=== PATIENT | male | born 1980 | race Caucasian/White ===

== ENCOUNTER 2018-06-12 12:58 | Outpatient (CLI) | payer OTHER ==
--- NOTE | 2018-06-12 15:24 | RAD ---
CERVICAL SPINE FOUR VIEWS: HISTORY: Vertebral body heights and alignment are maintained. The cervicothoracic junction is intact. There is leftward convex curvature of the lower cervical and upper thoracic spine. Osteophytosis is most p ronounced at the C4-C5 level and best seen on the frontal view. No acute fracture, dislocation, or a ggressive osseous erosions. IMPRESSION: Osseous degenerative changes. No acute osseous abnormalities are demonstrated. POS: KRYS
== END 2018-06-12 12:59 | disposition home or self-care (01) ==
LOC: BICRAD 12:58
PROVIDERS: ATTEND Student in an Organized Health Care Education/Training Program
DX: M43.22 Fusion of spine, cervical region (principal); M47.812 Spondylosis without myelopathy or radiculopathy, cervical region
CPT/HCPCS: 72040

== ENCOUNTER 2018-11-18 19:53 | Inpatient (IN) | payer OTHER, SELFPAY ==
[2018-11-18] MEDS ORDERED: cefOXitin 2 GM VIAL ONE (20:38)
[2018-11-18] MEDS ORDERED: Acetaminophen 500 MG TAB ONE (20:38)
[2018-11-18] MEDS ORDERED: cefTRIAXone\\ROCEPHIN 2 GM VIAL ONE (20:40)
[2018-11-18] MEDS ORDERED: Multivitamins, Adult 10 ML, Thiamine HCl 100 MG, Folic Acid 1 MG in Dextrose 5 %-0.45 %... IV SCH (21:00)
[2018-11-18 21:01] LABS: ALT (SGPT) 42 U/L (8-55); AST (SGOT) 84 U/L (5-34); Albumin 2.8 g/dL (3.5-5.0); Alcohol Less than 10 mg/dL (Less than 10); Alkaline Phosphatase 67 U/L (40-150); Anion Gap 16 mmol/L (10-20); BUN (Urea Nitrogen) 10 mg/dL (8.9-20.6); CK (CPK) 376 U/L (30-200); Calc. Creatinine Clearance 0 mL/min (70-130); Calcium 8.3 mg/dL (7.8-10.44); Carbon Dioxide 20 mmol/L (22-29); Chloride 82 mmol/L (98-107); Estimated GFR-MDRD Greater than 90; Glucose 124 mg/dL (70-105); Potassium 4.1 mmol/L (3.5-5.1); Protein, Total 6.8 g/dL (6.0-8.3)
[2018-11-18 21:04] LABS: Band 11 % (5-11); Hemoglobin 12.8 g/dL (14.0-18.0); Lymphocytes 2 % (21-51); MDiff Complete? YES; Mean Corpuscular Hemoglobin 30.5 pg (27.0-31.0); Mean Corpuscular Volume 92.4 fL (78.0-98.0); Mean Platelet Volume 7.5 fL (7.4-10.4); Monocytes 8 % (0-10); Neutrophil 79 % (42-75); Platelet Count 326 thou/uL (130-400); RBC Distribution Width 11.4 % (11.5-14.5); Red Blood Cell (RBC) Count 4.19 mill/uL (4.70-6.10); White Blood Cell (WBC) Count 25.1 thou/uL (4.8-10.8)
[2018-11-18 21:05] LABS: Sodium 114 mmol/L (136-145)
--- NOTE | 2018-11-18 21:27 | RAD ---
FRONTAL RADIOGRAPH CHEST: 11/18/2018 HISTORY: Fever. COMPARISON: 09/28/2009 FINDINGS: There is focal opacity in the medial left lung base, which may represent partial consolidation/collap se of the left lower lobe, hiatal hernia, or tortuous descending thoracic aorta. There is consolidat hayley change involving the right upper lobe region as well. IMPRESSION: Focal opacity in the right upper lobe, in the medial left lung base. Findings are suspicious for mul tifocal infectious pneumonitis/aspiration. Recommend short-term follow-up imaging of the chest follo wing treatment to document resolution. POS: OFF
--- NOTE | 2018-11-18 21:29 | PDOC.FPRHP ---
- History of Present Illness Chief Complaint: weakness, fall, alcoholic History of Present Illness: Mr. Mi is a 38yo chronic alcoholic male who presents to the ED after a fall today. 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 She called her other son and they were able to lift him and take him to the bathroom but she did not feel that he was well. He has been eating less over the past several weeks and she has noted an increase in his shortness of breath and coughing in the last several days. She has also noticed tinges of blood in his mucus that he coughs / bile that he vomits - she is unsure of the origin. She also states that he has had non-bloody , watery diarrhea recently. He has also been sleeping more than usual in the last several days. She states that he usually drinks 6-8 of the tall beers (32oz) per day. However in the last 2 days he has not drank more than 1 or 2 per day. He has a longstanding history of alcoholism. He was admitted back in 2009 for hyponatremia and seizures. It was documented that central pontine myelinolysis may have been a cause of his symptoms at that time, but per the discharge summary of that visit, that diagnosis was not formally made. 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 He has a history of sobriety following the hospitalization in 2009 for approximately 6 months and again after an attempt at rehabilitation in 2013 for 6 months. ED Course: 2L NS, Banana bag, Tylenol 1000mg, 2g IV Rocephin, 500mg Azithromycin, DuoNeb - Allergies/Adverse Reactions Allergies Allergy/AdvReac Type Severity Reaction Status Date / Time No Known Drug Allergies Allergy Unverified 11/18/18 20:47 Penicillins Allergy Nausea Verified 11/18/18 23:30 - Home Medications Medication Instructions Recorded Confirmed Type Omeprazole 10 mg PO DAILY 11/18/18 11/18/18 History - History PMHx: GERD Alcohol abuse Tobacco abuse Depression PSHx: Right wrist Right foot FHx: father- , [place]. maternal grandfather-diabetes maternal uncle-diabetes fathers uncle-diabetes maternal grandmother-colon cancer Social: 6-8 32oz beers/day/qday, 6-7 quarts/day, last 1-2 days: 1-2 quarts 1 ppd day smoker Denies illicit drug use - Review of Systems General: reports: weight/appetite/sleep changes, fatigue. denies: fever/chills Eyes: denies: eye pain, vision changes ENT: denies: nasal congestion, rhinorrhea Respiratory: reports: cough, shortness of breath Cardiovascular: reports: edema (left lower extremity). denies: chest pain, palpitation Gastrointestinal: reports: nausea, vomiting, diarrhea (watery). denies: constipation, abdominal pain, GI bleeding Genitourinary: denies: dysuria, polyuria Skin: reports: lesions (abrasion on left knee). denies: rashes Musculoskeletal: denies: pain, tenderness Neurological: reports: seizure (history of, in September) Psychological: reports: depression - Vital signs BP: 117/77 HR: 141 RR: 18 Tmax: 102.9 rectally Pox: 93% on RA Wt: 90kg - Physical Exam Constitutional: NAD -Constitutional: somnolent, but arousable. HEENT: normocephalic and atraumatic, PERRLA, EOMI, conjunctiva clear, grossly normal vision, grossly normal hearing, MMM Neck: supple, FROM Chest: no-tender to palpation Heart: RRR, normal S1/S2, no murmurs/rubs/gallops, pulses present, other (2+ pitting edema of the left lower extremity) Lungs: other -Lungs: Coarse rhonchi heard throughout both lungs, more prominent on the right Abdomen: soft, non-tender, bowel sounds present, other (protuberant) Musculoskeletal: normal structure, normal tone Neurological: no focal deficit, normal sensation Skin: no rash/lesions, good turgor, capillary refill <2 seconds Heme/Lymphatic: no unusual bruising or bleeding, no purpura, no petechia Psychiatric: other (cooperative. somnolent.) FMR H&P: Results - Labs Result Diagrams: 11/18/18 20:32 11/18/18 20:32 Lab results: WBC 25.1 thou/uL (4.8-10.8) H 11/18/18 20:32 Hgb 12.8 g/dL (14.0-18.0) L 11/18/18 20:32 Hct 38.7 % (42.0-52.0) L 11/18/18 20:32 MCV 92.4 fL (78.0-98.0) 11/18/18 20:32 Plt Count 326 thou/uL (130-400) 11/18/18 20:32 Band Neuts % (Manual) 11 % (5-11) 11/18/18 20:32 Sodium 114 mmol/L (136-145) L* 11/18/18 20:32 Potassium 4.1 mmol/L (3.5-5.1) 11/18/18 20:32 Chloride 82 mmol/L (98-107) L 11/18/18 20:32 Carbon Dioxide 20 mmol/L (22-29) L 11/18/18 20:32 BUN 10 mg/dL (8.9-20.6) 11/18/18 20:32 Creatinine 0.81 mg/dL (0.7-1.3) 11/18/18 20:32 Glucose 124 mg/dL (70-105) H 11/18/18 20:32 Lactic Acid 1.2 mmol/L (0.5-2.2) 11/18/18 20:32 Calcium 8.3 mg/dL (7.8-10.44) 11/18/18 20:32 Total Bilirubin 1.0 mg/dL (0.2-1.2) 11/18/18 20:32 AST 84 U/L (5-34) H 11/18/18 20:32 ALT 42 U/L (8-55) 11/18/18 20:32 Alkaline Phosphatase 67 U/L (40-150) 11/18/18 20:32 Creatine Kinase 376 U/L (30-200) H 11/18/18 20:32 B-Natriuretic Peptide 11.3 pg/mL (0-100) 11/18/18 20:32 Serum Total Protein 6.8 g/dL (6.0-8.3) 11/18/18 20:32 Albumin 2.8 g/dL (3.5-5.0) L 11/18/18 20:32 - EKG Interpretation EKG: Sinus Tachycardia - Radiology Interpretation Chest x-ray Status: report reviewed by me (Focal opacity in the right upper lobe and left medial lung base. Suspicious for multifocal infectious pneumonitis or aspiration.) FMR H&P: A/P - Plan 1. Sepsis 2/2 pneumonia, CAP vs aspiration * Rocephin and Azithromycin for CAP coverage * Metronidazole for anaerobe / aspiration coverage. * Blood and urine cultures pending. * Procal 1.47, Lactic acid 1.2, WBC 25, Fever of 102.9 rectally in ED. * AM CBC and BMP ordered 2. Hyponatremia, likely chronic. Seems hypovolemic 2/2 diarrhea and poor po intake. * Na 114. * Goal is gentle correction of approximately 8meq in 24 hours. * History of prior episode of hyponatremia in 2009. Will gently correct with NS and monitor wit q6hr BMP. * Urine osmolality, urine sodium, and plasma osmolality ordered. 3. Chronic alcohol abuse * Last drink 11/18/18. * DT prevention with ASE protocol. * Ativan 1mg prn for anxiety/agitation. * Continue daily checks of Mg and Phos. Mg low at 1.5, will replace tonight. * Will replace vitamins with ASE protocol. 4. S/p fall, concern for rhabdomyolysis * CK trending up from 376 -> 673. * Will continue to assess with repeat CK and gentle fluid administration. 5. Nicotine dependence * 21 patch q day. Disposition/LOS: Dispo: inpatient, IMCU Code: Full VTE: SCDs. FMR H&P: Upper Level - Pertinent history 38 yo gentleman presents with a one week hx of decreased po intake and alcohol abuse. Hx of admission in 2009 for hyponatremia and ?CPM as he had a seizure, however he was also in alcohol withdrawal during that time. - Pertinent findings T: 102.5 HR: 111 BP: 122/73 RR: 32 PE: a&ox3 coarse breath sounds tachycardic no edema left calf swelling wbc 25,000 Lactic acid 1.2 Na: 114, chronic CXR: RUL infiltrate - Plan Date/Time: 11/18/182121 38 yo gentleman with one week hx of decreased po intake and longstanding hx of alcohol abuse, admitted for sepsis 2/2 CAP vs aspiration pneumonia and hyponatremia. #Sepsis 2/2 CAP vs Aspiration Pneumonia -Rocephin, azithro, and flagyl -blood and urine cx -procal -fluids -am cbc, bmp #CAP vs Aspiration pneumonia -see above #Hyponatremia- -hypovolemic, chronic vs isovolemic -will correct slowly, ~8mEq in 24 hours -urine osm, na, serum osm -will give gentle fluids with NS and recheck sodium q6h -suspect 2/2 GI losses vs beer potomania #alcohol abuse -last drink today ~32-50 ounces beer today -ase protocol -prn valium and ativan -banana bag given in the ER #nicotine abuse- -counseled on cessation -nicotine patch DVT prophylaxis: SCDs CODE: hetal Brunson MD, PGY-3
[2018-11-18] MEDS ORDERED: Azithromycin 500 MG VIAL ONE (21:33)
[2018-11-18] MEDS ORDERED: Ondansetron ODT 4 MG TAB PO PRN (22:18)
[2018-11-18] MEDS ORDERED: Acetaminophen 325 MG TAB PO PRN (22:18)
[2018-11-18 22:43] LABS: Bacteria/HPF None Seen HPF (None Seen); Bilirubin Negative (Negative); Blood, Urine 1+ (Negative); Clarity Clear (Clear); Glucose, Urine (Dipstick) Normal (Negative); Leukocyte Negative Leu/uL (Negative); Nitrite Negative (Negative); Protein, Urine (Dipstick) 50 mg/dL (Neg-Trace); RBC/HPF 0-3 HPF (0-3); Squamous Epithelial None Seen HPF (0-3); Urobilinogen Normal mg/dL (Less than 2)
[2018-11-18] MEDS ORDERED: Loperamide HCl 2 MG CAP PO SCH (22:45)
[2018-11-18 23:24] LABS: CK (CPK) 673 U/L (30-200); Magnesium 1.5 mg/dL (1.6-2.6)
[2018-11-18 23:34] VITALS: BMI 23.0
[2018-11-18 23:56] LABS: Folate (Folic Acid) 16.2 ng/mL (7.0-31.4)
[2018-11-19] MEDS ORDERED: Diazepam 5 MG TAB PO PRN (00:32)
[2018-11-19] MEDS ORDERED: Diazepam 5 MG TAB PO SCH (00:45)
[2018-11-19 02:22] LABS: INR-International Normal Ratio 1.2; Prothrombin Time 15.1 SEC (12.0-14.7)
[2018-11-19 02:23] LABS: PTT 30.3 SEC (22.9-36.1)
[2018-11-19 02:35] LABS: Anion Gap 11 mmol/L (10-20); BUN (Urea Nitrogen) 8 mg/dL (8.9-20.6); Calc. Creatinine Clearance 176 mL/min (70-130); Calcium 8.2 mg/dL (7.8-10.44); Carbon Dioxide 19 mmol/L (22-29); Chloride 94 mmol/L (98-107); Estimated GFR-MDRD Greater than 90; Glucose 127 mg/dL (70-105); Potassium 3.4 mmol/L (3.5-5.1); Sodium 121 mmol/L (136-145)
[2018-11-19 02:47] LABS: Band 9 % (5-11); Hemoglobin 11.5 g/dL (14.0-18.0); Lymphocytes 9 % (21-51); MDiff Complete? YES; Mean Corpuscular HGB CONC 34.8 g/dL (32.0-36.0); Mean Corpuscular Hemoglobin 32.7 pg (27.0-31.0); Mean Corpuscular Volume 94.2 fL (78.0-98.0); Mean Platelet Volume 7.4 fL (7.4-10.4); Monocytes 8 % (0-10); Neutrophil 74 % (42-75); Platelet Count 271 thou/uL (130-400); RBC Distribution Width 11.4 % (11.5-14.5); Red Blood Cell (RBC) Count 3.52 mill/uL (4.70-6.10); White Blood Cell (WBC) Count 20.7 thou/uL (4.8-10.8)
[2018-11-19 04:28] LABS: Bilirubin Negative (Negative); Blood, Urine Trace (Negative); Clarity Clear (Clear); Glucose, Urine (Dipstick) Normal (Negative); Leukocyte Negative Leu/uL (Negative); Nitrite Negative (Negative); Protein, Urine (Dipstick) Negative (Neg-Trace); RBC/HPF 0-3 HPF (0-3); Squamous Epithelial None Seen HPF (0-3); Urobilinogen Normal mg/dL (Less than 2); WBC/HPF 0-3 HPF (0-3)
[2018-11-19 04:31] LABS: Bacteria/HPF 1+ HPF (None Seen)
[2018-11-19] MEDS ORDERED: metroNIDAZOLE 500 MG in Premix Bag 1 BAG IVPB SCH (06:00)
--- NOTE | 2018-11-19 06:54 | ULT ---
ULTRASOUND WITH DOPPLER DUPLEX VENOUS LOWER EXTREMITY LEFT: CPT: 98606 ICD-10-PCS: B54D INDICATOIN: Pain and edema. TECHNIQUE: Color flow Doppler, spectral waveform analysis of pulsed Doppler, and snow-scale imaging with peyton og and augmentation, were used to evaluate the left common femoral, femoral, popliteal, posterior t ibial, and superficial femoral, veins; and the proximal portions of the profunda femoral and greater saphenous, veins. FINDINGS: There is appropriate compressibility and flow within the imaged deep vein system of the left lower ex tremity. There is mild soft tissue edema. IMPRESSION: 1. No deep venous thrombosis of left lower extremity. 2. Mild soft tissue edema. Correlate clinically. POS: CIARA
--- NOTE | 2018-11-19 06:55 | PDOC.FM ---
- Subjective Subjective: Pt doing well this morning, no concerns or complaints. Denies fever/chills, SOB , n/v/d/c, CP. He does endorse a slight cough, but non productive. States he remembers his fall and events of yesterday leading up to admission, is A/O x2, states he is "[place]where over the [place]" when asked his location. States he used to drink 8 32oz beers a day, but recently has cut down to 1-2 per day over the past few days. - Objective MAR Reviewed: Yes Vital Signs & Weight: Vital Signs (12 hours) Temp Pulse Ox 11/19/18 03:00 98.6 F 11/19/18 00:00 99 11/18/18 23:54 98.0 F Weight Weight 81.42 kg Most Recent Monitor Data Heart Rate from ECG 95 NIBP 138/73 NIBP BP-Mean 94 Respiration from ECG 40 SpO2 97 I&O: 11/17/18 11/18/18 11/19/18 06:59 06:59 06:59 Output Total 250 Balance -250 Result Diagrams: 11/19/18 02:09 11/19/18 20:02 Phys Exam - Physical Examination Constitutional: NAD HEENT: moist MMs Neck: supple course rhonchi bilaterall, slight bl wheeze, decreased air movement Cardiovascular: RRR, no significant murmur, no rub Gastrointestinal: soft, non-tender, no distention, positive bowel sounds Musculoskeletal: no edema 5/5 throughout Neurological: non-focal CN II-XII intact. Slight dysdiadokinesis due to intention tremor Deviation from normal: A/O x2, unclear baseline mentation, mystical thinking at times. Dx/Plan (1) Sepsis due to pneumonia Code(s): J18.9 - PNEUMONIA, UNSPECIFIED ORGANISM; A41.9 - SEPSIS, UNSPECIFIED ORGANISM Status: Acute (2) Hyponatremia Code(s): E87.1 - HYPO-OSMOLALITY AND HYPONATREMIA Status: Acute (3) Alcohol abuse Code(s): F10.10 - ALCOHOL ABUSE, UNCOMPLICATED Status: Chronic - Plan Plan: 38 yo gentleman with one week hx of decreased po intake and longstanding hx of alcohol abuse, admitted for sepsis 2/2 CAP vs aspiration pneumonia and hyponatremia. 1. Sepsis 2/2, 2/2 CAP vs Aspiration Pneumonia - Rocephin, flagy, and azithro at admit, Will change to Zoysn to cover both CAP and aspiration PNA - Procal 1.47, LA 1.2, WBC 25 ->20. Will check for strep and legionella - Initial fever of 102.9, VSS since and afebrile - Continue to monitor, repeat CXR in AM. 2. Hyponatremia - Na 114-> 121 ->123 - Hypovolemic, chronic vs isovolemic - suspect GI losses vs beer potomania. Monitor mentation and neurologic status. - Goal is to correct ~8meq in 24 hours, has already go up 7meq in first 4 hours. s/p 4L bolus in ED. Will hold IVF. - H/o hyponatremia in 2009. Monitor with q6h BMP - Urine Osm 91, Serum Osm 254, Urine Na < 20 3. Chronic EtOH abuse - last drink on day of admission - ASE protol. Ativan prn, monitor. - Banana bag given in the ER. Continue thiamine replacement. - Monitoring lytes and replacing. 4. S/p fall, concern for rhabdomyolysis - CK trending up from 376 -> 673. - Will continue to assess with repeat CK. Currently holding fluids 2/2 Na increase. Will monitor. 5. nicotine abuse - counseled on cessation - nicotine patch DVT prophylaxis: SCDs Diet: Full liquid to advance as tolerated CODE: full Dispo: Pending clinical course and correction of hyponatremia. Currently holding IVF. If clinical course continues, will transfer to medical floor. Monitor for acute s/s of withdrawal and tx appropriately. Anticipate hospitalization 3-4 days Addendum - Attending - Attending Attestation Date/Time: 11/19/182045 I personally evaluated the patient and discussed the management with Dr. Norma Heredia. I agree with the History, Examination, Assessment and Plan documented above with any addition or exceptions noted below. Sepsis secondary to aspiration pna- change abx to zosyn to better cover aspiratoin Hyponatremia- chronic from beer potomania- s/p 4 L IVF in ER. Corrected 9 meq so will stop IVF for now and trend q 6. Alcohol abuse- ASE protocol and consider beer with dinner daily Sinus tachycardia- monitor closely. Asymptomatic.
[2018-11-19 08:21] LABS: Anion Gap 11 mmol/L (10-20); BUN (Urea Nitrogen) 7 mg/dL (8.9-20.6); Calc. Creatinine Clearance 190 mL/min (70-130); Carbon Dioxide 22 mmol/L (22-29); Chloride 94 mmol/L (98-107); Estimated GFR-MDRD Greater than 90; Glucose 85 mg/dL (70-105); Potassium 3.5 mmol/L (3.5-5.1); Sodium 123 mmol/L (136-145)
[2018-11-19] MEDS ORDERED: Enoxaparin Sodium 40 MG/0.4 ML SYRINGE SC SCH (09:00)
[2018-11-19] MEDS: Loperamide HCl 2 MG CAP PO SCH (09:58)
[2018-11-19] MEDS: Folic Acid 1 MG TAB PO SCH (09:58)
[2018-11-19] MEDS: Multivitamin W/ Minerals 1 TAB PO SCH (09:58)
[2018-11-19] MEDS: Nicotine 21 MG PATCH TD SCH (09:58)
[2018-11-19] MEDS: Potassium Chloride 20 MEQ TAB PO SCH (09:58)
[2018-11-19 14:28] LABS: Anion Gap 9 mmol/L (10-20); BUN (Urea Nitrogen) 6 mg/dL (8.9-20.6); Calc. Creatinine Clearance 190 mL/min (70-130); Calcium 8.3 mg/dL (7.8-10.44); Carbon Dioxide 22 mmol/L (22-29); Chloride 94 mmol/L (98-107); Estimated GFR-MDRD Greater than 90; Glucose 88 mg/dL (70-105); Potassium 3.6 mmol/L (3.5-5.1); Sodium 121 mmol/L (136-145)
[2018-11-19] MEDS: Piperacillin/Tazobactam 4.5 GM in Sodium Chloride 0.9% 100 ML IVPB SCH ×2 (17:50→23:08)
[2018-11-19 20:05] LABS: Legionella Urinary Ag Negative (Negative); Strep pneumo Urine Ag NEGATIVE (NEGATIVE)
[2018-11-19 20:26] LABS: Anion Gap 15 mmol/L (10-20); BUN (Urea Nitrogen) 5 mg/dL (8.9-20.6); Calc. Creatinine Clearance 181 mL/min (70-130); Calcium 8.4 mg/dL (7.8-10.44); Carbon Dioxide 20 mmol/L (22-29); Chloride 92 mmol/L (98-107); Estimated GFR-MDRD Greater than 90; Glucose 79 mg/dL (70-105); Potassium 3.6 mmol/L (3.5-5.1); Sodium 123 mmol/L (136-145)
[2018-11-19] MEDS ORDERED: cefTRIAXone\\ROCEPHIN 2 GM in Sodium Chloride 0.9% 100 ML IVPB SCH (21:00)
[2018-11-19] MEDS ORDERED: Azithromycin 500 MG in Sodium Chloride 0.9% 250 ML 250 ML IVPB SCH (22:00)
[2018-11-20] MEDS: Lorazepam 2 MG/ML VIAL SLOW IVP PRN ×2 (00:33→08:33)
[2018-11-20 02:41] LABS: Anion Gap 14 mmol/L (10-20); BUN (Urea Nitrogen) 5 mg/dL (8.9-20.6); Calc. Creatinine Clearance 194 mL/min (70-130); Calcium 8.5 mg/dL (7.8-10.44); Carbon Dioxide 20 mmol/L (22-29); Chloride 94 mmol/L (98-107); Estimated GFR-MDRD Greater than 90; Glucose 84 mg/dL (70-105); Potassium 3.3 mmol/L (3.5-5.1); Sodium 125 mmol/L (136-145)
[2018-11-20] MEDS ORDERED: Diazepam 5 MG TAB PO PRN (04:00)
[2018-11-20] MEDS: Piperacillin/Tazobactam 4.5 GM in Sodium Chloride 0.9% 100 ML IVPB SCH ×3 (06:28→18:19)
--- NOTE | 2018-11-20 06:40 | PDOC.FM ---
- Subjective Subjective: Doing well this morning, no concerns or complaints. He stays he had "weird thinking" overnight, but no acute events. He denies any CP, SOB, fever/chills, n /v/d/c. He is feeling at his baseline this morning. No s/s of withdrawal. - Objective MAR Reviewed: Yes Vital Signs & Weight: Vital Signs (12 hours) Temp Pulse Resp BP BP Pulse Ox 11/20/18 04:00 98.2 F 105 H 20 138/90 94 L 11/20/18 00:18 100.4 F H 113 H 22 H 143/87 H 92 L 11/19/18 21:25 116 H 92 L 11/19/18 20:00 142/83 H 11/19/18 19:16 99.5 F 124 H 20 142/83 H 88 L Weight Admit Weight 81.42 kg Weight 81.42 kg Most Recent Monitor Data Heart Rate from ECG 116 NIBP 125/72 NIBP BP-Mean 89 Respiration from ECG 29 SpO2 96 I&O: 11/18/18 11/19/18 11/20/18 06:59 06:59 06:59 Intake Total 900 2700 Output Total 1100 1300 Balance -200 1400 Result Diagrams: 11/20/18 08:52 11/20/18 08:17 Phys Exam - Physical Examination Constitutional: NAD (resting comfortably, drinking multiple glasses of water while in the room) Respiratory: no wheezing, no rales, no rhonchi, clear to auscultation bilateral (much improve aeration from previous exam) Cardiovascular: RRR, no significant murmur, no rub Gastrointestinal: soft, non-tender, no distention, positive bowel sounds Musculoskeletal: no edema Psychiatric: A&O x 3 Dx/Plan (1) Sepsis due to pneumonia Code(s): J18.9 - PNEUMONIA, UNSPECIFIED ORGANISM; A41.9 - SEPSIS, UNSPECIFIED ORGANISM Status: Acute (2) Hyponatremia Code(s): E87.1 - HYPO-OSMOLALITY AND HYPONATREMIA Status: Acute (3) Alcohol abuse Code(s): F10.10 - ALCOHOL ABUSE, UNCOMPLICATED Status: Chronic - Plan Plan: 38 yo CM with one week hx of decreased po intake and longstanding hx of alcohol abuse, admitted for sepsis 2/2 CAP vs aspiration pneumonia and hyponatremia. 1. Sepsis 2/2 CAP vs Aspiration Pneumonia - Zoysn Day 2 to cover both CAP and aspiration PNA - Procal 1.47, LA 1.2, WBC 25 ->20. Strep and legionella negative - Initial fever of 102.9, Tachy and fever of 100.4 overnight. Asymptomatic. - Repeat CXR this AM. Monitor. 2. Hyponatremia - Na 114-> 121 ->123 -> 125 - Hypovolemic, chronic vs isovolemic - suspect beer potomania. Monitor mentation and neurologic status. A/O x3 this morning. - Goal is to correct ~8meq in 24 hours, s/p 4L bolus in ED. Recheck BMP this AM. - H/o hyponatremia in 2009. Monitor with q6h BMP, will step out to q8h - Urine Osm 91, Serum Osm 254, Urine Na < 20 3. Chronic EtOH abuse - last drink on day of admission - ASE protol. Ativan prn, no acute s/s of withdrawal - Banana bag given in the ER. Continue thiamine replacement. - Monitoring lytes and replacing. 4. S/p fall - CK trending up from 376 -> 673 -> 481. No KATIANA or significant rhabdo 5. Nicotine abuse - counseled on cessation, nicotine patch DVT prophylaxis: SCDs Diet: Regular CODE: full Dispo: Pending correction of Na and tx of PNA. Likely hospitalization 2-3 days. Addendum - Attending - Attending Attestation Date/Time: 11/20/18 2085 I personally evaluated the patient and discussed the management with Dr. Norma Heredia. I agree with the History, Examination, Assessment and Plan documented above with any addition or exceptions noted below. Sepsis from significant aspiration pneumonia- CT scan chest done showing significant infiltrate. Patient on Zosyn. (has a remote history of nausea with PCN but no true allergy. Has tolerated zosyn). Will add vancomycin as well. Appreciate Pulmonology input. Tachycardia- probably secondary to sepsis and alcohol withdrawl. Will monitor Alcohol abuse- will start on librium taper today hyponatremia from beer potomania- trend. hypomg and hypok- replace.
[2018-11-20 09:05] LABS: Anion Gap 16 mmol/L (10-20); BUN (Urea Nitrogen) 6 mg/dL (8.9-20.6); Calc. Creatinine Clearance 194 mL/min (70-130); Calcium 8.7 mg/dL (7.8-10.44); Carbon Dioxide 22 mmol/L (22-29); Chloride 90 mmol/L (98-107); Estimated GFR-MDRD Greater than 90; Glucose 69 mg/dL (70-105); Potassium 3.4 mmol/L (3.5-5.1); Sodium 125 mmol/L (136-145)
--- NOTE | 2018-11-20 09:18 | RAD ---
PORTABLE CHEST: Date: 11/20/18 PROVIDED CLINICAL HISTORY: Pneumonia. FINDINGS: Comparison with 11/18/18. Cardiac and mediastinal silhouette is unchanged in appearance. Retrocardiac density, presumed hiatal hernia appears similar to prior. Interval increase in density of right upper lung zone consolidation. Left lung remains clear. No pleural fluid or pneumothorax apparent. Suggestion of cavitation within the right upper lung zone parenchymal consolidation. IMPRESSION: Interval increase in density of right upper lung zone consolidation with superimposed cavitation susp ected. Consider CT as indicated. POS: TPC
[2018-11-20 09:22] LABS: Mean Corpuscular HGB CONC 33.1 g/dL (32.0-36.0); Mean Corpuscular Hemoglobin 31.8 pg (27.0-31.0); Mean Platelet Volume 7.9 fL (7.4-10.4); Platelet Count 295 thou/uL (130-400); RBC Distribution Width 11.4 % (11.5-14.5); Red Blood Cell (RBC) Count 3.77 mill/uL (4.70-6.10); White Blood Cell (WBC) Count 19.1 thou/uL (4.8-10.8)
[2018-11-20 09:24] LABS: Band 12 % (5-11); Lymphocytes 5 % (21-51); MDiff Complete? YES; Metamyelocyte 1 % (0-0); Monocytes 5 % (0-10); Neutrophil 77 % (42-75); Platelet Morphology Comment Appears Adequate; Vacuoles SLIGHT
[2018-11-20] MEDS ORDERED: Potassium Chloride 20 MEQ TAB PO SCH ×2 (09:30→18:15)
[2018-11-20] MEDS: Folic Acid 1 MG TAB PO SCH (10:14)
[2018-11-20] MEDS: Thiamine 100 MG TAB PO SCH (10:14)
[2018-11-20] MEDS: Magnesium Oxide 400 MG TAB PO SCH (10:14)
[2018-11-20] MEDS: Multivitamin W/ Minerals 1 TAB PO SCH (10:15)
[2018-11-20] MEDS: Loperamide HCl 2 MG CAP PO SCH (10:15)
[2018-11-20] MEDS: Nicotine 21 MG PATCH TD SCH (10:16)
[2018-11-20] MEDS: Potassium Chloride 20 MEQ TAB PO SCH (13:30)
[2018-11-20] MEDS: Vancomycin HCl 1.25 GM in Sodium Chloride 0.9% 250 ML 250 ML IVPB SCH (15:05)
[2018-11-20] MEDS ORDERED: ISOVUE-370 76%-LOCM 1 ML ONE (15:44)
[2018-11-20 16:39] LABS: Anion Gap 13 mmol/L (10-20); BUN (Urea Nitrogen) 6 mg/dL (8.9-20.6); Calc. Creatinine Clearance 190 mL/min (70-130); Calcium 8.2 mg/dL (7.8-10.44); Carbon Dioxide 21 mmol/L (22-29); Chloride 93 mmol/L (98-107); Estimated GFR-MDRD Greater than 90; Glucose 127 mg/dL (70-105); Potassium 3.3 mmol/L (3.5-5.1); Sodium 124 mmol/L (136-145)
--- NOTE | 2018-11-20 17:00 | CT ---
CT CHEST WITH CONTRAST: HISTORY: Pneumonia with possible cavitary lesion seen on chest x-ray. COMPARISON: Chest x-ray from 11/20/2018. TECHNIQUE: Multiple contiguous axial images were obtained in a CT of the chest with contrast. Coronal reformats were performed. FINDINGS: There is an area of consolidation at the posterior aspect of the right upper lobe. There is central necrosis within this area of consolidation. There are enlarged bronchi extending into this area, and there is soft tissue density surrounding the bronchus, to the right upper lobe. The patient has an azygous lobe, which also demonstrates a small amount of consolidation. There is also subtle air spac e opacity scattered throughout the right lower lobe. No infiltrates are seen in the left lung. Ther e is a small right pleural effusion. No left pleural effusion is seen. The heart is normal in size. There is a large hiatal hernia. There appear to be enlarged right jhon r lymph nodes. The visualized subdiaphragmatic structures are unremarkable. The patient has a remote left rib fracture, which appears to be healing. The chest wall soft tissues are unremarkable. IMPRESSION: 1. Right-sided pneumonia with cavitation of the right upper lobe, as above. 2. There is soft tissue density in the right hilar region, which is most likely an infectious cause. A malignant cause cannot be entirely excluded. Recommend following to resolution with repeat imagi ng to exclude malignancy in this location. 2. Small right pleural effusion. POS: DESTINY
--- NOTE | 2018-11-20 21:31 | CON ---
DATE OF CONSULTATION: 11/20/2018 CONSULTING PHYSICIAN: [facility]. REASON FOR CONSULTATION: Severe pneumonia. HISTORY OF PRESENT ILLNESS: The patient is a poor historian. He defers to his mother for most of the medical history, even her history is not very revealing. From what I can tell, he has been feeling ill for a number of days. He came into the hospital on Friday. He was started on typical treatment for outpatient pneumonia. He has developed some alcohol withdrawal symptoms because of continued symptoms. The [facility] had a CT of the chest performed, which showed fairly substantial right middle lobe, right upper lobe pneumonia. The patient drinks about 11 quarts of beer per day. He says he does drink to the point where he passes out. He has never had pneumonia in the past. He has no previous history of tuberculosis exposure. He has spent total 1 day in detention in his life and that is for DWI. PAST MEDICAL HISTORY: 1. Alcohol abuse/alcoholism. 2. Gastroesophageal reflux. 3. Depression. PAST SURGICAL HISTORY: Right wrist surgery and right foot surgery. FAMILY MEDICAL HISTORY: Remarkable for heart disease, diabetes, and colon cancer. SOCIAL HISTORY: Alcohol history as outlined above. He is 1 pack per day smoker. He is currently unemployed. REVIEW OF SYSTEMS: He has had some intermittent fever. Denies any weight loss or night sweats. No nausea, vomiting, chest pain, hematemesis, melena, hematochezia, hematuria, or dysuria. No hemoptysis. PHYSICAL EXAMINATION: VITAL SIGNS: Temperature is 99.8, his T-max since admission has been 100.4, pulse is 140, blood pressure is 140/81, O2 saturation is 94% on room air. GENERAL: He is quite disheveled, but in no respiratory distress. HEENT: Remarkable for acne. NECK: No adenopathy or JVD. LUNGS: He has diffuse crackles on the right side, best heard posteriorly in the upper regions. CARDIAC: S1, S2. Slightly tachycardic. ABDOMEN: Soft, nontender to palpation. EXTREMITIES: No clubbing, cyanosis, or edema. NEUROLOGIC: He has a resting tremor. LABORATORY DATA: White blood cell count 19.1, hematocrit 36.2, and platelet count 295. INR 1.2. Sodium 125, potassium 3.4, chloride 90, CO2 of 22, BUN 6, creatinine 0.7, glucose 69, AST 84, ALT 42. CPK 376. His urinary Legionella antigen and Streptococcal antigens were negative. Cultures show no growth to date. CT and chest x-ray were reviewed. He has a necrotic infiltrate in the right upper lobe. ASSESSMENT: 1. Necrotizing pneumonia, likely aspiration, given the patient's history of alcoholism. 2. Alcoholism. 3. Tobacco abuse. PLAN: 1. The patient needs broad-spectrum IV antibiotic coverage, especially for gram-negative such as Klebsiella. He has been placed on Zosyn and vancomycin, that should be broaden of coverage. 2. His alcohol withdrawal symptoms need to be monitored closely and treated aggressively. This may entail moving him to intermediate care if his situation worsens. 3. Total duration of antibiotic therapy needs to be 7 to 10 days. I would not let him go home until he shows improvement with his alcohol withdrawal symptoms. Job ID: [id number]
[2018-11-20] MEDS: Lactated Ringer's 1,000 ML IV SCH (21:57)
[2018-11-21] MEDS: Piperacillin/Tazobactam 4.5 GM in Sodium Chloride 0.9% 100 ML IVPB SCH ×4 (00:33→15:46)
[2018-11-21 00:39] LABS: Anion Gap 12 mmol/L (10-20); BUN (Urea Nitrogen) 4 mg/dL (8.9-20.6); Calc. Creatinine Clearance 200 mL/min (70-130); Calcium 8.2 mg/dL (7.8-10.44); Carbon Dioxide 24 mmol/L (22-29); Chloride 94 mmol/L (98-107); Estimated GFR-MDRD Greater than 90; Glucose 96 mg/dL (70-105); Potassium 3.6 mmol/L (3.5-5.1); Sodium 126 mmol/L (136-145)
[2018-11-21] MEDS: Vancomycin HCl 1.25 GM in Sodium Chloride 0.9% 250 ML 250 ML IVPB SCH ×2 (02:00→11:47)
[2018-11-21] MEDS: Lactated Ringer's 1,000 ML IV SCH ×3 (03:55→19:30)
[2018-11-21 06:07] LABS: Band 5 % (5-11); Lymphocytes 15 % (21-51); MDiff Complete? YES; Mean Corpuscular HGB CONC 33.2 g/dL (32.0-36.0); Mean Corpuscular Volume 96.4 fL (78.0-98.0); Metamyelocyte 1 % (0-0); Monocytes 7 % (0-10); Neutrophil 72 % (42-75); Platelet Count 314 thou/uL (130-400); Platelet Morphology Comment Appears Adequate; RBC Distribution Width 11.5 % (11.5-14.5); RBC Morphology Normal; Red Blood Cell (RBC) Count 3.43 mill/uL (4.70-6.10); White Blood Cell (WBC) Count 14.8 thou/uL (4.8-10.8)
[2018-11-21 06:10] LABS: Anion Gap 12 mmol/L (10-20); BUN (Urea Nitrogen) 4 mg/dL (8.9-20.6); Calc. Creatinine Clearance 204 mL/min (70-130); Calcium 8.5 mg/dL (7.8-10.44); Carbon Dioxide 24 mmol/L (22-29); Chloride 94 mmol/L (98-107); Estimated GFR-MDRD Greater than 90; Glucose 92 mg/dL (70-105); Potassium 3.6 mmol/L (3.5-5.1); Sodium 126 mmol/L (136-145)
--- NOTE | 2018-11-21 06:25 | PDOC.FM ---
- Subjective Subjective: No events overnight. Pt's mother states that he did cough up a small amount of blood this morning - stated he did this at home a couple times over the past week but they never thought anything of it. Pt notes some mild shakiness. Mother notes likely hallucinations in the night as pt was speaking non- sensically but thinks he may have just been dreaming. - Objective Vital Signs & Weight: Vital Signs (12 hours) Temp Pulse Resp BP BP Pulse Ox 11/21/18 04:00 98.9 F 113 H 22 H 141/82 H 93 L 11/21/18 01:00 99.1 F 108 H 22 H 144/86 H 92 L 11/20/18 21:00 100.2 F H 115 H 20 135/86 93 L 11/20/18 20:00 135/86 93 L Weight Admit Weight 81.42 kg Weight 81.42 kg Most Recent Monitor Data Heart Rate from ECG 116 NIBP 125/72 NIBP BP-Mean 89 Respiration from ECG 29 SpO2 96 I&O: 11/19/18 11/20/18 11/21/18 06:59 06:59 06:59 Intake Total 900 2700 Output Total 1100 1300 525 Balance -200 1400 -525 Result Diagrams: 11/21/18 05:11 11/21/18 05:11 Phys Exam - Physical Examination Constitutional: NAD HEENT: sclera anicteric some scant dried blood on lips diminished breath sounds on the right decreased air movement overall, rales in RLL Cardiovascular: RRR, no significant murmur Gastrointestinal: soft, non-tender, no distention, positive bowel sounds Musculoskeletal: no edema, pulses present Neurological: non-focal, moves all 4 limbs Psychiatric: A&O x 3 Deviation from normal: flat affect with sarcastic remarks Skin: no rash, cap refill <2 seconds Dx/Plan (1) Hyponatremia Code(s): E87.1 - HYPO-OSMOLALITY AND HYPONATREMIA Status: Acute (2) Sepsis due to pneumonia Code(s): J18.9 - PNEUMONIA, UNSPECIFIED ORGANISM; A41.9 - SEPSIS, UNSPECIFIED ORGANISM Status: Acute (3) Alcohol abuse Code(s): F10.10 - ALCOHOL ABUSE, UNCOMPLICATED Status: Chronic - Plan Plan: Sepsis 2/2 CAP vs Aspiration Pneumonia - Zoysn Day 3 to cover both CAP and aspiration PNA - CT chest: Rt upper lobe cavitary lesion, right hilar soft tissue density, rt pleural effusion - Pulm consulted: recommended cont abx for likely aspiration pna, transfer to IMCU if withdrawal sx worsen Hyponatremia - Na 114-> 121 ->123 -> 125 -> 126 - Hypovolemic, chronic vs isovolemic - suspect beer potomania. Monitor mentation and neurologic status. A/O x3 this morning. - H/o hyponatremia in 2009 - Urine Osm 91, Serum Osm 254, Urine Na < 20 - Goal is to correct ~8meq in 24 hours Chronic EtOH abuse - last drink on day of admission - ASE protol. Scheduled librium TID. Ativan prn, no acute s/s of withdrawal - Banana bag given in the ER. Continue thiamine replacement. - Monitoring lytes and replacing. - Nearing 72hr since last drink, pt is feeling somewhat shaky and mother notes vivid dreams throughout the night S/p fall - CK trending up from 376 -> 673 -> 481. No KATIANA or significant rhabdo Nicotine abuse - counseled on cessation, nicotine patch DVT prophylaxis: SCDs Diet: Regular CODE: full Dispo: Pending correction of Na and tx of PNA. Likely hospitalization 2-3 days. Addendum - Attending - Attending Attestation Date/Time: 11/21/18 5649 I personally evaluated the patient and discussed the management with Dr. Le. I agree with the History, Examination, Assessment and Plan documented above with any addition or exceptions noted below. Patient overall stable. Continues to exhibit some mild EtOH withdrawal and is currently in the window for development of DTs. We will increase his Librium to QID to help offset the risk of developing DT. He continues on abx for suspected aspiration PNA. Pulm on board. He has hyponatremia from beer potomania that is overall stable but will add some salt tabs to help with solute intake. At his current level he is extremely unlikely to develop complications from treatment of hyponatremia.
[2018-11-21] MEDS: Potassium Chloride 20 MEQ TAB PO SCH (09:06)
[2018-11-21] MEDS: Thiamine 100 MG TAB PO SCH (09:07)
[2018-11-21] MEDS: Folic Acid 1 MG TAB PO SCH (09:07)
[2018-11-21] MEDS: Multivitamin W/ Minerals 1 TAB PO SCH (09:07)
[2018-11-21] MEDS: Nicotine 21 MG PATCH TD SCH (09:14)
[2018-11-21] MEDS: Magnesium Oxide 400 MG TAB PO SCH (09:14)
--- NOTE | 2018-11-21 11:35 | PRG ---
DATE OF SERVICE: 11/21/2018 SUBJECTIVE: He had no complaints. He still demonstrating outward signs of alcohol withdrawal with severe tremor. OBJECTIVE: VITAL SIGNS: Temperature is 98.0, pulse 111, respirations 20, O2 saturation 92% on room air, blood pressure 144/85. HEENT: Unremarkable. NECK: No JVD. LUNGS: Inspiratory crackles, right base. Left side, clear. CARDIAC: S1, S2. Regular. ABDOMEN: Soft. EXTREMITIES: No edema. LABORATORY DATA: White blood cell count 14.8, hematocrit 33, platelet count 314. Sodium 126, potassium 3.6, BUN 4, creatinine 0.5, glucose 92. ASSESSMENT: 1. Severe necrotizing pneumonia, likely aspiration related. 2. Alcohol abuse with withdrawal. 3. Hyponatremia, likely from beer drinkers' potomania. PLAN: We would continue IV antibiotics. At this point, him having MRSA are pretty low, so I would think by tomorrow he can have that vancomycin stopped if he has not grown anything in cultures. Ultimately, reasonable oral therapy would probably be Augmentin for an extended period of time. He will need a followup film in about 4 weeks. Job ID: [id number]
[2018-11-21] MEDS: Sodium Chloride 1 GM TAB PO SCH ×2 (11:50→21:24)
[2018-11-21 12:24] LABS: Anion Gap 13 mmol/L (10-20); BUN (Urea Nitrogen) 4 mg/dL (8.9-20.6); Calc. Creatinine Clearance 212 mL/min (70-130); Calcium 8.3 mg/dL (7.8-10.44); Carbon Dioxide 24 mmol/L (22-29); Chloride 94 mmol/L (98-107); Estimated GFR-MDRD Greater than 90; Glucose 86 mg/dL (70-105); Potassium 3.6 mmol/L (3.5-5.1); Sodium 127 mmol/L (136-145)
[2018-11-21] MEDS: Diabetic Tussin 200 MG/10 ML UDCUP PO PRN ×2 (15:46→21:25)
[2018-11-21 18:37] LABS: Anion Gap 13 mmol/L (10-20); BUN (Urea Nitrogen) 5 mg/dL (8.9-20.6); Calc. Creatinine Clearance 176 mL/min (70-130); Calcium 7.9 mg/dL (7.8-10.44); Carbon Dioxide 22 mmol/L (22-29); Chloride 95 mmol/L (98-107); Estimated GFR-MDRD Greater than 90; Glucose 104 mg/dL (70-105); Potassium 3.6 mmol/L (3.5-5.1); Sodium 126 mmol/L (136-145)
[2018-11-22 00:21] LABS: Anion Gap 11 mmol/L (10-20); BUN (Urea Nitrogen) 4 mg/dL (8.9-20.6); Calc. Creatinine Clearance 197 mL/min (70-130); Carbon Dioxide 25 mmol/L (22-29); Chloride 95 mmol/L (98-107); Estimated GFR-MDRD Greater than 90; Glucose 108 mg/dL (70-105); Potassium 3.4 mmol/L (3.5-5.1); Sodium 128 mmol/L (136-145)
[2018-11-22 00:24] LABS: Vancomycin, Trough 6.1 ug/mL
[2018-11-22] MEDS: Vancomycin HCl 1.25 GM in Sodium Chloride 0.9% 250 ML 250 ML IVPB SCH ×3 (01:00→08:33)
[2018-11-22] MEDS: Lactated Ringer's 1,000 ML IV SCH (01:06)
[2018-11-22] MEDS: Piperacillin/Tazobactam 4.5 GM in Sodium Chloride 0.9% 100 ML IVPB SCH ×4 (01:06→17:34)
--- NOTE | 2018-11-22 06:20 | PDOC.FM ---
- Subjective Subjective: Pt and mother deny any events overnight. Mother states that the pt has been acting his usual self. Pt states that he feels less shaky than he did yesterday. Denies any hallucinations, WILSON, tremors, or palpitations. - Objective Vital Signs & Weight: Vital Signs (12 hours) Temp Pulse Resp BP BP Pulse Ox 11/22/18 05:26 98.2 F 107 H 16 149/94 H 92 L 11/22/18 00:22 97.8 F 62 16 140/60 93 L 11/22/18 00:00 140/60 11/21/18 20:06 98.2 F 109 H 16 153/93 H 93 L Weight Admit Weight 81.42 kg Weight 81.42 kg Most Recent Monitor Data Heart Rate from ECG 116 NIBP 125/72 NIBP BP-Mean 89 Respiration from ECG 29 SpO2 96 I&O: 11/20/18 11/21/18 11/22/18 06:59 06:59 06:59 Intake Total 2700 Output Total 1300 525 Balance 1400 -525 Result Diagrams: 11/22/18 05:55 11/22/18 05:55 Phys Exam - Physical Examination Constitutional: NAD HEENT: PERRLA, moist MMs Neck: no JVD, full ROM Coarse breath sounds right upper field, rales in right lower Diffuse rhonci and rales on the left Cardiovascular: RRR, no significant murmur Gastrointestinal: soft, non-tender, no distention, positive bowel sounds Musculoskeletal: no edema, pulses present Neurological: non-focal, moves all 4 limbs Psychiatric: A&O x 3 Deviation from normal: flat affect Skin: no rash, cap refill <2 seconds Dx/Plan (1) Hyponatremia Code(s): E87.1 - HYPO-OSMOLALITY AND HYPONATREMIA Status: Acute (2) Sepsis due to pneumonia Code(s): J18.9 - PNEUMONIA, UNSPECIFIED ORGANISM; A41.9 - SEPSIS, UNSPECIFIED ORGANISM Status: Acute (3) Alcohol abuse Code(s): F10.10 - ALCOHOL ABUSE, UNCOMPLICATED Status: Chronic - Plan Plan: Sepsis 2/2 CAP vs Aspiration Pneumonia - Vanc/Zosyn day 4 - CT chest: Rt upper lobe cavitary lesion, right hilar soft tissue density, rt pleural effusion - Pulm consulted: recommended stopping vanc if cultures negative, augmentin for oral tx to cont outpt, follow up CXR 4 weeks - BC negative at 48hr growth x2, Urine culture negative - Will stop vanc/zosyn and switch to augmentin to cont as outpt Hyponatremia - Na 114-> 121 ->123 -> 125 -> 126 -> 128 - Hypovolemic, chronic vs isovolemic - suspect beer potomania. Monitor mentation and neurologic status. A/O x3 this morning. - H/o hyponatremia in 2009 - Urine Osm 91, Serum Osm 254, Urine Na < 20 - Goal is to correct ~8meq in 24 hours - Salt tablets TID with meals added yesterday - Pt is likely currently near his baseline, will stop q6 BMP and cont AM runs Chronic EtOH abuse - last drink on day of admission - ASE protol. Scheduled librium increased to QID. Ativan prn, no acute s/s of withdrawal - Banana bag given in the ER. Continue thiamine replacement. - Monitoring lytes and replacing potassium today - >72hr since last drink, pt has not required prn ativan since 11/20 - Pt unlikely to cease drinking upon DC so will not cont librium rx S/p fall - CK trending up from 376 -> 673 -> 481. No KATIANA or significant rhabdo Nicotine abuse - counseled on cessation, nicotine patch DVT prophylaxis: SCDs Diet: Regular CODE: full Dispo: Sodium is at pt's likely baseline. Pt is beyond 72 hrs since last drink without active withdrawal sx and very little need for benzo beyond scheduled librium. Oxygen saturations have been borderline. If he continues to maintain without supplemental O2 expect dc either today or within next day or two. Addendum - Attending - Attending Attestation Date/Time: 11/22/18 6489 I personally evaluated the patient and discussed the management with Dr. Le. I agree with the History, Examination, Assessment and Plan documented above with any addition or exceptions noted below. Patient here for suspected aspiration pneumonia and severe alcohol dependence. He has had less withdrawal symptoms since increasing Librium yesterday. Will need to discuss with patient the option of benzo taper outpatient or if he will resume drinking. He continues on Vanc and Zosyn but should be able to de- escalate to Zosyn alone at this time. Pulm on board. No current evidence for severe withdrawal or DT symptoms. Procalcitonin decreasing at rate expected of successful treatment of bacterial infection. He is likely nearing point of being able to transition to oral therapy and possible d/c in the next day or two.
[2018-11-22 06:30] LABS: Anion Gap 12 mmol/L (10-20); BUN (Urea Nitrogen) 4 mg/dL (8.9-20.6); Calc. Creatinine Clearance 215 mL/min (70-130); Calcium 8.4 mg/dL (7.8-10.44); Carbon Dioxide 23 mmol/L (22-29); Chloride 96 mmol/L (98-107); Estimated GFR-MDRD Greater than 90; Glucose 96 mg/dL (70-105); Potassium 3.3 mmol/L (3.5-5.1); Sodium 128 mmol/L (136-145)
[2018-11-22] MEDS ORDERED: Potassium Chloride 20 MEQ TAB PO SCH (06:30)
[2018-11-22 06:35] LABS: Hemoglobin 10.6 g/dL (14.0-18.0); Mean Corpuscular HGB CONC 32.4 g/dL (32.0-36.0); Mean Corpuscular Hemoglobin 31.3 pg (27.0-31.0); Mean Corpuscular Volume 96.4 fL (78.0-98.0); Mean Platelet Volume 7.5 fL (7.4-10.4); Platelet Count 313 thou/uL (130-400); RBC Distribution Width 11.6 % (11.5-14.5); Red Blood Cell (RBC) Count 3.39 mill/uL (4.70-6.10); White Blood Cell (WBC) Count 10.5 thou/uL (4.8-10.8)
[2018-11-22 06:36] LABS: Band 4 % (5-11); Hypochromia SLIGHT = 6-15 cells (100X) (0-5/hpf); Lymphocytes 15 % (21-51); MDiff Complete? YES; Monocytes 6 % (0-10); Neutrophil 75 % (42-75); Platelet Morphology Comment Appears Adequate
[2018-11-22] MEDS: Sodium Chloride 1 GM TAB PO SCH ×3 (08:25→20:27)
[2018-11-22] MEDS: Potassium Chloride 20 MEQ TAB PO SCH (08:27)
[2018-11-22] MEDS: Folic Acid 1 MG TAB PO SCH (08:28)
[2018-11-22] MEDS: Multivitamin W/ Minerals 1 TAB PO SCH (08:28)
[2018-11-22] MEDS: Thiamine 100 MG TAB PO SCH (08:28)
[2018-11-22] MEDS: Magnesium Oxide 400 MG TAB PO SCH (08:29)
[2018-11-22] MEDS: Nicotine 21 MG PATCH TD SCH (08:30)
--- NOTE | 2018-11-22 10:05 | PRG ---
DATE OF SERVICE: 11/22/2018 SUBJECTIVE: The patient is about the same. Has no complaints. OBJECTIVE: VITAL SIGNS: Temperature is 97.9, pulse 106, respirations 20, O2 saturation 92%, and blood pressure 115/88. HEENT: Unremarkable. NECK: No adenopathy, JVD, or bruits. LUNGS: Crackles, right lower lobe. CARDIAC: S1 and S2, regular. ABDOMEN: Soft and nontender. EXTREMITIES: No edema. NEUROLOGIC: The tremor is much better. ASSESSMENT: 1. Necrotizing pneumonia. 2. Alcohol withdrawal. 3. Beer drinker's potomania with continued hyponatremia. RECOMMENDATIONS: Since his cultures are negative, I would recommend discontinuing the vancomycin. From an antibiotic standpoint, I would probably treat him with either Omnicef or Augmentin and continue for 3 weeks. He will need a followup x-ray in about a month. No further recommendations at this time. It is very important that he gets followup to assure resolution and this is not a malignancy. Job ID: [id number]
[2018-11-23] MEDS: Piperacillin/Tazobactam 4.5 GM in Sodium Chloride 0.9% 100 ML IVPB SCH ×3 (00:25→14:01)
[2018-11-23 05:52] LABS: #Eosinphils 0.2 thou/uL (0.0-0.7); #Lymphocytes 1.3 thou/uL (1.20-3.40); #Monocytes 1.4 thou/uL (0.11-0.59); #Neutrophils 7.5 thou/uL (1.40-6.50); %Basophils 0.3 % (0.0-1.0); %Eosinophils 2.4 % (0.0-10.0); %Monocytes 13.3 % (0.0-10.0); Hemoglobin 10.4 g/dL (14.0-18.0); Mean Corpuscular HGB CONC 32.8 g/dL (32.0-36.0); Mean Corpuscular Volume 94.6 fL (78.0-98.0); Mean Platelet Volume 7.7 fL (7.4-10.4); Platelet Count 354 thou/uL (130-400); RBC Distribution Width 11.5 % (11.5-14.5); Red Blood Cell (RBC) Count 3.36 mill/uL (4.70-6.10); White Blood Cell (WBC) Count 10.4 thou/uL (4.8-10.8)
[2018-11-23 06:12] LABS: Anion Gap 10 mmol/L (10-20); BUN (Urea Nitrogen) Less than 4 mg/dL (8.9-20.6); Calc. Creatinine Clearance 181 mL/min (70-130); Calcium 8.2 mg/dL (7.8-10.44); Carbon Dioxide 25 mmol/L (22-29); Chloride 97 mmol/L (98-107); Estimated GFR-MDRD Greater than 90; Glucose 101 mg/dL (70-105); Potassium 3.2 mmol/L (3.5-5.1); Sodium 129 mmol/L (136-145)
--- NOTE | 2018-11-23 06:19 | PDOC.FM ---
- Objective Vital Signs & Weight: Vital Signs (12 hours) Temp Pulse Resp BP Pulse Ox 11/23/18 00:19 99.7 F H 105 H 20 132/76 90 L 11/22/18 19:43 97.5 F L 118 H 18 138/87 95 Weight Admit Weight 81.42 kg Weight 81.42 kg Most Recent Monitor Data Heart Rate from ECG 116 NIBP 125/72 NIBP BP-Mean 89 Respiration from ECG 29 SpO2 96 I&O: 11/21/18 11/22/18 11/23/18 06:59 06:59 06:59 Intake Total 2300 Output Total 525 Balance -525 2300 Result Diagrams: 11/23/18 05:15 11/23/18 05:15 Phys Exam - Physical Examination Constitutional: NAD (did not appear anxious, diaphoretic, or with tremors.) Respiratory: no wheezing positive for rhonchi, rales R lung Cardiovascular: RRR, no significant murmur Gastrointestinal: soft, non-tender, no distention Dx/Plan (1) Hyponatremia Code(s): E87.1 - HYPO-OSMOLALITY AND HYPONATREMIA Status: Acute (2) Sepsis due to pneumonia Code(s): J18.9 - PNEUMONIA, UNSPECIFIED ORGANISM; A41.9 - SEPSIS, UNSPECIFIED ORGANISM Status: Acute (3) Alcohol abuse Code(s): F10.10 - ALCOHOL ABUSE, UNCOMPLICATED Status: Chronic - Plan Plan: Plan: Sepsis 2/2 CAP vs Aspiration Pneumonia - Vanc/Zosyn day 5 --> switch to Augmentin 500 mg PO BID per Pulm consult - CT chest: Rt upper lobe cavitary lesion, right hilar soft tissue density, rt pleural effusion - Pulm consulted: recommended stopping vanc if cultures negative, augmentin for oral tx to cont outpt, follow up CXR 4 weeks - BC negative at 48hr growth x2, Urine culture negative Hyponatremia - Na 114-> 121 ->123 -> 125 -> 126 -> 128 --> 129. AAO x 3 - Hypovolemic, chronic vs isovolemic - suspect beer potomania. Monitor mentation and neurologic status. A/O x3 this morning. - H/o hyponatremia in 2009 - Urine Osm 91, Serum Osm 254, Urine Na < 20 - Goal is to correct ~8meq in 24 hours - Salt tablets TID with meals added yesterday - Pt is likely currently near his baseline, will stop q6 BMP and cont AM runs Chronic EtOH abuse - last drink on day of admission --> He and his mother are interested in information for help with alcohol abuse. Will provide information but still weary he will continue drinking on discharge. He is on day 5 w/o alcohol use so he might not need outpt librium taper. - ASE protol. Scheduled librium increased to QID. Ativan prn, no acute s/s of withdrawal - Banana bag given in the ER. Continue thiamine replacement. - Monitoring lytes and replacing potassium today - >72hr since last drink, pt has not required prn ativan since 11/20 - Pt unlikely to cease drinking upon DC so will not cont librium rx S/p fall - CK trending up from 376 -> 673 -> 481. No KATIANA or significant rhabdo Nicotine abuse - counseled on cessation, nicotine patch DVT prophylaxis: SCDs Diet: Regular CODE: full Dispo: Sodium is at pt's likely baseline. Pt is beyond 72 hrs since last drink without active withdrawal sx and very little need for benzo beyond scheduled librium. Oxygen saturations 90% room air one time down from 95% but states resp status has improved. If he continues to maintain without supplemental O2 expect dc either today or within next day or two. Addendum - Attending - Attending Attestation Date/Time: 11/23/18 5973 I personally evaluated the patient and discussed the management with Dr. Angeles. I agree with the History, Examination, Assessment and Plan documented above with any addition or exceptions noted below. Patient overall doing well. He can be swapped to PO abx today for aspiration pneumonia 2/2 chronic alcohol abuse. Withdrawal symptoms suppressed and no evidence for DTs. He and mother have been thoroughly counselled on his alcohol issues and how she is contributing to the issue. Discussion later today about the need for benzo taper if he will obstain from alcohol. Otherwise will be discharged without benzo due to risk of respiratory suppression/arrest with concomitant alcohol use.
[2018-11-23] MEDS: Multivitamin W/ Minerals 1 TAB PO SCH (08:07)
[2018-11-23] MEDS: Thiamine 100 MG TAB PO SCH (08:07)
[2018-11-23] MEDS: Folic Acid 1 MG TAB PO SCH (08:07)
[2018-11-23] MEDS: Magnesium Oxide 400 MG TAB PO SCH (08:07)
[2018-11-23] MEDS: Nicotine 21 MG PATCH TD SCH (08:08)
[2018-11-23] MEDS: Potassium Chloride 20 MEQ TAB PO SCH (08:08)
[2018-11-23] MEDS: Sodium Chloride 1 GM TAB PO SCH ×2 (08:12→15:04)
[2018-11-23 08:17] VITALS: BP 117/72; TEMP 97.6
--- NOTE | 2018-11-23 09:44 | PRG ---
DATE OF SERVICE: 11/23/2018 SUBJECTIVE: The patient feels okay. He wants to go home. OBJECTIVE: VITAL SIGNS: On exam, temperature is 97.6, pulse 115, respirations 16, O2 saturation 98% on room air, and blood pressure 117/72. HEENT: Unremarkable. NECK: No adenopathy or JVD. LUNGS: Crackles on right side and left side clear. CARDIAC: S1 and S2, regular. ABDOMEN: Soft. EXTREMITIES: No edema. LABORATORY DATA: White blood cell count 10.4, hematocrit 31.9, and platelet count 354. Sodium 129, potassium 3.2, BUN 4, creatinine 0.6, and glucose 101. ASSESSMENT: 1. Necrotizing pneumonia. 2. Alcohol withdrawal. 3. Beer drinkers potomania. RECOMMENDATIONS: It should be okay to cycle over to oral antibiotics. I am not sure how well he would do at home at this point and I suspect he is going to go right back to drinking. He will need a followup film in 3 to 4 weeks. No further recommendations at this time. Please recall, if further assistance is needed. Job ID: [id number]
--- NOTE | 2018-11-23 15:08 | PDOC.EVN ---
Event Note - Event Note Event Note: I spoke with pt about penicillin allergy which he states is GI upset. He does not have cardiopulmonary/anaphylaxis secondary to penicillin use. Discussed outpt treatment of Augment and he is fine with treatment. If GI upset is unbearable he will follow up with clinic. I also spoke about his willingness to quit drinking. At this time he would like to stop drinking and is open to resources in regards. Although he shows willingness to quit, I do not feel confident discharging pt home with librium. He does not currently show signs of seizure activity and he is near the end of the window for DT's. Case management will give pt resources. Rj Angeles, DO
[2018-11-23] MEDS ORDERED: Potassium Chloride 20 MEQ TAB PO SCH (15:30)
[2018-11-23] MEDS ORDERED: Amoxicillin/Potassium Clav 500 MG TAB PO SCH (21:00)
--- NOTE | 2018-11-24 05:32 | DIS ---
DATE OF ADMISSION: 11/18/2018 DATE OF DISCHARGE: 11/23/2018 RESIDENT: Rj Angeles. ADMITTING ATTENDING: Dr. Siddhartha Sawyer. CONSULTS: Pulmonology, Dr. Gerardo De La Rosa. PROCEDURES: 1. Chest x-ray on 11/18/2018 revealed a focal opacity in the right upper lobe in the medial left lung base. Findings are suspicious for multifocal infectious pneumonitis aspiration. 2. Ultrasound with Doppler duplex venous lower extremity left for pain and edema revealed no DVT of left lower extremity, just mild soft tissue edema. 3. CT chest on 11/20/2018 revealed right-sided pneumo with cavitation of the right upper lobe. PRIMARY DIAGNOSES: 1. Sepsis secondary to aspiration pneumonia. 2. Hyponatremia. 3. Chronic alcohol abuse. 4. Status post fall. SECONDARY DIAGNOSIS: Nicotine abuse. DISCHARGE MEDICATIONS: 1. Omeprazole 10 mg p.o. daily. 2. Tylenol 650 mg p.o. q.4h p.r.n. pain or fever. 3. Augmentin 500 mg p.o. q.12 hours for 21 days. 4. Zofran 4 mg p.o. q.6h p.r.n. nausea secondary to Augmentin use. DISCONTINUED MEDICATIONS: None. HOSPITAL COURSE: The patient is a 38-year-old male with past medical history significant for chronic alcohol abuse, who presented to the ED for a fall. He likely fell due to alcohol intoxication, prompting his mother to bring him in for evaluation. He lives with his mother. He had been feeling unwell for several days with cough and shortness of breath with tinges of blood. At the time of admission, his last drink was on the day of admission, he reported usually drinking six to eight 32 ounce beers per day. Chest x-ray revealed focal opacity in the right upper lobe and in the medial left lung base prompting treatment for likely aspiration pneumonia, he met criteria for sepsis. He was started on Rocephin and azithromycin. Resuscitated with 2 L of normal saline fluid, and banana bag. AFP protocol was started as well. His temperature was 102.5, tachycardic, blood pressure was within normal limits, respirations were elevated. On admission for his aspiration pneumonia, the inpatient team started Flagyl as well. White blood cell count was elevated at 25.1. Strep pneumo antigen and Legionella antigen were negative. Sodium was noted at 114, although he is chronically hyponatremic likely secondary to beer potomania. His mentation and neurologic status were not compromised throughout his visit. Within the 1st day, his sodium was corrected from 114-123. His urine osmol was 91, serum osmol 254, urine sodium less than 20. His hyponatremia was corrected by 8 mEq in 24 hours as well as resuscitated with 4 L of fluid. On the day of discharge his sodium was 129. He was given salt tablets t.i.d. with meals for one of the days during his admission. The patient remained with fevers on the 3rd day of admission, 11/20/2018 and his white blood cell count remained elevated. Procal is 1.47. Because of this pulmonology was consulted and a CT chest was done revealing right upper lobe cavitary lesion, right hilar soft tissue density, right pleural effusion. At this time, pulmonology recommend continuing IV antibiotics for likely aspiration pneumonia. He received vanc and Zosyn for 4 days and vanc was discontinued after cultures came back negative. At this time, they recommended Augmentin for oral treatment outpatient and followup with a chest x-ray at 4 weeks. In regard to his chronic alcohol abuse, he was placed on withdrawal, AFP protocol. By the day of discharge, he had been treated with Librium for 5 days. We spoke with the patient about discontinuing the alcohol consumption. He stated at this time he would like to stop drinking and was open to resources. In regard to this, we consulted Case Management who gave him information. He is a difficult case, because he has gone to rehab twice in the past and has ended up relapsing. He also does not have insurance to go to an inpatient facility. Because of this, we did not discharge him home with Librium due to possible side effects, respiratory depression continued to drink. Mother did state that she took all the alcohol out of the house. He did not show any signs of delirium tremens, seizure activity during his stay or at discharge. Of note, status post fall his creatine kinase trended to 673, but did not have a significant KATIANA. Repeat CK, if downtrending CK. He was also placed on a nicotine patch 21 mg and was counseled on cessation. He has hopes to quit smoking as well. DISPOSITION: Stable. DISCHARGE INSTRUCTIONS: Location: [facility]. Diet: No restrictions. Activity: Ad kaye. Followup: [facility] in 4 weeks with repeat chest x-ray. Job ID: [id number]
== END 2018-11-23 17:25 | disposition home or self-care (01) | DRG 871 ==
LOC: ERS 19:53 → IMCU/EMU 23:05 → T4-A 11-19 19:21
PROVIDERS: ADMIT Family Medicine; ATTEND Family Medicine
PROC: HZ2ZZZZ Detoxification Services for Substance Abuse Treatment (ICD-10-PCS; principal; 2018-11-18)
DX: A41.9 Sepsis, unspecified organism (principal); J69.0 Pneumonitis due to inhalation of food and vomit; E87.1 Hypo-osmolality and hyponatremia; F10.239 Alcohol dependence with withdrawal, unspecified; F10.288 Alcohol dependence with other alcohol-induced disorder; K21.9 Gastro-esophageal reflux disease without esophagitis; F32.9 Major depressive disorder, single episode, unspecified; R00.0 Tachycardia, unspecified; E83.42 Hypomagnesemia; E87.6 Hypokalemia; F10.229 Alcohol dependence with intoxication, unspecified; Y90.9 Presence of alcohol in blood, level not specified; F17.200 Nicotine dependence, unspecified, uncomplicated; Z88.0 Allergy status to penicillin; Z79.899 Other long term (current) drug therapy
CPT/HCPCS: 36415; 36416; 71045; 71260; 80048; 80053; 80202; 80307; 81003; 81015; 82550; 82607; 82746; 83605; 83735; 83880; 83930; 83935; 84100; 84145; 84300; 85025; 85610; 85730; 87040; 87086; 87899; 93005; 94640; 96365; 96366; 96367; J0456; J0694; J0696; J2060; J2543; J3370; J3411; J3475; J3490; J7042; J7050; J7620; Q0162; Q9966

== ENCOUNTER 2018-12-08 13:28 | Inpatient (IN) | payer SELFPAY ==
[~2018-12-08 13:28] MED LIST: ISOVUE-370 76%-LOCM 1 ML ONE
[2018-12-08 14:59] LABS: #Eosinphils 0.3 thou/uL (0.0-0.7); #Lymphocytes 2.1 thou/uL (1.20-3.40); #Monocytes 1.8 thou/uL (0.11-0.59); #Neutrophils 11.8 thou/uL (1.40-6.50); %Basophils 0.3 % (0.0-1.0); %Eosinophils 2.1 % (0.0-10.0); %Lymphocytes 13.2 % (21.0-51.0); %Monocytes 10.9 % (0.0-10.0); %Neutrophils 73.5 % (42.0-75.0); Hemoglobin 10.6 g/dL (14.0-18.0); Mean Corpuscular HGB CONC 33.9 g/dL (32.0-36.0); Mean Corpuscular Hemoglobin 31.4 pg (27.0-31.0); Mean Corpuscular Volume 92.4 fL (78.0-98.0); Mean Platelet Volume 7.4 fL (7.4-10.4); Platelet Count 386 thou/uL (130-400); RBC Distribution Width 11.9 % (11.5-14.5); Red Blood Cell (RBC) Count 3.37 mill/uL (4.70-6.10)
[2018-12-08 15:05] LABS: INR-International Normal Ratio 1.1; PTT 34.5 SEC (22.9-36.1); Prothrombin Time 14.3 SEC (12.0-14.7)
[2018-12-08 15:20] LABS: ALT (SGPT) 27 U/L (8-55); AST (SGOT) 33 U/L (5-34); Albumin 3.1 g/dL (3.5-5.0); Alkaline Phosphatase 77 U/L (40-150); Anion Gap 14 mmol/L (10-20); BUN (Urea Nitrogen) 4 mg/dL (8.9-20.6); Bilirubin, Total 0.5 mg/dL (0.2-1.2); CK (CPK) 28 U/L (30-200); Calc. Creatinine Clearance 0 mL/min (70-130); Calcium 9.1 mg/dL (7.8-10.44); Carbon Dioxide 27 mmol/L (22-29); Chloride 92 mmol/L (98-107); Estimated GFR-MDRD Greater than 90; Globulin 4.3 g/dL (2.4-3.5); Glucose 96 mg/dL (70-105); Potassium 3.9 mmol/L (3.5-5.1); Protein, Total 7.4 g/dL (6.0-8.3); Sodium 129 mmol/L (136-145)
--- NOTE | 2018-12-08 15:23 | CT ---
Exam: Head CT without contrast HISTORY: Headache. Altered mental status. COMPARISON: 09/13/2009 FINDINGS: Hemorrhage: No intraparenchymal hemorrhage or extra-axial hematoma. Brain parenchyma: Cortical snow-white matter differentiation is preserved. No mass effect or midline shift. Basilar cisterns are patent. Ventricular system: Ventricles and sulci are patent and symmetric. Calvarium: Intact. Sinuses and mastoid air cells: Adequate aeration. IMPRESSION: No acute intracranial process.
--- NOTE | 2018-12-08 15:52 | RAD ---
Chest one view HISTORY: Pneumonia. Altered mental status. COMPARISON: 11/20/2018. FINDINGS: Cardiac silhouette is magnified by projection. Consolidation of the right upper lobe with s ome component of atelectasis has progressed. Fluid within the azygous fissure at the right apex has increased. Hiatal hernia again demonstrated. Patient is slightly rotated leftward. Left lung is clear . IMPRESSION: Worsening right upper lobe consolidation/atelectasis and fluid in the azygous fissure.
[2018-12-08] MEDS ORDERED: Cefepime 2 GM VIAL ONE (16:21)
[2018-12-08 16:27] LABS: Bilirubin Negative (Negative); Blood, Urine Negative (Negative); Clarity Clear (Clear); Glucose, Urine (Dipstick) Normal (Negative); Leukocyte Negative Leu/uL (Negative); Nitrite Negative (Negative); Protein, Urine (Dipstick) Negative (Neg-Trace); Urobilinogen Normal mg/dL (Less than 2)
[2018-12-08] MEDS ORDERED: Piperacillin/Tazobactam 4.5 GM VIAL ONE (16:33)
--- NOTE | 2018-12-08 17:52 | CT ---
CT Chest W Con History: Pneumonia. Cough Comparison: Radiograph same day. CT chest November 20, 2018 Findings: There is increased cavitation in the right upper lobe with air-fluid level compared to the comparison examination. Worsening erosion of the lung parenchyma. There is invasion into the mediastinum with a soft tissue mass surrounding the right mainstem bronchus and distal trachea. There is also abutment of the esophagus. Abnormal right paratracheal lymph nodes aren't larger than the comparison exam. Few tree-in-bud opacities within the lower lobe on the right. Improving effusion. Large sliding hiatal hernia. No pericardial effusion. Abnormal nodule left adrenal gland. Few enlarged poonam hepatis lymph nodes. The cavitary lesion in the right upper lobe narrows the right upper lobe pulmonary arteries Impression: 1. Size increase cavitary lesion in the right upper lobe with worsening central necrosis as well as p rogressive soft tissue enlargement invading into the mediastinum surrounding the right mainstem bronchus and distal trachea. There are also size increasing right paratracheal and three-vessel lymph nodes appears concerning for underlying malignancy. Pulmonology consultation advised. Bronchoscopy is warranted not artery performed. 2. Abnormal mass left adrenal gland concerning for possible metastasis.
--- NOTE | 2018-12-08 19:08 | PDOC.FPRHP ---
- History of Present Illness Chief Complaint: Headache History of Present Illness: 38 y/o male with pmx of central pontine myelinolysis, tobacco use d/o and recent hospitalization with necrotizing pneumonia on 11/16-11/23, presents to the ED with a severe headache that started this morning. Rated 11/10 in intensity. Pt states he had splitting/sharp headache pain that came on suddenly about 0600 today. He took Tylenol and and went back to sleep. When he woke up at 0830 the pain had migrated to behind his left eye. He states his headache is slightly better now. Pt was recently admitted for a necrotizing pneumonia in the RUL, that has worsened on radiograph. Pt was D/C on augmenting and has been taking them. He denies any chest pain, SOB or increased swelling in his extremities. He states he coughs, worse at night, productive of white-yellow sputum. ED Course: Pt received Zosyn and levoquin the ED. - Allergies/Adverse Reactions Allergies Allergy/AdvReac Type Severity Reaction Status Date / Time Penicillins Allergy Nausea Verified 12/08/18 23:11 - Home Medications Medication Instructions Recorded Confirmed Type Amoxicillin/Potassium Clav 500 mg PO Q12HR 21 Days #42 tab 11/23/18 12/08/18 Rx [Augmentin] Omeprazole 40 mg PO DAILY 12/08/18 12/08/18 History - History PMHx: Alcoholism, Tobacco use d/o, central pontine myelinolysis, necrotizing pneumonia with recent Hx 11/16-11/23, GERD PSHx: Right arm, right foot FHx: father from [place], maternal grandmother DM Social: Quit smoking X3 weeks ago, Quit drinking beer X3 weeks ago. Prior 1.5 ppd smoker and heavy beer drinker daily. Denies illicit drug use. - Review of Systems General: reports: fever/chills Eyes: reports: eye pain. denies: vision changes ENT: denies: nasal congestion Respiratory: reports: cough. denies: shortness of breath Cardiovascular: denies: chest pain, edema Gastrointestinal: denies: nausea, vomiting, diarrhea, abdominal pain Skin: denies: rashes, jaundice Musculoskeletal: denies: pain, swelling Neurological: denies: numbness, syncope Psychological: reports: depression. denies: anxiety - Vital signs BP: 120/89 HR: 103 RR: 18 Tmax: 98.3 Pox: 95% on RA Wt: 77.9 kg - Physical Exam Constitutional: NAD, awake, alert and oriented HEENT: normocephalic and atraumatic, PERRLA, EOMI, conjunctiva clear, no scleral icterus, grossly normal vision, MMM -HEENT: poor dentition Neck: supple, FROM, trachea midline, no LAD, no JVD Chest: no-tender to palpation, no lesions Heart: normal S1/S2, no murmurs/rubs/gallops, pulses present, no edema -Heart: regular rhythm with a rate of 102. Tachycardia. Lungs: CTAB, no respiratory distress, no rales/rhonchi, no wheezing, no retractions -Lungs: decreased breath sounds diffusely. Abdomen: soft, non-tender, bowel sounds present, no masses/distention Musculoskeletal: normal structure, normal tone Neurological: no focal deficit, normal sensation Skin: no rash/lesions, good turgor, capillary refill <2 seconds, no jaundice Heme/Lymphatic: no unusual bruising or bleeding, no purpura, no petechia Psychiatric: normal mood and affect, intact recent and remote memory FMR H&P: Results - Labs Result Diagrams: 12/08/18 14:37 12/08/18 14:37 Lab results: WBC 16.0 thou/uL (4.8-10.8) H 12/08/18 14:37 Hgb 10.6 g/dL (14.0-18.0) L 12/08/18 14:37 Hct 31.2 % (42.0-52.0) L 12/08/18 14:37 MCV 92.4 fL (78.0-98.0) 12/08/18 14:37 Plt Count 386 thou/uL (130-400) 12/08/18 14:37 Neutrophils % 73.5 % (42.0-75.0) 12/08/18 14:37 Sodium 129 mmol/L (136-145) L 12/08/18 14:37 Potassium 3.9 mmol/L (3.5-5.1) 12/08/18 14:37 Chloride 92 mmol/L (98-107) L 12/08/18 14:37 Carbon Dioxide 27 mmol/L (22-29) 12/08/18 14:37 BUN 4 mg/dL (8.9-20.6) L 12/08/18 14:37 Creatinine 0.71 mg/dL (0.7-1.3) 12/08/18 14:37 Glucose 96 mg/dL (70-105) 12/08/18 14:37 Lactic Acid 1.1 mmol/L (0.5-2.2) 12/08/18 16:31 Calcium 9.1 mg/dL (7.8-10.44) 12/08/18 14:37 Total Bilirubin 0.5 mg/dL (0.2-1.2) 12/08/18 14:37 AST 33 U/L (5-34) 12/08/18 14:37 ALT 27 U/L (8-55) 12/08/18 14:37 Alkaline Phosphatase 77 U/L (40-150) 12/08/18 14:37 Creatine Kinase 28 U/L (30-200) L 12/08/18 14:37 Serum Total Protein 7.4 g/dL (6.0-8.3) 12/08/18 14:37 Albumin 3.1 g/dL (3.5-5.0) L 12/08/18 14:37 Urine Ketones Negative mg/dL (Negative) 12/08/18 16:04 Urine Blood Negative (Negative) 12/08/18 16:04 Urine Nitrite Negative (Negative) 12/08/18 16:04 Ur Leukocyte Esterase Negative Lori/uL (Negative) 12/08/18 16:04 FMR H&P: A/P - Problem List (1) Sepsis due to pneumonia Current Visit: Yes Status: Acute Priority: High Code(s): J18.9 - PNEUMONIA , UNSPECIFIED ORGANISM; A41.9 - SEPSIS, UNSPECIFIED ORGANISM (2) Necrotizing pneumonia Current Visit: Yes Status: Acute Priority: High Code(s): J85.0 - GANGRENE AND NECROSIS OF LUNG (3) Hyponatremia Current Visit: Yes Status: Acute Code(s): E87.1 - HYPO-OSMOLALITY AND HYPONATREMIA (4) Headache Current Visit: Yes Status: Acute Code(s): R51 - HEADACHE - Plan 38 y/o male admitted to inpatient for sepsis secondary to necrotizing pneumonia , most likely secondary to obstructing lung mass. 1. Sepsis, secondary to cavitary RUL pneumonia - Continue LR IVF @ 120 ml/hr and antibiotic therapy - Vitals Q4H 2. Enlarging necrotic and cavitary RUL pnuemonia, most likely secondary to obstruction from lung mass - Change antibiotics to meropenem - Pulmonology consult, follow recommendations as they will see pt in hospital 3. Lung mass invading mediastinum, unknown pathologic significance - Pulm consult, possible bronchoscopy and biopsy. 4. Hyponatremia - secondary to beer potomania vs pulmonary malignancy - at baseline sodium level of 129. 5. Hx of alcohol abuse - Pt quit drinking beer X3 weeks ago 6. Hx of tobacco abuse d/o - Pt quit smoking X3 weeks ago. Disposition/LOS: Stable vitals, inpatient hospital stay at least 2 days. Continue antibiotics and IVF's. FMR H&P: Upper Level - Pertinent history 38 yo male presents for evaluation of headache. Patient was recently admitted for cavitary lung lesion and given outpatient antibiotics. Patients mother reports garbled speech and not acting himself. Patients largest complaint is headache. Please see environmental health and safety intern note above for further information. General: Male appears older than stated age, NAD HEENT: Moist mucous membranes CV: tachycardic rate, regular rhythm, no murmurs Respiratory: CTA-bilaterally, diminished breath sounds over right upper lung field Abdomen: Soft, nontender, no distention Normoactive BS Extremities: Moving all four symmetrically, no edema Neuro: No focal deficits Psych: Responds appropriately - Plan Date/Time: 12/08/181907 I, Yash Guerrero MD, have evaluated this patient and agree with findings/ plan as outlined by environmental health and safety intern resident. Pertinent changes/additions are listed here. 1. Sepsis secondary to suspected aspiration pneumonia with cavitary lung lesion vs mass. - Failed outpatient treatment of Augmentin - Will escalate medication to Meropenem at this time - Pulmonology aware of case and will need formal consultation in AM - No TB test on file will order Quant Gold 2. Headache - Supportive care - Negative CT head 3. Hyponatremia - Chronic at baseline - Consideration given to possible cause of lung mass - Monitor with BMP 4. History of Alcohol abuse - alcohol level WNL in ED - ASE protocol initiated CODE STATUS: FULL CODE PCP: SAMREEN Disposition: Stable, will admit to medical floor for further evaluation and treatment. Addendum - Attending - Attending Attestation Date/Time: 12/08/18 1716 I personally evaluated the patient and discussed the management with Dr. Rosa I agree with the History, Examination, Assessment and Plan documented above with any addition or exceptions noted below - 38 yo male with h/o alcohol abuse , central pontine myelinolysis since 2009 recently hospitalized for aspiration pneumonia presented c/o WILSON today per patient- now resolved. Per ER notes- he was brought in for garbled speech and confusion noted by his mother. No history of recent fever. Patient denies any SOB, nasal congestion. Note4d to have cough while in room with him. Normal appetite. PMH/PSH/Meds/SH reviewed and agree with resident's documentation. T98.3 P97 NP134/90 RR17 98%RA Exam repeated by me and agree with resident's findings. Labs: `WBC=16.0, H/H=10.6/31.2, Plt= 386, Rc=967, K=3.9, Cl=92, CO2=27, BUN/Cr=4/0.7, Gluc=96, lactic acid=1.1, CT chest- size increase in cavitary lesion with worsening central necrosis. A/P: 1 ) Sepsis secondary to pneumonia - Admit to medical; Has been on Augmentin since discharge. Now with worsening CT findings- will start on meropenem, IVF. 2) Possible lung mass- consult pulmonary for further assistance. 3) Hyponatremia- at baseline; IVF; recheck in AM. 4) Alcohol abuse- states taht he has not had anything to drink since discharge. Continue to monitor closely.
[2018-12-08] MEDS: Lactated Ringer's 1,000 ML IV SCH (20:29)
[2018-12-08] MEDS ORDERED: Ondansetron ODT 4 MG TAB PO PRN (21:35)
[2018-12-08] MEDS ORDERED: Meropenem 1 GM in Sodium Chloride 0.9% 100 ML IVPB SCH (22:00)
[2018-12-08] MEDS ORDERED: Lorazepam 1 MG TAB PO PRN (22:22)
[2018-12-08 23:07] VITALS: BMI 22.3
[2018-12-08] MEDS: MEROPENEM 1 GM/50 ML 1 GM in Premix Bag 1 BAG IVPB SCH (23:38)
[2018-12-08] MEDS: Nicotine 21 MG PATCH TD SCH (23:39)
[2018-12-09] MEDS: Lactated Ringer's 1,000 ML IV SCH ×4 (02:44→22:35)
[2018-12-09] MEDS ORDERED: Ibuprofen 200 MG TAB PO PRN (03:02)
[2018-12-09 04:51] LABS: #Basophils 0.1 thou/uL (0.0-0.2); #Eosinphils 0.2 thou/uL (0.0-0.7); #Lymphocytes 1.4 thou/uL (1.20-3.40); #Monocytes 1.8 thou/uL (0.11-0.59); #Neutrophils 12.8 thou/uL (1.40-6.50); %Basophils 0.3 % (0.0-1.0); %Eosinophils 1.1 % (0.0-10.0); %Lymphocytes 8.7 % (21.0-51.0); %Monocytes 11.1 % (0.0-10.0); %Neutrophils 78.8 % (42.0-75.0); Hemoglobin 9.9 g/dL (14.0-18.0); Mean Corpuscular HGB CONC 31.6 g/dL (32.0-36.0); Mean Corpuscular Hemoglobin 29.1 pg (27.0-31.0); Mean Corpuscular Volume 92.2 fL (78.0-98.0); Mean Platelet Volume 7.8 fL (7.4-10.4); Platelet Count 377 thou/uL (130-400); Red Blood Cell (RBC) Count 3.39 mill/uL (4.70-6.10); White Blood Cell (WBC) Count 16.2 thou/uL (4.8-10.8)
[2018-12-09 05:19] LABS: ALT (SGPT) 20 U/L (8-55); AST (SGOT) 20 U/L (5-34); Albumin 2.8 g/dL (3.5-5.0); Alkaline Phosphatase 65 U/L (40-150); Anion Gap 14 mmol/L (10-20); BUN (Urea Nitrogen) 4 mg/dL (8.9-20.6); Bilirubin, Total 0.5 mg/dL (0.2-1.2); Calc. Creatinine Clearance 163 mL/min (70-130); Calcium 8.7 mg/dL (7.8-10.44); Carbon Dioxide 24 mmol/L (22-29); Chloride 92 mmol/L (98-107); Estimated GFR-MDRD Greater than 90; Globulin 4.4 g/dL (2.4-3.5); Glucose 99 mg/dL (70-105); Protein, Total 7.2 g/dL (6.0-8.3); Sodium 127 mmol/L (136-145)
[2018-12-09 05:33] LABS: Potassium 2.9 mmol/L (3.5-5.1)
[2018-12-09] MEDS ORDERED: Potassium Chloride 40 MEQ in Sodium Chloride 0.9% 250 ML 250 ML IVPB SCH (06:00)
--- NOTE | 2018-12-09 07:25 | PDOC.FM ---
- Subjective Subjective: pt resting comfortably in bed, reports poor sleep. denies nausea or dyspnea - Objective Vital Signs & Weight: Vital Signs (12 hours) Temp Pulse Resp BP Pulse Ox 12/09/18 03:40 99.3 F 99 18 138/96 H 94 L 12/08/18 23:04 99.6 F 94 18 115/73 95 Weight Weight 78.925 kg Result Diagrams: 12/10/18 08:10 12/10/18 08:10 Phys Exam - Physical Examination Constitutional: NAD HEENT: moist MMs, sclera anicteric Neck: no JVD, full ROM Respiratory: no wheezing diminished breath sounds Cardiovascular: RRR, no significant murmur Gastrointestinal: no distention Musculoskeletal: no edema Neurological: moves all 4 limbs Psychiatric: normal affect Skin: no rash Dx/Plan (1) Hyponatremia Code(s): E87.1 - HYPO-OSMOLALITY AND HYPONATREMIA Status: Acute (2) Necrotizing pneumonia Code(s): J85.0 - GANGRENE AND NECROSIS OF LUNG Status: Acute (3) Sepsis due to pneumonia Code(s): J18.9 - PNEUMONIA, UNSPECIFIED ORGANISM; A41.9 - SEPSIS, UNSPECIFIED ORGANISM Status: Acute (4) Alcohol abuse Code(s): F10.10 - ALCOHOL ABUSE, UNCOMPLICATED Status: Resolved - Plan Plan: Sepsis secondary to suspected aspiration pneumonia with cavitary lung lesion vs mass. - Failed outpatient treatment of Augmentin - continue merem, quant gold pending - pulmonology consulted, Dr. De La Rosa, appreciate recs - bronchoscopy today or tomorrow Headache - Supportive care - Negative CT head Hypokalemia - monitor and replace as needed Hyponatremia - Chronic at baseline - Consideration given to possible cause of lung mass - Monitor with BMP History of Alcohol abuse - alcohol level WNL in ED - ASE protocol CODE STATUS: FULL CODE PCP: SAMREEN Disposition: IV abx therapy, continue evaluation of lung mass Addendum - Attending - Attending Attestation Date/Time: 12/10/[id number] Henning on 12/09.
[2018-12-09] MEDS ORDERED: OMEPRAZOLE 10 MG PO SCH (09:00)
[2018-12-09] MEDS ORDERED: Fentanyl 100 MCG/2 ML VIAL ONE (11:02)
[2018-12-09] MEDS ORDERED: Midazolam HCl 2 mg/2 ml Vial ONE (11:02)
[2018-12-09] MEDS ORDERED: SUGAMMADEX SODIUM 500 MG/5 ML VIAL ONE (11:54)
[2018-12-09] MEDS: Enoxaparin Sodium 40 MG/0.4 ML SYRINGE SC SCH (12:48)
[2018-12-09] MEDS: MEROPENEM 1 GM/50 ML 1 GM in Premix Bag 1 BAG IVPB SCH ×2 (12:48→17:11)
--- NOTE | 2018-12-09 12:55 | CON ---
DATE OF CONSULTATION: 12/09/2018 CONSULTING PHYSICIAN: [facility]. REASON FOR CONSULTATION: Worsening right upper lobe process. HISTORY OF PRESENT ILLNESS: The patient is well known to me from a hospitalization earlier this month. I saw him originally on November 20 with a severe right upper lobe pneumonia and symptoms of alcohol withdrawal. He went home on a long course of antibiotics, which he says he is still in the process of taking. He states that he did not skip any doses of that medication. CT scan obtained yesterday showed a worsening right upper lobe process to the point, where it looks like he has formed abscess cavity and perhaps has mediastinal invasion. He denies any fever, chills, or chest pain. PAST MEDICAL HISTORY: 1. Alcohol abuse. 2. Gastroesophageal reflux. 3. Depression. PAST SURGICAL HISTORY: Right wrist surgery, right foot surgery. FAMILY MEDICAL HISTORY: Remarkable for heart disease, diabetes, and colon cancer. SOCIAL HISTORY: Former 1 pack per day smoker, quit about 3 weeks ago. Heavy alcohol user, but has quit. REVIEW OF SYSTEMS: Twelve-point review of systems is otherwise negative. PHYSICAL EXAMINATION: VITAL SIGNS: Temperature 98.5, pulse 84, respirations 18, O2 saturation 96%, and blood pressure 95/48. GENERAL: He is 6 feet, 274 pounds male, who is in no distress. HEENT: Unremarkable. NECK: No adenopathy or JVD. LUNGS: Slightly diminished breath sounds in right upper lobe compared to left, right base, left base clear. CARDIAC: S1 and S2. Regular. ABDOMEN: Soft and nontender. EXTREMITIES: No clubbing, cyanosis, or edema. LABORATORY DATA: White blood cell count 16.2, hematocrit 31.2, and platelet count 377. INR 1.1. Sodium 127, potassium 2.9, chloride 92, CO2 of 24, BUN 4, creatinine 0.7, and glucose 99. IMAGING DATA: I reviewed the CT scan in detail. ASSESSMENT: Worsening right upper lobe process. Differential would be abscess, continued infection, or malignancy. PLAN: 1. At this point, he needs a diagnostic and perhaps therapeutic bronchoscopy. I have discussed it with the patient and his mother. He is agreeable to proceed. Hopefully, the test can be done later this morning. 2. Agree with continued meropenem. Job ID: [id number]
--- NOTE | 2018-12-09 13:18 | OP ---
DATE OF PROCEDURE: 12/09/2018 PROCEDURE PERFORMED: Fiberoptic bronchoscopy. PREOPERATIVE DIAGNOSES: Right upper lobe abscess/mass/pneumonia. POSTOPERATIVE DIAGNOSIS: Right upper lobe mass. ANESTHESIA: General endotracheal. DESCRIPTION OF PROCEDURE: Informed consent was obtained from the patient prior to the procedure. He was brought to the endoscopy suite and intubated by Anesthesia. He had an 8.[address] for the procedure. He was placed on volume cycled ventilation. An adapter was placed on the end of the endotracheal tube. The Olympus bronchoscope was placed through the endotracheal tube. The stacey was sharp. The left mainstem bronchus was normal in appearance. Left upper lobe and left lower lobe were normal in appearance. The right upper lobe was absent and appeared to be obliterated by endobronchial tumor. This extended down towards the bronchus intermedius on the posterior wall. The right middle lobe and right lower lobe were clear of tumor. Brushings and biopsies were obtained from the endobronchial mass entering the right upper lobe. Washings were also obtained from this area. Specimens were sent for both micro and surgical pathology. The procedure was tolerated well. Job ID: [id number]
[2018-12-09] MEDS ORDERED: PROPOFOL 200 MG/20 ML VIAL ONE (16:39)
[2018-12-09] MEDS ORDERED: Lidocaine 1% PF 5 ML VIAL ONE (16:39)
[2018-12-09] MEDS ORDERED: Glycopyrrolate 0.2 MG/ML 5 ML SYRINGE ONE (16:39)
[2018-12-09] MEDS ORDERED: Rocuronium Bromide 10 MG/ML (10ML VIAL) ONE (16:39)
[2018-12-09] MEDS: Nicotine 21 MG PATCH TD SCH (20:43)
[2018-12-09] MEDS: Acetaminophen 325 MG TAB PO PRN (20:44)
[2018-12-10] MEDS: MEROPENEM 1 GM/50 ML 1 GM in Premix Bag 1 BAG IVPB SCH ×3 (00:32→18:12)
[2018-12-10] MEDS: Enoxaparin Sodium 40 MG/0.4 ML SYRINGE SC SCH (08:00)
[2018-12-10 08:27] LABS: #Basophils 0.1 thou/uL (0.0-0.2); #Eosinphils 0.4 thou/uL (0.0-0.7); #Lymphocytes 2.4 thou/uL (1.20-3.40); #Monocytes 2.1 thou/uL (0.11-0.59); #Neutrophils 13.5 thou/uL (1.40-6.50); %Basophils 0.5 % (0.0-1.0); %Eosinophils 1.9 % (0.0-10.0); %Lymphocytes 13.1 % (21.0-51.0); %Monocytes 11.3 % (0.0-10.0); %Neutrophils 73.2 % (42.0-75.0); Hemoglobin 9.7 g/dL (14.0-18.0); Mean Corpuscular HGB CONC 33.8 g/dL (32.0-36.0); Mean Corpuscular Hemoglobin 30.9 pg (27.0-31.0); Mean Corpuscular Volume 91.4 fL (78.0-98.0); Mean Platelet Volume 7.3 fL (7.4-10.4); Platelet Count 337 thou/uL (130-400); RBC Distribution Width 12.2 % (11.5-14.5); Red Blood Cell (RBC) Count 3.14 mill/uL (4.70-6.10); White Blood Cell (WBC) Count 18.5 thou/uL (4.8-10.8)
[2018-12-10 08:45] LABS: ALT (SGPT) 16 U/L (8-55); AST (SGOT) 21 U/L (5-34); Albumin 2.7 g/dL (3.5-5.0); Alkaline Phosphatase 69 U/L (40-150); Anion Gap 13 mmol/L (10-20); BUN (Urea Nitrogen) Less than 4 mg/dL (8.9-20.6); Bilirubin, Total 0.4 mg/dL (0.2-1.2); Calc. Creatinine Clearance 173 mL/min (70-130); Calcium 8.8 mg/dL (7.8-10.44); Carbon Dioxide 22 mmol/L (22-29); Chloride 98 mmol/L (98-107); Estimated GFR-MDRD Greater than 90; Globulin 4.3 g/dL (2.4-3.5); Glucose 96 mg/dL (70-105); Potassium 3.2 mmol/L (3.5-5.1); Sodium 130 mmol/L (136-145)
--- NOTE | 2018-12-10 09:12 | PDOC.FM ---
- Subjective Subjective: pt ambulating to urinate. denies SOB or WILSON. desires DC - Objective Vital Signs & Weight: Vital Signs (12 hours) Temp Pulse Resp BP Pulse Ox 12/10/18 07:34 99 F 95 18 131/85 94 L 12/10/18 04:00 100.0 F H 99 18 127/80 93 L 12/10/18 00:00 98.9 F 86 18 124/77 95 Weight Weight 78.925 kg I&O: 12/09/18 12/10/18 12/11/18 06:59 06:59 06:59 Intake Total 2212 Output Total 125 Balance 2086 Result Diagrams: 12/10/18 08:10 12/10/18 08:10 Phys Exam - Physical Examination Constitutional: NAD HEENT: moist MMs Neck: full ROM Gastrointestinal: no distention Musculoskeletal: no edema Neurological: moves all 4 limbs Psychiatric: normal affect Skin: no rash Dx/Plan (1) Hyponatremia Code(s): E87.1 - HYPO-OSMOLALITY AND HYPONATREMIA Status: Acute (2) Necrotizing pneumonia Code(s): J85.0 - GANGRENE AND NECROSIS OF LUNG Status: Acute (3) Sepsis due to pneumonia Code(s): J18.9 - PNEUMONIA, UNSPECIFIED ORGANISM; A41.9 - SEPSIS, UNSPECIFIED ORGANISM Status: Acute (4) Alcohol abuse Code(s): F10.10 - ALCOHOL ABUSE, UNCOMPLICATED Status: Resolved - Plan Plan: Sepsis secondary to suspected aspiration pneumonia with cavitary lung lesion vs mass. - Failed outpatient treatment of Augmentin - continue merem, quant gold pending - pulmonology consulted, Dr. De La Rosa, appreciate recs - bronchoscopy reveals obstructing mass, biopsy results pending Headache - Supportive care - Negative CT head Hypokalemia - monitor and replace as needed Hyponatremia - Chronic at baseline - Consideration given to possible cause of lung mass - Monitor with BMP History of Alcohol abuse - alcohol level WNL in ED - ASE protocol CODE STATUS: FULL CODE PCP: SAMREEN Disposition: IV abx therapy, await biopsy results Addendum - Attending - Attending Attestation Date/Time: 12/10/18 6648 I personally evaluated the patient and discussed the management with Dr. Henning. I agree with and repeated the History, Examination, Assessment and Plan documented above with any addition or exceptions noted below. ROS: denies cp; still has some cough; denies fever or chills. No n/v. Await pathology.
[2018-12-10] MEDS ORDERED: Potassium Chloride 20 MEQ TAB PO SCH (09:15)
--- NOTE | 2018-12-10 09:56 | PRG ---
DATE OF SERVICE: 12/10/2018 SUBJECTIVE: He is lying in bed. No acute complaints. OBJECTIVE: VITAL SIGNS: Temperature 100.0, T-max 102.7 last night, pulse 99, respirations 18, O2 saturation 94%, and blood pressure 131/85. HEENT: Unremarkable. NECK: No JVD. LUNGS: Diminished breath sounds in right upper lobe. Left side clear. CARDIAC: S1 and S2, regular. ABDOMEN: Soft. EXTREMITIES: No edema. LABORATORY DATA: His AFB from bronchial washings was negative. Awaiting surgical pathology. ASSESSMENT: Right upper lobe mass with complete occlusion in right upper lobe - suspected that this is lung cancer. PLAN: Await pathology. Continue antibiotics. Job ID: [id number]
[2018-12-10] MEDS ORDERED: Magnesium Chloride 64 MG TAB PO SCH (11:15)
[2018-12-10] MEDS: Magnesium Chloride 64 MG TAB PO SCH ×2 (11:36→20:01)
[2018-12-10] MEDS: Acetaminophen 325 MG TAB PO PRN (19:56)
[2018-12-10] MEDS: Nicotine 21 MG PATCH TD SCH (20:01)
[2018-12-11] MEDS: Acetaminophen 325 MG TAB PO PRN ×2 (00:22→05:17)
[2018-12-11] MEDS: MEROPENEM 1 GM/50 ML 1 GM in Premix Bag 1 BAG IVPB SCH ×3 (00:59→17:21)
[2018-12-11 06:25] LABS: #Basophils 0.1 thou/uL (0.0-0.2); #Eosinphils 0.4 thou/uL (0.0-0.7); #Monocytes 1.8 thou/uL (0.11-0.59); #Neutrophils 12.5 thou/uL (1.40-6.50); %Basophils 0.6 % (0.0-1.0); %Eosinophils 2.3 % (0.0-10.0); %Lymphocytes 11.8 % (21.0-51.0); %Monocytes 10.5 % (0.0-10.0); %Neutrophils 74.8 % (42.0-75.0); Hemoglobin 9.7 g/dL (14.0-18.0); Mean Corpuscular HGB CONC 33.2 g/dL (32.0-36.0); Mean Corpuscular Hemoglobin 30.7 pg (27.0-31.0); Mean Corpuscular Volume 92.3 fL (78.0-98.0); Mean Platelet Volume 7.6 fL (7.4-10.4); Platelet Count 366 thou/uL (130-400); RBC Distribution Width 12.2 % (11.5-14.5); Red Blood Cell (RBC) Count 3.15 mill/uL (4.70-6.10); White Blood Cell (WBC) Count 16.8 thou/uL (4.8-10.8)
[2018-12-11 06:48] LABS: ALT (SGPT) 18 U/L (8-55); AST (SGOT) 23 U/L (5-34); Albumin 2.6 g/dL (3.5-5.0); Alkaline Phosphatase 70 U/L (40-150); Anion Gap 13 mmol/L (10-20); BUN (Urea Nitrogen) Less than 4 mg/dL (8.9-20.6); Bilirubin, Total 0.4 mg/dL (0.2-1.2); Calc. Creatinine Clearance 188 mL/min (70-130); Calcium 8.6 mg/dL (7.8-10.44); Carbon Dioxide 22 mmol/L (22-29); Chloride 97 mmol/L (98-107); Estimated GFR-MDRD Greater than 90; Globulin 4.3 g/dL (2.4-3.5); Glucose 104 mg/dL (70-105); Potassium 3.1 mmol/L (3.5-5.1); Protein, Total 6.9 g/dL (6.0-8.3); Sodium 129 mmol/L (136-145)
[2018-12-11 07:14] VITALS: BP 125/81; TEMP 98.8
--- NOTE | 2018-12-11 08:28 | PDOC.FM ---
- Subjective Subjective: pt sleeping comfortably in bed, denies chest pain or SOB. - Objective Vital Signs & Weight: Vital Signs (12 hours) Temp Pulse Resp BP BP Pulse Ox 12/11/18 07:13 98.8 F 77 18 125/81 92 L 12/11/18 04:00 99.2 F 89 18 119/76 96 12/11/18 00:55 99.3 F 12/11/18 00:30 100.0 F H 93 18 130/82 97 Weight Weight 78.925 kg I&O: 12/10/18 12/11/18 12/12/18 06:59 06:59 06:59 Intake Total 2212 1250 Output Total 125 Balance 2086 1250 Result Diagrams: 12/11/18 06:09 12/11/18 06:09 Phys Exam - Physical Examination Constitutional: NAD Neck: full ROM Respiratory: clear to auscultation bilateral Cardiovascular: no significant murmur Gastrointestinal: soft, no distention Musculoskeletal: no edema, pulses present Neurological: moves all 4 limbs Skin: no rash Dx/Plan (1) Hyponatremia Code(s): E87.1 - HYPO-OSMOLALITY AND HYPONATREMIA Status: Acute (2) Necrotizing pneumonia Code(s): J85.0 - GANGRENE AND NECROSIS OF LUNG Status: Acute (3) Sepsis due to pneumonia Code(s): J18.9 - PNEUMONIA, UNSPECIFIED ORGANISM; A41.9 - SEPSIS, UNSPECIFIED ORGANISM Status: Acute (4) Alcohol abuse Code(s): F10.10 - ALCOHOL ABUSE, UNCOMPLICATED Status: Resolved - Plan Plan: Sepsis secondary to suspected aspiration pneumonia with cavitary lung lesion vs mass. - Failed outpatient treatment of Augmentin - continue merem, quant gold pending - pulmonology consulted, Dr. De La Rosa, appreciate recs - bronchoscopy reveals obstructing mass, biopsy results pending Headache - Supportive care - Negative CT head Hypokalemia - monitor and replace as needed Hyponatremia - Chronic at baseline - Consideration given to possible cause of lung mass - Monitor with BMP History of Alcohol abuse - alcohol level WNL in ED - ASE protocol CODE STATUS: FULL CODE PCP: SAMREEN Disposition: IV abx therapy, await biopsy results Addendum - Attending - Attending Attestation Date/Time: 12/11/18 1023 I personally evaluated the patient and discussed the management with Dr. Henning and team. I agree with and repeated the History, Examination, Assessment and Plan documented above with any addition or exceptions noted below. Denies f/c/n/v/cp. Still has some cough. Apparently Dr. De La Rosa called path and dx is malignant and he has shared this with the family. They are understandably upset during our visit. I have deferred prognosis questions respectfully to oncology. Continue antibiotics pending BAL and remainder of results. I anticipate the leukocytosis is chronic.
[2018-12-11] MEDS ORDERED: Potassium Chloride 20 MEQ TAB PO SCH (08:30)
--- NOTE | 2018-12-11 09:58 | PRG ---
DATE OF SERVICE: 12/11/2018 SUBJECTIVE: Still waiting for pathology results. The patient is about the same. OBJECTIVE: VITAL SIGNS: Temperature 98.8, pulse 77, respiratory rate 18, O2 saturation 92%, blood pressure 125/81. HEENT: Unremarkable. NECK: No adenopathy or JVD. CHEST: Clear on the left. Decreased breath sounds, right upper lobe. ABDOMEN: Soft. EXTREMITIES: No edema. LABORATORY DATA: Sodium 129, potassium 3.1, chloride 97, CO2 of 22, BUN 4, creatinine 0.6, glucose 104. White blood cell count 16.8, hematocrit 29.1, platelet count 366. ASSESSMENT: Probable lung cancer. Awaiting pathology. If the pathology results are positive, then I would recommend Oncology evaluation. If the pathology results are negative, then he needs a CT needle biopsy. Job ID: [id number]
[2018-12-11] MEDS: Magnesium Chloride 64 MG TAB PO SCH (10:22)
[2018-12-11] MEDS: Enoxaparin Sodium 40 MG/0.4 ML SYRINGE SC SCH (10:23)
--- NOTE | 2018-12-11 16:49 | CT ---
CT OF THE ABDOMEN AND PELVIS WITH IV CONTRAST INDICATION: Evaluate for metastatic disease; history of lung cancer COMPARISON: CT of the thorax with contrast dated December 08, 2018 FINDINGS: ABDOMEN: Lung bases: Patchy opacities remain within the right lung base. There is a large hiatal hernia. Liver: There is a tiny hypodensity within segment 5 the right hepatic lobe measuring 4 mm the cannot be further characterize. Gallbladder: Normal appearing. Pancreas: Normal. Adrenal glands: There is a 1.3 cm mass within the left adrenal gland. Right adrenal gland is normal-a ppearing. Spleen: Normal. Kidneys: Normal. Retroperitoneum of the upper abdomen: There are mild vascular calcifications seen involving the visua lized vasculature. No pathologically enlarged lymph nodes are evident. Pelvis: Small and large bowel: There is fluid density within the colon. There are scattered diverticula invol ving the colon. The appendix is not definitely seen. Bladder: Normal. Rectal and perirectal soft tissues:Normal. Reproductive structures: Normal. Free fluid in pelvis: No free fluid is evident. Lymphadenopathy pelvis: No lymphadenopathy is evident. Osseous structures: No acute osseous abnormality is demonstrated. There is a healed rib deformity inv olving the right posterior lateral right seventh rib. There is healing fracture deformity involving the posterolateral left eighth rib. IMPRESSION: 1. 1.3 cm left adrenal nodule. This is incompletely characterized on the current study. Given the pat ient's history of lung cancer, malignancy to the left adrenal gland cannot be excluded. PET/CT is recommended for additional evaluation. 2. Tiny hypodensity within the right hepatic lobe is difficult characterize due to its size. Follow-u p CT the abdomen and pelvis with IV contrast and 6-8 weeks would be helpful to evaluate for hepatic metastatic disease. 3. Healed posterolateral right seventh rib fracture and healing posterior lateral left eighth rib fra cture. No suspicious osteolytic or osteoblastic lesion is grossly identified.
--- NOTE | 2018-12-11 21:03 | CON ---
DATE OF CONSULTATION: REASON FOR CONSULTATION: Squamous cell carcinoma. HISTORY OF PRESENT ILLNESS: Mr. Mi is a 38-year-old gentleman, who was treated this facility approximately 2 weeks ago for pneumonia. He did not improve with antibiotics and presented back to the emergency room with cough, shortness of breath, and headaches. He underwent a brain CT, which showed no acute process. He also had a chest CT, which showed a right upper lobe area of consolidation with central necrosis. There was a soft tissue density surrounding the bronchus to the right upper lobe. He had a small right pleural effusion. Dr. De La Rosa was consulted and performed a bronchoscopy. Pathology returned squamous cell carcinoma. We were asked to see the patient regarding recommendations. PAST MEDICAL HISTORY: 1. Alcohol abuse, last drink in early November. 2. History of tobacco use. 3. Central pontine myelinolysis. 4. GERD. PAST SURGICAL HISTORY: Right arm and right foot repair. ALLERGIES: PENICILLIN. HOME MEDICATIONS: 1. Prilosec 40 mg daily. 2. Augmentin daily. FAMILY HISTORY: Father is from [place]. No history of malignancy. SOCIAL HISTORY: Forty-pack year history of smoking. Daily drinker. Last drink 3 weeks ago. REVIEW OF SYSTEMS: CONSTITUTIONAL: No fever, chills,or night sweats. HEENT: Eyes; no blurred or double vision. ENT: No pain, hoarseness, sore throat, or dysphagia. CV: No chest pain, palpitations, or syncope. RESPIRATORY: Positive for shortness of breath, dyspnea on exertion, and cough. GI: No nausea, vomiting, diarrhea, or constipation. : No dysuria or hematuria. MUSCULOSKELETAL: No joint or back pain. SKIN: No rash or pruritus. HEMATOLOGIC: No bleeding, bruising, or clotting. NEUROLOGICAL: Positive for headache and weakness. PSYCHIATRIC: Positive for depression. PHYSICAL EXAMINATION: VITAL SIGNS: Temperature 98.8, pulse is 77, respiratory rate 18, blood pressure is 125/81. He is 92% on room air. GENERAL: This is a disheveled male, in no acute distress. HEENT: Normocephalic and atraumatic. Pupils are equal and reactive to light. poor dentition. NECK: Supple. CV: Regular rate and rhythm. LUNGS: Clear. ABDOMEN: Soft and nontender. His bowel sounds are positive. EXTREMITIES: No clubbing, cyanosis, or edema. SKIN: No rash. HEMATOLOGIC: No petechiae or purpura. PERTINENT LABORATORY DATA AND X-RAYS: Current WBCs 16.8, hemoglobin 9.7, hematocrit 29.1, platelet count 366,000, 75% neutrophils, 12% lymphocytes. PT is 14.3, INR is 1.1, PTT is 34.5. Sodium is 129, potassium 3.1, chloride 97, CO2 is 22, BUN is less than 4, creatinine 0.59, lactic acid 1.1, calcium 8.6, bilirubin 0.4. AST is 23, ALT is 18, alkaline phosphatase is 70. Serum total protein is 6.9, albumin 2.6, and globulin 4.3. Radiology per HPI. ASSESSMENT: Squamous cell carcinoma of the lung. DISCUSSION: The patient has a cavitary lesion of his right upper lobe with mediastinal invasion. He also has some lymphadenopathy, small pleural effusion this puts him likely stage 3. There is an abnormal mass of left adrenal gland concerning for metastasis. The patient has no insurance, so my plan is to complete staging with a CT of his abdomen and pelvis to better look at this adrenal mass and for any other metastatic disease. A bone scan can be done this weekend, so we will defer that to a later date. Send his pathology for immunohistochemical mutations. He will follow up with Dr. Duran on December 22 to discuss staging, prognosis, and recommendations. Thank you for the consult. Case was discussed with Dr. Méndez. Job ID: [id number]
[2018-12-12] MEDS ORDERED: Potassium Chloride 20 MEQ TAB PO SCH (08:00)
[2018-12-13 13:08] LABS: QuantiFERON-TB Gold Plus Negative (Negative)
== END 2018-12-11 17:19 | disposition home or self-care (01) | DRG 180 ==
LOC: ERS 13:28 → ERHOLD 20:15 → T4-A 22:49
PROVIDERS: ADMIT Family Medicine; ATTEND Family Medicine
PROC: 0BDC8ZX Extraction of Right Upper Lung Lobe, Via Natural or Artificial Opening Endoscopic, Diagnostic (ICD-10-PCS; principal; 2018-12-09)
PROC: 0B9C8ZX Drainage of Right Upper Lung Lobe, Via Natural or Artificial Opening Endoscopic, Diagnostic (ICD-10-PCS; 2018-12-09)
DX: C34.11 Malignant neoplasm of upper lobe, right bronchus or lung (principal); A41.9 Sepsis, unspecified organism; J91.0 Malignant pleural effusion; C79.72 Secondary malignant neoplasm of left adrenal gland; E87.1 Hypo-osmolality and hyponatremia; F10.10 Alcohol abuse, uncomplicated; K21.9 Gastro-esophageal reflux disease without esophagitis; E87.6 Hypokalemia; Z88.0 Allergy status to penicillin
CPT/HCPCS: 36415; 70450; 71045; 71260; 74177; 80053; 80307; 81003; 82550; 83605; 83735; 84145; 84484; 85025; 85610; 85730; 86480; 87040; 87070; 87077; 87102; 87116; 87149; 87205; 87206; 88112; 88305; 88341; 88342; 93005; 96365; 96366; 96367; J0692; J1650; J1956; J2001; J2185; J2250; J2543; J2704; J3010; J3480; J7050; Q9966

== ENCOUNTER 2019-01-01 10:57 | Day surgery (SDC) | payer OTHER ==
[2018-12-31 10:00] VITALS: BMI 21.2
[2019-01-01] MEDS ORDERED: Bupivacaine/Epinephrine 0.25% 30 ML VIAL ONE (11:12)
[2019-01-01] MEDS ORDERED: Lidocaine 1% (PF) 30 ML VIAL ONE (11:12)
[2019-01-01 11:39] LABS: #Basophils 0.1 thou/uL (0.0-0.2); #Eosinphils 0.6 thou/uL (0.0-0.7); #Lymphocytes 2.2 thou/uL (1.20-3.40); #Monocytes 1.3 thou/uL (0.11-0.59); #Neutrophils 11.8 thou/uL (1.40-6.50); %Basophils 0.7 % (0.0-1.0); %Eosinophils 3.9 % (0.0-10.0); %Lymphocytes 13.8 % (21.0-51.0); %Monocytes 8.3 % (0.0-10.0); %Neutrophils 73.3 % (42.0-75.0); Hemoglobin 9.9 g/dL (14.0-18.0); Mean Corpuscular HGB CONC 32.9 g/dL (32.0-36.0); Mean Corpuscular Hemoglobin 29.8 pg (27.0-31.0); Mean Corpuscular Volume 90.7 fL (78.0-98.0); Mean Platelet Volume 7.2 fL (7.4-10.4); Platelet Count 461 thou/uL (130-400); RBC Distribution Width 13.1 % (11.5-14.5); Red Blood Cell (RBC) Count 3.31 mill/uL (4.70-6.10); White Blood Cell (WBC) Count 16.1 thou/uL (4.8-10.8)
[2019-01-01] MEDS ORDERED: Ketorolac Tromethamine 30 MG/ML VIAL ONE (11:59)
[2019-01-01] MEDS ORDERED: Fentanyl 100 MCG/2 ML VIAL ONE (12:01)
[2019-01-01] MEDS ORDERED: Midazolam HCl 2 mg/2 ml Vial ONE ×2 (12:01→12:02)
[2019-01-01 12:08] LABS: Anion Gap 14 mmol/L (10-20); BUN (Urea Nitrogen) 4 mg/dL (8.9-20.6); Calc. Creatinine Clearance 157 mL/min (70-130); Calcium 9.5 mg/dL (7.8-10.44); Carbon Dioxide 25 mmol/L (22-29); Chloride 97 mmol/L (98-107); Estimated GFR-MDRD Greater than 90; Glucose 101 mg/dL (70-105); Potassium 4.3 mmol/L (3.5-5.1); Sodium 132 mmol/L (136-145)
[2019-01-01] MEDS ORDERED: PROPOFOL 200 MG/20 ML VIAL ONE (13:58)
--- NOTE | 2019-01-01 15:37 | RAD ---
CHEST ONE VIEW: 01/01/19 INDICATION: History of line placement. COMPARISON: Prior CT of the chest dated 12/08/18. FINDINGS: There is a new left chest wall port in place. There is worsening parenchymal opacification of the rig ht upper lobe. Cavitary lesion within the right upper lobe is stable appearing. Left lung is clear. C ardiomegaly is stable. There is a moderate sized hiatal hernia. No pneumothorax is evident. IMPRESSION: 1. Worsening opacification of the right upper lobe when compared to the prior CT examination of 12/08/18. Cavitary lesion of the right upper lobe persists. 2. Left subclavian chest wall port tip projecting in the region of the cavoatrial junction. No l eft sided pneumothorax is demonstrated. POS: OFF
--- NOTE | 2019-01-04 06:09 | OP ---
DATE OF PROCEDURE: 01/01/2019 PREOPERATIVE DIAGNOSIS: Lung cancer. POSTOPERATIVE DIAGNOSIS: Lung cancer. OPERATION PERFORMED: Placement of left subclavian power compatible MediPort. ANESTHESIA: Total intravenous anesthesia with local using 0.25% Marcaine with epinephrine. INDICATIONS: The patient is a 38-year-old white male. He was recently diagnosed with right lung cancer, but he was taken to the operating room at this time for placement of port for chemotherapy. DESCRIPTION OF OPERATION: Informed consent was obtained. The patient was taken to the operating room where total intravenous anesthesia was obtained with the patient in supine position. Left periclavicular area was prepped with ChloraPrep and draped in sterile fashion. Local anesthetic was infiltrated and a large-gauge needle was passed under the clavicle in the subclavian vein. Guidewire was passed through the needle and fluoroscopically confirmed to enter the superior vena cava. Additional local anesthetic was infiltrated and transverse incision was created based on needle insertion site. A subcutaneous pocket was dissected inferiorly. Introducer dilator was passed over the guidewire under fluoroscopic guidance. The guidewire and dilator were removed, and the catheter was passed through the introducer. The tip of the catheter was positioned at the atriocaval junction and the catheter was trimmed to the appropriate length and secured to the locking hub of the MediPort. The port was then placed in the subcutaneous pocket where it was secured to the pectoral fascia with 2 interrupted sutures of 3-0 Prolene. The incision was then closed in layers with 3-0 and 4-0 Monocryl. Additional local anesthetic was infiltrated. The port was cannulated with a Sen needle and it aspirated blood freely and was flushed with heparinized saline. Dermabond was placed externally on the skin incision. There were no complications. Blood loss was negligible. The patient tolerated the procedure well and was taken to recovery room in stable condition. FINDINGS: The port was placed uneventfully in the left chest with the catheter in the left subclavian vein. A standard size port was selected. There were no complications. Job ID: [id number]
== END 2019-01-01 15:45 | disposition home or self-care (01) ==
LOC: SDC 10:57
PROVIDERS: ATTEND Specialist
PROC: 0JH63WZ Insertion of Totally Implantable Vascular Access Device into Chest Subcutaneous Tissue and Fascia, Percutaneous Approach (ICD-10-PCS; principal; 2019-01-01)
DX: C34.11 Malignant neoplasm of upper lobe, right bronchus or lung (principal); G43.909 Migraine, unspecified, not intractable, without status migrainosus; Z87.891 Personal history of nicotine dependence; Z79.899 Other long term (current) drug therapy; Z88.0 Allergy status to penicillin
CPT/HCPCS: 36415; 71045; 80048; 85025; C1788; J0131; J0690; J1642; J1885; J2001; J2250; J3010

== ENCOUNTER 2019-01-04 07:34 | Outpatient (CLI) | payer OTHER ==
--- NOTE | 2019-01-04 09:22 | CT ---
CT abdomen with and without IV contrast HISTORY: Lung cancer. Metastatic disease. Left adrenal mass. COMPARISON: 12/11/2018. FINDINGS: Trace right pleural fluid now apparent. Mild nonspecific peripheral parenchymal opacity at the right posterolateral lung base. Old, healed lower bilateral posterior rib fractures. Hiatal hernia. Left adrenal mass, 1.2 cm oblique diameter on the axial images, shows precontrast Hounsfield unit jessica surements at 30 Hounsfield unit.. Postcontrast 36 Hounsfield. Delayed images 51 HU. The enhancement and washout are indeterminant but somewhat suggestive of an adenoma.. Precontrast density measurement argues against an adenoma. The small low-density mass within the medial segment left liver lobe previously measuring 0.5 cm now measures up to 0.8 cm. Additional ill-defined low density masses are now seen, including a 0.9 cm lesion just above the gallbladder fossa, a 0.9 cm within the posterior segment right liver lobe dome, a 0.7 cm lesion within the far anterior medial aspect of the posterior segment right liver lobe, and a tiny lesion within the posterolateral aspect of the posterior segment right liver lobe. IMPRESSION: Metastatic disease of the liver looks significantly worse than on the prior study, with e nlarging and new lesions as detailed above. Left adrenal mass, based on the precontrast Hounsfield unit measurements, favored to represent a meta static lesion. New small right pleural effusion and mild right basilar pneumonitis. Hiatal hernia and other chronic-type findings are stable.
[2019-01-04] MEDS ORDERED: Iopamidol 370 76% 100 ML VIAL ONE (12:58)
== END 2019-01-04 07:35 | disposition home or self-care (01) ==
LOC: CT 07:34
PROVIDERS: ATTEND Internal Medicine Hematology & Oncology
DX: C34.01 Malignant neoplasm of right main bronchus (principal); E27.8 Other specified disorders of adrenal gland; C78.7 Secondary malignant neoplasm of liver and intrahepatic bile duct; K76.9 Liver disease, unspecified; R16.0 Hepatomegaly, not elsewhere classified; J90 Pleural effusion, not elsewhere classified; J18.9 Pneumonia, unspecified organism; K44.9 Diaphragmatic hernia without obstruction or gangrene
CPT/HCPCS: 74170; Q9967

== ENCOUNTER 2019-01-26 09:05 | Day surgery (SDC) | payer OTHER ==
[~2019-01-26 09:05] MED LIST changes: +CARBOplatin 750 MG in Sodium Chloride 0.9% 250 ML 250 ML IVPB SCH; +Dexamethasone Sod Phosphate 10 MG, Ondansetron 2MG/ML MDV 10 MG in Sodium Chloride 0.9%... IVPB SCH; -ISOVUE-370 76%-LOCM 1 ML ONE; +PACLitaxel Protein-Bound 200 MG in Admixture Fee 1 EACH IVPB SCH; +PEMBROLIZUMAB IV SCH; +Pembrolizumab 200 MG in Sodium Chloride 0.9% 250 ML 250 ML IV SCH; +SODIUM CHLORIDE 0.9% IV SCH
[2019-01-26] MEDS ORDERED: Sodium Chloride 0.9% 20 ML ONE (09:26)
[2019-01-26 09:27] VITALS: BP 145/86; TEMP 98.6
== END 2019-01-26 12:27 | disposition home or self-care (01) ==
LOC: ONC/OP 09:05
PROVIDERS: ATTEND Internal Medicine Hematology & Oncology
DX: Z51.11 Encounter for antineoplastic chemotherapy (principal); C34.01 Malignant neoplasm of right main bronchus
CPT/HCPCS: 96375; 96413; 96417; J1100; J1642; J2405; J7050; J9045; J9264

== ENCOUNTER 2019-02-02 08:54 | Day surgery (SDC) | payer OTHER ==
[~2019-02-02 08:54] MED LIST changes: -CARBOplatin 750 MG in Sodium Chloride 0.9% 250 ML 250 ML IVPB SCH; -Dexamethasone Sod Phosphate 10 MG, Ondansetron 2MG/ML MDV 10 MG in Sodium Chloride 0.9%... IVPB SCH; -PACLitaxel Protein-Bound 200 MG in Admixture Fee 1 EACH IVPB SCH; +PACLitaxel Protein-Bound 200 MG in IV Admixture Fee-Chemo 1 UNITS IVPB SCH; -PEMBROLIZUMAB IV SCH; -Pembrolizumab 200 MG in Sodium Chloride 0.9% 250 ML 250 ML IV SCH; -SODIUM CHLORIDE 0.9% IV SCH
[2019-02-02 09:13] VITALS: BP 125/61; TEMP 98.7
[2019-02-02] MEDS ORDERED: Sodium Chloride 0.9% 20 ML ONE (10:46)
== END 2019-02-02 13:57 | disposition home or self-care (01) ==
LOC: ONC/OP 08:54
PROVIDERS: ATTEND Internal Medicine Hematology & Oncology
DX: Z51.11 Encounter for antineoplastic chemotherapy (principal); C34.01 Malignant neoplasm of right main bronchus
CPT/HCPCS: 96413; J1642; J9264

== ENCOUNTER 2019-02-09 09:01 | Day surgery (SDC) | payer OTHER ==
[~2019-02-09 09:01] MED LIST changes: +PACLitaxel Protein-Bound 200 MG in Admixture Fee 1 EACH IVPB SCH
[2019-02-09] MEDS ORDERED: Sodium Chloride 0.9% 20 ML ONE (09:13)
[2019-02-09 09:23] VITALS: BP 119/72; TEMP 98.4
== END 2019-02-09 10:39 | disposition home or self-care (01) ==
LOC: ONC/OP 09:01
PROVIDERS: ATTEND Internal Medicine Hematology & Oncology
DX: Z51.11 Encounter for antineoplastic chemotherapy (principal); C34.01 Malignant neoplasm of right main bronchus
CPT/HCPCS: 96413; J1642

== ENCOUNTER 2019-02-16 11:48 | Day surgery (SDC) | payer OTHER ==
[~2019-02-16 11:48] MED LIST changes: +ADMIXTURE FEE CHEMO IVPB SCH; +CARBOplatin 750 MG in Sodium Chloride 0.9% 250 ML 250 ML IVPB SCH; +Dexamethasone Sod Phosphate 10 MG, Ondansetron 2MG/ML MDV 10 MG in Sodium Chloride 0.9%... IVPB SCH; +PACLITAXEL PROTEIN BOUND IVPB SCH; -PACLitaxel Protein-Bound 200 MG in Admixture Fee 1 EACH IVPB SCH; -PACLitaxel Protein-Bound 200 MG in IV Admixture Fee-Chemo 1 UNITS IVPB SCH; +Pembrolizumab 200 MG in Sodium Chloride 0.9% 250 ML 250 ML IV SCH
[2019-02-16] MEDS ORDERED: Sodium Chloride 0.9% 0 ML ONE (12:56)
[2019-02-16 13:46] VITALS: BP 108/59; TEMP 98.2
[2019-02-16] MEDS ORDERED: Sodium Chloride 0.9% 20 ML ONE (14:05)
== END 2019-02-16 15:15 | disposition home or self-care (01) ==
LOC: ONC/OP 11:48
PROVIDERS: ATTEND Internal Medicine Hematology & Oncology
DX: Z51.11 Encounter for antineoplastic chemotherapy (principal); C34.01 Malignant neoplasm of right main bronchus
CPT/HCPCS: 96375; 96413; 96417; J1100; J1642; J2405; J3490; J7050; J9045

== ENCOUNTER 2019-02-24 10:39 | Day surgery (SDC) | payer OTHER ==
[~2019-02-24 10:39] MED LIST changes: -CARBOplatin 750 MG in Sodium Chloride 0.9% 250 ML 250 ML IVPB SCH; -Dexamethasone Sod Phosphate 10 MG, Ondansetron 2MG/ML MDV 10 MG in Sodium Chloride 0.9%... IVPB SCH
[2019-02-24] MEDS ORDERED: Sodium Chloride 0.9% 20 ML ONE (10:55)
[2019-02-24 11:13] VITALS: BP 108/65; TEMP 97.9
== END 2019-02-24 13:34 | disposition home or self-care (01) ==
LOC: ONC/OP 10:39
PROVIDERS: ATTEND Internal Medicine Hematology & Oncology
DX: Z51.11 Encounter for antineoplastic chemotherapy (principal); C34.01 Malignant neoplasm of right main bronchus
CPT/HCPCS: 96413; J1642

== ENCOUNTER 2019-03-02 09:47 | Day surgery (SDC) | payer OTHER ==
[~2019-03-02 09:47] MED LIST changes: -Pembrolizumab 200 MG in Sodium Chloride 0.9% 250 ML 250 ML IV SCH
[2019-03-02] MEDS ORDERED: Sodium Chloride 0.9% 20 ML ONE (09:50)
[2019-03-02 09:58] VITALS: BP 130/67; TEMP 98.7
== END 2019-03-02 12:39 | disposition home or self-care (01) ==
LOC: ONC/OP 09:47
PROVIDERS: ATTEND Internal Medicine Hematology & Oncology
DX: Z51.11 Encounter for antineoplastic chemotherapy (principal); C34.01 Malignant neoplasm of right main bronchus
CPT/HCPCS: 96413; J1642

== ENCOUNTER 2019-03-09 11:23 | Day surgery (SDC) | payer OTHER ==
[~2019-03-09 11:23] MED LIST changes: +CARBOplatin 750 MG in Sodium Chloride 0.9% 250 ML 250 ML IVPB SCH; +Dexamethasone Sod Phosphate 10 MG, Ondansetron 2MG/ML MDV 10 MG in Sodium Chloride 0.9%... IVPB SCH; +Pembrolizumab 200 MG in Sodium Chloride 0.9% 250 ML 250 ML IV SCH
[2019-03-09] MEDS ORDERED: Sodium Chloride 0.9% 20 ML ONE (11:56)
[2019-03-09 12:23] VITALS: BP 132/58; TEMP 98.3
== END 2019-03-09 14:38 | disposition home or self-care (01) ==
LOC: ONC/OP 11:23
PROVIDERS: ATTEND Internal Medicine Hematology & Oncology
DX: Z51.11 Encounter for antineoplastic chemotherapy (principal); C34.01 Malignant neoplasm of right main bronchus
CPT/HCPCS: 96375; 96413; 96417; J1100; J1447; J1642; J2405; J7050; J9045; J9264; J9271

== ENCOUNTER 2019-03-10 13:37 | Day surgery (SDC) | payer OTHER | END 2019-03-10 14:04 | disposition home or self-care (01) | LOC: ONC/OP 13:37 | PROVIDERS: ATTEND Internal Medicine Hematology & Oncology | DX: Z51.11 Encounter for antineoplastic chemotherapy (principal); C34.01 Malignant neoplasm of right main bronchus | CPT/HCPCS: 96372 ==

== ENCOUNTER 2019-03-19 11:52 | Day surgery (SDC) | payer MEDICAID ==
[2019-03-19] MEDS ORDERED: PEGFILGRASTIM-JMDB 6 MG/0.6 ML SYRINGE ONE (12:01)
== END 2019-03-19 13:23 | disposition home or self-care (01) ==
LOC: ONC/OP 11:52
PROVIDERS: ATTEND Internal Medicine Hematology & Oncology
DX: C34.01 Malignant neoplasm of right main bronchus (principal)
CPT/HCPCS: 71045; 71275; 80053; 81003; 83605; 85025; 85379; 87040; 87804; 96372; J1642; J3370; Q5108; Q9967

== ENCOUNTER 2019-03-19 18:28 | Emergency (ER) | payer MEDICAID ==
[~2019-03-19 18:28] MED LIST changes: -ADMIXTURE FEE CHEMO IVPB SCH; -CARBOplatin 750 MG in Sodium Chloride 0.9% 250 ML 250 ML IVPB SCH; -Dexamethasone Sod Phosphate 10 MG, Ondansetron 2MG/ML MDV 10 MG in Sodium Chloride 0.9%... IVPB SCH; +Iopamidol-370 76% 500 ML 1 ML ONE; -PACLITAXEL PROTEIN BOUND IVPB SCH; -Pembrolizumab 200 MG in Sodium Chloride 0.9% 250 ML 250 ML IV SCH
[2019-03-19 19:41] LABS: Hemoglobin 7.8 g/dL (14.0-18.0); Mean Corpuscular HGB CONC 35.2 g/dL (32.0-36.0); Mean Corpuscular Hemoglobin 29.7 pg (27.0-31.0); Mean Corpuscular Volume 84.3 fL (78.0-98.0); Mean Platelet Volume 7.5 fL (7.4-10.4); Platelet Count 179 thou/uL (130-400); RBC Distribution Width 15.8 % (11.5-14.5); Red Blood Cell (RBC) Count 2.64 mill/uL (4.70-6.10); White Blood Cell (WBC) Count 8.9 thou/uL (4.8-10.8)
--- NOTE | 2019-03-19 19:51 | RAD ---
Chest one view HISTORY: Chest pain. Fever. COMPARISON: 01/01/2019. FINDINGS: Cardiac silhouette and pulmonary vasculature are unremarkable. Large bulla at the right upp er lobe is now present, with fluid clearing since the previous exam. Residual parenchymal scarring. No lobar consolidation or evidence of pneumothorax. Left subclavian Port-A-Cath in place. Old right rib fractures. IMPRESSION: Interval clearing of right upper lobe fluid and infiltrate. There is residual scarring bu t no lobar consolidation or other acute abnormalities demonstrated.
[2019-03-19 20:01] LABS: ALT (SGPT) 11 U/L (8-55); AST (SGOT) 20 U/L (5-34); Albumin 3.6 g/dL (3.5-5.0); Alkaline Phosphatase 67 U/L (40-110); Anion Gap 13 mmol/L (10-20); BUN (Urea Nitrogen) 8 mg/dL (8.9-20.6); Bilirubin, Total 0.4 mg/dL (0.2-1.2); Calc. Creatinine Clearance 0 mL/min (70-130); Calcium 8.5 mg/dL (7.8-10.44); Carbon Dioxide 24 mmol/L (22-29); Chloride 91 mmol/L (98-107); Estimated GFR-MDRD 85; Globulin 3.6 g/dL (2.4-3.5); Glucose 82 mg/dL (70-105); Protein, Total 7.2 g/dL (6.0-8.3); Sodium 125 mmol/L (136-145)
[2019-03-19 20:04] LABS: Potassium 2.9 mmol/L (3.5-5.1)
[2019-03-19 20:07] LABS: Band 15 % (5-11); Lymphocytes 29 % (21-51); MDiff Complete? YES; Monocytes 17 % (0-10); Neutrophil 39 % (42-75)
[2019-03-19] MEDS ORDERED: Potassium Chloride 20 MEQ TAB ONE (20:38)
--- NOTE | 2019-03-19 21:29 | CT ---
CT arteriogram chest with IV contrast and 3-D imaging HISTORY: Chest pain. Dyspnea. Cough. COMPARISON: 11/20/2018. FINDINGS: There is suboptimal opacification of the pulmonary arteries. No central filling defect is a pparent. No secondary signs of significant pulmonary embolus. Cavitation of the right lung apex and adjacent compressive atelectasis are now present, involving sin ce the prior study. No consolidation is now evident. Minimal nodular infiltrate at the right posterior lung base. No pleural fluid or pneumothorax evident. Large hiatal hernia is again demonstrated. Lobular lymph node at the subcarinal level of the mediasti num is 2.9 cm greatest diameter. IMPRESSION: No CT evidence of pulmonary embolus. Evolution of parenchymal cavitation and atelectasis in the right upper lobe. No consolidative pneumon ia is evident. Interval development of an enlarged subcarinal lymph node.
[2019-03-19 22:18] LABS: Bilirubin Negative (Negative); Blood, Urine Negative (Negative); Clarity Clear (Clear); Glucose, Urine (Dipstick) Normal (Negative); Leukocyte Negative Leu/uL (Negative); Nitrite Negative (Negative); Protein, Urine (Dipstick) 10 mg/dL (Neg-Trace); Urobilinogen Normal mg/dL (Less than 2)
== END 2019-03-19 22:43 | disposition home or self-care (01) ==
LOC: ERS 18:28
DX: R05 Cough (principal); C34.90 Malignant neoplasm of unspecified part of unspecified bronchus or lung; D64.9 Anemia, unspecified; E87.6 Hypokalemia; E87.1 Hypo-osmolality and hyponatremia; K21.9 Gastro-esophageal reflux disease without esophagitis; F32.9 Major depressive disorder, single episode, unspecified; Z87.891 Personal history of nicotine dependence
CPT/HCPCS: 71045; 71275; 80053; 81003; 83605; 85025; 85379; 87040; 87804; J1642; J3370

== ENCOUNTER 2019-03-23 11:41 | Day surgery (SDC) | payer MEDICAID ==
[~2019-03-23 11:41] MED LIST changes: +ADMIXTURE FEE CHEMO IVPB SCH; -Iopamidol-370 76% 500 ML 1 ML ONE; +PACLITAXEL PROTEIN BOUND IVPB SCH
[2019-03-23] MEDS ORDERED: Sodium Chloride 0.9% 20 ML ONE (13:01)
== END 2019-03-23 14:15 | disposition home or self-care (01) ==
LOC: ONC/OP 11:41
PROVIDERS: ATTEND Internal Medicine Hematology & Oncology
DX: Z51.11 Encounter for antineoplastic chemotherapy (principal); C34.01 Malignant neoplasm of right main bronchus
CPT/HCPCS: 36415; 80053; 82248; 83615; 84100; 84550; 96413; J1642

== ENCOUNTER 2019-03-30 11:19 | Day surgery (SDC) | payer MEDICAID ==
[~2019-03-30 11:19] MED LIST changes: -ADMIXTURE FEE CHEMO IVPB SCH; -PACLITAXEL PROTEIN BOUND IVPB SCH; +PACLitaxel Protein-Bound 200 MG in IV Admixture Fee-Chemo 1 UNITS IVPB SCH
[2019-03-30] MEDS ORDERED: Sodium Chloride 0.9% 20 ML ONE (11:22)
[2019-03-30 12:51] VITALS: TEMP 97.4
[2019-03-30 13:30] VITALS: BP 113/61
[2019-03-30] MEDS ORDERED: Sodium Chloride 0.9% 500 ML IVPB SCH (13:30)
== END 2019-03-30 15:38 | disposition home or self-care (01) ==
LOC: ONC/OP 11:19
PROVIDERS: ATTEND Internal Medicine Hematology & Oncology
DX: Z51.11 Encounter for antineoplastic chemotherapy (principal); C34.01 Malignant neoplasm of right main bronchus
CPT/HCPCS: 96413; J1642

== ENCOUNTER 2019-04-05 11:57 | Inpatient (IN) | payer MEDICAID ==
--- NOTE | 2019-04-05 12:40 | RAD ---
Exam: Chest one view HISTORY:Dyspnea Comparison: 03/19/2019 FINDINGS: Lungs: Stable parenchymal opacification and adjacent lucency of the right upper lung zone. Cardiac silhouette: Normal size Pulmonary vessels: Normal Pleural Spaces: Clear Pneumothorax: None Persistent hiatal hernia. Osseous abnormalities: None of acuity. IMPRESSION: No significant interval change.
[2019-04-05 12:44] LABS: INR-International Normal Ratio 1.3; PTT 56.1 SEC (22.9-36.1); Prothrombin Time 16.1 SEC (12.0-14.7)
[2019-04-05 13:03] LABS: ALT (SGPT) 9 U/L (8-55); AST (SGOT) 32 U/L (5-34); Albumin 3.3 g/dL (3.5-5.0); Alkaline Phosphatase 48 U/L (40-110); Anion Gap 20 mmol/L (10-20); Anisocytosis SLIGHT = 6-15 cells (100X) (0-5/hpf); BUN (Urea Nitrogen) 25 mg/dL (8.9-20.6); Band 3 % (5-11); Bilirubin, Total 0.9 mg/dL (0.2-1.2); Calc. Creatinine Clearance 0 mL/min (70-130); Calcium 9.2 mg/dL (7.8-10.44); Carbon Dioxide 17 mmol/L (22-29); Chloride 92 mmol/L (98-107); Eosinophils 5 % (0-10); Estimated GFR-MDRD 33; Globulin 3.8 g/dL (2.4-3.5); Glucose 105 mg/dL (70-105); Hemoglobin 4.7 g/dL (14.0-18.0); Lymphocytes 76 % (21-51); MDiff Complete? YES; Mean Corpuscular HGB CONC 36.1 g/dL (32.0-36.0); Mean Corpuscular Hemoglobin 30.8 pg (27.0-31.0); Mean Corpuscular Volume 85.2 fL (78.0-98.0); Mean Platelet Volume 9.6 fL (7.4-10.4); Metamyelocyte 2 % (0-0); Monocytes 1 % (0-10); Neutrophil 13 % (42-75); Platelet Count 55 thou/uL (130-400); Potassium 3.3 mmol/L (3.5-5.1); Protein, Total 7.1 g/dL (6.0-8.3); RBC Distribution Width 16.9 % (11.5-14.5); Red Blood Cell (RBC) Count 1.51 mill/uL (4.70-6.10); Sodium 126 mmol/L (136-145); White Blood Cell (WBC) Count 2.4 thou/uL (4.8-10.8)
[2019-04-05 14:02] LABS: CKMB 1.2 ng/mL (0-6.6)
--- NOTE | 2019-04-05 14:14 | PDOC.FPRHP ---
- History of Present Illness Chief Complaint: Low Blood level, Passed out History of Present Illness: Patient is a 39 yo male with stage 4 squamous cell carcinoma lung cancer with primary site in RUL who presents to ED after passing out at lab draw he was having performed at the [facility]. Patient's mother reports that he was very weak the last few days accompanied by some SOB and lightheadedness/ dizziness. He fell at home a few days ago, denies hitting his head. Mother had to call for 2 paramedics to come help get him back into bed. For past 2 days patient also has had some loose watery stools along with new mouth sores. Has not been eating for past several days. Today Patient's Mother reports she needed multiple people to help get him inside the cancer center on the way to his appointments. At the cancer center the patient became lightheaded and appeared to be "out of it" along with having difficulty speaking. EMS was called to transport him here. Currently the patient continues to complain of weakness and feeling dizzy. Pt was suppose to finish chemo here in a few weeks and then have repeat scans in late April 2019. Pt was recently found to have liver mets and possible adrenal mets per mother. ED Course: Patient was given transfusion of 2 units pRBCs in ED along with a 1L NS bolus. Vitals in ED notable for tachycardia in 120s. - Allergies/Adverse Reactions Allergies Allergy/AdvReac Type Severity Reaction Status Date / Time No Known Allergies Allergy Verified 12/31/18 10:00 - Home Medications Medication Instructions Recorded Confirmed Type Magnesium Chloride [Slow-Mag] 64 mg PO BID #60 tab 12/11/18 12/31/18 Rx Amoxicillin/Potassium Clav 1 tablet PO BID 12/31/18 12/31/18 History [Amox-Clav 500-125 mg Tablet] Ibuprofen/Diphenhydramine HCl 2 capsule PO HS 12/31/18 12/31/18 History [Ibuprofen PM Softgel] Multivitamin [Multivitamins] 1 cap PO DAILY 12/31/18 12/31/18 History Omeprazole 20 mg PO DAILY 12/31/18 12/31/18 History guaiFENesin/Dextromethorphan 400 mg PO Q4H PRN 12/31/18 12/31/18 History [Guaifenesin Dm Syrup] Comments: Abraxane 100 mg, Ibuprofen 200 mg, Omeprazole 20 mg, Zofran 8 mg, Doxycycline 100mg Pt also on carboplatin and abraxane. - History PMHx: Alcoholism, Tobacco use d/o, central pontine myelinolysis, Stage 4 lung cancer, GERD, Anxiety, Depression PSHx: Right arm, right foot FHx: father from [place], maternal grandmother DM Social: Quit smoking back in November, Quit drinking beer back in November. Prior 1.5 ppd smoker and heavy beer drinker daily. Denies illicit drug use. - Review of Systems General: reports: weight/appetite/sleep changes, fatigue. denies: fever/chills Eyes: denies: vision changes ENT: denies: nasal congestion Respiratory: reports: shortness of breath. denies: cough, congestion Cardiovascular: reports: palpitation. denies: chest pain, edema Gastrointestinal: reports: diarrhea. denies: nausea, vomiting, constipation, abdominal pain, GI bleeding (Denies blood in stool but reports as dark.) Genitourinary: denies: dysuria Skin: reports: other (pale skin). denies: rashes, lesions Musculoskeletal: denies: pain, tenderness, swelling Neurological: reports: weakness. denies: numbness - Vital signs BP: [105/54] HR: [121] RR: [18] Tmax: [98.2] Pox: [100]% on [4L] Wt: [73 kg] - Physical Exam Constitutional: NAD, awake, alert and oriented HEENT: normocephalic and atraumatic, EOMI, grossly normal vision, grossly normal hearing -HEENT: dry mucous membranes, cracked lips, open sores on lips and inside mouth Neck: supple, no JVD Heart: normal S1/S2, no murmurs/rubs/gallops, pulses present, no edema -Heart: tachycardic, regular rhythm Lungs: CTAB, no respiratory distress, good air movement, no wheezing Abdomen: soft, non-tender, bowel sounds present Musculoskeletal: normal structure, normal tone Neurological: no focal deficit, CN II-XII intact, normal sensation Skin: no rash/lesions -Skin: poor skin turgor Heme/Lymphatic: no unusual bruising or bleeding Psychiatric: normal mood and affect FMR H&P: Results - Labs Result Diagrams: 04/05/19 12:25 04/05/19 12:25 Lab results: WBC 2.4 thou/uL (4.8-10.8) L 04/05/19 12:25 Hgb 4.7 g/dL (14.0-18.0) L* 04/05/19 12:25 Hct 12.9 % (42.0-52.0) L* 04/05/19 12:25 MCV 85.2 fL (78.0-98.0) 04/05/19 12:25 Plt Count 55 thou/uL (130-400) L 04/05/19 12:25 Band Neuts % (Manual) 3 % (5-11) L 04/05/19 12:25 Sodium 126 mmol/L (136-145) L 04/05/19 12:25 Potassium 3.3 mmol/L (3.5-5.1) L 04/05/19 12:25 Chloride 92 mmol/L (98-107) L 04/05/19 12:25 Carbon Dioxide 17 mmol/L (22-29) L 04/05/19 12:25 BUN 25 mg/dL (8.9-20.6) H 04/05/19 12:25 Creatinine 2.21 mg/dL (0.7-1.3) H 04/05/19 12:25 Glucose 105 mg/dL (70-105) 04/05/19 12:25 Calcium 9.2 mg/dL (7.8-10.44) 04/05/19 12:25 Total Bilirubin 0.9 mg/dL (0.2-1.2) 04/05/19 12:25 AST 32 U/L (5-34) 04/05/19 12:25 ALT 9 U/L (8-55) 04/05/19 12:25 Alkaline Phosphatase 48 U/L (40-110) 04/05/19 12:25 CK-MB (CK-2) 1.2 ng/mL (0-6.6) 04/05/19 12:20 Serum Total Protein 7.1 g/dL (6.0-8.3) 04/05/19 12:25 Albumin 3.3 g/dL (3.5-5.0) L 04/05/19 12:25 - Radiology Interpretation Chest x-ray Status: image reviewed by me, report reviewed by me (No significant interval change.) FMR H&P: A/P - Problem List (1) Symptomatic anemia Current Visit: Yes Status: Acute Code(s): D64.9 - ANEMIA, UNSPECIFIED (2) Acute kidney injury Current Visit: Yes Status: Acute Code(s): N17.9 - ACUTE KIDNEY FAILURE, UNSPECIFIED (3) Demand ischemia Current Visit: Yes Status: Acute Code(s): I24.8 - OTHER FORMS OF ACUTE ISCHEMIC HEART DISEASE (4) Pancytopenia Current Visit: Yes Status: Acute Code(s): D61.818 - OTHER PANCYTOPENIA (5) Hyponatremia Current Visit: No Status: Acute Code(s): E87.1 - HYPO-OSMOLALITY AND HYPONATREMIA - Plan Patient is a 39 yo male who presents with weakness is found to have symptomatic anemia with tachycardia: #Symptomatic anemia -severe weakness on exam -given 2 units pRBCs in ED, post-transfusion H/H ordered -continue to monitor -consult Oncology, Dr. Duran-appreciate recs -given hx most likely d/t anemia but will order flu swab to r/o remote possibility of Influenza imposed on current condition #KATIANA -admission Cr 2.21, BUN 25 -1L NS bolus given in ED -will continue maintenance IVF with NS @ 100 ml/h #Demand Ischemia -Trop 0.108 > 0.089, will trend #Pancytopenia -admission: Hgb 4.7, WBC 2.4, Plt 55 -continue to monitor on AM CBC -Pathology smear review ordered #Hyponatremia -admission: Na 126 -continue to monitor AM CMP #Hx of Stage 4 Lung Cancer -SCC on RUL primary site with mets in liver and possibly adrenal -Oncology consulted #Hx of Central Pontine myelinolysis -continue to monitor #GERD -continue home meds #Anxiety, Depression -continue home meds Diet: Regular VTE: SCDs Code status: FULL Dispo: Guarded, admitted to inpatient on IMCU. Continue to trend H/H and replace blood prn. Oncology, Dr. Duran consulted, appreciate recs. Anticipate LOS >48 hrs. FMR H&P: Upper Level - Pertinent history I was present with the newsroom intern during the HPI. I scribed the above document. I made edits above as needed. I agree with above. See above for details. - Pertinent findings Pt is very pale appearing. Pt tires easily with conversation. pt appears to have mild jaundice color. Cardio: sinus tachy. No murmurs or gallops. No edema noted. Abdomen: No distention. NTTP. No masses noted. - Plan Date/Time: 04/05/19 1412 I, Ty Ayala, PGY-3, have evaluated this patient and agree with findings/ plan as outlined by newsroom intern resident. Pertinent changes/additions are listed here. I made edits to the above plan as needed. At this time we will admit patient for symptomatic anemia. Pt hgb down to 4.8 and pt very week. This is likely from patients chemo regimen. Pt did report some nausea. Will check flu. Otherwise will transfuse 2 uPRBC at this time. Will repeat H&H post transfusion and continue to replace as needed. Oncology consulted- Dr. Duran. Will follow recs. Again see above for detailed plan. Addendum - Attending - Attending Attestation Date/Time: 04/05/19 1810 I personally evaluated the patient and discussed the management with Dr. Slater/ Jamie I agree with the History, Examination, Assessment and Plan documented above with any addition or exceptions noted below - 39 yo male with stage 4 squamous cell carcinoma lung cancer with primary site in RUL who presents to ED after passing out at lab draw he was having performed at the [facility]. Patient's mother reports that he was very weak the last few days accompanied by some SOB and lightheadedness/dizziness. Has had poor appetite. Had a fall 2-3 days ago with no injury and while at the Cancer Center today was too weak to walk in and had near syncope. Does report diarrhea and some mouth sores over the last few days. PMH/PSH/Meds/SH reviewed and agree with resident's documentation. T98.3 P120 BP 85/52 RR24 100% Exam repeated by me and agree with resident's findings. Labs: Cq=718, K=3.3, Cl=92, CO2=17, BUN/Cr=25/2.21, Igev=768, Trop=0.108, WBC=2.4, H/H=4.7/12.9, Plt=55, Diff 13N/3B/76L, TLZ=085. CXR- no interval change. A/P: 1) Pancytopenia - most likely secondary to chemotherapy for lung cancer- Admit to IMCU. Transfuse 2u pRBCs. recheck H/H. 2 ) KATIANA - most likely due to the severe anemia as well as poor po intake. Continue IVF after transfusion and recheck in AM. 3) Stage 4 SCCa of lung - currently undergoing chemotherapy; will notify oncology of pt's admission. 4) Neutropenia - most likely secondary to chemotherapy- no fever; monitor closely and reverse isolation.
[2019-04-05 16:15] LABS: Troponin I 0.089 ng/mL (< 0.028)
[2019-04-05] MEDS ORDERED: Acetaminophen 650 MG Suppository PR PRN (16:52)
[2019-04-05] MEDS ORDERED: Ondansetron ODT 4 MG TAB PO PRN (16:52)
[2019-04-05] MEDS ORDERED: Ondansetron PF 4 MG/2 ML Vial IVP PRN (16:52)
[2019-04-05 19:36] LABS: Troponin I 0.069 ng/mL (< 0.028)
--- NOTE | 2019-04-05 22:15 | CON ---
DATE OF CONSULTATION: REASON FOR CONSULTATION: Lung cancer. HISTORY OF PRESENT ILLNESS: Mr. Mi is a 39-year-old gentleman, who has stage IV squamous cell carcinoma of the lung. He had a right upper lobe mass invading the mediastinum. He has mediastinal lymphadenopathy, liver and adrenal METS. He was started on carboplatin, Abraxane, and Keytruda. He has had three cycles completed, last cycle was on 03/23/2019. He was actually due for chemo today. He presented to our clinic in a wheelchair. He was mildly confused, certainly dehydrated and tachycardic, unable to get a blood pressure. He was sent by EMS from our office to the emergency room for evaluation. He states he has been feeling poorly for about a week or two. He cannot remember the last time he ate. Denies any nausea or diarrhea. In the emergency room, his white count was 2.4. His hemoglobin was 4.7. His platelet count was 55,000. He was started on IV hydration and is getting a second unit of blood. He is being admitted for further treatment. PAST MEDICAL HISTORY: 1. Stage IV squamous cell carcinoma of the lung. 2. Anxiety and depression. 3. GERD. 4. Central pontine myelinolysis. 5. History of alcohol abuse. 6. History of smoking. PAST SURGICAL HISTORY: Right arm surgery, right foot surgery, cyst removal and lung biopsy. ALLERGIES: NO KNOWN DRUG ALLERGIES. HOME MEDICATIONS: 1. Ampicillin. 2. Guaifenesin. 3. Ibuprofen. 4. Prilosec. 5. Magnesium. 6. Zofran. FAMILY HISTORY: Mother had squamous cell carcinoma of the skin. SOCIAL HISTORY: Single, lives with his mother. Twenty-seven pack-year history of smoking. History of heavy alcohol use, quit in November 2018. REVIEW OF SYSTEMS: Negative except for noted in HPI. PHYSICAL EXAMINATION: VITAL SIGNS: Temperature is 98.6, pulse is 123, respiratory rate is 18, BP is 105/63. GENERAL: This is a disheveled male, in no acute distress. HEENT: Normocephalic, atraumatic. Pupils are equal and reactive to light. He has mucositis. NECK: Supple. CV: Regular rate and rhythm. He has tachycardia. LUNGS: Clear anterior. ABDOMEN: Soft and nontender. Bowel sounds are positive. EXTREMITIES: There is no clubbing or cyanosis. SKIN: No rash. HEMATOLOGICAL: No petechiae or purpura. NEUROLOGICAL: Nonfocal. PERTINENT LABORATORY DATA AND X-RAYS: Current WBCs 2.4, hemoglobin 4.7, hematocrit 12.9, platelet count 55,000, 30% neutrophils, 3% bands, 76% lymphocytes, 2%myelocytes. PT 16.1, INR is 1.3, and PTT is 56.1, sodium 126, potassium 3.3, chloride 92, CO2 of 17, BUN is 25, creatinine 2.21, calcium 9.2, bilirubin 0.9, AST is 32, ALT is 9, alkaline phosphatase is 48. Serum total protein is 7.1, albumin 3.3, globulin 3.8. Chest x-ray shows no acute findings. ASSESSMENT: 1. Stage IV squamous cell carcinoma of the lung, status post cycle 3 of chemotherapy. 2. Severe symptomatic anemia secondary to chemo. 3. Dehydration. 4. Acute kidney injury. 5. Hyponatremia. DISCUSSION: The patient has been placed on IV fluids. He is on a second unit of packed RBCs. He did receive growth stimulating factor after chemotherapy, so I expect his white count to improve over the next several days. He has been afebrile. He will be admitted for IV hydration and close monitoring of his CBC. There appears to be no evidence of bleeding. We will follow along with his hospital course. Thank you for the consult. Job ID: [id number]
[2019-04-05 23:10] LABS: Hemoglobin 7.2 g/dL (14.0-18.0); Platelet Count 46 thou/uL (130-400)
[2019-04-05] MEDS ORDERED: Loperamide HCl 2 MG CAP PO PRN (23:12)
[2019-04-06 06:09] LABS: ALT (SGPT) 11 U/L (8-55); AST (SGOT) 33 U/L (5-34); Albumin 2.9 g/dL (3.5-5.0); Alkaline Phosphatase 43 U/L (40-110); Anion Gap 15 mmol/L (10-20); BUN (Urea Nitrogen) 24 mg/dL (8.9-20.6); Bilirubin, Total 0.8 mg/dL (0.2-1.2); Calc. Creatinine Clearance 56 mL/min (70-130); Calcium 8.1 mg/dL (7.8-10.44); Carbon Dioxide 20 mmol/L (22-29); Chloride 92 mmol/L (98-107); Estimated GFR-MDRD 41; Globulin 3.4 g/dL (2.4-3.5); Glucose 82 mg/dL (70-105); Protein, Total 6.3 g/dL (6.0-8.3); Sodium 124 mmol/L (136-145)
[2019-04-06 06:11] LABS: Potassium 2.9 mmol/L (3.5-5.1)
--- NOTE | 2019-04-06 06:48 | PDOC.FM ---
- Subjective Subjective: Patient states he is feeling fine, he wants to leave before [place]. Denies CP or SOB. Reports he is feeling tired. - Objective Vital Signs & Weight: Vital Signs (12 hours) Temp Pulse Ox 04/06/19 03:32 99.3 F 04/05/19 22:00 98.9 F 04/05/19 20:00 100 04/05/19 19:22 100.2 F H Weight Weight 73.936 kg Most Recent Monitor Data Heart Rate from ECG 112 NIBP 91/48 NIBP BP-Mean 62 Respiration from ECG 27 SpO2 94 I&O: 04/04/19 04/05/19 04/06/19 06:59 06:59 06:59 Intake Total 240 Output Total 350 Balance -110 Result Diagrams: 04/06/19 04:49 04/06/19 04:49 Phys Exam - Physical Examination Constitutional: NAD dry MM, cracked lips Respiratory: no wheezing, clear to auscultation bilateral Cardiovascular: RRR, no significant murmur Gastrointestinal: soft, non-tender, positive bowel sounds Neurological: non-focal, moves all 4 limbs strength 5/5 upper and lower extremities Psychiatric: normal affect, A&O x 3 Skin: cap refill <2 seconds Deviation from normal: pale appearing Dx/Plan (1) Stage 4 lung cancer Code(s): C34.90 - MALIGNANT NEOPLASM OF UNSP PART OF UNSP BRONCHUS OR LUNG Status: Acute (2) GERD (gastroesophageal reflux disease) Code(s): K21.9 - GASTRO-ESOPHAGEAL REFLUX DISEASE WITHOUT ESOPHAGITIS Status: Chronic (3) Anxiety Code(s): F41.9 - ANXIETY DISORDER, UNSPECIFIED Status: Chronic (4) Depression Code(s): F32.9 - MAJOR DEPRESSIVE DISORDER, SINGLE EPISODE, UNSPECIFIED Status : Chronic (5) Acute kidney injury Code(s): N17.9 - ACUTE KIDNEY FAILURE, UNSPECIFIED Status: Acute (6) Demand ischemia Code(s): I24.8 - OTHER FORMS OF ACUTE ISCHEMIC HEART DISEASE Status: Acute (7) Pancytopenia Code(s): D61.818 - OTHER PANCYTOPENIA Status: Acute (8) Symptomatic anemia Code(s): D64.9 - ANEMIA, UNSPECIFIED Status: Acute (9) Hyponatremia Code(s): E87.1 - HYPO-OSMOLALITY AND HYPONATREMIA Status: Acute - Plan Plan: Patient is a 39 yo male who presents with weakness is found to have symptomatic anemia with tachycardia: #Symptomatic anemia -severe weakness on exam -given 2 units pRBCs in ED, post-transfusion H/H improved to 7.2 -Repeat 6.5, transfuse 1 u PRBC this AM -continue to monitor -consult Oncology, Dr. Duran-appreciate recs -Anemia 2/2 chemotherapy: carboplatin, abraxane, keytruda; s/p growth stimulating factor -influenza negative #Hypokalemia -2.9 this AM -40 meq BID -recheck @ 1300 #Hypomagnesemia -Mag 1.0 -replete and recheck #KATIANA, improving -admission Cr 2.21, BUN 25 -1L NS bolus given in ED -Cr 2.21-> 1.84 #Pancytopenia -afebrile -admission: Hgb 4.7, WBC 2.4, Plt 55 -2/2 to chemotherapy: s/p growth stimulating factor, should improve -continue to monitor on AM CBC -Pathology smear review ordered #Hyponatremia -admission: Na 126 ->124 -fluid restricted, strict I/Os -recheck at 1300 #Diarrhea -5 loose stools -Stat C diff pending #Hx of Stage 4 Lung Cancer -SCC on RUL primary site with mets in liver and adrenal mets -Oncology consulted #Type 2 [place]/Demand Ischemia, downtrending -Trop 0.108 > 0.089 -> 0.069 #Hx of [place] myelinolysis -continue to monitor #GERD -continue home meds #Anxiety, Depression -continue home meds Diet: Regular VTE: SCDs Code status: FULL Dispo: Guarded, Continue to trend H/H and replace blood prn. Trend BMP, fluid restrict for hyponatremia. Oncology, Dr. Duran consulted, appreciate recs. Anticipate LOS >48 hrs. Addendum - Attending - Attending Attestation Date/Time: 04/06/19 1003 I personally evaluated the patient and discussed the management with Dr. Lopez. I agree with the History, Examination, Assessment and Plan documented above with any addition or exceptions noted below. patient has profound pancytopenia with severe neutropenia likely 2/2 chemotherapy. H&H up to 6.5 this morning after 2U PRBCs. Transfuse additional unit. Hyponatremia worsened with fluids. Suspect SIADH given underlying lung malignancy. Urine studies ordered. Fluid restrict 1L daily. Nephro consulted given hx of CPM. Replace electrolytes and recheck this afternoon. CDiff screen for diarrhea but likely 2/2 chemotherapy. Will transfer out of IMCU to oncology floor.
[2019-04-06 06:59] LABS: Anisocytosis SLIGHT = 6-15 cells (100X) (0-5/hpf); Eosinophils 4 % (0-10); Hemoglobin 6.5 g/dL (14.0-18.0); Lymphocytes 69 % (21-51); MDiff Complete? YES; Mean Corpuscular HGB CONC 34.9 g/dL (32.0-36.0); Mean Platelet Volume 9.4 fL (7.4-10.4); Monocytes 1 % (0-10); Neutrophil 26 % (42-75); Platelet Count 48 thou/uL (130-400); Platelet Morphology Comment Appears Decreased; RBC Distribution Width 15.1 % (11.5-14.5); Red Blood Cell (RBC) Count 2.15 mill/uL (4.70-6.10); White Blood Cell (WBC) Count 1.3 thou/uL (4.8-10.8)
[2019-04-06] MEDS ORDERED: Magnesium 2 GM/50 ML 2 GM in Premix Bag 1 BAG IVPB SCH (08:45)
[2019-04-06] MEDS ORDERED: Prevnar 13-Val Conj/PF 0.5 ML SYRINGE IM ONE (09:00)
[2019-04-06] MEDS: Potassium Chloride 20 MEQ TAB PO SCH ×2 (10:46→16:23)
[2019-04-06] MEDS: Famotidine/PF 20 mg/2ml Vial SLOW IVP SCH (10:47)
[2019-04-06] MEDS: Acetaminophen 325 MG TAB PO PRN ×2 (12:02→20:38)
[2019-04-06 13:15] LABS: Phosphorus 3.3 mg/dL (2.3-4.7)
[2019-04-06 13:17] LABS: Anion Gap 15 mmol/L (10-20); BUN (Urea Nitrogen) 22 mg/dL (8.9-20.6); Calc. Creatinine Clearance 69 mL/min (70-130); Calcium 8.5 mg/dL (7.8-10.44); Carbon Dioxide 20 mmol/L (22-29); Chloride 92 mmol/L (98-107); Estimated GFR-MDRD 53; Glucose 78 mg/dL (70-105); Magnesium 1.7 mg/dL (1.6-2.6); Sodium 124 mmol/L (136-145)
[2019-04-06 13:19] LABS: Potassium 2.8 mmol/L (3.5-5.1)
--- NOTE | 2019-04-06 13:30 | CON ---
DATE OF CONSULTATION: HISTORY OF PRESENT ILLNESS: Mr. Mi is a 39-year-old male, who unfortunately has stage IV [id number] lung cancer. He is currently being treated by the oncologist. He reports 2 weeks of almost no p.o. intake. He was severely anemic and hypotensive in the emergency room He has been transfused and is better now. PAST MEDICAL HISTORY: Remarkable for: 1. Reflux disease. 2. 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 3. History of alcohol use and smoking. 4. History of right arm and right foot orthopedic surgery in the past. MEDICATIONS: Prior to admission, he is on: 1. Ampicillin. 2. Guaifenesin. 3. Ibuprofen. 4. Prilosec. 5. Magnesium. 6. Zofran. ALLERGIES: HE HAS NO REPORTED DRUG ALLERGIES. FAMILY HISTORY: Positive for cancer. SOCIAL HISTORY: He is not currently smoking or drinking by report. REVIEW OF SYSTEMS: Ten-point is otherwise negative. PHYSICAL EXAMINATION: VITAL SIGNS: Temperature is 100.8, blood pressure 94/55, heart rate is 104, and respiratory rate is 18. GENERAL: He is in no distress. He is not tachypneic. He is not using accessory muscles. He looks older than his age. HEENT: He has a bruise on his right cheek. NECK: Without lymphadenopathy. LUNGS: Clear. HEART: Regular rhythm. S1 and S2 are normal. ABDOMEN: Soft and nontender. EXTREMITIES: Without clubbing, cyanosis, or edema. NEUROLOGIC: Nonfocal. LABORATORY DATA: White count is 1.3, hemoglobin 6.5, and platelets 48,000. Sodium 124, potassium 2.9, chloride 92, bicarb 20, BUN 24, and creatinine 1.84. IMPRESSION: 1. Stage IV lung cancer. 2. Anorexia. 3. Hyponatremia. Cortisol level needs to be checked as does his TSH. 4. Gwlao-uk-ecburzs kidney disease. I suspect all of his creatinine issues are related to intravascular volume depletion. I have creatinine from 13 days ago, that is 0.9. 5. Hypoalbuminemia. 6. Pancytopenia secondary to chemo with an absolute neutrophil count of just under 400. PLAN: With his temperature elevation, he should be started on broad antimicrobial therapy. I will reorder some blood cultures. He also needs to be transfused another couple units of blood. TIME SPENT: This is a 70-minute consult, 50% of the time was spent on the unit coordinating care. Job ID: [id number] [email or web address]
[2019-04-06] MEDS: Meropenem 2 GM in Sodium Chloride 0.9% 100 ML IVPB SCH ×2 (14:38→22:42)
[2019-04-06] MEDS: Vancomycin HCl 1.25 GM in Sodium Chloride 0.9% 250 ML 250 ML IVPB SCH (14:39)
[2019-04-06] MEDS ORDERED: Sodium Chloride 0.65% Nasal 44 ML BOT EA NARE PRN (15:13)
[2019-04-06] MEDS ORDERED: Cepastat Lozenges 1 LOZ PO PRN (15:14)
[2019-04-06] MEDS ORDERED: Chloraseptic Spray 180 ml Bottle PO PRN (15:16)
[2019-04-06] MEDS ORDERED: Magnesium 2 GM/50 ML 1 GM in Premix Bag 1 BAG IVPB SCH (15:30)
[2019-04-06] MEDS ORDERED: Potassium Chloride 20 MEQ TAB PO SCH (15:30)
[2019-04-06] MEDS: Sodium Chloride 0.9% 1,000 ML IV SCH (15:58)
[2019-04-06] MEDS ORDERED: TBO-Filgrastim 300 MCG/0.5 ML VIAL SC SCH (16:00)
[2019-04-06 18:06] LABS: Anion Gap 13 mmol/L (10-20); BUN (Urea Nitrogen) 19 mg/dL (8.9-20.6); Calc. Creatinine Clearance 77 mL/min (70-130); Calcium 8.4 mg/dL (7.8-10.44); Carbon Dioxide 20 mmol/L (22-29); Chloride 95 mmol/L (98-107); Estimated GFR-MDRD 60; Glucose 80 mg/dL (70-105); Hemoglobin 7.3 g/dL (14.0-18.0); Mean Corpuscular HGB CONC 36.5 g/dL (32.0-36.0); Mean Corpuscular Hemoglobin 31.4 pg (27.0-31.0); Platelet Count 60 thou/uL (130-400); Potassium 3.2 mmol/L (3.5-5.1); RBC Distribution Width 14.7 % (11.5-14.5); Red Blood Cell (RBC) Count 2.32 mill/uL (4.70-6.10); Sodium 125 mmol/L (136-145); White Blood Cell (WBC) Count 0.8 thou/uL (4.8-10.8)
[2019-04-06 18:28] LABS: Band 3 % (5-11); Elliptocytes SLIGHT = 2-5 cells (100X) (0-1/hpf); Eosinophils 11 % (0-10); Lymphocytes 78 % (21-51); MDiff Complete? YES; Monocytes 5 % (0-10); Neutrophil 3 % (42-75); Platelet Morphology Comment Appears Decreased
[2019-04-06] MEDS: hydrOXYzine 10 MG TAB PO PRN (20:39)
--- NOTE | 2019-04-06 20:45 | PDOC.EVN ---
Event Note - Event Note Event Note: At approximately 2030 the Night Team was notified that Mr. Mi had spiked a temperature of 101.8 (Oral) following the transfusion of his 2nd unit of pRBCs. He did not offer any complaints during his evaluation, and his vital signs demonstrated a HR(125), BP(115/68) and O2Sat(93% - Room). Physical examination was remarkable only for tachycardia, and his cardiopulmonary and abdominal exam were otherwise WNL. The remnants of the 2nd unit of pRBCs were sent to the lab in order to ensure correct blood products, stat blood cultures were ordered, and a verbal order was given to administer Atarax and Acetaminophen. The 3rd unit of pRBCS will be held until further notice.
[2019-04-06] MEDS ORDERED: hydrOXYzine 10 MG TAB PO SCH (21:00)
[2019-04-07] MEDS: Vancomycin HCl 1.25 GM in Sodium Chloride 0.9% 250 ML 250 ML IVPB SCH ×2 (03:17→14:46)
[2019-04-07] MEDS: Meropenem 2 GM in Sodium Chloride 0.9% 100 ML IVPB SCH ×3 (05:26→22:07)
[2019-04-07] MEDS: Sodium Chloride 0.9% 1,000 ML IV SCH ×3 (05:26→17:27)
--- NOTE | 2019-04-07 06:31 | PDOC.FM ---
- Subjective Subjective: Pt states he is feeling fine this morning. He is still feeling tired. He is still having frequent liquidy bowel movements. He started fevering yesterday. Mother reports that he was fevering at home prior to admission, but her son did not want her to take him to the hospital or to call the doctor. She states he fevers mostly at night. Yesterday he received 2 additional units PRBCs. Started fevering, he was placed on vanc and meropenem. ID Dr. Ramirez was consulted. - Objective Vital Signs & Weight: Vital Signs (12 hours) Temp Pulse Ox 04/07/19 03:36 100.8 F H 04/06/19 23:45 100.8 F H 04/06/19 20:19 101.8 F H 04/06/19 20:00 100 04/06/19 19:34 100.0 F H Weight Admit Weight 73.936 kg Weight 73.539 kg Most Recent Monitor Data Heart Rate from ECG 121 NIBP 91/47 NIBP BP-Mean 61 Respiration from ECG 30 SpO2 98 I&O: 04/05/19 04/06/19 04/07/19 06:59 06:59 06:59 Intake Total 240 2646 Output Total 350 850 Balance -110 1796 Result Diagrams: 04/07/19 06:34 04/07/19 06:34 Phys Exam - Physical Examination Constitutional: NAD Respiratory: no wheezing, clear to auscultation bilateral Cardiovascular: RRR, no significant murmur Gastrointestinal: soft, positive bowel sounds Musculoskeletal: no edema, pulses present Neurological: non-focal, moves all 4 limbs Psychiatric: normal affect Skin: normal turgor Dx/Plan (1) Stage 4 lung cancer Code(s): C34.90 - MALIGNANT NEOPLASM OF UNSP PART OF UNSP BRONCHUS OR LUNG Status: Acute (2) GERD (gastroesophageal reflux disease) Code(s): K21.9 - GASTRO-ESOPHAGEAL REFLUX DISEASE WITHOUT ESOPHAGITIS Status: Chronic (3) Anxiety Code(s): F41.9 - ANXIETY DISORDER, UNSPECIFIED Status: Chronic (4) Depression Code(s): F32.9 - MAJOR DEPRESSIVE DISORDER, SINGLE EPISODE, UNSPECIFIED Status : Chronic (5) Acute kidney injury Code(s): N17.9 - ACUTE KIDNEY FAILURE, UNSPECIFIED Status: Acute (6) Demand ischemia Code(s): I24.8 - OTHER FORMS OF ACUTE ISCHEMIC HEART DISEASE Status: Acute (7) Pancytopenia Code(s): D61.818 - OTHER PANCYTOPENIA Status: Acute (8) Symptomatic anemia Code(s): D64.9 - ANEMIA, UNSPECIFIED Status: Acute (9) Hyponatremia Code(s): E87.1 - HYPO-OSMOLALITY AND HYPONATREMIA Status: Acute (10) Neutropenic fever Code(s): D70.9 - NEUTROPENIA, UNSPECIFIED; R50.81 - FEVER PRESENTING WITH CONDITIONS CLASSIFIED ELSEWHERE Status: Acute - Plan Plan: #Neutropenic Fever -Fever up to 101.8 -Started on vancomycin, meropenem -ID, Dr. Ramirez consulted, appreciate recs -Blood and urine cultures pending. Blood cultures redrawn last night during second fever. #Symptomatic anemia 2/2 chemotherapy -severe weakness on initial exam -s/p 4 units pRBCs -continue to monitor, 8.7 today -consult Oncology, Dr. Duran-appreciate recs -Anemia 2/2 chemotherapy: carboplatin, abraxane, keytruda; s/p growth stimulating factor -influenza negative #Hypokalemia -K now 3.2 -40 meq BID -continue to monitor and replete #Hypomagnesemia -Mag 1.0 -> 1.7 -Monitor and replace as necessary #KATIANA, improving -admission Cr 2.21, BUN 25 -1L NS bolus given in ED -Cr 2.21-> 1.84 -> 1.3 #Pancytopenia -admission: Hgb 4.7, WBC 2.4, Plt 55 -2/2 to chemotherapy: s/p growth stimulating factor, should improve #Hyponatremia -admission: Na 124, now 127 -fluid restricted, strict I/Os -Nephro consulted, appreciate recs #Hypophosphatemia -monitor and replace as needed #Diarrhea -C diff negative -Added stool studies #Hx of Stage 4 Lung Cancer, Squamous Cell -SCC on RUL primary site with mets in liver and adrenal mets -Oncology consulted #Type 2 [place]/Demand Ischemia, downtrending -Trop 0.108 > 0.089 -> 0.069 #Hx of [place] myelinolysis -continue to monitor #GERD -continue home meds #Anxiety, Depression -continue home meds Diet: Regular VTE: SCDs Code status: FULL Dispo: Guarded, Continue to trend H/H and replace blood prn. Continue vancomycin and meropenem for neutropenic fever, awaiting results of blood and urine cultures, ID consulted, appreciate recs. Trend BMP, fluid restrict for hyponatremia. Oncology, Dr. Duran consulted, appreciate recs. Anticipate LOS > 48 hrs. Addendum - Attending - Attending Attestation Date/Time: 04/07/19 1208 I personally evaluated the patient and discussed the management with Dr. Lopez I agree with the History, Examination, Assessment and Plan documented above with any addition or exceptions noted below. Will start IV solucortef due to undetectable cortisol level. Continue treatment for neutropenic fever. Cultures negative to date. Discussed case at length with patient and his mother. informed fever may be related to chemo vs blood vs infection but given neutropenic state need to continue IV antibiotics. Patient and his mother have stated multiple times that he does not like being in the hospital and has told his mother not to call the oncologist if he had fever at home because he does not want to be admitted to the hospital. Will revisit this discussion tomorrow and see if patient and family would consider palliative consultation to discuss goals of care. Given his stage 4 lung cancer and now multiple active problems likely related to chemotherapy, his overall prognosis remains guarded. Keep in IMCU today for close observation. H&H stable, correct electrolytes. Continue broad spectrum ABx
[2019-04-07 06:48] LABS: Hemoglobin 8.7 g/dL (14.0-18.0); Mean Corpuscular HGB CONC 35.8 g/dL (32.0-36.0); Mean Corpuscular Hemoglobin 30.9 pg (27.0-31.0); Mean Corpuscular Volume 86.4 fL (78.0-98.0); Mean Platelet Volume 9.1 fL (7.4-10.4); Platelet Count 71 thou/uL (130-400); RBC Distribution Width 14.6 % (11.5-14.5); Red Blood Cell (RBC) Count 2.81 mill/uL (4.70-6.10); White Blood Cell (WBC) Count 1.4 thou/uL (4.8-10.8)
[2019-04-07 07:02] LABS: Anion Gap 14 mmol/L (10-20); BUN (Urea Nitrogen) 14 mg/dL (8.9-20.6); Calc. Creatinine Clearance 86 mL/min (70-130); Calcium 8.5 mg/dL (7.8-10.44); Carbon Dioxide 19 mmol/L (22-29); Chloride 98 mmol/L (98-107); Estimated GFR-MDRD 68; Glucose 76 mg/dL (70-105); Magnesium 1.5 mg/dL (1.6-2.6); Potassium 3.6 mmol/L (3.5-5.1); Sodium 127 mmol/L (136-145)
[2019-04-07] MEDS: Acetaminophen 325 MG TAB PO PRN (07:20)
[2019-04-07] MEDS: Famotidine/PF 20 mg/2ml Vial SLOW IVP SCH (07:20)
[2019-04-07] MEDS: Potassium Chloride 20 MEQ TAB PO SCH ×2 (07:20→17:27)
[2019-04-07 07:25] LABS: Band 5 % (5-11); Eosinophils 3 % (0-10); Large Platelets SLIGHT; Lymphocytes 79 % (21-51); MDiff Complete? YES; Metamyelocyte 1 % (0-0); Monocytes 5 % (0-10); Neutrophil 4 % (42-75); Platelet Morphology Comment Appears Decreased
[2019-04-07] MEDS ORDERED: PHOS-NAK 1 PKT PACK PO SCH (09:15)
[2019-04-07] MEDS ORDERED: Magnesium 2 GM/50 ML 2 GM in Premix Bag 1 BAG IVPB SCH (09:15)
[2019-04-07] MEDS ORDERED: Hydrocortisone Sod Succ/PF 100 mg/2 ml Vial IVP SCH (10:00)
[2019-04-07] MEDS ORDERED: Clopidogrel Bisulfate 75 MG TAB ONE (10:50)
--- NOTE | 2019-04-07 11:42 | PRG ---
DATE OF SERVICE: 04/07/2019 SUBJECTIVE: The patient is awake, had some low blood pressure this morning, but otherwise doing well. OBJECTIVE: VITAL SIGNS: Temperature 98.8 with a T-max of 101.8, pulse 112, blood pressure 95/46. HEENT: He has some acneiform changes over the left cheek. NECK: No adenopathy or JVD. LUNGS: Decreased breath sounds on the right compared to left. CARDIAC: S1 and S2. Regular. ABDOMEN: Soft, nontender. EXTREMITIES: No clubbing, cyanosis, or edema. IMAGING STUDIES: Chest x-ray from several days ago shows gross improvement in the right upper lobe process. LABORATORY DATA: Microcultures show no growth today. White blood cell count 1.4, hematocrit 24.3, and platelet count 71. Sodium 127, potassium 3.6, chloride 98, CO2 of 19, BUN 14, creatinine 1.2, and glucose 68. ASSESSMENT: 1. Neutropenic sepsis - status post chemotherapy. 2. Volume depletion with fairly profound diarrhea with Clostridium difficile negative. PLAN: Agree with steroids, IV fluids, and broad-spectrum IV antibiotics. He is currently receiving Neupogen while his neutrophil count is low. We will follow while he is in the [facility]. Job ID: [id number]
[2019-04-07] MEDS: TBO-Filgrastim 300 MCG/0.5 ML VIAL SC SCH (12:21)
--- NOTE | 2019-04-07 13:15 | PRG ---
DATE OF SERVICE: 04/07/2019 SUBJECTIVE: Patient was seen and examined at bedside and overnight events noted. Patient denies any shortness of breath or chest pain or palpitation. No history of nausea or vomiting or diarrhea or fever or chills or cramps. OBJECTIVE: GENERAL: This is a well-built male, in no apparent distress. VITAL SIGNS: Temperature 98.8. Heart rate 109. Respiratory rate Blood pressure 89/38. HEENT: Atraumatic, normocephalic. Oral mucosa is moist. NECK: Supple. CARDIOVASCULAR: S1, S2 heard. Rate and rhythm regular. RESPIRATORY: Clear to auscultation. GASTROINTESTINAL: Abdomen is soft. MUSCULOSKELETAL: No tenderness. No edema. DERMATOLOGIC: No skin rash. NEUROLOGIC: Alert and awake and oriented x3. No focal neurologic deficits. Moving all the extremities. PSYCHIATRIC: Mood and affect normal. LABORATORY DATA: Sodium 127, potassium 3.6, BUN is 14, and creatinine is 1.19. ASSESSMENT AND PLAN: 1. Hyponatremia, seems to be more syndrome of inappropriate antidiuretic hormone secretion. Even though urine studies does not correlate, plan to continue on fluid restriction as tolerated. 2. Hypokalemia, better. Replace and cautiously monitor. 3. Acidosis, chronic. 4. Adrenal insufficiency. 5. Acute kidney injury, better. 6. Anemia with pancytopenia. Follow with hemoglobin. Sodium level is better with fluid restriction. I would recommend continue fluid restriction. No indication for lab tests at this point and we will monitor acute kidney injury will follow. Continue steroids. Job ID: [id number]
[2019-04-07] MEDS: Hydrocortisone Sod Succ/PF 100 mg/2 ml Vial IVP SCH ×2 (14:46→20:47)
--- NOTE | 2019-04-07 15:55 | CON ---
DATE OF CONSULTATION: 04/07/2019 REASON FOR CONSULTATION: Neutropenic fever. HISTORY OF PRESENT ILLNESS: A 39-year-old who has a history of chronic smoking and alcohol abuse and was diagnosed with a right upper lobe mass. Imaging study, fiberoptic bronchoscopy on January 2019 identified non-small cell lung cancer, identified as invasive squamous cell carcinoma poorly differentiated. He has a port inserted in the left subclavian location. He had also mediastinal lymphadenopathy, liver and adrenal METS. He has been treated with carboplatin, Abraxane, and Keytruda with 3 cycles completed, last one on March 23. He presented to the Oncology Clinic with confusional state, evidence of volume depletion and hypotension, was sent to the emergency room for eval and on arrival, he was unresponsive, pale, cyanotic, O2 saturations were 84% on room air and after non-rebreather 97%. There have been some reports of diarrheal stools with some dark material, but no vomiting. Did not have any pain. Did not complain of any dyspnea or chest pain. No abdominal pain. Pulse was 118 and BP , temperature 97.8. The maximum temperature in the emergency room was 99.3. The initial impression; symptomatic anemia, acute kidney injury, pancytopenia, hyponatremia, was given meropenem and vancomycin. He is currently awake. He is oriented, follows commands. Denies headaches. No visual symptoms. Mild sore throat both in the posterior oropharynx as well as in the anterior segment. A few areas of blisters in the facial area as well as the oral cavity. No neck pain. No cough or chest pain. No dyspnea. No abdominal pain. He is voiding in the urinal. The patient has an accessed left subclavian port. PAST MEDICAL HISTORY: Alcoholism, chronic smoking, stage IV lung cancer with liver and adrenal METS, this is a squamous cell cancer and chemotherapy through a left subclavian port. FAMILY HISTORY: Coronary artery disease and type 2 diabetes. SOCIAL HISTORY: Smoked until November and then used to drink heavily, but quit in November as well. CURRENT MEDICATIONS: 1. Tylenol. 2. Tums. 3. Pepcid. 4. Solu-Cortef. 5. Atarax. 6. Meropenem. 7. Zofran. 8. Vancomycin. PHYSICAL EXAMINATION: VITAL SIGNS: T-max 101.8, O2 saturation 97%, blood pressure 104/52, and pulse 96. SKIN: Shows blisters with some scabs in facial area, in the oral cavity. NECK: Supple. No jugular vein distention. HEENT: Ocular movements conjugate. Pupils are 2 mm and reactive. Sclerae white. LUNGS: Symmetric breath sounds. No obvious adventitious sounds. HEART: S1 and S2, regular rate. No S3 or S4. ABDOMEN: Soft. Not distended or tender. No ascites. : No bladder distention. No genital abnormalities. The port site appears normal. EXTREMITIES: No joint inflammatory activity. No edema. Pulses 1+ in dorsalis pedis. Movements in upper and lower extremities are symmetric. Strength is preserved. He is awake, oriented, follows commands. Speech is normal. Recollection is normal. LABORATORY STUDIES: White cell count is 2.4 down to 0.8, now is a little bit up to 1.4, neutrophil count now is at around 140. Chemistry with creatinine was 1.3, now 1.19. Liver profile normal. Albumin 2.9. Microbiology with multiple stool samples for various pathogen testing and stool lactoferrin was elevated. The rapid parasite screen is negative for Giardia and Cryptosporidium. Blood cultures negative x4 in different samples, and influenza A and B were negative. Chest x-ray from admission with parenchymal opacification right upper lung zone. No other changes. ASSESSMENT: 1. Squamous cell lung cancer, metastatic to liver and adrenals. 2. Chemotherapy with carboplatin, Abraxane, and Keytruda. 3. Neutropenic fever. 4. Skin lesions and stomatitis. DISCUSSION: The differential diagnosis includes transient bacteremia associated with neutropenia versus additional opportunistic pathogen including fungal particularly Glendy, Aspergillus, and the possibility of herpes simplex infection. Herpes zoster is not ruled out, but appears to be less likely. We will add IV acyclovir and micafungin to current regimen. Discontinue vancomycin. Job ID: [id number]
[2019-04-07] MEDS: Micafungin 100 MG in Sodium Chloride 0.9% 100 ML IVPB SCH (17:27)
[2019-04-07] MEDS: ACYCLOVIR SODIUM IVPB SCH (21:08)
[2019-04-07] MEDS: SODIUM CHLORIDE 0.9% IVPB SCH (21:08)
[2019-04-08 01:27] LABS: Vancomycin, Trough 25.7 ug/mL
[2019-04-08 03:53] LABS: Phosphorus 3.2 mg/dL (2.3-4.7)
[2019-04-08 03:54] LABS: Anion Gap 17 mmol/L (10-20); BUN (Urea Nitrogen) 12 mg/dL (8.9-20.6); Calc. Creatinine Clearance 104 mL/min (70-130); Calcium 8.5 mg/dL (7.8-10.44); Carbon Dioxide 17 mmol/L (22-29); Chloride 101 mmol/L (98-107); Estimated GFR-MDRD 85; Glucose 113 mg/dL (70-105); Magnesium 1.5 mg/dL (1.6-2.6); Sodium 131 mmol/L (136-145)
[2019-04-08 04:21] LABS: Band 10 % (5-11); Hemoglobin 8.6 g/dL (14.0-18.0); Lymphocytes 60 % (21-51); MDiff Complete? YES; Mean Corpuscular HGB CONC 35.8 g/dL (32.0-36.0); Mean Corpuscular Hemoglobin 31.3 pg (27.0-31.0); Mean Corpuscular Volume 87.4 fL (78.0-98.0); Mean Platelet Volume 8.5 fL (7.4-10.4); Monocytes 10 % (0-10); Neutrophil 20 % (42-75); Platelet Count 125 thou/uL (130-400); Platelet Morphology Comment Appears Decreased; RBC Distribution Width 14.8 % (11.5-14.5); Red Blood Cell (RBC) Count 2.76 mill/uL (4.70-6.10)
[2019-04-08] MEDS: SODIUM CHLORIDE 0.9% IVPB SCH ×3 (06:12→22:02)
[2019-04-08] MEDS: ACYCLOVIR SODIUM IVPB SCH ×3 (06:12→22:02)
[2019-04-08] MEDS: Sodium Chloride 0.9% 1,000 ML IV SCH ×2 (06:20→14:13)
--- NOTE | 2019-04-08 07:28 | PDOC.FM ---
- Subjective Subjective: Patient states he is feeling well this morning. His dry lips have been bothering him, he has been using carmex. States he has had cold sores in the past. Otherwise he states his frequent bowel movements improved somewhat yesterday. - Objective Vital Signs & Weight: Vital Signs (12 hours) Temp Pulse Resp BP Pulse Ox 04/08/19 07:17 98.2 F 04/08/19 03:39 98.1 F 04/07/19 23:49 97.5 F L 04/07/19 20:00 97.5 F L 96 20 104/58 L 98 Weight Admit Weight 73.936 kg Weight 73.539 kg Most Recent Monitor Data Heart Rate from ECG 95 NIBP 106/63 NIBP BP-Mean 77 Respiration from ECG 25 SpO2 99 I&O: 04/07/19 04/08/19 04/09/19 06:59 06:59 06:59 Intake Total 4405 3300 Output Total 850 1850 Balance 3555 1450 Result Diagrams: 04/08/19 03:10 04/08/19 03:10 Phys Exam - Physical Examination Constitutional: NAD stomatitis has improved Respiratory: no wheezing, clear to auscultation bilateral Cardiovascular: RRR, no significant murmur Gastrointestinal: soft, non-tender, no distention Musculoskeletal: no edema, pulses present Neurological: non-focal, moves all 4 limbs Psychiatric: normal affect Skin: normal turgor, cap refill <2 seconds Dx/Plan (1) Stage 4 lung cancer Code(s): C34.90 - MALIGNANT NEOPLASM OF UNSP PART OF UNSP BRONCHUS OR LUNG Status: Acute (2) GERD (gastroesophageal reflux disease) Code(s): K21.9 - GASTRO-ESOPHAGEAL REFLUX DISEASE WITHOUT ESOPHAGITIS Status: Chronic (3) Anxiety Code(s): F41.9 - ANXIETY DISORDER, UNSPECIFIED Status: Chronic (4) Depression Code(s): F32.9 - MAJOR DEPRESSIVE DISORDER, SINGLE EPISODE, UNSPECIFIED Status : Chronic (5) Acute kidney injury Code(s): N17.9 - ACUTE KIDNEY FAILURE, UNSPECIFIED Status: Acute (6) Demand ischemia Code(s): I24.8 - OTHER FORMS OF ACUTE ISCHEMIC HEART DISEASE Status: Acute (7) Pancytopenia Code(s): D61.818 - OTHER PANCYTOPENIA Status: Acute (8) Symptomatic anemia Code(s): D64.9 - ANEMIA, UNSPECIFIED Status: Acute (9) Hyponatremia Code(s): E87.1 - HYPO-OSMOLALITY AND HYPONATREMIA Status: Acute (10) Neutropenic fever Code(s): D70.9 - NEUTROPENIA, UNSPECIFIED; R50.81 - FEVER PRESENTING WITH CONDITIONS CLASSIFIED ELSEWHERE Status: Acute - Plan Plan: #Neutropenic Fever -Fever up to 101.8 -ID, Dr. Ramirez consulted, appreciate recs -continue meropenem, start IV micafungin and acyclovir, DC vancomycin -blood and urine cultures pending; 1/2 cultures L subclavian vein g + cocci, otherwise NGTD -Stool studies negative for infection, influenza neg #Adrenal insufficiency -continue steroids #Symptomatic anemia 2/2 chemotherapy -s/p 4 units pRBCs, Hgb stable -consult Oncology, Dr. Duran-appreciate recs -Anemia 2/2 chemotherapy: carboplatin, abraxane, keytruda -Continue Tbo-filgrastin #Hypokalemia -resolved -continue to monitor and replete #Hypomagnesemia -Mag 1.5 today -Monitor and replace as necessary #KATIANA, resolved -admission Cr 2.21, BUN 25 #Pancytopenia -admission: Hgb 4.7, WBC 2.4, Plt 55 -2/2 to chemotherapy: on neupogen, should improve #Hyponatremia -admission: Na 124, now 131 -fluid restricted, strict I/Os -Nephro consulted, appreciate recs #Hypophosphatemia -monitor and replace as needed #Diarrhea -C diff negative -Stool studies to date negative, culture pending #Hx of Stage 4 Lung Cancer, Squamous Cell -SCC on RUL primary site with mets in liver and adrenal mets -Oncology consulted #Type 2 [place]/Demand Ischemia, downtrending -Trop 0.108 > 0.089 -> 0.069 #Hx of [place] myelinolysis -continue to monitor #GERD -continue home meds #Anxiety, Depression -continue home meds Diet: Regular VTE: SCDs Code status: FULL Dispo: continue admission in IMCU, await results of blood and urine cultures. Appreciate Oncology recs reguarding treatment for SCC Lung carcinoma with mets. Addendum - Attending - Attending Attestation Date/Time: 04/08/19 1125 I personally evaluated the patient and discussed the management with Dr. Lopez I agree with the History, Examination, Assessment and Plan documented above with any addition or exceptions noted below. Appears to be clinically improving. ID added mycofungin and acyclovir. H&H stable. Continue current care plan.
[2019-04-08] MEDS ORDERED: Magnesium 2 GM/50 ML 2 GM in Premix Bag 1 BAG IVPB SCH (07:30)
[2019-04-08] MEDS: Meropenem 2 GM in Sodium Chloride 0.9% 100 ML IVPB SCH ×3 (07:31→23:51)
[2019-04-08] MEDS: Hydrocortisone Sod Succ/PF 100 mg/2 ml Vial IVP SCH ×3 (09:46→20:55)
[2019-04-08] MEDS: Famotidine/PF 20 mg/2ml Vial SLOW IVP SCH (09:47)
[2019-04-08] MEDS: TBO-Filgrastim 300 MCG/0.5 ML VIAL SC SCH (09:59)
--- NOTE | 2019-04-08 11:26 | CON ---
DATE OF CONSULTATION: 04/06/2019 CONSULTING PHYSICIAN: Ty Ayala MD REASON FOR CONSULTATION: Hyponatremia. REASON FOR ADMISSION: Dizziness. HISTORY OF PRESENT ILLNESS: A 39-year-old male with history of tobacco use, central pontine myelinolysis, stage 4 lung cancer, GERD, anxiety, and depression, came to the hospital with dizziness and acute kidney injury. His creatinine was elevated at 2.2 from 0.9 baseline, his creatinine is 1.8 today. He was also found to have hyponatremia and Nephrology is consulted. He has history of central pontine myelinolysis. No fever or chills. No nausea or vomiting. PAST MEDICAL HISTORY: Positive for stage 4 lung cancer, GERD, anxiety, depression, and CPM. PAST SURGICAL HISTORY: Right arm and right foot surgery. HOME MEDICATIONS: 1. Magnesium. 2. . 3. Ibuprofen. 4. Multivitamin. 5. Guaifenesin. ALLERGIES: NO KNOWN DRUG ALLERGIES. SOCIAL HISTORY: History of smoking, quit smoking in November and heavy beer drinker. FAMILY HISTORY: Positive for diabetes. REVIEW OF SYSTEMS: CONSTITUTIONAL: Negative for weight loss or gain, ability to conduct usual activities. SKIN: Negative for rash, itching. EYES: Negative for double vision, pain. ENT/MOUTH: Negative for nose bleeding, neck stiffness, pain, tenderness. CARDIOVASCULAR: Negative for palpitations, dyspnea on exertion, orthopnea. RESPIRATORY: Negative for shortness of breath, wheezing, cough, hemoptysis, fever or night sweats. GASTROINTESTINAL: Negative for poor appetite, abdominal pain, heartburn, nausea, vomiting, constipation, or diarrhea. GENITOURINARY: Negative for urgency, frequency, dysuria, nocturia. MUSCULOSKELETAL: Negative for pain, swelling. NEUROLOGIC/PSYCHIATRIC: Negative for anxiety, depression. ALLERGY/IMMUNOLOGIC: Negative for skin rash, bleeding tendency. PHYSICAL EXAMINATION: GENERAL: This is a well-built male, in no apparent distress. VITAL SIGNS: Temperature 99.5, pulse 100, respiratory rate 18, and blood pressure 97/67. HEENT: Atraumatic and normocephalic. Oral mucosa is moist. NECK: Supple. CARDIOVASCULAR: S1 and S2 heard. Rate and rhythm, regular. RESPIRATORY: Clear. GI: Abdomen is soft. MUSCULOSKELETAL: No tenderness. DERMATOLOGIC: No skin rash. NEUROLOGIC: Alert and awake. PSYCHIATRIC: Mood and affect normal. LABORATORY DATA: Hemoglobin 6.5. Potassium is 2.9, BUN is 24, and creatinine is 1.8. ASSESSMENT AND PLAN: 1. Hyponatremia, most likely from syndrome of inappropriate antidiuretic hormone secretion; however, limit fluid intake . We will monitor. 2. Hypokalemia, replace . 3. Acute kidney injury, monitor. Avoid nephrotoxins. 4. Edema, controlled. 5. Anemia, follow with hemoglobin. No indication for tolvaptan will help fluid restriction and we will follow. Replace potassium aggressively. Job ID: [id number]
--- NOTE | 2019-04-08 13:24 | PRG ---
DATE OF SERVICE: 04/08/2019 SUBJECTIVE: Patient was seen and examined at bedside and overnight events noted. Patient denies any shortness of breath or chest pain or palpitation. No history of nausea or vomiting or diarrhea or fever or chills or cramps. OBJECTIVE: GENERAL: This is a well-built male, in no apparent distress. VITAL SIGNS: Temperature 98.6, pulse 102, respiratory rate 18, and blood pressure 98/64. HEENT: Atraumatic, normocephalic. Oral mucosa is moist NECK: Supple. CARDIOVASCULAR: S1, S2 heard. Rate and rhythm regular. RESPIRATORY: Clear to auscultation. GASTROINTESTINAL: Abdomen is soft. MUSCULOSKELETAL: No tenderness. No edema. DERMATOLOGIC: No skin rash. NEUROLOGIC: Alert and awake and oriented X3. No focal neurologic deficits. Moving all the extremities. PSYCHIATRIC: Mood and affect normal. LABORATORY DATA: Potassium 4.0, BUN is 12, creatinine is 0.9, and sodium is 131. ASSESSMENT AND PLAN: 1. Hyponatremia, getting better with fluid restriction. Continue on fluid restriction and monitor sodium. 2. Hypokalemia. Replace and monitor. 3. Acidosis, stable and chronic. 4. Acute kidney injury, better. 5. Anemia and pancytopenia. Sodium level is better. Continue fluid restriction as tolerated. Job ID: [id number]
--- NOTE | 2019-04-08 15:45 | PDOC.PALCO ---
Palliative Care Consult - Consult Details Requesting Physician: Dr Lopez Reason for Consult: goals of care, family support Family Members Present: Emperatriz mother - Pertinent HPI 39 year old male with diagnosis of non-small cell lung ca with mets to liver and adrenal gland in Nov. Currently followed at [facility]. [facility] was [facility] having labs drawn and experienced a syncopal episode. He was transported via EMS to [facility] emergency room for evaluation. Mother reported that he has experienced increase in weakness with and shortness of breath over the last 4-5 days with a recent fall free of injury but did require mother calling the EMS to assist patient off floor back in bed. Emergency room evaluation identified Anemic, Acute Kidney Injury, pancytopenia, hyponatremia, demand ischemia and patient was admitted for medical management - Pertinent PMH Alcoholism, central pontine myelinolysis, stage 4 lung ca, mets to liver and adrenal gland, GERD, Anxiety, depression - Social History Smoking Status: Former smoker Smoking: quit less than 1 year Alcohol Use: heavy (Stopped drinking in Nov with diagnosis of CA as per patient) Drug Use History: none Living Situation: with family/parents - Medications MAR Reviewed: Yes - Allergies Allergies/Adverse Reactions: Allergies Allergy/AdvReac Type Severity Reaction Status Date / Time Penicillins Allergy Verified 04/05/19 21:51 - Subjective Awake, alert with mother at bedside. Complains of weakness and mouth "ulcers". - ROS Constitutional: alert, weakness Eyes: drainage ENT: mouth pain Respiratory: shortness of breath with extertion Cardiology: other (Denies palpitations, chest discomfort) Gastrointestinal: other (Denies nausea, vomiting, diarrhea complains of poor appitite) Musculoskeletal: arthritis/arthralgias Skin: other Psychological: change in concentration - Objective Vital Signs: Vital Signs - Most Recent Temp Pulse Resp BP Pulse Ox 98.6 F 104 H 20 123/74 98 04/08/19 12:00 04/08/19 14:40 04/07/19 20:00 04/08/19 14:40 04/08/19 08:00 Palliative Performance Scale: 40 - Physical Exam Constitutional: confusion, ill appearing HEENT: EOMI, moist MMs, poor dentition Deviation from normal: mucous membranes with irritation, erythema Respiratory: clear to auscultation bilateral, unlabored breathing Cardiovascular: no significant murmur, RRR Gastrointestinal: soft, non-tender, positive bowel sounds Genitourinary: continent Musculoskeletal: no edema, pulses present Neurology: moves all 4 limbs Skin: cap refill <2 seconds, fragile Deviation from normal: Mild confusion intermittantly - Plan/Recommendations Plan: Visited with patient and his mother at length. Discussed current diagnosis of cancer and comorbid conditions related to hospital stay. Patient mildly confused. Overall goal is to go home as soon as possible and continue chemo. Initiated discussion to "hope for the best and plan for the worst". Mother is the patients MPOA but they have never discussed specifics of his wishes should he not be able to make decisions, encouraged then to discuss. Patient expressed frustration over general weakness, will place an order for home health and PT. *[facility] for irritation to oral mucous membranes *Case Management for Home Health eval for PT in the home *Revisit retirement goals of care with patient and his mother *Continue therapeutic listening for mother and patient [75] minutes spent on this encounter with >50% of the time in counseling and coordination of care. Thank you for this very appropriate consult.
[2019-04-08] MEDS ORDERED: Aluminum & Magnesium Hydroxide 60 ML, diphenhydrAMINE 150 MG, Lidocaine 2% Viscous Solu... SSW PRN (15:59)
[2019-04-08] MEDS: Micafungin 100 MG in Sodium Chloride 0.9% 100 ML IVPB SCH (16:55)
--- NOTE | 2019-04-08 18:25 | PDOC.MOPN ---
Interval History: Pt feeling better. He c/o headaches and off/on dizziness. He is confused at times during conversation and other times very lucent. Nurse reports episodes of confusion and agitation. - Vital Signs Vital Signs: Vital Signs (12 hours) Temp Pulse Pulse BP BP Pulse Ox 04/08/19 16:00 98.5 F 04/08/19 14:40 104 H 98 123/74 108/70 04/08/19 12:00 98.6 F 04/08/19 10:24 98.6 F 04/08/19 08:00 98 04/08/19 07:17 98.2 F Weight Admit Weight 163 lb Weight 161 lb 6.4 oz Most Recent Monitor Data Heart Rate from ECG 110 NIBP 115/59 NIBP BP-Mean 77 Respiration from ECG 29 SpO2 94 - Physical Exam General: Alert, Cooperative Cardiovascular: Regular rate Abdomen: Soft Neurological: Cranial nerves 3-12 NL Psych/Mental Status: Other (fluctuating orientation) - Labs Result Diagrams: 04/08/19 03:10 04/08/19 03:10 Lab results: Laboratory Results - last 24 hr 04/08/19 03:10: Phosphorus 3.2 04/08/19 03:10: WBC 1.0 L, RBC 2.76 L, Hgb 8.6 L, Hct 24.1 L, MCV 87.4, MCH 31.3 H, MCHC 35.8, RDW 14.8 H, Plt Count 125 L, MPV 8.5, Neutrophils % (Manual) 20 L, Band Neuts % (Manual) 10, Lymphocytes % (Manual) 60 H, Monocytes % (Manual ) 10, Plt Morphology Comment Appears Decreased L 04/08/19 03:10: Sodium 131 L, Potassium 4.0, Chloride 101, Carbon Dioxide 17 L, Anion Gap 17, BUN 12, Creatinine 0.98, Estimated GFR (MDRD) 85, Glucose 113 H, Calcium 8.5, Magnesium 1.5 L 04/08/19 00:59: Vancomycin Trough 25.7 04/06/19 21:12: Transfuse React Work-up SEE COMMENT A/P - Problem (1) Neutropenic fever Current Visit: Yes Code(s): D70.9 - NEUTROPENIA, UNSPECIFIED; R50.81 - FEVER PRESENTING WITH CONDITIONS CLASSIFIED ELSEWHERE Status: Acute (2) Pancytopenia Current Visit: Yes Code(s): D61.818 - OTHER PANCYTOPENIA Status: Acute (3) Stage 4 lung cancer Current Visit: Yes Code(s): C34.90 - MALIGNANT NEOPLASM OF UNSP PART OF UNSP BRONCHUS OR LUNG Status: Acute (4) Headache Current Visit: No Code(s): R51 - HEADACHE Status: Acute (5) Hyponatremia Current Visit: No Code(s): E87.1 - HYPO-OSMOLALITY AND HYPONATREMIA Status: Acute - Plan Plan: Cont IV Antibiotics for now Cont neupogen until ANC > 1.0, then if afebrile consider changing to oral antibiotics Cont steroids for adrenal insufficiency CT-brain: pt unable to lie still for MRI
[2019-04-08] MEDS: hydrOXYzine 10 MG TAB PO PRN (22:02)
[2019-04-09] MEDS ORDERED: Haloperidol Lactate 5 MG/ML VIAL IM SCH (01:30)
[2019-04-09 04:39] LABS: Phosphorus Less than 1.0 mg/dL (2.3-4.7)
[2019-04-09 04:40] LABS: Anion Gap 11 mmol/L (10-20); BUN (Urea Nitrogen) 12 mg/dL (8.9-20.6); Calc. Creatinine Clearance 129 mL/min (70-130); Calcium 8.2 mg/dL (7.8-10.44); Carbon Dioxide 21 mmol/L (22-29); Chloride 102 mmol/L (98-107); Estimated GFR-MDRD Greater than 90; Glucose 131 mg/dL (70-105); Magnesium 1.4 mg/dL (1.6-2.6); Sodium 132 mmol/L (136-145)
[2019-04-09 04:44] LABS: Potassium 2.4 mmol/L (3.5-5.1)
[2019-04-09 04:59] LABS: Band 6 % (5-11); Hemoglobin 8.2 g/dL (14.0-18.0); Hypochromia SLIGHT = 6-15 cells (100X) (0-5/hpf); Lymphocytes 22 % (21-51); MDiff Complete? YES; Mean Corpuscular HGB CONC 35.4 g/dL (32.0-36.0); Mean Corpuscular Hemoglobin 30.9 pg (27.0-31.0); Mean Corpuscular Volume 87.2 fL (78.0-98.0); Mean Platelet Volume 7.9 fL (7.4-10.4); Monocytes 17 % (0-10); Neutrophil 55 % (42-75); Platelet Count 226 thou/uL (130-400); Platelet Morphology Comment Appears Adequate; RBC Distribution Width 15.5 % (11.5-14.5); Red Blood Cell (RBC) Count 2.64 mill/uL (4.70-6.10); White Blood Cell (WBC) Count 5.8 thou/uL (4.8-10.8)
[2019-04-09] MEDS ORDERED: Magnesium 2 GM/50 ML 2 GM in Premix Bag 1 BAG IVPB SCH (05:00)
[2019-04-09] MEDS: Potassium Chloride 20 MEQ in Premix Bag 1 BAG IVPB SCH ×2 (05:23→07:38)
[2019-04-09] MEDS: Sodium Chloride 0.9% 1,000 ML IV SCH ×3 (06:14→20:20)
[2019-04-09] MEDS: Meropenem 2 GM in Sodium Chloride 0.9% 100 ML IVPB SCH ×3 (06:14→22:40)
[2019-04-09] MEDS: ACYCLOVIR SODIUM IVPB SCH ×3 (07:33→22:40)
[2019-04-09] MEDS: SODIUM CHLORIDE 0.9% IVPB SCH ×3 (07:33→22:40)
--- NOTE | 2019-04-09 08:01 | PDOC.FM ---
- Subjective Subjective: Pt is somewhat confused this morning, oriented x0. Per nursing his mental status has deteriorated some over the last day. Last night pt pulled out his mediport twice and midline as well. Two peripheral IVs were placed. No other acute events. - Objective Vital Signs & Weight: Vital Signs (12 hours) Temp Pulse Resp BP Pulse Ox 04/09/19 07:15 97.9 F 04/09/19 04:00 98.7 F 95 20 111/53 L 97 04/09/19 00:00 98.7 F Weight Admit Weight 73.936 kg Weight 73.21 kg Most Recent Monitor Data Heart Rate from ECG 103 NIBP 114/82 NIBP BP-Mean 92 Respiration from ECG 22 SpO2 97 I&O: 04/08/19 04/09/19 04/10/19 06:59 06:59 06:59 Intake Total 3300 3333 Output Total 1850 1400 Balance 1450 1933 Result Diagrams: 04/09/19 03:57 04/09/19 03:57 Phys Exam - Physical Examination Constitutional: NAD HEENT: moist MMs, sclera anicteric Neck: no nodes, no JVD Respiratory: no wheezing, no rhonchi Cardiovascular: RRR, no rub Gastrointestinal: soft, non-tender Musculoskeletal: no edema, pulses present Neurological: moves all 4 limbs Deviation from normal: A and O times zero Skin: no rash, normal turgor Dx/Plan (1) Demand ischemia Code(s): I24.8 - OTHER FORMS OF ACUTE ISCHEMIC HEART DISEASE Status: Acute (2) Neutropenic fever Code(s): D70.9 - NEUTROPENIA, UNSPECIFIED; R50.81 - FEVER PRESENTING WITH CONDITIONS CLASSIFIED ELSEWHERE Status: Acute (3) Pancytopenia Code(s): D61.818 - OTHER PANCYTOPENIA Status: Acute (4) Stage 4 lung cancer Code(s): C34.90 - MALIGNANT NEOPLASM OF UNSP PART OF UNSP BRONCHUS OR LUNG Status: Acute (5) Symptomatic anemia Code(s): D64.9 - ANEMIA, UNSPECIFIED Status: Acute (6) Anxiety Code(s): F41.9 - ANXIETY DISORDER, UNSPECIFIED Status: Chronic (7) Depression Code(s): F32.9 - MAJOR DEPRESSIVE DISORDER, SINGLE EPISODE, UNSPECIFIED Status : Chronic (8) GERD (gastroesophageal reflux disease) Code(s): K21.9 - GASTRO-ESOPHAGEAL REFLUX DISEASE WITHOUT ESOPHAGITIS Status: Chronic (9) Hyponatremia Code(s): E87.1 - HYPO-OSMOLALITY AND HYPONATREMIA Status: Acute - Plan Plan: Neutropenic Fever -Fever up to 101.8. ID, Dr. Ramirez consulted, appreciate recs. 1/ cultures L subclavian vein g + cocci, otherwise NGTD. Stool studies negative for infection , influenza neg. ANC is normal today. P- continue meropenem, IV micafungin, and acyclovir -f/u cultures Encephalopathy A- Possibly 2/2 electrolyte imbalance vs. mets to brain P- Brain CT today -continue antimicrobials per regimen above -f/u cultures -replace lytes per protocol Adrenal insufficiency -continue steroids Symptomatic anemia 2/2 chemotherapy A- s/p 4 units pRBCs, Hgb stable. consult Oncology, Dr. Duran-appreciate recs. Anemia 2/2 chemotherapy: carboplatin, abraxane, keytruda P- Continue Tbo-filgrastin Hypokalemia -continue to monitor and replete Hypomagnesemia -Monitor and replace as necessary KATIANA, resolved -admission Cr 2.21, BUN 25 Pancytopenia -improving. admission: Hgb 4.7, WBC 2.4, Plt 55 -2/2 to chemotherapy: on neupogen, should improve Hyponatremia -admission: Na 124, now 132 -fluid restricted, strict I/Os -Nephro consulted, appreciate recs Hypophosphatemia -monitor and replace as needed Diarrhea -C diff negative -Stool studies to date negative, culture pending Hx of Stage 4 Lung Cancer, Squamous Cell -SCC on RUL primary site with mets in liver and adrenal mets -Oncology consulted Type 2 OK/Demand Ischemia, downtrending -Trop 0.108 > 0.089 -> 0.069 Hx of Central Pontine myelinolysis -continue to monitor GERD -continue home meds Anxiety, Depression -continue home meds Diet: Regular VTE: SCDs Code status: FULL Dispo: continue admission in IMCU, await results of blood and urine cultures. Appreciate Oncology recs reguarding treatment for SCC Lung carcinoma with mets. Palliative consult has been placed. Appreciated involvement. For now pt wants to be DCd home peter with plan to continue chemo. Addendum - Attending - Attending Attestation Date/Time: 04/09/19 [id number] I personally evaluated the patient and discussed the management with Dr. Zee I agree with the History, Examination, Assessment and Plan documented above with any addition or exceptions noted below. white count improved. potassium, mag, and phos all low this morning. replaced and recheck at noon. PRN haldol for agitation overnight. Awaiting specialists recommendations. could potentially transfer out of [facility] today. Will still likely need 2-3 more days of inpatient management.
[2019-04-09] MEDS: PHOS-NAK 1 PKT PACK PO SCH ×3 (09:24→20:21)
[2019-04-09] MEDS: Hydrocortisone Sod Succ/PF 100 mg/2 ml Vial IVP SCH ×3 (09:24→20:21)
[2019-04-09] MEDS: Famotidine/PF 20 mg/2ml Vial SLOW IVP SCH (09:24)
[2019-04-09] MEDS: TBO-Filgrastim 300 MCG/0.5 ML VIAL SC SCH (09:38)
[2019-04-09] MEDS: Calcium Carbonate 500 MG ChewTAB PO PRN (09:41)
--- NOTE | 2019-04-09 10:30 | CT ---
EXAM: CT brain without and with contrast HISTORY: Altered mental status with stage IV lung cancer COMPARISON: None TECHNIQUE: Multiple contiguous axial images were obtained and a CT of the brain without and with cont rast. FINDINGS: The brain is normal in morphology and attenuation without focal lesions or confluent areas of infarction. There is no evidence of hydrocephalus, intracranial hemorrhage, or extra-axial fluid collection. No abnormal enhancement is seen. The calvarium and overlying soft tissues are unremarkable. Mucus retention cysts are seen in both max illary sinuses. The other visualized paranasal sinuses and mastoid air cells are well aerated. IMPRESSION: No evidence of acute intracranial abnormality
--- NOTE | 2019-04-09 13:23 | PRG ---
DATE OF SERVICE: 04/09/2019 SUBJECTIVE: Patient was seen and examined at bedside and overnight events noted. Patient denies any shortness of breath or chest pain or palpitation. No history of nausea or vomiting or diarrhea or fever or chills or cramps. OBJECTIVE: GENERAL: This is a well-built male, in no apparent distress. VITAL SIGNS: Temperature 98.7. Heart rate 105. Respiratory rate 20. Blood pressure 103/64. HEENT: Atraumatic, normocephalic. Oral mucosa is moist NECK: Supple. CARDIOVASCULAR: S1, S2 heard. Rate and rhythm regular. RESPIRATORY: Clear to auscultation. GASTROINTESTINAL: Abdomen is soft. MUSCULOSKELETAL: No tenderness. No edema. DERMATOLOGIC: No skin rash. NEUROLOGIC: Alert and awake and oriented X3. No focal neurologic deficits. Moving all the extremities. PSYCHIATRIC: Mood and affect normal. LABORATORY DATA: Potassium is 2.4, BUN 12, creatinine 0.7, and sodium is 132. ASSESSMENT AND PLAN: 1. Hyponatremia, much better. Sodium level is 132. Continue current management. Apparently, he was on IV fluids, which can be continued for one more day. Continue on oral fluid restriction. 2. Hypokalemia. Replace potassium aggressively. 3. Hypophosphatemia and hypomagnesemia. Replace electrolytes and pancytopenia. IV fluids should be continued as he is on acyclovir, which could be causing the electrolyte issues too. Continue close monitor on magnesium, phosphorus, and potassium and replace aggressively. We will follow. Job ID: [id number]
[2019-04-09 13:43] LABS: Anion Gap 10 mmol/L (10-20); BUN (Urea Nitrogen) 10 mg/dL (8.9-20.6); Calc. Creatinine Clearance 137 mL/min (70-130); Calcium 8.2 mg/dL (7.8-10.44); Carbon Dioxide 21 mmol/L (22-29); Chloride 102 mmol/L (98-107); Estimated GFR-MDRD Greater than 90; Glucose 124 mg/dL (70-105); Magnesium 1.7 mg/dL (1.6-2.6); Sodium 131 mmol/L (136-145)
[2019-04-09 13:46] LABS: Potassium 2.3 mmol/L (3.5-5.1)
[2019-04-09] MEDS ORDERED: Potassium Chloride 20 MEQ TAB PO SCH ×2 (14:15→21:45)
--- NOTE | 2019-04-09 16:01 | PDOC.MOPN ---
Interval History: No complaints. Continued confusion per nursing staff - Vital Signs Vital Signs: Vital Signs (12 hours) Temp Pulse Resp BP Pulse Ox 04/09/19 11:18 98.0 F 04/09/19 08:00 100 04/09/19 07:15 97.9 F 04/09/19 04:00 98.7 F 95 20 111/53 L 97 Weight Admit Weight 163 lb Weight 161 lb 6.4 oz Most Recent Monitor Data Heart Rate from ECG 83 NIBP 123/76 NIBP BP-Mean 91 Respiration from ECG 13 SpO2 96 - Physical Exam General: Alert HEENT: Atraumatic Lungs: Clear to auscultation Cardiovascular: Regular rate Abdomen: Normal bowel sounds Extremities: No clubbing, No cyanosis, No edema, Normal pulses, No tenderness/ swelling Skin: No rashes, No breakdown, No significant lesion Neurological: Normal speech - Labs Result Diagrams: 04/09/19 03:57 04/09/19 13:15 Lab results: Laboratory Results - last 24 hr 04/09/19 13:15: Sodium 131 L, Potassium 2.3 L*, Chloride 102, Carbon Dioxide 21 L, Anion Gap 10, BUN 10, Creatinine 0.74, Estimated GFR (MDRD) Greater than 90 , Glucose 124 H, Calcium 8.2, Magnesium 1.7 04/09/19 03:57: Phosphorus Less than 1.0 L 04/09/19 03:57: WBC 5.8, RBC 2.64 L, Hgb 8.2 L, Hct 23.0 L, MCV 87.2, MCH 30.9, MCHC 35.4, RDW 15.5 H, Plt Count 226, MPV 7.9, Neutrophils % (Manual) 55, Band Neuts % (Manual) 6, Lymphocytes % (Manual) 22, Monocytes % (Manual) 17 H, Hypochromia SLIGHT = 6-15 cells, Plt Morphology Comment Appears Adequate 04/09/19 03:57: Sodium 132 L, Potassium 2.4 L*, Chloride 102, Carbon Dioxide 21 L, Anion Gap 11, BUN 12, Creatinine 0.79, Estimated GFR (MDRD) Greater than 90 , Glucose 131 H, Calcium 8.2, Magnesium 1.4 L 04/05/19 12:25: Crossmatch See Detail Status: lab reviewed by me A/P - Problem (1) Neutropenic fever Current Visit: Yes Code(s): D70.9 - NEUTROPENIA, UNSPECIFIED; R50.81 - FEVER PRESENTING WITH CONDITIONS CLASSIFIED ELSEWHERE Status: Acute (2) Stage 4 lung cancer Current Visit: Yes Code(s): C34.90 - MALIGNANT NEOPLASM OF UNSP PART OF UNSP BRONCHUS OR LUNG Status: Acute - Plan Plan: Cont IV Antibiotics stop neupogen as ANC > 1.0, if afebrile consider changing to oral antibiotics Cont steroids for adrenal insufficiency CT-brain shows no acute abnormality, likely metabolic encephalopathy
[2019-04-09] MEDS: Micafungin 100 MG in Sodium Chloride 0.9% 100 ML IVPB SCH (16:24)
[2019-04-09 20:03] LABS: Anion Gap 14 mmol/L (10-20); BUN (Urea Nitrogen) 8 mg/dL (8.9-20.6); Calc. Creatinine Clearance 130 mL/min (70-130); Calcium 8.4 mg/dL (7.8-10.44); Carbon Dioxide 21 mmol/L (22-29); Chloride 101 mmol/L (98-107); Estimated GFR-MDRD Greater than 90; Glucose 148 mg/dL (70-105); Sodium 133 mmol/L (136-145)
[2019-04-09 20:09] LABS: Potassium 2.6 mmol/L (3.5-5.1)
[2019-04-09] MEDS: Acetaminophen 325 MG TAB PO PRN (22:40)
[2019-04-10] MEDS ORDERED: Haloperidol Lactate 5 MG/ML VIAL IM SCH (02:30)
[2019-04-10 05:05] LABS: Anion Gap 11 mmol/L (10-20); BUN (Urea Nitrogen) 7 mg/dL (8.9-20.6); Calc. Creatinine Clearance 147 mL/min (70-130); Carbon Dioxide 23 mmol/L (22-29); Chloride 103 mmol/L (98-107); Estimated GFR-MDRD Greater than 90; Glucose 124 mg/dL (70-105); Hemoglobin 8.4 g/dL (14.0-18.0); Magnesium 1.5 mg/dL (1.6-2.6); Mean Corpuscular HGB CONC 34.4 g/dL (32.0-36.0); Mean Corpuscular Hemoglobin 30.7 pg (27.0-31.0); Mean Corpuscular Volume 89.3 fL (78.0-98.0); Platelet Count 388 thou/uL (130-400); RBC Distribution Width 15.8 % (11.5-14.5); Red Blood Cell (RBC) Count 2.73 mill/uL (4.70-6.10); Sodium 135 mmol/L (136-145); White Blood Cell (WBC) Count 28.2 thou/uL (4.8-10.8)
[2019-04-10 05:06] LABS: Band 25 % (5-11); Elliptocytes SLIGHT = 2-5 cells (100X) (0-1/hpf); Hypochromia SLIGHT = 6-15 cells (100X) (0-5/hpf); Lymphocytes 32 % (21-51); MDiff Complete? YES; Metamyelocyte 2 % (0-0); Monocytes 4 % (0-10); Myelocyte 2 % (0-0); Neutrophil 35 % (42-75); Phosphorus Less than 1.0 mg/dL (2.3-4.7); Platelet Morphology Comment Appears Adequate
[2019-04-10 05:09] LABS: Potassium 2.2 mmol/L (3.5-5.1)
--- NOTE | 2019-04-10 07:55 | PDOC.FM ---
- Subjective Subjective: Seen at bedside this morning. Pt is confused and does not answer questions appropriately. Per nursing this has been consistent throughout the night. There have been no acute changes. There have been no fevers - Objective Vital Signs & Weight: Vital Signs (12 hours) Temp Resp Pulse Ox 04/10/19 07:20 97.2 F L 04/10/19 04:00 98.2 F 14 04/09/19 23:34 98.1 F 04/09/19 20:00 100 Weight Admit Weight 73.936 kg Weight 73.21 kg Most Recent Monitor Data Heart Rate from ECG 95 NIBP 112/66 NIBP BP-Mean 81 Respiration from ECG 18 SpO2 100 I&O: 04/09/19 04/10/19 04/11/19 06:59 06:59 06:59 Intake Total 3333 2876.5 Output Total 1400 1200 Balance 1933 1676.5 Result Diagrams: 04/10/19 04:23 04/10/19 04:23 Phys Exam - Physical Examination Constitutional: NAD HEENT: moist MMs Respiratory: clear to auscultation bilateral Cardiovascular: RRR, no significant murmur Gastrointestinal: no distention Neurological: moves all 4 limbs Deviation from normal: Confused. A&O x0 Skin: no rash Dx/Plan (1) Hypokalemia Code(s): E87.6 - HYPOKALEMIA Status: Acute (2) Hypomagnesemia Code(s): E83.42 - HYPOMAGNESEMIA Status: Acute (3) Acute kidney injury Code(s): N17.9 - ACUTE KIDNEY FAILURE, UNSPECIFIED Status: Acute (4) Neutropenic fever Code(s): D70.9 - NEUTROPENIA, UNSPECIFIED; R50.81 - FEVER PRESENTING WITH CONDITIONS CLASSIFIED ELSEWHERE Status: Acute (5) Pancytopenia Code(s): D61.818 - OTHER PANCYTOPENIA Status: Acute (6) Stage 4 lung cancer Code(s): C34.90 - MALIGNANT NEOPLASM OF UNSP PART OF UNSP BRONCHUS OR LUNG Status: Acute (7) Symptomatic anemia Code(s): D64.9 - ANEMIA, UNSPECIFIED Status: Acute (8) Anxiety Code(s): F41.9 - ANXIETY DISORDER, UNSPECIFIED Status: Chronic (9) Depression Code(s): F32.9 - MAJOR DEPRESSIVE DISORDER, SINGLE EPISODE, UNSPECIFIED Status : Chronic (10) GERD (gastroesophageal reflux disease) Code(s): K21.9 - GASTRO-ESOPHAGEAL REFLUX DISEASE WITHOUT ESOPHAGITIS Status: Chronic - Plan Plan: Neutropenic Fever -no fever for 24 hours - continue meropenem, IV micafungin, and acyclovir -culture sensitivities pending - ID recs appreciated Encephalopathy Brain CT negative. Most likely metabolic in nature. Adrenal insufficiency -continue steroids Symptomatic anemia 2/2 chemotherapy - stable. Continue Tbo-filgrastin Hypokalemia - replace this morning. Check again this afternoon Hypomagnesemia -Replace this morning. recheck as above KATIANA, resolved Pancytopenia -improved. Continue to monitor Hyponatremia, resolved Hypophosphatemia -monitor and replace as needed Diarrhea -C diff negative -Stool studies to date negative, culture pending Hx of Stage 4 Lung Cancer, Squamous Cell -SCC on RUL primary site with mets in liver and adrenal mets -Oncology consulted Type 2 [place]/Demand Ischemia, downtrending -Trop 0.108 > 0.089 -> 0.069 Hx of [place] myelinolysis -continue to monitor GERD -continue home meds Anxiety, Depression -continue home meds
[2019-04-10] MEDS ORDERED: Magnesium Sulfate 3 GM in Sodium Chloride 0.9% 100 ML IVPB SCH (08:00)
[2019-04-10] MEDS ORDERED: Potassium Chloride 20 MEQ TAB PO SCH ×2 (08:00→21:15)
[2019-04-10] MEDS: SODIUM CHLORIDE 0.9% IVPB SCH ×3 (08:03→23:52)
[2019-04-10] MEDS: Sodium Chloride 0.9% 1,000 ML IV SCH ×2 (08:03→17:39)
[2019-04-10] MEDS: ACYCLOVIR SODIUM IVPB SCH ×3 (08:03→23:52)
[2019-04-10] MEDS: Famotidine/PF 20 mg/2ml Vial SLOW IVP SCH (09:12)
[2019-04-10] MEDS: Hydrocortisone Sod Succ/PF 100 mg/2 ml Vial IVP SCH ×3 (09:12→21:01)
[2019-04-10] MEDS: Meropenem 2 GM in Sodium Chloride 0.9% 100 ML IVPB SCH ×3 (09:12→22:00)
[2019-04-10] MEDS ORDERED: Sodium Phosphate 30 MMOL in Sodium Chloride 0.9% 250 ML 250 ML IVPB SCH (09:30)
[2019-04-10] MEDS: PHOS-NAK 1 PKT PACK PO SCH ×3 (11:19→21:01)
--- NOTE | 2019-04-10 14:02 | PRG ---
DATE OF SERVICE: 04/10/2019 SUBJECTIVE: The patient was seen and examined at bedside. He remains a little bit confused. OBJECTIVE: GENERAL: This is a well-built male, confused. VITAL SIGNS: Temperature 98.5, pulse 89, respirations 18, blood pressure 111/71. HEENT: Atraumatic and normocephalic. NECK: Supple. CARDIOVASCULAR: S1 and S2 heard. Rate and rhythm, regular. RESPIRATORY: Clear. GASTROINTESTINAL: Abdomen is soft MUSCULOSKELETAL: No tenderness. No edema. DERMATOLOGIC: No skin rash. NEUROLOGIC: Confused. LABORATORY DATA: Sodium 135, potassium 2.2, BUN is 7, phosphorus less than 1, and magnesium 1.5. ASSESSMENT AND PLAN: 1. Hyponatremia, better. 2. Severe hypokalemia, on supplements. We will give IV potassium and continue on potassium supplements if he can tolerate. Continue close monitoring. 3. Hypomagnesemia and hypophosphatemia, most likely secondary to amphotericin. 4. Altered mentation. 5. Acute kidney injury, better. 6. Monitor electrolytes closely and continue aggressive replacement. We will follow. Job ID: [id number]
[2019-04-10 14:52] LABS: Anion Gap 12 mmol/L (10-20); BUN (Urea Nitrogen) 6 mg/dL (8.9-20.6); Calc. Creatinine Clearance 136 mL/min (70-130); Calcium 8.1 mg/dL (7.8-10.44); Carbon Dioxide 25 mmol/L (22-29); Chloride 103 mmol/L (98-107); Estimated GFR-MDRD Greater than 90; Glucose 133 mg/dL (70-105); Magnesium 2.1 mg/dL (1.6-2.6); Sodium 138 mmol/L (136-145)
[2019-04-10 15:00] LABS: Potassium 2.3 mmol/L (3.5-5.1)
[2019-04-10] MEDS: Potassium Chloride 20 MEQ TAB PO SCH ×2 (16:07→21:00)
[2019-04-10 20:20] LABS: Anion Gap 13 mmol/L (10-20); BUN (Urea Nitrogen) 5 mg/dL (8.9-20.6); Calc. Creatinine Clearance 145 mL/min (70-130); Calcium 7.8 mg/dL (7.8-10.44); Carbon Dioxide 27 mmol/L (22-29); Chloride 99 mmol/L (98-107); Estimated GFR-MDRD Greater than 90; Glucose 120 mg/dL (70-105); Magnesium 1.7 mg/dL (1.6-2.6); Phosphorus 1.1 mg/dL (2.3-4.7); Potassium 2.5 mmol/L (3.5-5.1); Sodium 136 mmol/L (136-145)
[2019-04-10] MEDS: Micafungin 100 MG in Sodium Chloride 0.9% 100 ML IVPB SCH (20:53)
[2019-04-11] MEDS: Sodium Chloride 0.9% 1,000 ML IV SCH ×2 (00:01→13:10)
[2019-04-11] MEDS: Calcium Carbonate 500 MG ChewTAB PO PRN ×2 (00:54→23:21)
[2019-04-11 04:02] LABS: Hemoglobin 8.5 g/dL (14.0-18.0); Mean Corpuscular HGB CONC 33.4 g/dL (32.0-36.0); Mean Corpuscular Hemoglobin 29.6 pg (27.0-31.0); Mean Corpuscular Volume 88.5 fL (78.0-98.0); Mean Platelet Volume 7.5 fL (7.4-10.4); Platelet Count 481 thou/uL (130-400); RBC Distribution Width 15.7 % (11.5-14.5); Red Blood Cell (RBC) Count 2.87 mill/uL (4.70-6.10); White Blood Cell (WBC) Count 41.1 thou/uL (4.8-10.8)
[2019-04-11 04:15] LABS: Anion Gap 14 mmol/L (10-20); BUN (Urea Nitrogen) 5 mg/dL (8.9-20.6); Calc. Creatinine Clearance 159 mL/min (70-130); Calcium 7.7 mg/dL (7.8-10.44); Carbon Dioxide 27 mmol/L (22-29); Chloride 100 mmol/L (98-107); Estimated GFR-MDRD Greater than 90; Glucose 122 mg/dL (70-105); Magnesium 1.3 mg/dL (1.6-2.6); Sodium 139 mmol/L (136-145)
[2019-04-11 04:21] LABS: Phosphorus 1.7 mg/dL (2.3-4.7); Potassium 2.2 mmol/L (3.5-5.1)
[2019-04-11 04:42] LABS: Band 19 % (5-11); Lymphocytes 11 % (21-51); MDiff Complete? YES; Metamyelocyte 2 % (0-0); Monocytes 17 % (0-10); Neutrophil 51 % (42-75); Nucleated RBC 1 % (0); Platelet Morphology Comment Appears Increased; RBC Morphology Normal
[2019-04-11] MEDS: Potassium Chloride 20 MEQ in Premix Bag 1 BAG IVPB SCH ×2 (04:54→09:28)
[2019-04-11] MEDS: Meropenem 2 GM in Sodium Chloride 0.9% 100 ML IVPB SCH ×3 (05:05→23:03)
[2019-04-11] MEDS ORDERED: Magnesium Sulfate 3 GM in Sodium Chloride 0.9% 100 ML IVPB SCH (05:15)
[2019-04-11] MEDS: ACYCLOVIR SODIUM IVPB SCH ×3 (07:28→21:33)
[2019-04-11] MEDS: SODIUM CHLORIDE 0.9% IVPB SCH ×3 (07:28→21:33)
--- NOTE | 2019-04-11 07:39 | PDOC.FM ---
- Subjective Subjective: Seen at bedside this morning. Pt is pleasant, however somewhat confused and hallucinating. Per nursing, last night was better from an agitation stand point. There were no acute events over night. - Objective Vital Signs & Weight: Vital Signs (12 hours) Temp Pulse Resp Pulse Ox 04/11/19 07:29 98.0 F 04/11/19 03:54 93 25 H 96 04/11/19 03:41 98.2 F 04/10/19 23:41 98.4 F 97 04/10/19 23:40 98.4 F 04/10/19 20:00 96 04/10/19 19:42 98.5 F Weight Admit Weight 73.936 kg Weight 73.21 kg Most Recent Monitor Data Heart Rate from ECG 91 NIBP 119/70 NIBP BP-Mean 86 Respiration from ECG 24 SpO2 95 I&O: 04/10/19 04/11/19 04/12/19 06:59 06:59 06:59 Intake Total 2876.5 3531.8 Output Total 1200 1325 Balance 1676.5 2206.8 Result Diagrams: 04/11/19 03:31 04/11/19 03:31 Phys Exam - Physical Examination Constitutional: NAD HEENT: moist MMs Respiratory: clear to auscultation bilateral Cardiovascular: RRR, no significant murmur Gastrointestinal: non-tender, no distention Musculoskeletal: no edema Neurological: moves all 4 limbs Deviation from normal: A&O x2. Actively hallucinating Skin: no rash Dx/Plan (1) Hypokalemia Code(s): E87.6 - HYPOKALEMIA Status: Acute (2) Hypomagnesemia Code(s): E83.42 - HYPOMAGNESEMIA Status: Acute (3) Acute kidney injury Code(s): N17.9 - ACUTE KIDNEY FAILURE, UNSPECIFIED Status: Acute (4) Neutropenic fever Code(s): D70.9 - NEUTROPENIA, UNSPECIFIED; R50.81 - FEVER PRESENTING WITH CONDITIONS CLASSIFIED ELSEWHERE Status: Acute (5) Pancytopenia Code(s): D61.818 - OTHER PANCYTOPENIA Status: Acute (6) Stage 4 lung cancer Code(s): C34.90 - MALIGNANT NEOPLASM OF UNSP PART OF UNSP BRONCHUS OR LUNG Status: Acute (7) Symptomatic anemia Code(s): D64.9 - ANEMIA, UNSPECIFIED Status: Acute (8) Anxiety Code(s): F41.9 - ANXIETY DISORDER, UNSPECIFIED Status: Chronic (9) Depression Code(s): F32.9 - MAJOR DEPRESSIVE DISORDER, SINGLE EPISODE, UNSPECIFIED Status : Chronic (10) GERD (gastroesophageal reflux disease) Code(s): K21.9 - GASTRO-ESOPHAGEAL REFLUX DISEASE WITHOUT ESOPHAGITIS Status: Chronic (11) Metabolic encephalopathy Code(s): G93.41 - METABOLIC ENCEPHALOPATHY Status: Acute - Plan Plan: Hypokalemia - problem persists inspite of aggressive repletion. Unclear as to why he continues to drop K, Mg, and Phos. It is possible that steroids are exacerbating the problem. May consider cutting back on dose - Nephro consulted - continue replacement and recheck this afternoon Hypomagnesemia -Replace this morning. recheck as above Hypophosphatemia -monitor and replace as needed Lymphocytosis - probably related to recent neupogen - heme consulted Neutropenic Fever - no fever for 3 days - culture growing micrococcus - ID recs appreciated. Would expect change to oral abx soon - Heme/onc consulted Encephalopathy - Appears to be improving somewhat compared to yesterday, though he is still quite confused. - Brain CT negative. Most likely metabolic in nature. Adrenal insufficiency -continue steroids Symptomatic anemia 2/2 chemotherapy KATIANA, resolved Pancytopenia -improved. Continue to monitor Hyponatremia, resolved Diarrhea -C diff negative -Stool studies to date negative, culture pending Hx of Stage 4 Lung Cancer, Squamous Cell -SCC on RUL primary site with mets in liver and adrenal mets -Oncology consulted Type 2 [place] Ischemia, downtrending -Trop 0.108 > 0.089 -> 0.069 Hx of [place] myelinolysis -continue to monitor GERD -continue home meds Anxiety, Depression -continue home meds Dispo guarded. jail I would expect that he has a poor prognosis given stage 4 cancer and lack of tolerance of treatment.
[2019-04-11] MEDS: Hydrocortisone Sod Succ/PF 100 mg/2 ml Vial IVP SCH ×3 (09:27→21:40)
[2019-04-11] MEDS: PHOS-NAK 1 PKT PACK PO SCH ×3 (09:27→21:39)
[2019-04-11] MEDS: Potassium Chloride 20 MEQ TAB PO SCH ×4 (09:27→21:39)
[2019-04-11] MEDS: Famotidine/PF 20 mg/2ml Vial SLOW IVP SCH (09:27)
--- NOTE | 2019-04-11 13:54 | PRG ---
DATE OF SERVICE: 04/11/2019 SUBJECTIVE: Patient was seen and examined at bedside and overnight events noted. Patient denies any shortness of breath or chest pain or palpitation. No history of nausea or vomiting or diarrhea or fever or chills or cramps. OBJECTIVE: GENERAL: This is a well-built male, in no apparent distress. VITAL SIGNS: Temperature 98.3. Heart rate 95. Respiratory rate 20. Blood pressure 119/70. HEENT: Atraumatic, normocephalic. Oral mucosa is moist. NECK: Supple. CARDIOVASCULAR: S1, S2 heard. Rate and rhythm regular. RESPIRATORY: Clear to auscultation. GASTROINTESTINAL: Abdomen is soft. MUSCULOSKELETAL: No tenderness. No edema. DERMATOLOGIC: No skin rash. NEUROLOGIC: Alert and awake and oriented x3. No focal neurologic deficits. Moving all the extremities. PSYCHIATRIC: Mood and affect normal. LABORATORY DATA: Potassium 2.2, BUN is 5, and creatinine is 0.6. Phosphorus is 1.7. Magnesium 1.3. ASSESSMENT AND PLAN: 1. Hyponatremia, much better. 2. Severe hypokalemia with hypophosphatemia, hypomagnesemia, secondary to medications. Continue supplements. Increase potassium. Continue close monitoring. 3. Altered mentation. 4. Acute kidney injury, stable. Replace electrolytes, monitor and we will follow. Job ID: [id number]
[2019-04-11] MEDS: Micafungin 100 MG in Sodium Chloride 0.9% 100 ML IVPB SCH (15:20)
[2019-04-11 17:54] LABS: Anion Gap 15 mmol/L (10-20); BUN (Urea Nitrogen) 4 mg/dL (8.9-20.6); Calc. Creatinine Clearance 147 mL/min (70-130); Calcium 7.5 mg/dL (7.8-10.44); Carbon Dioxide 27 mmol/L (22-29); Chloride 100 mmol/L (98-107); Estimated GFR-MDRD Greater than 90; Glucose 148 mg/dL (70-105); Sodium 139 mmol/L (136-145)
[2019-04-11 18:01] LABS: Potassium 2.5 mmol/L (3.5-5.1)
[2019-04-12 04:02] LABS: Hemoglobin 8.7 g/dL (14.0-18.0); Mean Corpuscular HGB CONC 34.6 g/dL (32.0-36.0); Mean Corpuscular Hemoglobin 30.6 pg (27.0-31.0); Mean Corpuscular Volume 88.5 fL (78.0-98.0); Mean Platelet Volume 7.4 fL (7.4-10.4); Platelet Count 536 thou/uL (130-400); RBC Distribution Width 15.8 % (11.5-14.5); Red Blood Cell (RBC) Count 2.85 mill/uL (4.70-6.10); White Blood Cell (WBC) Count 47.3 thou/uL (4.8-10.8)
[2019-04-12 04:14] LABS: Band 5 % (5-11); Lymphocytes 16 % (21-51); MDiff Complete? YES; Metamyelocyte 3 % (0-0); Monocytes 8 % (0-10); Myelocyte 2 % (0-0); Neutrophil 66 % (42-75); Platelet Morphology Comment Appears Increased
[2019-04-12 04:20] LABS: Phosphorus 1.4 mg/dL (2.3-4.7)
[2019-04-12 04:25] LABS: Anion Gap 11 mmol/L (10-20); BUN (Urea Nitrogen) 7 mg/dL (8.9-20.6); Calc. Creatinine Clearance 155 mL/min (70-130); Calcium 7.4 mg/dL (7.8-10.44); Carbon Dioxide 33 mmol/L (22-29); Chloride 94 mmol/L (98-107); Estimated GFR-MDRD Greater than 90; Glucose 128 mg/dL (70-105); Magnesium 1.2 mg/dL (1.6-2.6); Sodium 136 mmol/L (136-145)
[2019-04-12 04:31] LABS: Potassium 2.3 mmol/L (3.5-5.1)
[2019-04-12] MEDS: Potassium Chloride 20 MEQ in Premix Bag 1 BAG IVPB SCH ×2 (04:52→09:15)
[2019-04-12] MEDS: Sodium Chloride 0.9% 1,000 ML IV SCH (04:58)
[2019-04-12] MEDS: SODIUM CHLORIDE 0.9% IVPB SCH ×2 (05:01→14:26)
[2019-04-12] MEDS: ACYCLOVIR SODIUM IVPB SCH ×2 (05:01→14:26)
[2019-04-12] MEDS: Meropenem 2 GM in Sodium Chloride 0.9% 100 ML IVPB SCH ×3 (06:24→22:59)
--- NOTE | 2019-04-12 08:36 | PDOC.MOPN ---
Interval History: Pt less confused today, knows where he is, joking. He c/o pain from his IVs but no other. Appetite is good. Diarrhea still present. - Vital Signs Vital Signs: Vital Signs (12 hours) Temp Pulse Resp Pulse Ox 04/12/19 07:15 97.4 F L 04/12/19 05:50 82 22 H 96 04/12/19 03:17 98.1 F 04/12/19 00:00 73 22 H 97 Weight Admit Weight 163 lb Weight 160 lb Most Recent Monitor Data Heart Rate from ECG 91 NIBP 115/85 NIBP BP-Mean 95 Respiration from ECG 24 SpO2 95 - Physical Exam General: Alert, Cooperative Lungs: Normal air movement Cardiovascular: Regular rate Extremities: No edema Neurological: Cranial nerves 3-12 NL Psych/Mental Status: Mental status NL - Labs Result Diagrams: 04/12/19 03:28 04/12/19 03:28 Lab results: Laboratory Results - last 24 hr 04/12/19 03:28: Phosphorus 1.4 L 04/12/19 03:28: WBC 47.3 H*, RBC 2.85 L, Hgb 8.7 L, Hct 25.3 L, MCV 88.5, MCH 30.6, MCHC 34.6, RDW 15.8 H, Plt Count 536 H, MPV 7.4, Neutrophils % (Manual) 66 , Band Neuts % (Manual) 5, Lymphocytes % (Manual) 16 L, Monocytes % (Manual) 8, Metamyelocytes % (Man) 3 H, Myelocytes % 2 H, Neutrophils # Not Reportable, Lymphocytes # Not Reportable, Plt Morphology Comment Appears Increased H 04/12/19 03:28: Sodium 136, Potassium 2.3 L*, Chloride 94 L, Carbon Dioxide 33 H , Anion Gap 11, BUN 7 L, Creatinine 0.65 L, Estimated GFR (MDRD) Greater than 90, Glucose 128 H, Calcium 7.4 L, Magnesium 1.2 L 04/11/19 17:24: Sodium 139, Potassium 2.5 L*, Chloride 100, Carbon Dioxide 27, Anion Gap 15, BUN 4 L, Creatinine 0.69 L, Estimated GFR (MDRD) Greater than 90 , Glucose 148 H, Calcium 7.5 L A/P - Problem (1) Neutropenic fever Current Visit: Yes Code(s): D70.9 - NEUTROPENIA, UNSPECIFIED; R50.81 - FEVER PRESENTING WITH CONDITIONS CLASSIFIED ELSEWHERE Status: Acute (2) Pancytopenia Current Visit: Yes Code(s): D61.818 - OTHER PANCYTOPENIA Status: Acute (3) Stage 4 lung cancer Current Visit: Yes Code(s): C34.90 - MALIGNANT NEOPLASM OF UNSP PART OF UNSP BRONCHUS OR LUNG Status: Acute (4) Headache Current Visit: No Code(s): R51 - HEADACHE Status: Acute (5) Hyponatremia Current Visit: No Code(s): E87.1 - HYPO-OSMOLALITY AND HYPONATREMIA Status: Acute - Plan Plan: AMS is improving. Electrolytes still very low. Cont repletion of K, Mg, Phos - once safe levels reached and stable, may DC home
--- NOTE | 2019-04-12 08:54 | PDOC.FM ---
- Subjective Subjective: confusion has improved greatly, pt is a and o times 3. no complaints at this time. - Objective Vital Signs & Weight: Vital Signs (12 hours) Temp Pulse Resp Pulse Ox 04/12/19 08:00 98 04/12/19 07:15 97.4 F L 04/12/19 05:50 82 22 H 96 04/12/19 03:17 98.1 F 04/12/19 00:00 73 22 H 97 Weight Admit Weight 73.936 kg Weight 72.575 kg Most Recent Monitor Data Heart Rate from ECG 91 NIBP 115/85 NIBP BP-Mean 95 Respiration from ECG 24 SpO2 95 I&O: 04/11/19 04/12/19 04/13/19 06:59 06:59 06:59 Intake Total 3531.8 3414 Output Total 1325 4000 Balance 2206.8 -586 Result Diagrams: 04/12/19 03:28 04/12/19 03:28 Phys Exam - Physical Examination Constitutional: NAD HEENT: moist MMs, sclera anicteric Neck: no JVD, supple Respiratory: no wheezing, no rales Cardiovascular: RRR, no significant murmur Gastrointestinal: soft, non-tender Musculoskeletal: no edema, pulses present Neurological: non-focal, moves all 4 limbs Psychiatric: normal affect, A&O x 3 Skin: no rash, normal turgor Dx/Plan (1) Demand ischemia Code(s): I24.8 - OTHER FORMS OF ACUTE ISCHEMIC HEART DISEASE Status: Acute (2) Neutropenic fever Code(s): D70.9 - NEUTROPENIA, UNSPECIFIED; R50.81 - FEVER PRESENTING WITH CONDITIONS CLASSIFIED ELSEWHERE Status: Acute (3) Pancytopenia Code(s): D61.818 - OTHER PANCYTOPENIA Status: Acute (4) Stage 4 lung cancer Code(s): C34.90 - MALIGNANT NEOPLASM OF UNSP PART OF UNSP BRONCHUS OR LUNG Status: Acute (5) Symptomatic anemia Code(s): D64.9 - ANEMIA, UNSPECIFIED Status: Acute (6) Anxiety Code(s): F41.9 - ANXIETY DISORDER, UNSPECIFIED Status: Chronic (7) Depression Code(s): F32.9 - MAJOR DEPRESSIVE DISORDER, SINGLE EPISODE, UNSPECIFIED Status : Chronic (8) GERD (gastroesophageal reflux disease) Code(s): K21.9 - GASTRO-ESOPHAGEAL REFLUX DISEASE WITHOUT ESOPHAGITIS Status: Chronic (9) Hyponatremia Code(s): E87.1 - HYPO-OSMOLALITY AND HYPONATREMIA Status: Acute - Plan Plan: Hypokalemia A- problem persists inspite of aggressive repletion. Unclear as to why he continues to drop K, Mg, and Phos. It is possible that steroids are exacerbating the problem. May consider cutting back on dose. Nephro consulted, recs appreciated to increase K supplementation and monitor. P- continue replacement and recheck this afternoon Hypomagnesemia -Replace this morning. recheck as above Hypophosphatemia -monitor and replace as needed Lymphocytosis A- probably related to recent neupogen P- heme consulted Neutropenic Fever A- no fever for 4 days. / culture growing micrococcus. other cultures negative. ID recs appreciated. Would expect change to oral abx soon. Heme/onc consulted P- antimicrobials per ID mgmt. Encephalopathy - improved. Brain CT negative. Most likely metabolic in nature. Adrenal insufficiency -continue steroids Symptomatic anemia 2/2 chemotherapy -monitor, heme onc consulted KATIANA, resolved Pancytopenia -improved. Continue to monitor Hyponatremia, resolved Diarrhea -C diff negative. Stool studies to date negative, culture pending Hx of Stage 4 Lung Cancer, Squamous Cell -SCC on RUL primary site with mets in liver and adrenal mets. 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
[2019-04-12] MEDS: Potassium Chloride 20 MEQ TAB PO SCH ×4 (09:16→20:43)
[2019-04-12] MEDS: Hydrocortisone Sod Succ/PF 100 mg/2 ml Vial IVP SCH ×3 (09:16→20:42)
[2019-04-12] MEDS: PHOS-NAK 1 PKT PACK PO SCH ×3 (09:16→20:42)
[2019-04-12] MEDS: Famotidine/PF 20 mg/2ml Vial SLOW IVP SCH (09:16)
--- NOTE | 2019-04-12 11:20 | PDOC.EVN ---
Event Note - Event Note Event Note: Pt is refusing IMCU monitoring, he has been getting Q4hr vitals. he is agreeable to at least wear a tele monitor. Will transfer to telemetry.
[2019-04-12] MEDS: Calcium Carbonate 500 MG ChewTAB PO PRN (11:32)
--- NOTE | 2019-04-12 11:37 | PRG ---
DATE OF SERVICE: 04/12/2019 SUBJECTIVE: The patient was seen and examined at bedside and overnight events noted. The patient denies any shortness of breath or chest pain or palpitation. No history of nausea or vomiting or diarrhea or fever or chills or cramps. OBJECTIVE: GENERAL: This is a well-built male, in no apparent distress. VITAL SIGNS: Temperature 97.6. Pulse 82. Respiratory rate 20. Blood pressure 140/81. HEENT: Atraumatic, normocephalic. Oral mucosa is moist. NECK: Supple. CARDIOVASCULAR: S1, S2 heard. Rate and rhythm regular. RESPIRATORY: Clear to auscultation. GASTROINTESTINAL: Abdomen is soft. MUSCULOSKELETAL: No tenderness. No edema. DERMATOLOGIC: No skin rash. NEUROLOGIC: Alert and awake and oriented X3. No focal neurologic deficits. Moving all the extremities. PSYCHIATRIC: Mood and affect normal. LABORATORY DATA: Potassium 2.3, BUN is 7, creatinine is 0.6, magnesium is 1.2, and phosphorus is 1.1. ASSESSMENT AND PLAN: 1. Hyponatremia, better. 2. Hypokalemia with hypophosphatemia and hypomagnesemia. We will replace. 3. Altered mentation, better. 4. Acute kidney injury, stable. 5. Replace electrolytes aggressively and monitor closely. Job ID: [id number]
[2019-04-12 13:24] VITALS: BMI 20.5
--- NOTE | 2019-04-12 14:12 | PDOC.PALPN ---
Palliative Progress Note - Subjective Awake, alert and oriented x 3. Slight spastic movement of extremities, states some of his confusion is related to "normal personality for him". - Objective Vital Signs: Vital Signs - Most Recent Temp Pulse Resp BP Pulse Ox 97.6 F 82 20 140/81 97 04/12/19 10:24 04/12/19 08:00 04/12/19 08:00 04/12/19 08:00 04/12/19 08:00 - Physical Exam Constitutional: ill appearing HEENT: EOMI, moist MMs, sclera anicteric Respiratory: unlabored breathing Cardiovascular: RRR Gastrointestinal: continent Genitourinary: continent Musculoskeletal: no edema, pulses present Neurology: moves all 4 limbs Skin: cap refill <2 seconds Psychiatric: A&O x 3, normal mood Deviation from normal: mildly flat affect - Assessment (1) Palliative care encounter Code(s): Z51.5 - ENCOUNTER FOR PALLIATIVE CARE Current Visit: Yes Status: Acute (2) Demand ischemia Code(s): I24.8 - OTHER FORMS OF ACUTE ISCHEMIC HEART DISEASE Current Visit: Yes Status: Acute (3) Hypokalemia Code(s): E87.6 - HYPOKALEMIA Current Visit: Yes Status: Acute (4) Hypomagnesemia Code(s): E83.42 - HYPOMAGNESEMIA Current Visit: Yes Status: Acute (5) Stage 4 lung cancer Code(s): C34.90 - MALIGNANT NEOPLASM OF UNSP PART OF UNSP BRONCHUS OR LUNG Current Visit: Yes Status: Acute - Plan Plan: Patient plans on continuing management through oncology for Cancer. Will be transferred to tele. Integrity of mucous membranes has improved. Plan is to discharge home, continue with oncology as previously stated, home health for physical therapy and possible resource for transition to hospice should progression of cancer occur. Order placed with CM for home health consult with [facility] and utilization of PT services. [30] minutes spent on this encounter with >50% of the time in counseling and coordination of care. - ROS Constitutional: weakness, other (Denies chills, fever) Eyes: other (denies visual disturbances) ENT: other (denies difficulity in swallowing, oral discomfort or pain) Respiratory: other (denies shortness of breath, cough) Cardiology: other (Deneis chest pain or discomfort) Musculoskeletal: other (Denies pain at time of assessment)
[2019-04-12 15:51] LABS: Magnesium 1.3 mg/dL (1.6-2.6); Phosphorus Less than 1.0 mg/dL (2.3-4.7); Potassium 2.5 mmol/L (3.5-5.1)
[2019-04-12] MEDS ORDERED: Potassium Chloride 20 MEQ TAB PO SCH (16:30)
[2019-04-12] MEDS ORDERED: Potassium Phosphate 12 MMOL in Sodium Chloride 0.9% 100 ML IVPB SCH (16:30)
[2019-04-12] MEDS: Micafungin 100 MG in Sodium Chloride 0.9% 100 ML IVPB SCH (17:13)
[2019-04-12 22:38] LABS: Anion Gap 10 mmol/L (10-20); BUN (Urea Nitrogen) 9 mg/dL (8.9-20.6); Calc. Creatinine Clearance 183 mL/min (70-130); Calcium 7.1 mg/dL (7.8-10.44); Carbon Dioxide 36 mmol/L (22-29); Chloride 93 mmol/L (98-107); Estimated GFR-MDRD Greater than 90; Glucose 126 mg/dL (70-105); Potassium 3.1 mmol/L (3.5-5.1); Sodium 136 mmol/L (136-145)
[2019-04-13] MEDS: SODIUM CHLORIDE 0.9% IVPB SCH ×4 (00:32→22:15)
[2019-04-13] MEDS: ACYCLOVIR SODIUM IVPB SCH ×4 (00:32→22:15)
[2019-04-13] MEDS: Meropenem 2 GM in Sodium Chloride 0.9% 100 ML IVPB SCH ×3 (06:08→22:15)
[2019-04-13 06:26] LABS: Hemoglobin 8.9 g/dL (14.0-18.0); Mean Corpuscular HGB CONC 31.6 g/dL (32.0-36.0); Mean Corpuscular Hemoglobin 28.4 pg (27.0-31.0); Mean Corpuscular Volume 89.9 fL (78.0-98.0); Mean Platelet Volume 7.1 fL (7.4-10.4); Platelet Count 588 thou/uL (130-400); RBC Distribution Width 16.2 % (11.5-14.5); Red Blood Cell (RBC) Count 3.13 mill/uL (4.70-6.10); White Blood Cell (WBC) Count 42.3 thou/uL (4.8-10.8)
[2019-04-13 06:39] LABS: Anion Gap 12 mmol/L (10-20); BUN (Urea Nitrogen) 9 mg/dL (8.9-20.6); Calc. Creatinine Clearance 174 mL/min (70-130); Calcium 6.8 mg/dL (7.8-10.44); Carbon Dioxide 33 mmol/L (22-29); Chloride 95 mmol/L (98-107); Estimated GFR-MDRD Greater than 90; Glucose 116 mg/dL (70-105); Sodium 137 mmol/L (136-145)
[2019-04-13 06:41] LABS: Magnesium 0.9 mg/dL (1.6-2.6); Potassium 2.6 mmol/L (3.5-5.1)
[2019-04-13 06:46] LABS: Phosphorus 1.3 mg/dL (2.3-4.7)
[2019-04-13 06:48] LABS: Band 11 % (5-11); Hypochromia SLIGHT = 6-15 cells (100X) (0-5/hpf); Lymphocytes 8 % (21-51); MDiff Complete? YES; Monocytes 12 % (0-10); Neutrophil 69 % (42-75); Nucleated RBC 1 % (0); Platelet Morphology Comment Appears Increased
[2019-04-13] MEDS ORDERED: Potassium Chloride 20 MEQ in Premix Bag 1 BAG IVPB SCH ×2 (08:00→09:45)
--- NOTE | 2019-04-13 08:36 | PDOC.FM ---
- Subjective Subjective: Pt only complains of 5-6 loose stools overnight. no other complaints, no acute events. - Objective Vital Signs & Weight: Vital Signs (12 hours) Temp Pulse Resp BP Pulse Ox 04/13/19 07:31 98.2 F 04/13/19 04:00 70 16 127/68 98 04/13/19 03:28 97.8 F 04/13/19 00:00 98.2 F 77 18 123/94 H 97 Weight Admit Weight 73.936 kg Weight 72.575 kg Most Recent Monitor Data Heart Rate from ECG 91 NIBP 115/85 NIBP BP-Mean 95 Respiration from ECG 24 SpO2 95 I&O: 04/12/19 04/13/19 04/14/19 06:59 06:59 06:59 Intake Total 3414 4773 Output Total 4000 5800 Balance -695 -6752 Result Diagrams: 04/14/19 03:29 04/14/19 03:29 Phys Exam - Physical Examination Constitutional: NAD HEENT: moist MMs, sclera anicteric Neck: no JVD, supple Respiratory: no wheezing, no rales Cardiovascular: RRR, no significant murmur Gastrointestinal: soft, non-tender Musculoskeletal: no edema, pulses present Neurological: non-focal, normal sensation Psychiatric: normal affect, A&O x 3 Skin: no rash, normal turgor Dx/Plan (1) Demand ischemia Code(s): I24.8 - OTHER FORMS OF ACUTE ISCHEMIC HEART DISEASE Status: Acute (2) Neutropenic fever Code(s): D70.9 - NEUTROPENIA, UNSPECIFIED; R50.81 - FEVER PRESENTING WITH CONDITIONS CLASSIFIED ELSEWHERE Status: Acute (3) Pancytopenia Code(s): D61.818 - OTHER PANCYTOPENIA Status: Acute (4) Stage 4 lung cancer Code(s): C34.90 - MALIGNANT NEOPLASM OF UNSP PART OF UNSP BRONCHUS OR LUNG Status: Acute (5) Symptomatic anemia Code(s): D64.9 - ANEMIA, UNSPECIFIED Status: Acute (6) Anxiety Code(s): F41.9 - ANXIETY DISORDER, UNSPECIFIED Status: Chronic (7) Depression Code(s): F32.9 - MAJOR DEPRESSIVE DISORDER, SINGLE EPISODE, UNSPECIFIED Status : Chronic (8) GERD (gastroesophageal reflux disease) Code(s): K21.9 - GASTRO-ESOPHAGEAL REFLUX DISEASE WITHOUT ESOPHAGITIS Status: Chronic (9) Hyponatremia Code(s): E87.1 - HYPO-OSMOLALITY AND HYPONATREMIA Status: Acute - Plan Plan: Hypokalemia A- Likely exacerbated by low Mg and frequent stools. Nephro consulted, recs appreciated to increase K supplementation and monitor. P- continue replacement and recheck this afternoon Hypomagnesemia -Replace this morning. Will increase daily baseline supplement Hypophosphatemia -Replace this morning. Will increase daily baseline supplement Diarrhea 2/2 ABX vs viral gastroenteritis A- extensive stool studies only notable for elevated lactoferrin. likely contributing to electrolyte imbalance P- will give immodium prn Lymphocytosis A- probably related to recent neupogen P- heme consulted Neutropenic Fever A- no fever for 4 days. 04/17 culture growing micrococcus. other cultures negative. ID recs appreciated. Would expect change to oral abx soon. Heme/onc consulted P- antimicrobials per ID mgmt. Encephalopathy - improved. Brain CT negative. Most likely metabolic in nature. Adrenal insufficiency -continue steroids Symptomatic anemia 2/2 chemotherapy -monitor, heme onc consulted KATIANA, resolved Pancytopenia -improved. Continue to monitor Hyponatremia, resolved Hx of Stage 4 Lung Cancer, Squamous Cell -SCC on RUL primary site with mets in liver and adrenal mets. 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 Addendum - Attending - Attending Attestation Date/Time: 04/15/19 0620 I personally evaluated the patient and discussed the management with Dr. Zee I agree with the History, Examination, Assessment and Plan documented above with any addition or exceptions noted below.
[2019-04-13] MEDS ORDERED: Magnesium Oxide 400 MG TAB PO SCH (09:00)
[2019-04-13] MEDS ORDERED: Magnesium Sulfate 4 GM in Sodium Chloride 0.9% 250 ML 250 ML IVPB SCH (09:15)
[2019-04-13] MEDS: Famotidine/PF 20 mg/2ml Vial SLOW IVP SCH (09:50)
[2019-04-13] MEDS: Hydrocortisone Sod Succ/PF 100 mg/2 ml Vial IVP SCH ×3 (09:50→22:07)
[2019-04-13] MEDS: Lactinex Tablet PO SCH (09:51)
[2019-04-13] MEDS: PHOS-NAK 1 PKT PACK PO SCH ×3 (09:52→22:08)
[2019-04-13] MEDS: Magnesium Oxide 400 MG TAB PO SCH ×2 (09:52→22:08)
[2019-04-13] MEDS: Potassium Chloride 20 MEQ TAB PO SCH ×4 (09:52→22:08)
[2019-04-13] MEDS ORDERED: Potassium Chloride 20 MEQ/100 ML PREMIX BAG IVPB SCH (12:00)
--- NOTE | 2019-04-13 13:19 | PRG ---
DATE OF SERVICE: 04/13/2019 SUBJECTIVE: Patient was seen and examined at bedside and overnight events noted. Patient denies any shortness of breath or chest pain or palpitation. No history of nausea or vomiting or diarrhea or fever or chills or cramps. OBJECTIVE: GENERAL: This is a well-built male, in no apparent distress. VITAL SIGNS: Temperature 98.2. Heart rate 70. Respiratory rate 16. Blood pressure 127/68. HEENT: Atraumatic, normocephalic. Oral mucosa is moist NECK: Supple. CARDIOVASCULAR: S1, S2 heard. Rate and rhythm regular. RESPIRATORY: Clear to auscultation. GASTROINTESTINAL: Abdomen is soft. MUSCULOSKELETAL: No tenderness. No edema. DERMATOLOGIC: No skin rash. NEUROLOGIC: Alert and awake and oriented X3. No focal neurologic deficits. Moving all the extremities. PSYCHIATRIC: Mood and affect normal. LABORATORY DATA: Potassium is 2.6, BUN is 9, and creatinine is 0.5, magnesium 0.9, and phosphorus 1.3. ASSESSMENT AND PLAN: 1. Hyponatremia, better. 2. Hypokalemia. 3. Hypophosphatemia, hypomagnesemia, most likely from gastrointestinal losses. We will check urine studies. 4. Altered mentation, better. 5. Acute kidney injury, stable. Continue aggressive replacement and monitor closely. Job ID: [id number]
--- NOTE | 2019-04-13 14:12 | PDOC.MOPN ---
Interval History: feels better. - Vital Signs Vital Signs: Vital Signs (12 hours) Temp Pulse Resp BP Pulse Ox 04/13/19 11:44 97.8 F 04/13/19 08:00 99 04/13/19 07:31 98.2 F 04/13/19 04:00 70 16 127/68 98 04/13/19 03:28 97.8 F Weight Admit Weight 163 lb Weight 160 lb Most Recent Monitor Data Heart Rate from ECG 91 NIBP 115/85 NIBP BP-Mean 95 Respiration from ECG 24 SpO2 95 - Physical Exam General: Alert, Oriented x3, No acute distress HEENT: Atraumatic, PERRLA, EOMI, Mucous membr. moist/pink Lungs: Clear to auscultation, Normal air movement Cardiovascular: Regular rate, Normal S1, Normal S2, No murmurs, Gallops, Rubs Abdomen: Normal bowel sounds, Soft, No tenderness, No hepatospenomegaly, No masses Extremities: No clubbing, No cyanosis, No edema, Normal pulses, No tenderness/ swelling Skin: No rashes, No breakdown, No significant lesion Neurological: Normal speech - Labs Result Diagrams: 04/13/19 06:09 04/13/19 06:09 Lab results: Laboratory Results - last 24 hr 04/13/19 06:09: Phosphorus 1.3 L 04/13/19 06:09: WBC 42.3 H*, RBC 3.13 L, Hgb 8.9 L, Hct 28.1 L, MCV 89.9, MCH 28.4, MCHC 31.6 L, RDW 16.2 H, Plt Count 588 H, MPV 7.1 L, Neutrophils % (Manual ) 69, Band Neuts % (Manual) 11, Lymphocytes % (Manual) 8 L, Monocytes % (Manual ) 12 H, Neutrophils # Not Reportable, Lymphocytes # Not Reportable, Nucleated RBCs # (Man) 1 H, Hypochromia SLIGHT = 6-15 cells, Plt Morphology Comment Appears Increased H 04/13/19 06:09: Sodium 137, Potassium 2.6 L*, Chloride 95 L, Carbon Dioxide 33 H , Anion Gap 12, BUN 9, Creatinine 0.58 L, Estimated GFR (MDRD) Greater than 90 , Glucose 116 H, Calcium 6.8 L, Magnesium 0.9 L* 04/12/19 22:08: Sodium 136, Potassium 3.1 L, Chloride 93 L, Carbon Dioxide 36 H , Anion Gap 10, BUN 9, Creatinine 0.55 L, Estimated GFR (MDRD) Greater than 90 , Glucose 126 H, Calcium 7.1 L 04/12/19 15:20: Potassium 2.5 L*, Phosphorus Less than 1.0 L, Magnesium 1.3 L Status: lab reviewed by me A/P - Problem (1) Neutropenic fever Current Visit: Yes Code(s): D70.9 - NEUTROPENIA, UNSPECIFIED; R50.81 - FEVER PRESENTING WITH CONDITIONS CLASSIFIED ELSEWHERE Status: Acute (2) Stage 4 lung cancer Current Visit: Yes Code(s): C34.90 - MALIGNANT NEOPLASM OF UNSP PART OF UNSP BRONCHUS OR LUNG Status: Acute - Plan Plan: Continue electrolyte support Leukocytosis may be due to neupogen chemo postponed until next week
[2019-04-13 15:45] LABS: Magnesium 1.8 mg/dL (1.6-2.6); Phosphorus Less than 1.0 mg/dL (2.3-4.7); Potassium 2.5 mmol/L (3.5-5.1)
[2019-04-13] MEDS: Potassium Chloride 20 MEQ in Sodium Chloride 0.9% 250 ML 250 ML IVPB SCH ×2 (15:46→18:18)
[2019-04-13] MEDS ORDERED: Potassium Chloride 20 MEQ TAB PO SCH ×3 (16:15→22:00)
[2019-04-13] MEDS ORDERED: PHOS-NAK 1 PKT PACK PO SCH ×2 (17:15→22:00)
[2019-04-13 17:17] LABS: Creatinine, Urine 26.57 mg/dL (63-166)
[2019-04-13] MEDS: Micafungin 100 MG in Sodium Chloride 0.9% 100 ML IVPB SCH (18:39)
[2019-04-14] MEDS: Calcium Carbonate 500 MG ChewTAB PO PRN (01:04)
[2019-04-14 04:28] LABS: Anion Gap 12 mmol/L (10-20); BUN (Urea Nitrogen) 9 mg/dL (8.9-20.6); Calc. Creatinine Clearance 177 mL/min (70-130); Calcium 6.4 mg/dL (7.8-10.44); Carbon Dioxide 31 mmol/L (22-29); Chloride 97 mmol/L (98-107); Estimated GFR-MDRD Greater than 90; Glucose 118 mg/dL (70-105); Magnesium 1.2 mg/dL (1.6-2.6); Potassium 3.4 mmol/L (3.5-5.1); Sodium 137 mmol/L (136-145)
[2019-04-14 04:31] LABS: Phosphorus 1.2 mg/dL (2.3-4.7)
[2019-04-14 04:32] LABS: Band 9 % (5-11); Hemoglobin 9.1 g/dL (14.0-18.0); Lymphocytes 16 % (21-51); MDiff Complete? YES; Mean Corpuscular HGB CONC 34.5 g/dL (32.0-36.0); Mean Corpuscular Hemoglobin 31.5 pg (27.0-31.0); Mean Corpuscular Volume 91.3 fL (78.0-98.0); Mean Platelet Volume 7.3 fL (7.4-10.4); Metamyelocyte 6 % (0-0); Monocytes 10 % (0-10); Myelocyte 3 % (0-0); Neutrophil 56 % (42-75); Platelet Count 594 thou/uL (130-400); Platelet Morphology Comment Appears Increased; RBC Distribution Width 16.3 % (11.5-14.5); Red Blood Cell (RBC) Count 2.88 mill/uL (4.70-6.10); White Blood Cell (WBC) Count 36.3 thou/uL (4.8-10.8)
[2019-04-14] MEDS ORDERED: PHOS-NAK 1 PKT PACK PO SCH (05:00)
[2019-04-14] MEDS: Meropenem 2 GM in Sodium Chloride 0.9% 100 ML IVPB SCH (05:51)
[2019-04-14] MEDS: SODIUM CHLORIDE 0.9% IVPB SCH (06:54)
[2019-04-14] MEDS: ACYCLOVIR SODIUM IVPB SCH (06:54)
--- NOTE | 2019-04-14 08:48 | PDOC.FM ---
- Subjective Subjective: reports good rest overnight, no new complaints. diarrhea is improving - Objective Vital Signs & Weight: Vital Signs (12 hours) Temp Pulse Resp BP Pulse Ox 04/14/19 07:55 100 04/14/19 07:13 98.1 F 04/14/19 04:32 97.8 F 69 16 129/76 95 04/13/19 23:19 79 121/85 99 Weight Admit Weight 73.936 kg Weight 72.575 kg Most Recent Monitor Data Heart Rate from ECG 91 NIBP 115/85 NIBP BP-Mean 95 Respiration from ECG 24 SpO2 95 I&O: 04/13/19 04/14/19 04/15/19 06:59 06:59 06:59 Intake Total 4773 1860 Output Total 5800 1400 Balance -1027 460 Result Diagrams: 04/14/19 03:29 04/14/19 03:29 Phys Exam - Physical Examination Constitutional: NAD HEENT: moist MMs, sclera anicteric Neck: supple, full ROM Respiratory: no wheezing, no rales Cardiovascular: RRR, no significant murmur Gastrointestinal: soft, non-tender Musculoskeletal: no edema, pulses present Neurological: normal sensation, moves all 4 limbs Psychiatric: normal affect, A&O x 3 Skin: no rash, normal turgor Dx/Plan (1) Demand ischemia Code(s): I24.8 - OTHER FORMS OF ACUTE ISCHEMIC HEART DISEASE Status: Acute (2) Neutropenic fever Code(s): D70.9 - NEUTROPENIA, UNSPECIFIED; R50.81 - FEVER PRESENTING WITH CONDITIONS CLASSIFIED ELSEWHERE Status: Acute (3) Pancytopenia Code(s): D61.818 - OTHER PANCYTOPENIA Status: Acute (4) Stage 4 lung cancer Code(s): C34.90 - MALIGNANT NEOPLASM OF UNSP PART OF UNSP BRONCHUS OR LUNG Status: Acute (5) Symptomatic anemia Code(s): D64.9 - ANEMIA, UNSPECIFIED Status: Acute (6) Anxiety Code(s): F41.9 - ANXIETY DISORDER, UNSPECIFIED Status: Chronic (7) Depression Code(s): F32.9 - MAJOR DEPRESSIVE DISORDER, SINGLE EPISODE, UNSPECIFIED Status : Chronic (8) GERD (gastroesophageal reflux disease) Code(s): K21.9 - GASTRO-ESOPHAGEAL REFLUX DISEASE WITHOUT ESOPHAGITIS Status: Chronic (9) Hyponatremia Code(s): E87.1 - HYPO-OSMOLALITY AND HYPONATREMIA Status: Acute - Plan Plan: Hypokalemia A- Likely exacerbated by low Mg and frequent stools. Nephro consulted, recs appreciated. overall this is improving P- continue replacement -continue immodium Hypomagnesemia -Replace this morning. Will increase daily baseline supplement Hypophosphatemia -replace with daily supplement Diarrhea 2/2 ABX vs viral gastroenteritis A- extensive stool studies only notable for elevated lactoferrin. likely contributing to electrolyte imbalance P- will give immodium prn Lymphocytosis A- probably related to recent neupogen P- heme consulted Neutropenic Fever A- no fever for 4 days. / culture growing micrococcus. other cultures negative. ID recs appreciated. Would expect change to oral abx soon. Heme/onc consulted P- antimicrobials per ID mgmt. Encephalopathy - improved. Brain CT negative. Most likely metabolic in nature. Adrenal insufficiency -continue steroids Symptomatic anemia 2/2 chemotherapy -monitor, heme onc consulted KATIANA, resolved Pancytopenia -improved. Continue to monitor Hyponatremia, resolved Hx of Stage 4 Lung Cancer, Squamous Cell -SCC on RUL primary site with mets in liver and adrenal mets. Oncology consulted Type 2 [place]/Demand Ischemia, downtrending -Trop 0.108 > 0.089 -> 0.069 Hx of [place] myelinolysis -continue to monitor GERD -continue home meds Anxiety, Depression -continue home meds Dispo stable. MCC I would expect that he has a poor prognosis given stage 4 cancer and lack of tolerance of treatment.
[2019-04-14] MEDS: Hydrocortisone Sod Succ/PF 100 mg/2 ml Vial IVP SCH ×3 (09:54→20:49)
[2019-04-14] MEDS: Potassium Chloride 20 MEQ TAB PO SCH ×3 (09:54→20:48)
[2019-04-14] MEDS: Lactinex Tablet PO SCH (09:54)
[2019-04-14] MEDS: Magnesium Oxide 400 MG TAB PO SCH ×2 (09:55→20:48)
[2019-04-14] MEDS: Famotidine/PF 20 mg/2ml Vial SLOW IVP SCH (09:55)
[2019-04-14] MEDS: PHOS-NAK 1 PKT PACK PO SCH ×3 (10:01→20:48)
--- NOTE | 2019-04-14 13:45 | PRG ---
DATE OF SERVICE: 04/14/2019 SUBJECTIVE: Patient was seen and examined at bedside and overnight events noted. Patient denies any shortness of breath or chest pain or palpitation. No history of nausea or vomiting or diarrhea or fever or chills or cramps. OBJECTIVE: GENERAL: This is a well-built male, in no apparent distress. VITAL SIGNS: Temperature 98.1, heart rate 69, respiratory rate 16, and blood pressure 129/76. HEENT: Atraumatic, normocephalic. Oral mucosa is moist NECK: Supple. CARDIOVASCULAR: S1, S2 heard. Rate and rhythm regular. RESPIRATORY: Clear to auscultation. GASTROINTESTINAL: Abdomen is soft. MUSCULOSKELETAL: No tenderness. No edema. DERMATOLOGIC: No skin rash. NEUROLOGIC: Alert and awake and oriented X3. No focal neurologic deficits. Moving all the extremities. PSYCHIATRIC: Mood and affect normal. LABORATORY DATA: Potassium 3.4, BUN is 9, and creatinine is 0.5. ASSESSMENT AND PLAN: 1. Hyponatremia, stable. 2. Hypokalemia, much better. We will reduce potassium chloride to 40 mEq p.o. t.i.d. 3. Hypophosphatemia, hypomagnesemia, still having losses polyuria, limit fluid intake. 4. Altered mentation, better. 5. Acute kidney injury, better. 6. Labs seems to be better. Continue supplements monitor. Job ID: [id number]
--- NOTE | 2019-04-14 14:42 | PRG ---
DATE OF SERVICE: 04/14/2019 SUBJECTIVE: Mr. Mi is feeling much better. Areas of stomatitis have resolved. No cough. No headaches. No abdominal pain or diarrhea. OBJECTIVE: VITAL SIGNS: He has been afebrile for quite a few days now. LUNGS: Clear. Areas of stomatitis resolved. HEART: S1 and S2, regular rate. ABDOMEN: Soft, not distended. LABORATORY DATA: White cell count bumped quite a bit with the Neupogen. Creatinine 0.57. All the cultures are negative. ASSESSMENT AND DISCUSSION: Squamous cell lung cancer metastatic to liver and adrenals. Chemo with carboplatin, Abraxane, and Keytruda. Neutropenic fever, skin lesions, and stomatitis. The patient has been afebrile for quite a few days. His white cell count recovered and overshot with the Neupogen. At this moment, I would advise discontinuation of antimicrobial therapy, antiviral therapy, antifungal therapy, and hopefully discharge planning soon. Job ID: [id number] [facility]
[2019-04-14] MEDS: Loperamide HCl 2 MG CAP PO PRN ×2 (20:53→21:13)
[2019-04-15 06:52] LABS: Hemoglobin 8.5 g/dL (14.0-18.0); Mean Corpuscular HGB CONC 34.1 g/dL (32.0-36.0); Mean Corpuscular Hemoglobin 30.6 pg (27.0-31.0); Mean Corpuscular Volume 89.8 fL (78.0-98.0); Mean Platelet Volume 7.6 fL (7.4-10.4); Platelet Count 496 thou/uL (130-400); RBC Distribution Width 16.5 % (11.5-14.5); Red Blood Cell (RBC) Count 2.78 mill/uL (4.70-6.10); White Blood Cell (WBC) Count 24.4 thou/uL (4.8-10.8)
[2019-04-15 07:08] LABS: Anion Gap 13 mmol/L (10-20); BUN (Urea Nitrogen) 10 mg/dL (8.9-20.6); Calc. Creatinine Clearance 168 mL/min (70-130); Carbon Dioxide 29 mmol/L (22-29); Chloride 98 mmol/L (98-107); Estimated GFR-MDRD Greater than 90; Glucose 126 mg/dL (70-105); Sodium 137 mmol/L (136-145)
[2019-04-15 07:17] LABS: Magnesium 0.9 mg/dL (1.6-2.6); Phosphorus 1.4 mg/dL (2.3-4.7); Potassium 2.6 mmol/L (3.5-5.1)
[2019-04-15] MEDS ORDERED: PHOS-NAK 1 PKT PACK PO SCH (07:45)
[2019-04-15] MEDS ORDERED: Potassium Chloride 20 MEQ TAB PO SCH (07:45)
--- NOTE | 2019-04-15 08:17 | PDOC.FM ---
- Subjective Subjective: Pt feeling well, reports no loose stools overnight. No acute issues. - Objective Vital Signs & Weight: Vital Signs (12 hours) Temp Pulse Resp BP Pulse Ox 04/15/19 03:41 98.3 F 86 18 117/78 99 04/14/19 23:47 98.0 F 84 18 134/83 97 Weight Admit Weight 73.936 kg Weight 72.575 kg Most Recent Monitor Data Heart Rate from ECG 91 NIBP 115/85 NIBP BP-Mean 95 Respiration from ECG 24 SpO2 95 I&O: 04/14/19 04/15/19 04/16/19 06:59 06:59 06:59 Intake Total 1860 1561 Output Total 1400 200 Balance 460 1361 Result Diagrams: 04/15/19 06:08 04/15/19 06:08 Phys Exam - Physical Examination Constitutional: NAD HEENT: moist MMs, sclera anicteric Neck: supple, full ROM Respiratory: no wheezing, clear to auscultation bilateral Cardiovascular: RRR, no significant murmur Gastrointestinal: non-tender, no distention Musculoskeletal: no edema, pulses present Neurological: normal sensation, moves all 4 limbs Psychiatric: normal affect, A&O x 3 Skin: no rash, normal turgor Dx/Plan (1) Demand ischemia Code(s): I24.8 - OTHER FORMS OF ACUTE ISCHEMIC HEART DISEASE Status: Acute (2) Neutropenic fever Code(s): D70.9 - NEUTROPENIA, UNSPECIFIED; R50.81 - FEVER PRESENTING WITH CONDITIONS CLASSIFIED ELSEWHERE Status: Acute (3) Pancytopenia Code(s): D61.818 - OTHER PANCYTOPENIA Status: Acute (4) Stage 4 lung cancer Code(s): C34.90 - MALIGNANT NEOPLASM OF UNSP PART OF UNSP BRONCHUS OR LUNG Status: Acute (5) Symptomatic anemia Code(s): D64.9 - ANEMIA, UNSPECIFIED Status: Acute (6) Anxiety Code(s): F41.9 - ANXIETY DISORDER, UNSPECIFIED Status: Chronic (7) Depression Code(s): F32.9 - MAJOR DEPRESSIVE DISORDER, SINGLE EPISODE, UNSPECIFIED Status : Chronic (8) GERD (gastroesophageal reflux disease) Code(s): K21.9 - GASTRO-ESOPHAGEAL REFLUX DISEASE WITHOUT ESOPHAGITIS Status: Chronic (9) Hyponatremia Code(s): E87.1 - HYPO-OSMOLALITY AND HYPONATREMIA Status: Acute - Plan Plan: Hypokalemia A- Worsened again. Likely exacerbated by low Mg and frequent stools. Nephro consulted, recs appreciated. P- Pt refuses IV replacement, continue PO replacement -continue immodium Hypomagnesemia -Replace this morning. Hypophosphatemia -replace with daily supplement Diarrhea 2/2 ABX vs viral gastroenteritis A- improved. extensive stool studies only notable for elevated lactoferrin. likely contributing to electrolyte imbalance P- will give immodium prn Lymphocytosis A- probably related to recent neupogen P- heme consulted Neutropenic Fever -resolved, off antimicrobials Encephalopathy -resolved, brain CT wnl Adrenal insufficiency -continue steroids Symptomatic anemia 2/2 chemotherapy -monitor, heme onc consulted KATIANA, resolved Pancytopenia -improved. Continue to monitor Hyponatremia, resolved Hx of Stage 4 Lung Cancer, Squamous Cell -SCC on RUL primary site with mets in liver and adrenal mets. 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
[2019-04-15] MEDS: Magnesium Oxide 400 MG TAB PO SCH ×2 (08:29→20:35)
[2019-04-15] MEDS: Famotidine/PF 20 mg/2ml Vial SLOW IVP SCH (08:29)
[2019-04-15] MEDS: Lactinex Tablet PO SCH (08:29)
[2019-04-15] MEDS: Hydrocortisone Sod Succ/PF 100 mg/2 ml Vial IVP SCH ×3 (08:37→20:35)
[2019-04-15 09:07] LABS: Band 14 % (5-11); Lymphocytes 9 % (21-51); MDiff Complete? YES; Metamyelocyte 3 % (0-0); Monocytes 9 % (0-10); Myelocyte 4 % (0-0); Neutrophil 61 % (42-75); Platelet Morphology Comment Appears Increased; Polychromasia SLIGHT = 2-3 cells (100X) (0-2/hpf); Toxic Granulation SLIGHT
[2019-04-15] MEDS: PHOS-NAK 1 PKT PACK PO SCH ×3 (09:52→20:34)
[2019-04-15] MEDS: Potassium Chloride 20 MEQ TAB PO SCH ×4 (12:06→20:35)
--- NOTE | 2019-04-15 15:35 | PRG ---
DATE OF SERVICE: 04/15/2019 SUBJECTIVE: Patient was seen and examined at bedside and overnight events noted. Patient denies any shortness of breath or chest pain or palpitation. No history of nausea or vomiting or diarrhea or fever or chills or cramps. OBJECTIVE: GENERAL: This is a well-built male, in no apparent distress. VITAL SIGNS: Temperature 98.3, pulse 83, respiratory rate 18, and blood pressure 117/78. HEENT: Atraumatic, normocephalic. Oral mucosa is moist NECK: Supple. CARDIOVASCULAR: S1, S2 heard. Rate and rhythm regular. RESPIRATORY: Clear to auscultation. GASTROINTESTINAL: Abdomen is soft. MUSCULOSKELETAL: No tenderness. No edema. DERMATOLOGIC: No skin rash. NEUROLOGIC: Alert and awake and oriented X3. No focal neurologic deficits. Moving all the extremities. PSYCHIATRIC: Mood and affect normal. LABORATORY DATA: Potassium 2.6, BUN is 10, creatinine 0.6, phosphorus is 1.4, and magnesium 0.9. ASSESSMENT AND PLAN: 1. Hyponatremia, better. 2. Hypokalemia with hypophosphatemia, could be from spurious hypokalemia given the leukocytosis, which is also getting better, so continue to monitor and continue supplements. 3. Altered mentation. 4. Acute kidney injury. Check with the labs to make sure it is not spurious hypokalemia and we will follow. Job ID: [id number]
[2019-04-15] MEDS ORDERED: Magnesium Sulfate 3 GM in Sodium Chloride 0.9% 100 ML IVPB SCH (18:00)
[2019-04-15] MEDS: Loperamide HCl 2 MG CAP PO PRN (20:40)
[2019-04-16 06:23] LABS: Hemoglobin 8.6 g/dL (14.0-18.0); Mean Corpuscular HGB CONC 32.6 g/dL (32.0-36.0); Mean Corpuscular Hemoglobin 29.4 pg (27.0-31.0); Mean Platelet Volume 7.5 fL (7.4-10.4); Platelet Count 459 thou/uL (130-400); RBC Distribution Width 16.8 % (11.5-14.5); Red Blood Cell (RBC) Count 2.94 mill/uL (4.70-6.10); White Blood Cell (WBC) Count 20.8 thou/uL (4.8-10.8)
[2019-04-16 06:24] LABS: Anion Gap 11 mmol/L (10-20); BUN (Urea Nitrogen) 10 mg/dL (8.9-20.6); Calc. Creatinine Clearance 174 mL/min (70-130); Calcium 6.3 mg/dL (7.8-10.44); Carbon Dioxide 29 mmol/L (22-29); Chloride 101 mmol/L (98-107); Estimated GFR-MDRD Greater than 90; Glucose 117 mg/dL (70-105); Magnesium 1.2 mg/dL (1.6-2.6); Potassium 3.2 mmol/L (3.5-5.1); Sodium 138 mmol/L (136-145)
[2019-04-16 06:32] LABS: Phosphorus 2.4 mg/dL (2.3-4.7)
[2019-04-16 07:06] LABS: Band 9 % (5-11); Lymphocytes 14 % (21-51); MDiff Complete? YES; Monocytes 13 % (0-10); Myelocyte 3 % (0-0); Neutrophil 61 % (42-75)
[2019-04-16] MEDS: Potassium Chloride 20 MEQ TAB PO SCH ×2 (09:45→12:50)
[2019-04-16] MEDS: Famotidine/PF 20 mg/2ml Vial SLOW IVP SCH (09:46)
[2019-04-16] MEDS: Magnesium Oxide 400 MG TAB PO SCH (09:46)
[2019-04-16] MEDS: Hydrocortisone Sod Succ/PF 100 mg/2 ml Vial IVP SCH (09:46)
[2019-04-16] MEDS: PHOS-NAK 1 PKT PACK PO SCH (09:46)
[2019-04-16] MEDS: Lactinex Tablet PO SCH (09:46)
--- NOTE | 2019-04-16 10:19 | PDOC.FM ---
- Subjective Subjective: pt feeling well with no complaints, no diarrhea since yesterday. desires to go home today. - Objective Vital Signs & Weight: Vital Signs (12 hours) Temp Pulse Resp BP Pulse Ox 04/16/19 07:49 98.3 F 79 18 123/76 99 Weight Admit Weight 73.936 kg Weight 72.575 kg Most Recent Monitor Data Heart Rate from ECG 91 NIBP 115/85 NIBP BP-Mean 95 Respiration from ECG 24 SpO2 95 I&O: 04/15/19 04/16/19 04/17/19 06:59 06:59 06:59 Intake Total 1561 1999 Output Total 200 Balance 1361 1999 Result Diagrams: 04/16/19 05:18 04/16/19 05:18 Phys Exam - Physical Examination Constitutional: NAD HEENT: moist MMs, sclera anicteric Neck: no JVD, supple Respiratory: no wheezing, clear to auscultation bilateral Cardiovascular: RRR, no significant murmur Gastrointestinal: soft, non-tender Musculoskeletal: pulses present Neurological: normal sensation, moves all 4 limbs Psychiatric: normal affect, A&O x 3 Skin: no rash, normal turgor Dx/Plan (1) Demand ischemia Code(s): I24.8 - OTHER FORMS OF ACUTE ISCHEMIC HEART DISEASE Status: Acute (2) Neutropenic fever Code(s): D70.9 - NEUTROPENIA, UNSPECIFIED; R50.81 - FEVER PRESENTING WITH CONDITIONS CLASSIFIED ELSEWHERE Status: Acute (3) Pancytopenia Code(s): D61.818 - OTHER PANCYTOPENIA Status: Acute (4) Stage 4 lung cancer Code(s): C34.90 - MALIGNANT NEOPLASM OF UNSP PART OF UNSP BRONCHUS OR LUNG Status: Acute (5) Symptomatic anemia Code(s): D64.9 - ANEMIA, UNSPECIFIED Status: Acute (6) Anxiety Code(s): F41.9 - ANXIETY DISORDER, UNSPECIFIED Status: Chronic (7) Depression Code(s): F32.9 - MAJOR DEPRESSIVE DISORDER, SINGLE EPISODE, UNSPECIFIED Status : Chronic (8) GERD (gastroesophageal reflux disease) Code(s): K21.9 - GASTRO-ESOPHAGEAL REFLUX DISEASE WITHOUT ESOPHAGITIS Status: Chronic (9) Hyponatremia Code(s): E87.1 - HYPO-OSMOLALITY AND HYPONATREMIA Status: Acute - Plan Plan: Hypokalemia A- improved, nearly wnl value. Discussed risks of leaving the hospital with pt and he verbalized understanding. It is acceptable for him to leave after having discussed these risks and given him extensive ER precautions. He states he will f/u on Friday in clinic to get repeat labwork. P- will DC home today -continue PO replacement -continue immodium prn Hypomagnesemia -Replace PO daily Hypophosphatemia -replace with daily supplement Diarrhea 2/2 ABX vs viral gastroenteritis A- improved. extensive stool studies only notable for elevated lactoferrin. likely contributing to electrolyte imbalance P- will give immodium prn Lymphocytosis A- probably related to recent neupogen P- heme consulted Neutropenic Fever -resolved, off antimicrobials Encephalopathy -resolved, brain CT wnl Adrenal insufficiency -will taper prednisone outpt Symptomatic anemia 2/2 chemotherapy -monitor, heme onc consulted KATIANA, resolved Pancytopenia -improved. Continue to monitor Hyponatremia, resolved Hx of Stage 4 Lung Cancer, Squamous Cell -SCC on RUL primary site with mets in liver and adrenal mets. Oncology consulted Type 2 [place]/Demand Ischemia, downtrending -Trop 0.108 > 0.089 -> 0.069 Hx of [place] myelinolysis -continue to monitor GERD -continue home meds Anxiety, Depression -continue home meds Dispo stable. home today.
--- NOTE | 2019-04-16 13:03 | DIS ---
DATE OF ADMISSION: 04/05/2019 DATE OF DISCHARGE: 04/16/2019 ADMITTING ATTENDING: Daxa Martinez MD DISCHARGE ATTENDING: Siddhartha Sawyer MD RESIDENT: Siddhartha Zee MD CONSULTS: 1. Nephrology, Dr. Fontaine. 2. Infectious Disease. Dr. Ramirez. 3. Oncology, Dr. Duran. 4. Pulmonology, Dr. Bullock. 5. Case Management, PT and OT. IMAGIN. On 04/05/2019, chest x-ray; impression, no significant interval change. 2. On 04/09/2019, brain CT; impression, no evidence of acute intracranial abnormality. DISCHARGE MEDICATIONS: 1. Omeprazole 20 mg p.o. daily. 2. Ibuprofen PM softgel two capsules p.o. at bedtime. 3. Tylenol. 4. TUMS. 5. Lactobacillus. 6. Imodium 2 mg p.o. daily p.r.n. 7. Magnesium oxide 400 mg p.o. b.i.d. 8. Fosamax 2 packets p.o. t.i.d. 9. Potassium chloride 40 mEq p.o. q.i.d. 10. Prednisone taper over one week from 40 mg p.o. daily to 0 mg p.o. daily. DISCONTINUED MEDICATIONS: Mucinex DM ER. PRIMARY DIAGNOSIS: Neutropenic fever in an immunocompromised patient. SECONDARY DIAGNOSES: 1. Hypokalemia. 2. Hypomagnesemia. 3. Hypophosphatemia. 4. Adrenal insufficiency. 5. Diarrhea. 6. Lymphocytosis. 7. Encephalopathy. 8. Symptomatic anemia. 9. Acute kidney injury. 10. Pancytopenia. 11. Hyponatremia. 12. Stage IV lung cancer, squamous cell. 13. Type 2 myocardial infarction. 14. Gastroesophageal reflux disease. 15. Anxiety. 16. Depression. 17. History of central pontine myelinolysis. HISTORY OF PRESENT ILLNESS/HOSPITAL COURSE: This is a 39-year-old gentleman with history of stage IV squamous cell lung cancer, on chemotherapy, who presented to the hospital from his chemotherapy with complaints of dizziness and diaphoresis. He was found to be febrile and neutropenic in the ER, and so, the patient was admitted for concern for infection and neutropenic fever. Infectious Disease was consulted as was his Hem/Onc doctor, Dr. Duran. The patient was started on meropenem, micafungin, and acyclovir. Neupogen was also started by Hematology-Oncology. The patient responded quickly to this medication, and blood cell count went up in the 40s. Meanwhile, the patient quickly had resolution of fever. After greater than 72 hours of no fever with microbials were stopped, and white blood cell count started to normalize down to 20 on day of discharge. Otherwise, hospital stay was complicated for multiple electrolyte imbalances, they were thought to be secondary to his cancer versus chemotherapy versus noninfectious diarrhea versus excessive water p.o. intake, potassium, magnesium, and phosphorus were replaced in large quantities for several days in a row until they were brought to relatively normal ranges. The patient expressed strong desire to leave the hospital, so he can see the of his niece. He verbalized understanding of the risks of leaving on the day that he had relatively normal lab values times only one day, as well as the ER precautions and planned to follow up in clinic on Friday for repeat lab work to monitor magnesium, potassium and phosphorus and so, the patient was discharged. DISPOSITION: Stable. DISCHARGE INSTRUCTIONS: 1. Location: Home. 2. Activity: As tolerated. 3. Diet: Fluid restriction to 1500 mL. FOLLOWUP: Follow up with Dr. Zee in [address] Duran in 7 to 10 days. Job ID: [id number]
[2019-04-16 13:40] VITALS: BP 151/83; TEMP 97.6
--- NOTE | 2019-04-16 17:25 | PRG ---
DATE OF SERVICE: 04/16/2019 SUBJECTIVE: Patient was seen and examined at bedside and overnight events noted. Patient denies any shortness of breath or chest pain or palpitation. No history of nausea or vomiting or diarrhea or fever or chills or cramps. OBJECTIVE: GENERAL: This is a well-build male, in no apparent distress. VITAL SIGNS: Temperature 98.3, pulse 79, respiratory rate 18, blood pressure 123/76. HEENT: Atraumatic, normocephalic. Oral mucosa is moist NECK: Supple. CARDIOVASCULAR: S1, S2 heard. Rate and rhythm regular. RESPIRATORY: Clear to auscultation. GASTROINTESTINAL: Abdomen is soft. MUSCULOSKELETAL: No tenderness. No edema. DERMATOLOGIC: No skin rash. NEUROLOGIC: Alert and awake and oriented X3. No focal neurologic deficits. Moving all the extremities. PSYCHIATRIC: Mood and affect normal. LABORATORY DATA: Potassium 3.2, BUN is 10, creatinine 0.5. ASSESSMENT/PLAN: 1. Hyponatremia, better. 2. Hypokalemia with hypophosphatemia with altered mentation. 3. Acute kidney injury, better. 4. Labs are stable, continue close followup as outpatient. Job ID: [id number]
[2019-04-17 10:09] LABS: Renin Activity Less than 0.167 ng/mL/hr (0.167-5.380)
== END 2019-04-16 13:30 | disposition home or self-care (01) | DRG 808 ==
LOC: ERS 11:57 → ERHOLD 14:31 → IMCU/EMU 18:40 → T4-A 04-14 14:23
PROVIDERS: ADMIT Family Medicine; ATTEND Family Medicine
PROC: 30233N1 Transfusion of Nonautologous Red Blood Cells into Peripheral Vein, Percutaneous Approach (ICD-10-PCS; principal; 2019-04-05)
DX: D61.810 Antineoplastic chemotherapy induced pancytopenia (principal); I21.A1 Myocardial infarction type 2; G93.41 Metabolic encephalopathy; E27.40 Unspecified adrenocortical insufficiency; N17.9 Acute kidney failure, unspecified; E87.1 Hypo-osmolality and hyponatremia; C78.7 Secondary malignant neoplasm of liver and intrahepatic bile duct; G37.2 Central pontine myelinolysis; C34.11 Malignant neoplasm of upper lobe, right bronchus or lung; C79.72 Secondary malignant neoplasm of left adrenal gland; C79.71 Secondary malignant neoplasm of right adrenal gland; E87.2 Acidosis; R50.81 Fever presenting with conditions classified elsewhere; E87.6 Hypokalemia; E83.42 Hypomagnesemia; E83.39 Other disorders of phosphorus metabolism; R19.7 Diarrhea, unspecified; K21.9 Gastro-esophageal reflux disease without esophagitis; F41.9 Anxiety disorder, unspecified; F32.9 Major depressive disorder, single episode, unspecified; T45.1X5A Adverse effect of antineoplastic and immunosuppressive drugs, initial encounter; E86.0 Dehydration; K12.1 Other forms of stomatitis; Z79.899 Other long term (current) drug therapy; Z87.891 Personal history of nicotine dependence; Z28.21 Immunization not carried out because of patient refusal; Z88.0 Allergy status to penicillin
CPT/HCPCS: 36415; 36416; 36430; 70470; 71045; 80048; 80053; 80202; 82088; 82533; 82553; 82570; 83630; 83735; 83930; 83935; 84100; 84133; 84244; 84300; 84443; 84484; 85007; 85025; 85027; 85060; 85610; 85730; 86850; 86900; 86901; 87040; 87045; 87046; 87086; 87149; 87324; 87328; 87329; 87427; 87449; 87804; 90471; 90670; 93005; 96360; 99292; G0009; J0133; J1447; J1630; J1720; J2185; J2248; J2405; J3370; J3475; J3480; J3490; J7050; P9016; S0028

== ENCOUNTER 2019-05-01 16:29 | Inpatient (IN) | payer OTHER ==
[~2019-05-01 16:29] MED LIST changes: +Iopamidol-370 76% 500 ML 1 ML ONE; -PACLitaxel Protein-Bound 200 MG in IV Admixture Fee-Chemo 1 UNITS IVPB SCH
--- NOTE | 2019-05-01 17:21 | RAD ---
RADIOGRAPH CHEST 1 VIEW: DATE: 05/01/2019 TIME: 4:35 PM HISTORY: 39-year-old male with lung cancer COMPARISON: 04/05/2019 FINDINGS: The large cavitation in the right upper lobe is again noted. Its relatively thin collins appear to have become slightly thinner at its inferior border, since the prior study. No other interval change. No cardiomegaly. There is herniation of approximately a third of the stomach into the mediastinum. No acute infiltrate or pulmonary edema. No mediastinal widening. Left subclavian implantable vascular access port remains at SV. IMPRESSION: 1) large right upper lobe cavitary lesion with thin collins. Wall has become thinner since prior study. 2) no other interval change. 3) moderate size hiatal hernia.
[2019-05-01 17:27] LABS: #Basophils 0.2 thou/uL (0.0-0.2); #Eosinphils 1.3 thou/uL (0.0-0.7); #Lymphocytes 2.8 thou/uL (1.20-3.40); #Monocytes 1.5 thou/uL (0.11-0.59); %Basophils 1.2 % (0.0-1.0); %Eosinophils 10.5 % (0.0-10.0); %Lymphocytes 21.6 % (21.0-51.0); %Monocytes 11.9 % (0.0-10.0); %Neutrophils 54.8 % (42.0-75.0); Hemoglobin 10.2 g/dL (14.0-18.0); Mean Corpuscular HGB CONC 34.3 g/dL (32.0-36.0); Mean Corpuscular Hemoglobin 31.8 pg (27.0-31.0); Mean Corpuscular Volume 92.8 fL (78.0-98.0); Mean Platelet Volume 7.2 fL (7.4-10.4); Platelet Count 308 thou/uL (130-400); RBC Distribution Width 16.5 % (11.5-14.5); White Blood Cell (WBC) Count 12.8 thou/uL (4.8-10.8)
[2019-05-01 17:49] LABS: ALT (SGPT) 15 U/L (8-55); AST (SGOT) 18 U/L (5-34); Albumin 3.7 g/dL (3.5-5.0); Alkaline Phosphatase 89 U/L (40-110); Anion Gap 14 mmol/L (10-20); BUN (Urea Nitrogen) 12 mg/dL (8.9-20.6); Bilirubin, Total 0.7 mg/dL (0.2-1.2); Calc. Creatinine Clearance 0 mL/min (70-130); Calcium 9.5 mg/dL (7.8-10.44); Carbon Dioxide 22 mmol/L (22-29); Chloride 96 mmol/L (98-107); Estimated GFR-MDRD Greater than 90; Globulin 3.8 g/dL (2.4-3.5); Glucose 91 mg/dL (70-105); Potassium 4.3 mmol/L (3.5-5.1); Protein, Total 7.5 g/dL (6.0-8.3); Sodium 128 mmol/L (136-145)
[2019-05-01] MEDS ORDERED: Cefepime 2 GM VIAL ONE (17:51)
[2019-05-01 17:57] LABS: Bilirubin Negative (Negative); Blood, Urine Negative (Negative); Clarity Clear (Clear); Glucose, Urine (Dipstick) Normal (Negative); Leukocyte Negative Leu/uL (Negative); Nitrite Negative (Negative); Protein, Urine (Dipstick) 50 mg/dL (Neg-Trace); RBC/HPF 0-3 HPF (0-3); Squamous Epithelial 0-3 HPF (0-3); Urobilinogen Normal mg/dL (Less than 2); WBC/HPF 0-3 HPF (0-3)
[2019-05-01 17:59] LABS: Bacteria/HPF 1+ HPF (None Seen)
[2019-05-01] MEDS ORDERED: Acetaminophen 500 MG TAB ONE (18:41)
--- NOTE | 2019-05-01 19:17 | CT ---
CT BRAIN NONCONTRAST: DATE: 05/01/2019 HISTORY: 39-year-old male with headache. FINDINGS: There is no evidence of acute intra-axial or extra-axial hemorrhage. There is no midline shift or any other mass effect. There is no extra-axial fluid collection. There is no evidence of obstructive hydrocephalus. Calvarium is intact. There is atrophy of the midbrain and jeronimo. 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 There has been no interval change overall compared to 04/09/2019 CT. IMPRESSION: 1. No acute intracranial findings. 2. Atrophy of midbrain and jeronimo.
[2019-05-01] MEDS ORDERED: Morphine 4 MG/ML VIAL ONE (19:36)
[2019-05-01] MEDS ORDERED: Ondansetron PF 4 MG/2 ML Vial ONE (19:36)
--- NOTE | 2019-05-01 20:54 | CT ---
CT ABDOMEN WITH CONTRAST CT PELVIS WITH CONTRAST: DATE: 05/01/2019 HISTORY: 39-year-old male with lung cancer presents with lower abdominal pain COMPARISON: 01/04/2019 TECHNIQUE: IV injection of iodinated contrast media: Administered Oral contrast media:Administered FINDINGS: Stomach: Approximately 25% of the stomach has herniated into the left lower chest cavity, unchanged. Liver: Normal appearance. The previously described small focal hypodense lesions in the liver are not visible on the current CT. Spleen: Normal. Pancreas: Normal. Adrenals: Mild enlargement of left adrenal gland is unchanged. Kidneys: Normal. Ureters: No dilation. Bladder: No pathology identified. Abdominal aorta: No aneurysm or dissection. Small bowel: No dilation. Colon: New finding of thickening of segment of sigmoid colon with Mild adjacent fat stranding. Appendix: Normal. Free air: None. Free fluid: None. IMPRESSION: 1. Evidence for mild sigmoid colonic diverticulitis. 2. No other significant pathology identified. 3. Mild enlargement of left adrenal gland is unchanged. 4. Previously demonstrated small focal hepatic lesions are not visualized on the current study.
--- NOTE | 2019-05-01 21:01 | CT ---
CT ANGIOGRAM THORAX WITH CONTRAST: (CTA pulmonary angiogram) DATE: 05/01/2019 HISTORY: 39-year-old male with lung cancer presents with fever and weakness. COMPARISON: 03/19/2019 TECHNIQUE: IV injection of iodinated contrast. Scan acquisition timing attempted to coincide with iodinated contrast bolus reaching maximal density in pulmonary arteries. 3-D MIP reconstructions. FINDINGS: Again noted is the large cavitation dominating a large portion of the right upper lobe, including rig ht apex. Anterior to that, there are multiple cystic pulmonary lesions surrounded by chronic consolidation and chronic bronchiectasis of the anterior segment of the right upper lobe. The smaller satellite anterior components have decreased in volume since prior CT. There is no pulmonary edema or consolidation in the bilateral lower lobes, left upper lobe, or right middle lobe. No pleural effu og or pneumothorax. Herniation of 20-35% of the stomach into the left hemithorax, unchanged. No thoracic aortic aneurysm or dissection. The subcarinal mediastinal lymphadenopathy appears smaller. T he right paramediastinal soft tissue density has not significantly changed. No pulmonary thromboembolism is identified. No cardiomegaly or pericardial effusion. Left adrenal thickening. IMPRESSION: 1) no evidence of pulmonary thromboembolism. 2) very large right upper lobe cavitation and adjacent air cysts with chronic bronchiectasis and [employer] [place] consolidation 3) moderate sized hiatal hernia.
--- NOTE | 2019-05-01 21:30 | PDOC.FPRHP ---
- History of Present Illness Chief Complaint: Weakness History of Present Illness: Pt is a 39 yo M with history GERD, Hypokalemia, Hypophosphatemia, and SCC who presents for increased weakness. Mother is in the room said he was doing well the first week after his discharge from the hospital. He was gaining weight and not having hallucinations. She said though since last Friday he has been progressively declining. He had diarrhea after his discharge until this past week. He has been unable to stand today and has had to use a walker the two days prior. He has started talking about hallucinations. He has been having a headache that is bifrontal and radiates to the back. He says he currently isn't in pain, but when he has them it improves with Advil. He has had decreased PO intake over the past week as well. He had a fever yesterday of 100.8, which went down after taking Advil. ED Course: In the ED, he was found to be tachypneic and tachycardic. He had a WBC of 12.8. LA was normal. Flu was normal. CXR and CT shows large RUL Cavitary Lesion. - Allergies/Adverse Reactions Allergies Allergy/AdvReac Type Severity Reaction Status Date / Time Penicillins Allergy Verified 04/05/19 21:51 - Home Medications Medication Instructions Recorded Confirmed Type Ibuprofen/Diphenhydramine HCl 2 capsule PO HS 12/31/18 05/02/19 History [Ibuprofen PM Softgel] Omeprazole 20 mg PO DAILY 12/31/18 05/02/19 History Magnesium Oxide 400 mg PO BID #30 tab 04/16/19 05/02/19 Rx Phos-Nak [Phos-NaK] 2 pkt PO TID #80 pack 04/16/19 05/02/19 Rx Ondansetron [Zofran ODT] 4 mg PO Q6HR PRN 05/02/19 05/02/19 History Potassium Chloride [K-Dur] 40 meq PO BID 05/02/19 05/02/19 History - History PMHx: central pontine myelinolysis, Stage 4 lung cancer, GERD, Anxiety, Depression, Hx of Alcoholism, Hx of Tobacco use d/o PSHx: Right arm, right foot FHx: father from [place], maternal grandmother DM Social: Quit smoking back in November, Quit drinking beer back in November. Prior 1.5 ppd smoker and heavy beer drinker daily. Denies illicit drug use. Talked with mother who reports patient to be full code - Review of Systems ROS unobtainable: due to mental status (Pt is acutely confused.) - Vital signs BP: 120/81 HR: 129 RR: 27 Tmax: 98.8 Pox: 98% on RA Wt: 69 kg - Physical Exam Constitutional: NAD HEENT: normocephalic and atraumatic, PERRLA, EOMI, conjunctiva clear, oropharynx clear Neck: supple, no LAD Heart: RRR, normal S1/S2, no murmurs/rubs/gallops Lungs: CTAB, no respiratory distress, good air movement, no rales/rhonchi, no wheezing, no retractions Abdomen: bowel sounds present -Abdomen: TTP in LLQ Musculoskeletal: normal structure, normal tone Neurological: no focal deficit, normal sensation Skin: no rash/lesions Heme/Lymphatic: no unusual bruising or bleeding, no purpura FMR H&P: Results - Labs Result Diagrams: 05/02/19 04:29 05/02/19 04:29 Lab results: WBC 12.8 thou/uL (4.8-10.8) H 05/01/19 17:15 Hgb 10.2 g/dL (14.0-18.0) L 05/01/19 17:15 Hct 29.7 % (42.0-52.0) L 05/01/19 17:15 MCV 92.8 fL (78.0-98.0) 05/01/19 17:15 Plt Count 308 thou/uL (130-400) 05/01/19 17:15 Neutrophils % 54.8 % (42.0-75.0) 05/01/19 17:15 Sodium 128 mmol/L (136-145) L 05/01/19 17:15 Potassium 4.3 mmol/L (3.5-5.1) 05/01/19 17:15 Chloride 96 mmol/L (98-107) L 05/01/19 17:15 Carbon Dioxide 22 mmol/L (22-29) 05/01/19 17:15 BUN 12 mg/dL (8.9-20.6) 05/01/19 17:15 Creatinine 0.73 mg/dL (0.7-1.3) 05/01/19 17:15 Glucose 91 mg/dL (70-105) 05/01/19 17:15 Lactic Acid 0.8 mmol/L (0.5-2.2) 05/01/19 17:15 Calcium 9.5 mg/dL (7.8-10.44) 05/01/19 17:15 Total Bilirubin 0.7 mg/dL (0.2-1.2) 05/01/19 17:15 AST 18 U/L (5-34) 05/01/19 17:15 ALT 15 U/L (8-55) 05/01/19 17:15 Alkaline Phosphatase 89 U/L (40-110) 05/01/19 17:15 Serum Total Protein 7.5 g/dL (6.0-8.3) 05/01/19 17:15 Albumin 3.7 g/dL (3.5-5.0) 05/01/19 17:15 Urine Ketones 20 mg/dL (Negative) A 05/01/19 17:38 Urine Blood Negative (Negative) 05/01/19 17:38 Urine Nitrite Negative (Negative) 05/01/19 17:38 Ur Leukocyte Esterase Negative Lori/uL (Negative) 05/01/19 17:38 Urine RBC 0-3 HPF (0-3) 05/01/19 17:38 Urine WBC 0-3 HPF (0-3) 05/01/19 17:38 Ur Squamous Epith Cells 0-3 HPF (0-3) 05/01/19 17:38 Urine Bacteria 1+ HPF (None Seen) A 05/01/19 17:38 - Radiology Interpretation CT scan - chest Status: image reviewed by me, report reviewed by me Additional comment: No PE, Large RUL Cavitation with adjacent air cysts with chronic bronchiectasis & consolidation. CT scan - abdomen Status: image reviewed by me, report reviewed by me Additional comment: Sigmoid colon diverticula, mild enlargement of the L adrenal gland CT scan - head Status: image reviewed by me, report reviewed by me Additional comment: NAF, Atrophy of midbrain and jeronimo Chest x-ray Status: image reviewed by me, report reviewed by me Additional comment: Brain CT: No acute findings. Atrophy Midbrain and Jeronimo Chest CT: No PE. Very Large RUL cavitation and adjacent air cysts w/ chronic bronchiectasis and chronic consolidation. Mod Hiatal Hernia Ab/Pelvis CT: Evidence mild sigmoid colonic diverticulitis. Mild enlargement L. Adrenal unchanged. Small focal hepatic lesions not seen from previous exam. CXR: RUL cavitary lesion w/ collins thinner than previous exam. FMR H&P: A/P - Problem List (1) Sepsis Current Visit: Yes Status: Acute Code(s): A41.9 - SEPSIS, UNSPECIFIED ORGANISM (2) Diverticulitis Current Visit: Yes Status: Acute Code(s): K57.92 - DVTRCLI OF INTEST, PART UNSP, W/O PERF OR ABSCESS W/O BLEED (3) PNA (pneumonia) Current Visit: Yes Status: Acute Code(s): J18.9 - PNEUMONIA, UNSPECIFIED ORGANISM (4) Headache Current Visit: No Status: Acute Code(s): R51 - HEADACHE (5) Hypokalemia Current Visit: No Status: Acute Code(s): E87.6 - HYPOKALEMIA (6) Hypomagnesemia Current Visit: No Status: Acute Code(s): E83.42 - HYPOMAGNESEMIA (7) Hyponatremia Current Visit: No Status: Acute Code(s): E87.1 - HYPO-OSMOLALITY AND HYPONATREMIA - Plan Pt is a 39 yo M with history GERD, Hypokalemia, Hypophosphatemia, and SCC who presents for increased weakness. 1. Sepsis 2/2 Diverticultitis TTP in LLQ * Fever, Tachycardia, & Tachypnea * CT Abd: Diverticulosis * WBC: 12.8, LA: 0.8 * In the ED he was given Metronidazole & Cefepime * 30 ml/kg were given in ED * Vanc and Cefepime started * Cultures ordered * Will check C diff Assay for diarrhea * Will keep NPO and give fluids and await resolution of pain 2. Hospital Acquired PNA Large RUL Cavitation * Vanc ordered * Fluroquinolone should be added for HAP, but likely sepsis from * Procal ordered * Urine Legionella and strep 3. AMS/Weakness CT Brain: Atrophy of midbrain and jeronimo with no acute findings * Will order brain MRI for worsening AMS to look for possible metasis 4. Hypophosphatemia Issues with low phos during last visit * Will check and replace as need * Will continue home regimen 5. Hypokalemia Issues with low K during last visit, K: 43. * Will check and replace as needed * Will continue home regimen 6. Hyponatremia Na: 128 * LR @ 75 7. SCC of Lung * Will consult Dr. Méndez per family's wishes Code Status: Full Diet: NPO Lines: Peripheral, LR @ 75 DVT PPx: Lovenox GI PPx: Famotidine Dispo: Tele Inpt, LOS > 48H. FMR H&P: Upper Level - Pertinent history I was present with Dr. David Heredia, PGY1, during the HPI. I scribed and made edits to the above document as needed. Please see above for details. - Pertinent findings Pt does not fully respond to questions at times. A&Ox2. Most the history obtained from his mother. Pt mad nonsensical statements while in the room. General: Pt appears somewhat cachetic appearing. I helped admit the pt not even a month ago and seems more disheveled and there is noted weight loss from then. Cardio: Regular Rhythm. Tachycardic. No murmurs or gallops. Resp: decreased breath sounds on the right side. No crackles or wheezes. Abdomen: Pt very tender to palpation in LLQ. Guarding noted. Pt also tender to palpation diffusely but it is not as bad compared to LLQ. No masses or hernias noted. - Plan Date/Time: 05/01/192129 I, Ty Ayala, PGY-3, have evaluated this patient and agree with findings/ plan as outlined by business management intern resident. Pertinent changes/additions are listed here. See above for detailed plan. I have made edits as needed. At this time we are admitting the patient with concern for Sepsis 2/2 diverticulitis and possible HCAP. Pt tender in LLQ and abdominal CT shows concern. Pt on broad spectrum abx for sespsis. Continue cefepime and metro for diverticultiis coverage. CT chest did not show any real new changes when compared with past images. But pt was recently d/c a few weeks ago. Pt being covered for HCAP with vanc and cefepime. Since pt is already on 3 abx did not add on additional coverage. But if pneumonia becomes more of a concern may want to start flouroquinolone as well. Procal, Strep pnuemonia and Legionella urine ag ordered. Pt has had reported off and on diarrhea. Had when in hospital and was tested and stool studies negative then. Has since been on abx. Will retest for C. diff at this time. Pt has stage 4 lung cancer. Pt reporting new headaches and been having more confusion per mother. Brain CT neg. Will order Brain MRI to assess for any underlying mets or cause. Will consult Oncology in AM. Pt also had electrolyte imbalances upon discharge last time. Will check mg, phos levels. Continue home meds for supplementation. Pt mother also reported has been getting increasingly weaker and hard for her to manage at home. PT/OT consulted and may need possible rehab vs SNF upon d/c. CM consulted. Addendum - Attending - Attending Attestation Date/Time: 05/02/191945 I personally evaluated the patient and discussed the management with Dr. Heredia/ Jamie. I agree with the History, Examination, Assessment and Plan documented above with any addition or exceptions noted below.
[2019-05-01] MEDS ORDERED: Ondansetron PF 4 MG/2 ML Vial IVP PRN (22:28)
[2019-05-01] MEDS ORDERED: Acetaminophen 325 MG TAB PO PRN (22:28)
[2019-05-01] MEDS ORDERED: Ondansetron ODT 4 MG TAB PO PRN (22:28)
[2019-05-01] MEDS ORDERED: Acetaminophen 650 MG Suppository PR PRN (22:28)
[2019-05-01] MEDS ORDERED: metroNIDAZOLE 500 MG in Premix Bag 1 BAG IVPB SCH ×2 (23:00→23:59)
[2019-05-02 00:11] VITALS: BMI 19.9
[2019-05-02 00:19] LABS: Magnesium 1.2 mg/dL (1.6-2.6); Phosphorus 4.5 mg/dL (2.3-4.7); Potassium 4.5 mmol/L (3.5-5.1)
[2019-05-02] MEDS: Lactated Ringer's 1,000 ML IV SCH ×2 (00:41→14:36)
[2019-05-02] MEDS ORDERED: Sodium Chloride 0.9% 1,000 ML IV SCH (03:30)
[2019-05-02 04:45] LABS: #Basophils 0.1 thou/uL (0.0-0.2); #Eosinphils 1.2 thou/uL (0.0-0.7); #Lymphocytes 1.5 thou/uL (1.20-3.40); #Monocytes 1.2 thou/uL (0.11-0.59); #Neutrophils 7.9 thou/uL (1.40-6.50); %Basophils 1.2 % (0.0-1.0); %Eosinophils 10.1 % (0.0-10.0); %Lymphocytes 12.7 % (21.0-51.0); %Monocytes 10.1 % (0.0-10.0); %Neutrophils 65.9 % (42.0-75.0); Hemoglobin 9.7 g/dL (14.0-18.0); Mean Corpuscular HGB CONC 34.4 g/dL (32.0-36.0); Mean Corpuscular Hemoglobin 32.5 pg (27.0-31.0); Mean Corpuscular Volume 94.2 fL (78.0-98.0); Platelet Count 275 thou/uL (130-400); RBC Distribution Width 16.8 % (11.5-14.5); White Blood Cell (WBC) Count 11.9 thou/uL (4.8-10.8)
[2019-05-02 05:18] LABS: ALT (SGPT) 14 U/L (8-55); AST (SGOT) 17 U/L (5-34); Albumin 3.3 g/dL (3.5-5.0); Alkaline Phosphatase 79 U/L (40-110); Anion Gap 13 mmol/L (10-20); BUN (Urea Nitrogen) 10 mg/dL (8.9-20.6); Bilirubin, Total 0.8 mg/dL (0.2-1.2); Calc. Creatinine Clearance 138 mL/min (70-130); Calcium 9.2 mg/dL (7.8-10.44); Carbon Dioxide 20 mmol/L (22-29); Chloride 102 mmol/L (98-107); Estimated GFR-MDRD Greater than 90; Globulin 3.6 g/dL (2.4-3.5); Glucose 76 mg/dL (70-105); Potassium 4.1 mmol/L (3.5-5.1); Protein, Total 6.9 g/dL (6.0-8.3); Sodium 131 mmol/L (136-145)
--- NOTE | 2019-05-02 05:40 | PDOC.FM ---
Addendum entered and electronically signed by Yash Guerrero MD 05/02/19 07: 25: Incorrect documentation: Patient was tachycardic with regular rhythm. Original Note: - Subjective Subjective: 39 yo male seen at bedside this AM. No family was available at time of interview. Patient had minimal response to questions this AM. He was able to say "No" when asked if he was in pain. He was unable to answer if he felt feverish. He did not answer to question of "are you having trouble breathing." Per nursing staff and night team, family reported increased weakness and altered mentation. No other acute events overnight. - Objective Vital Signs & Weight: Vital Signs (12 hours) Temp Pulse Resp BP Pulse Ox 05/02/19 04:03 100.2 F H 147 H 23 H 144/84 H 93 L Weight Weight 68.583 kg Result Diagrams: 05/02/19 04:29 05/02/19 04:29 Phys Exam - Physical Examination Constitutional: NAD Dry mucous membranes and poor dentition Reduced lung sounds on right lung field. Port placement on left anterior chest Cardiovascular: RRR, no significant murmur Gastrointestinal: soft, non-tender, no distention, positive bowel sounds Musculoskeletal: no edema, pulses present Unable to fully assess Deviation from normal: Unable to fully assess Skin: no rash, cap refill <2 seconds Dx/Plan (1) Sepsis Code(s): A41.9 - SEPSIS, UNSPECIFIED ORGANISM Status: Acute (2) Metabolic encephalopathy Code(s): G93.41 - METABOLIC ENCEPHALOPATHY Status: Chronic (3) Stage 4 lung cancer Code(s): C34.90 - MALIGNANT NEOPLASM OF UNSP PART OF UNSP BRONCHUS OR LUNG Status: Chronic (4) Diverticulitis Code(s): K57.92 - DVTRCLI OF INTEST, PART UNSP, W/O PERF OR ABSCESS W/O BLEED Status: Acute - Plan Plan: Sepsis 2/2 to suspected Diverticulitis - Empiric antibiotics - Cultures pending - Non-TTP with my exam this AM - Serial exams by night team and attending show significant LLQ TTP Metabolic Encephalopathy - Apparently long standing - May be worsened by acute infectious process - Supportive Care Stage 4 Lung Cancer - Continue current treatment plan - Supportive Care as needed Disposition: Guarded, will continue current plan of care. 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 Addendum - Attending - Attending Attestation Date/Time: 05/02/19 0749 I personally evaluated the patient and discussed the management with Dr. Guerrero. I agree with the History, Examination, Assessment and Plan documented above with any addition or exceptions noted below. Patient appears to be worsening since my last encounter with him a few months ago. He does not respond well to questioning this morning. He is in sinus tachycardia that has somewhat worsened through the night. He does not appear to be in any respiratory distress. We are currently pursuing multiple causes of his presentation, including infection, respiratory failure, volume overload, others. He will continue on broad spectrum abx, he has been adequately fluid resuscitated and we will repeat CXR this morning. Cultures pending. ABG pending. Will need close monitoring and may need to be moved to IMCU if he further decompensates. Chronically ill and those issues are all contributing to his presentation. Metastasis to his brain is a valid thought and need to r/o with MRI due to his subacute worsening mentation.
[2019-05-02] MEDS: Cefepime 2 GM in Sodium Chloride 0.9% 100 ML IVPB SCH ×2 (05:51→16:48)
[2019-05-02] MEDS: Vancomycin HCl 1 GM in Premix Bag 1 BAG IVPB SCH ×2 (05:51→14:36)
[2019-05-02 08:13] LABS: Troponin I 0.026 ng/mL (< 0.028)
[2019-05-02] MEDS: metroNIDAZOLE 500 MG in Premix Bag 1 BAG IVPB SCH ×3 (08:22→23:48)
[2019-05-02] MEDS: Enoxaparin Sodium 40 MG/0.4 ML SYRINGE SC SCH (08:22)
[2019-05-02] MEDS: Famotidine 20 MG TAB PO SCH ×2 (08:26→21:53)
--- NOTE | 2019-05-02 08:49 | RAD ---
Portable frontal chest radiograph: 05/02/2019 COMPARISON: 05/01/2019 HISTORY: Tachypnea, lung cancer FINDINGS: Hazy increased density noted in the inferior/lateral right upper lobe region, similar when compared to the prior exam. This may be on the basis of posttreatment change or infectious pneumonitis. Stable left Port-A-Cath. Heart and mediastinal contours are stable. No lobar consolidati on or alveolar edema. IMPRESSION: No significant interval change.
--- NOTE | 2019-05-02 10:39 | PDOC.BPN ---
- Brief Progress Note Reevaluated patient after rounds: Subjective: Patient was still having shortness of breath and decreased cognition. Objective: Tachypneic. Not in respiratory distress. Persistently tachycardic. A/P: Ordered ABG this morning, however patient refused. Discussed with patient and his mother necessity for ABG to evaluate for respiratory decline. Will reevaluate at or before 1400. Added bolus of fluids.
[2019-05-02 13:41] LABS: Actual Bicarbonate (HCO3a) 20.1 mEq/L (22-28); Base Excess (BEa) -3.7 mEq/L (-2.0 to +3.0); CO2 Tension 31.6 mmHg (35.0-45.0); Calcium, Ionized 1.23 mmol/L (1.12-1.30); Carboxyhemoglobin (COHb) 1.3 gm% (0.0-3.0); O2 Tension (PaO2) 60.1 mmHg (80.0-100.0); Potassium - ABG Lab 3.88 mmol/L (3.70-5.30); pH, Arterial 7.42 (7.35-7.45)
[2019-05-02 13:45] LABS: Puncture Site L.R.
--- NOTE | 2019-05-02 16:43 | CON ---
DATE OF CONSULTATION: 05/02/2019 HISTORY OF PRESENT ILLNESS: Mr. Mi is a 39-year-old male with a history of metastatic non-small cell lung cancer being treated by Dr. Duran. Per his mother, his last treatment was within the last few weeks. He has had multiple complaints over the last week of increasing weakness, diarrhea, as well as headache and bone pain. I was called by the mother one day prior to the admission, at which time he was having intense headache as well as diarrhea. I recommended he come to the emergency room, but according to his mother, he refused. She was able to bring him by ambulance 24 hours later, at the time he was too weak to ambulate. Currently, he cannot give a history because he is somnolent, only arousable to sternal rub, but not answering any questions. He is completely disoriented. His mother states that he has had increasing bone pain as well as the diarrhea and confusion. He did have hallucinations on his last hospitalization as well and she is concerned about this. His respirations have been somewhat labored as well according to her. She denies that he has had any cough. PAST MEDICAL HISTORY: 1. Recent diagnosis of metastatic non-small cell lung cancer. 2. Gastroesophageal reflux disease. 3. History of alcoholism. 4. Central pontine myelinolysis. CURRENT MEDICATIONS: 1. Tylenol p.r.n. 2. Cefepime 2 g IV q.12 hours. 3. Lovenox 40 mg subcu daily. 4. Pepcid 20 mg p.o. b.i.d. 5. Flagyl 500 mg IV q.8 hours. 6. Zofran 4 mg p.o. q.6 hours p.r.n. 7. Zofran 4 mg IV q.6 hours p.r.n. 8. Vancomycin 1 g IV q.8 hours. ALLERGIES: PENICILLIN. SOCIAL HISTORY: He is here with his mother who I think that he does live with. She states that he has not recently smoke or drink, but he does have a history of alcoholism in the past. FAMILY HISTORY: Noncontributory. REVIEW OF SYSTEMS: Unobtainable secondary to the patient being somnolent. PHYSICAL EXAMINATION: VITAL SIGNS: Respirations 30, temperature 100.2, T current 98.0, pulse 148, blood pressure 135/77, and O2 saturation 95% on room air. GENERAL: He is arousable to sternal rub, but does not answer questions. His respiratory rate is elevated, but at times he is somewhat apneic and appears that he is at high risk for aspiration. NECK: Supple without lymphadenopathy. HEENT: Oral cavity is dry with poor dentition. LUNGS: Decreased breath sounds throughout consistent with poor effort. CARDIAC: Tachycardic, but regular rate. ABDOMEN: Normoactive bowel sounds. Soft, possibly tender in the left lower quadrant, but no rebounding or guarding. EXTREMITIES: No edema. His left upper extremity appears contracted. LABORATORY DATA: White blood cell count 11.9, hemoglobin 9.7, platelets 275. Sodium 131, potassium 4.1, chloride 102, BUN 10, creatinine 0.6, glucose 76, and albumin 3.3. Urinalysis was yellow and clear with elevated protein as well as ketones and 1+ bacteria. CT angiogram done in the emergency room showed no evidence of pulmonary embolism. right upper lobe cavitated lesion with chronic bronchiectasis and consolidation as well as a moderate hiatal hernia. CT of abdomen and pelvis done in the emergency room showed sigmoid colonic diverticulitis as well as enlargement of the left adrenal gland, which is unchanged. The previously noted hepatic lesions, which were likely metastatic were not visualized on the current study. Brain CT done in the emergency room showed no acute intracranial findings. ASSESSMENT: Mr. Mi is a 39-year-old male with: 1. Impending respiratory failure. 2. Possible sepsis. 3. Possible diverticulitis with fever. 4. History of central pontine myelinolysis. 5. History of alcoholism. PLAN: 1. I have already discussed this with Pulmonary attending, I do think he needs to at least be moved to the [facility] and monitored closely. An arterial blood gas was ordered by the residents, but he refused the ABG. suspected CO2 is quite high. 2. He is already on IV antibiotics. 3. He is tachycardic, likely from fever and sepsis, but he needs probably more aggressive IV fluids. I have discussed this with the pulmonary attending. 4. We will follow with you. Job ID: [id number]
[2019-05-02] MEDS ORDERED: Hydrocortisone Sod Succ/PF 100 mg/2 ml Vial IVP SCH (19:00)
[2019-05-02 21:39] LABS: Vancomycin, Trough 23.9 ug/mL
[2019-05-02] MEDS: Hydrocortisone Sod Succ/PF 100 mg/2 ml Vial IVP SCH (23:49)
[2019-05-03] MEDS: Lactated Ringer's 1,000 ML IV SCH ×3 (03:48→22:07)
[2019-05-03 04:10] LABS: Band 4 % (5-11); Lymphocytes 3 % (21-51); MDiff Complete? YES; Mean Corpuscular HGB CONC 33.7 g/dL (32.0-36.0); Mean Corpuscular Hemoglobin 31.4 pg (27.0-31.0); Mean Corpuscular Volume 93.4 fL (78.0-98.0); Mean Platelet Volume 7.5 fL (7.4-10.4); Neutrophil 93 % (42-75); Platelet Count 265 thou/uL (130-400); Platelet Morphology Comment Appears Adequate; RBC Distribution Width 16.4 % (11.5-14.5); Red Blood Cell (RBC) Count 2.86 mill/uL (4.70-6.10); Toxic Granulation SLIGHT; White Blood Cell (WBC) Count 11.6 thou/uL (4.8-10.8)
[2019-05-03] MEDS: Cefepime 2 GM in Sodium Chloride 0.9% 100 ML IVPB SCH ×2 (05:16→17:23)
[2019-05-03] MEDS: Hydrocortisone Sod Succ/PF 100 mg/2 ml Vial IVP SCH ×2 (05:17→12:10)
--- NOTE | 2019-05-03 06:44 | PDOC.FM ---
- Subjective Subjective: Developed fever of 102 overnight. This morning patient is non-verbal/refusing to answer questions for me and being uncooperative with physical exam which was limited for me. He is able to table me his name but not anything else. It is difficult to tell if he is comprehending what I am saying. Per nursing this is his baseline. I need to talk with mother in regards to baseline mentation and functional status. Also dropped down to 80% overnight requiring non-rebreather with transition to nasal cannula. Currently non hypoxic on RA - Objective MAR Reviewed: Yes Vital Signs & Weight: Vital Signs (12 hours) Temp Pulse Ox 05/03/19 04:00 98.2 F 05/03/19 00:00 99.4 F 05/02/19 20:00 96 05/02/19 19:00 102.2 F H Weight Weight 68.583 kg Most Recent Monitor Data Heart Rate from ECG 119 NIBP 151/91 NIBP BP-Mean 111 Respiration from ECG 13 SpO2 100 I&O: 05/01/19 05/02/19 05/03/19 06:59 06:59 06:59 Intake Total 2360 5518 Output Total 1230 1925 Balance 1130 3593 Result Diagrams: 05/03/19 03:21 05/03/19 07:33 Phys Exam - Physical Examination a&o x1 HEENT: PERRLA dry mucosal membranes with tongue sores Neck: no JVD Respiratory: no wheezing, clear to auscultation bilateral Cardiovascular: no rub tachycardic, sinus tender to palpation, no rebound or guarding Musculoskeletal: no edema Dx/Plan (1) Diverticulitis Code(s): K57.92 - DVTRCLI OF INTEST, PART UNSP, W/O PERF OR ABSCESS W/O BLEED Status: Acute (2) Sepsis Code(s): A41.9 - SEPSIS, UNSPECIFIED ORGANISM Status: Acute (3) Stage 4 lung cancer Code(s): C34.90 - MALIGNANT NEOPLASM OF UNSP PART OF UNSP BRONCHUS OR LUNG Status: Chronic - Plan Plan: 39 yo M with [facility] central pontine myelinolysis, 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 #Acute hypoxic respiratory failure -Currently non-hypoxic on room air -Likely 2/2 malignancy but cannot exclude PNA -On abx to empirically cover PNA, heme on board for malignancy #Sepsis 2/2 to suspected Diverticulitis - Fever 102.2 overnight, tachycardic - On broad spectrum abx, Bcx/UCx NGTD - In light of fever breakthrough despite broad spectrum abx, consider malignancy as etiology - Eosinophilia-if persistent diarrhea, stool studies #Suspected adrenal insufficiency -Fever, abd pain, h/o of electrolyte imbalances, neurosychiatric sxs-may be precipitated by infection, see above for plan -Low AM cortisol -Continue solucortef #Sinus tachycardia -119-130 which improved with fluids, appears clinically dry -Continue maintenance IV fluids since not eating #Encephalopathy- metabolic vs. infectious vs. malignancy - Apparently long standing-chronic hyponatremia - May be worsened by acute infectious process - MRI brain this AM - Supportive Care #Stage 4 Sqamous Cell CA of lung - Continue current treatment plan - Pending brain MRI d/t concern for metastasis - Supportive Care as needed Dvt ppx: Lovenox Resp support: Nasal cannula abx: Vanc, cefepime, flagyl Disposition: Guarded, will continue current plan of care. 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 Addendum - Attending - Attending Attestation Date/Time: 05/03/19 2000 I personally evaluated the patient and discussed the management with Dr. Ladd. I agree with the History, Examination, Assessment and Plan documented above with any addition or exceptions noted below. Patient with several chronic illnesses here with presumed sepsis 2/2 diverticulitis and encephalopathy. He continues on antibiotics, broad spectrum, and IV fluids. Cultures pending. His vitals and mentation are somewhat improved this morning. Did not require further respiratory intervention overnight while in the CCU. Concern for possible brain mets, awaiting MRI for when he is more stable. Continue fluid hydration and vital support. Hoping that over the next day or so his clinical status will clear somewhat so can have a more definitive cause for his deterioration.
[2019-05-03 07:58] LABS: Anion Gap 17 mmol/L (10-20); BUN (Urea Nitrogen) 14 mg/dL (8.9-20.6); Calc. Creatinine Clearance 136 mL/min (70-130); Calcium 9.3 mg/dL (7.8-10.44); Carbon Dioxide 17 mmol/L (22-29); Chloride 101 mmol/L (98-107); Estimated GFR-MDRD Greater than 90; Glucose 125 mg/dL (70-105); Phosphorus 4.8 mg/dL (2.3-4.7); Potassium 3.7 mmol/L (3.5-5.1); Sodium 131 mmol/L (136-145)
[2019-05-03 08:28] LABS: HIV (1/2) Antibody/Antigen Non-Reactive (NonReactive); HIV 1/2 INDEX 0.08 S/CO (<1.00)
[2019-05-03 09:26] LABS: Vancomycin, Random 9.9 ug/mL (See Comment)
[2019-05-03] MEDS: metroNIDAZOLE 500 MG in Premix Bag 1 BAG IVPB SCH ×3 (09:27→23:07)
[2019-05-03] MEDS: Enoxaparin Sodium 40 MG/0.4 ML SYRINGE SC SCH (09:28)
[2019-05-03] MEDS: Famotidine/PF 20 mg/2ml Vial SLOW IVP SCH ×2 (09:29→20:29)
[2019-05-03] MEDS ORDERED: Vancomycin HCl 1 GM in Premix Bag 1 BAG IVPB SCH (10:00)
[2019-05-03] MEDS: Vancomycin HCl 750 MG in Sodium Chloride 0.9% 250 ML 250 ML IVPB SCH ×2 (10:16→18:20)
[2019-05-03] MEDS ORDERED: Acetaminophen 650 MG/20.3 ML UDCUP PO PRN (11:30)
[2019-05-03] MEDS ORDERED: Cosyntropin 250 MCG VIAL SLOW IVP SCH (12:30)
--- NOTE | 2019-05-03 12:54 | PDOC.PALCO ---
Palliative Care Consult - Consult Details Requesting Physician: Dr Ayala Reason for Consult: assistance with communication prognosis/disease Family Members Present: Patient mother, girlfriend - Pertinent HPI Baljeet is a 39 year old male who has received two rounds of recent chemo regimen. His last was 03/30/19 with subsequent hospitalization secondary to syncopal episode in cancer clinic. Patient was admitted. His mother states that since discharge he had a "few days" where he had improved, however he had recent decline with diarrhea, loss of appetite and progressing weakness since Friday a week ago with onset of fever and hallucinations 05/01. Patient was unable to have 3rd round of chemo as scheduled. Admitted to telemetry for medical management, however secondary to respiratory decline was transferred to CCU for higher level of care. - Social History Smoking Status: Former smoker Smoking: cigarettes Alcohol Use: heavy Drug Use History: marijuana Living Situation: other (Lives with his mother who is his primary caregiver) - Medications MAR Reviewed: Yes - Allergies Allergies/Adverse Reactions: Allergies Allergy/AdvReac Type Severity Reaction Status Date / Time Penicillins Allergy Verified 04/05/19 21:51 - Subjective Awake, confused. Denies pain at the time of assessment, did drift off to sleep intermittently. Mother and girlfriend at bedside. - ROS Non Response: due to mental status (Confused and difficult to participate in assessment.) - Objective Vital Signs: Vital Signs - Most Recent Temp Pulse Resp BP Pulse Ox 98.6 F 143 H 20 135/77 98 05/03/19 12:00 05/02/19 11:47 05/02/19 11:47 05/02/19 11:47 05/03/19 12:00 Palliative Performance Scale: 30 - Physical Exam Constitutional: encephalitic, ill appearing, mild distress HEENT: moist MMs, sclera anicteric Respiratory: labored respirations Deviation from normal: poor o2 saturation at 90% Cardiovascular: RRR Deviation from normal: elevated heart rate, Gastrointestinal: continent Musculoskeletal: no clubbing Neurology: moves all 4 limbs Deviation from normal: Pallor, facial scabs in various stages of healing. Deviation from normal: Oriented to self and family at bedside - Problem List (1) Physical deconditioning Code(s): R53.81 - OTHER MALAISE Current Visit: Yes Status: Acute (2) Sepsis Code(s): A41.9 - SEPSIS, UNSPECIFIED ORGANISM Current Visit: Yes Status: Acute (3) Hypokalemia Code(s): E87.6 - HYPOKALEMIA Current Visit: No Status: Acute (4) Hypomagnesemia Code(s): E83.42 - HYPOMAGNESEMIA Current Visit: No Status: Acute (5) Palliative care encounter Code(s): Z51.5 - ENCOUNTER FOR PALLIATIVE CARE Current Visit: No Status: Acute (6) Metabolic encephalopathy Code(s): G93.41 - METABOLIC ENCEPHALOPATHY Current Visit: No Status: Chronic (7) Stage 4 lung cancer Code(s): C34.90 - MALIGNANT NEOPLASM OF UNSP PART OF UNSP BRONCHUS OR LUNG Current Visit: No Status: Chronic - Plan/Recommendations Plan:Mr Mi is lethargic and confused, intermittently participates in conversation and drifts off to sleep. Not fully cooperative with assessment. His mother and girlfriend are at bedside. Revisited disease progression, asked the mother if she and Baljeet discussed his wishes when he was oriented at home. She avoids directly answering question. She appears to forget that treatment at this time is palliative in nature. She is frustrated with the patient girlfriend , reminded her that all care right now is about Baljeet and his wishes. Noteworthy is he is talking with his girlfriend and smiles at her. Ms Mi who is MPOA remains wishing for all aggressive measures for her son. Juan IRVING with oncology to visit with patient today and revisit disease progression and palliative nature of chemo. Father Brain arrived and provided spiritual support. Palliative Care will continue to follow and revisit goals of care and resuscitation status. Communicated with Dr Méndez, Juan IRVING, and Medical Staff [[id number]] minutes spent on this encounter with >50% of the time in counseling and coordination of care. Thank you for this very appropriate consult.
--- NOTE | 2019-05-03 13:01 | PRG ---
DATE OF SERVICE: 05/03/2019 SUBJECTIVE: Baljeet Mi is more alert today. It is interesting to note that he had a cortisol level of 1.2 yesterday morning at 07:35. He received hydrocortisone yesterday evening, but is not on any steroids now. It becomes highly likely that he has adrenal insufficiency, but it is probably worthwhile to do an ACTH stimulation test. This would explain his hyponatremia and his altered mental status and hypotension. He is not on steroids right now, so this would be a reasonable time to do it. Cortisone, prednisone, Solu-Medrol with cross assay. It can be done with Decadron, but I would simply do the test and then start him on IV steroids. OBJECTIVE: LUNGS: Clear. HEART: Regular rhythm. ABDOMEN: Soft. His resting tachycardia is improved. His blood pressure is better. Met with the mother and answered all of her questions. He is improved. She is happy about that. Job ID: [id number]
[2019-05-03] MEDS: methylPREDNISolone Sod Succ 40 MG VIAL IVP SCH (20:30)
[2019-05-04] MEDS ORDERED: Budesonide 0.5 MG/2 ML NEB ONE (01:02)
[2019-05-04] MEDS: Vancomycin HCl 750 MG in Sodium Chloride 0.9% 250 ML 250 ML IVPB SCH ×2 (01:10→10:32)
[2019-05-04] MEDS: Lactated Ringer's 1,000 ML IV SCH ×2 (03:57→11:38)
[2019-05-04] MEDS: Cefepime 2 GM in Sodium Chloride 0.9% 100 ML IVPB SCH (04:09)
[2019-05-04 04:23] LABS: #Lymphocytes 0.4 thou/uL (1.20-3.40); #Monocytes 0.1 thou/uL (0.11-0.59); #Neutrophils 4.9 thou/uL (1.40-6.50); %Basophils 0.5 % (0.0-1.0); %Eosinophils 0.2 % (0.0-10.0); %Lymphocytes 6.9 % (21.0-51.0); %Monocytes 2.1 % (0.0-10.0); %Neutrophils 90.3 % (42.0-75.0); Hemoglobin 10.2 g/dL (14.0-18.0); Mean Corpuscular HGB CONC 34.4 g/dL (32.0-36.0); Mean Corpuscular Hemoglobin 32.2 pg (27.0-31.0); Mean Corpuscular Volume 93.7 fL (78.0-98.0); Mean Platelet Volume 7.6 fL (7.4-10.4); Platelet Count 253 thou/uL (130-400); RBC Distribution Width 16.3 % (11.5-14.5); Red Blood Cell (RBC) Count 3.16 mill/uL (4.70-6.10); White Blood Cell (WBC) Count 5.4 thou/uL (4.8-10.8)
[2019-05-04 04:42] LABS: Anion Gap 13 mmol/L (10-20); BUN (Urea Nitrogen) 15 mg/dL (8.9-20.6); Calc. Creatinine Clearance 151 mL/min (70-130); Calcium 9.1 mg/dL (7.8-10.44); Carbon Dioxide 21 mmol/L (22-29); Chloride 103 mmol/L (98-107); Estimated GFR-MDRD Greater than 90; Glucose 143 mg/dL (70-105); Sodium 134 mmol/L (136-145)
[2019-05-04 04:46] LABS: Potassium 2.9 mmol/L (3.5-5.1)
[2019-05-04] MEDS ORDERED: Potassium Chloride 40 MEQ in Premix Bag 1 BAG IVPB SCH (05:15)
--- NOTE | 2019-05-04 06:40 | PDOC.FM ---
- Subjective Subjective: Patient much improved this morning. a&O x2, awake, alert just mildly disoriented. No breathing issues. - Objective MAR Reviewed: Yes Vital Signs & Weight: Vital Signs (12 hours) Temp Pulse Ox 05/04/19 03:00 97.9 F 05/03/19 23:00 98.6 F 05/03/19 20:00 97 05/03/19 19:00 98.5 F Weight Admit Weight 68.492 kg Weight 68.583 kg Most Recent Monitor Data Heart Rate from ECG 73 NIBP 152/89 NIBP BP-Mean 110 Respiration from ECG 11 SpO2 96 I&O: 05/02/19 05/03/19 05/04/19 06:59 06:59 06:59 Intake Total 2360 5518 2856 Output Total 1230 1925 2610 Balance 1130 3593 246 Result Diagrams: 05/04/19 03:14 05/04/19 15:58 Phys Exam - Physical Examination Constitutional: NAD HEENT: PERRLA dry lips Respiratory: no wheezing Cardiovascular: RRR, no significant murmur Gastrointestinal: soft, non-tender limited ROM in legs, non ambulatory Neurological: moves all 4 limbs Deviation from normal: a&o x2 Dx/Plan (1) Diverticulitis Code(s): K57.92 - DVTRCLI OF INTEST, PART UNSP, W/O PERF OR ABSCESS W/O BLEED Status: Acute (2) Sepsis Code(s): A41.9 - SEPSIS, UNSPECIFIED ORGANISM Status: Acute (3) Stage 4 lung cancer Code(s): C34.90 - MALIGNANT NEOPLASM OF UNSP PART OF UNSP BRONCHUS OR LUNG Status: Chronic - Plan Plan: 39 yo M with [facility] central pontine myelinolysis, 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 #Acute hypoxic respiratory failure -Currently non-hypoxic on room air currently -Likely 2/2 malignancy but cannot exclude PNA -On abx to empirically cover PNA, heme on board for malignancy #Sepsis 2/2 to Diverticulitis- Improving - Fever 102.2 05/02, afebrile since then - WBC trending down 11 > 5 - On broad spectrum abx, Bcx/UCx NGTD - Eosinophilia-if persistent diarrhea, stool studies - Transition to oral abx #Suspected adrenal insufficiency -Fever, abd pain, h/o of electrolyte imbalances, neurosychiatric sxs-may be precipitated by infection, see above for plan -Low AM cortisol -Awaiting results of ACTH stimulation test #Sinus tachycardia-resolved -Continue maintenance IV fluids since not eating #Encephalopathy- metabolic vs. infectious vs. malignancy - Apparently long standing-chronic hyponatremia - May be worsened by acute infectious process - Pending MRI brain when more clinically stable - Supportive Care #Stage 4 Sqamous Cell CA of lung - Continue current treatment plan - Pending brain MRI d/t concern for metastasis - Supportive Care as needed - Palliative care on board to help in disease prognosis Dvt ppx: Lovenox Resp support: Nasal cannula abx: Vanc, cefepime, flagyl diet: CLD Disposition: Guarded, will continue current plan of care. senior care prognosis very poor. Addendum - Attending - Attending Attestation Date/Time: 05/04/192133 I personally evaluated the patient and discussed the management with Dr. Ladd at 1030 I agree with the History, Examination, Assessment and Plan documented above with any addition or exceptions noted below. Encephalopathy- multifactoral. unable to get MRI at this time to agitation Stage IV lung cancer-appreciate onc recs possible adrenal insuff- on decadron hypoK- replace hypomag- replace diverticulitis- transition to po abx stable for transition to medical floor
--- NOTE | 2019-05-04 09:24 | CON ---
DATE OF CONSULTATION: HISTORY OF PRESENT ILLNESS: Mr. Mi is an unfortunate 39-year-old male with stage IV lung cancer. Mother says that he has had very poor p.o. intake for 2 days prior to admission. Prior to that, he was out of bed to the couch and back to bed, but not really doing much from activity level of standpoint. Also has been confused over the last day. His mother says he is functional, but when I start really inquiring about function, he used to ambulate with a walker usually lately. He was seen by me the day before [place] with extreme dehydration. He apparently improved to an ambulatory functional point, discharged home in first part of April. Likely, he has been in the home a couple of weeks. PAST MEDICAL HISTORY: Remarkable for; 1. Reflux disease. 2. History of alcohol use, heavy tobacco use. 3. History of right arm and right foot orthopedic surgery in the past. 4. 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 I would have never thought he would recover from that . ALERGIES: He has reported allergy to penicillin. FAMILY HISTORY: . He has 3 siblings who live out of town, otherwise unobtainable. PHYSICAL EXAMINATION: VITAL SIGNS: Afebrile, blood pressure 122/79, heart rates in the 140s, appears to be in sinus rhythm. HEENT: Sclerae are anicteric. His pupils react. His extraocular movements appear full. He has very poor dentition. His lips are dry. His cavity is dry. NECK: Supple. LUNGS: Clear. HEART: Regular rhythm rapid rate. ABDOMEN: Soft and nontender. LABORATORY DATA: White cont 11.9, hemoglobin 9.7, platelets 275,000. Blood gas; p H 7.42, PCO2 of 31, PO2 [address] pulmonary angiogram was done yesterday shows cavitary mass in right upper lobe large hiatal hernia. Obvious blood clot was seen. CT abdomen and pelvis was also done, which was suggestive of sigmoid diverticulitis. IMPRESSION: Encephalopathy of unclear etiology, rule out sepsis. He is encephalopathic when he came in in March and cleared up with hydration. He was severely dehydrated then and I think some of this was intravascular volume depletion. I ordered another liter of saline heart rate. He has been started on broad antimicrobial therapy, which should cover diverticulitis if he has it. I have seen nothing on his radiographs that lead me to believe that he has pneumonia. I doubt he has a viral encephalitis, but this must be kept in mind. I do not see any indication for at this time. He does not need intubated at this time but obviously he is quite ill. His halfway prognosis is poor just because of poor functional status. He has had two rounds of chemo and has missed, I believe, his last chemo and was scheduled for chemo next week, which obviously he will not get. His oncologists have been notified of his presence, but actually his oncologist had called me and will see him today. I met with the mother and answered all of her questions. Job ID: [id number]
[2019-05-04] MEDS ORDERED: Magnesium 2 GM/50 ML 2 GM in Premix Bag 1 BAG IVPB SCH (09:30)
[2019-05-04 09:42] LABS: Vancomycin, Trough 15.2 ug/mL
[2019-05-04] MEDS: metroNIDAZOLE 500 MG in Premix Bag 1 BAG IVPB SCH (09:59)
[2019-05-04] MEDS: Famotidine/PF 20 mg/2ml Vial SLOW IVP SCH ×2 (10:00→20:28)
[2019-05-04] MEDS: methylPREDNISolone Sod Succ 40 MG VIAL IVP SCH (10:05)
[2019-05-04] MEDS: Enoxaparin Sodium 40 MG/0.4 ML SYRINGE SC SCH (10:07)
--- NOTE | 2019-05-04 13:19 | PDOC.MOPN ---
Interval History: Pt feeling better but still very confused. Keeps stating his mother wants to take him to the hospital. He angers easily and screams at myself and his mother to "shut up." - Vital Signs Vital Signs: Vital Signs (12 hours) Temp Pulse Pulse BP BP Pulse Ox 05/04/19 12:24 97 05/04/19 11:15 77 87 145/88 H 138/83 05/04/19 08:00 97.4 F L 97 05/04/19 03:00 97.9 F Weight Admit Weight 151 lb Weight 151 lb 3.2 oz Most Recent Monitor Data Heart Rate from ECG 65 NIBP 138/83 NIBP BP-Mean 101 Respiration from ECG 21 SpO2 99 - Physical Exam General: Alert, Other (confused, angry) HEENT: Atraumatic Lungs: Normal air movement Cardiovascular: Regular rate Abdomen: Soft - Labs Result Diagrams: 05/04/19 03:14 05/04/19 03:14 Lab results: Laboratory Results - last 24 hr 05/04/19 09:19: Vancomycin Trough 15.2 05/04/19 03:15: Magnesium 1.0 L 05/04/19 03:14: WBC 5.4, RBC 3.16 L, Hgb 10.2 L, Hct 29.6 L, MCV 93.7, MCH 32.2 H, MCHC 34.4, RDW 16.3 H, Plt Count 253, MPV 7.6, Neutrophils % 90.3 H, Lymphocytes % 6.9 L, Monocytes % 2.1, Eosinophils % 0.2, Basophils % 0.5, Neutrophils # 4.9, Lymphocytes # 0.4 L, Monocytes # 0.1 L, Eosinophils # 0.0, Basophils # 0.0 05/04/19 03:14: Sodium 134 L, Potassium 2.9 L*, Chloride 103, Carbon Dioxide 21 L, Anion Gap 13, BUN 15, Creatinine 0.63 L, Estimated GFR (MDRD) Greater than 90, Glucose 143 H, Calcium 9.1 05/03/19 12:51: Cortisol Response 05/03/19 03:21: Smear Path Review A/P - Problem (1) Sepsis Current Visit: Yes Code(s): A41.9 - SEPSIS, UNSPECIFIED ORGANISM Status: Acute (2) Hypokalemia Current Visit: No Code(s): E87.6 - HYPOKALEMIA Status: Acute (3) Hypomagnesemia Current Visit: No Code(s): E83.42 - HYPOMAGNESEMIA Status: Acute (4) Hyponatremia Current Visit: No Code(s): E87.1 - HYPO-OSMOLALITY AND HYPONATREMIA Status: Acute (5) Metabolic encephalopathy Current Visit: No Code(s): G93.41 - METABOLIC ENCEPHALOPATHY Status: Chronic (6) Stage 4 lung cancer Current Visit: No Code(s): C34.90 - MALIGNANT NEOPLASM OF UNSP PART OF UNSP BRONCHUS OR LUNG Status: Chronic - Plan Plan: Pt improving clinically but still with confusion replete potassium and magnesium f/u ACTH stim test cont antibiotics for diverticulitis, possible PNA
--- NOTE | 2019-05-04 15:26 | PRG ---
DATE OF SERVICE: 05/04/2019 SUBJECTIVE: Baljeet iM is doing well. His ACTH stimulation test was done. Unfortunately, I have figured out that he received hydrocortisone prior to the study, so his baseline cortisol was 84. We will have to repeat this on Decadron in a few days. His exam is otherwise unchanged. Sodium 134, potassium 3.9, chloride 103, bicarb 21, BUN 15, and creatinine 0.63. White count 5.4, hemoglobin 10.2, platelets 253. IMPRESSION: Hyponatremia, encephalopathy and hypotension, possibly secondary to adrenal crisis. We will repeat ACTH stimulation test in a couple of days. Solu-Medrol has been discontinued and Decadron has been started. He is stable to transfer out of critical care. Job ID: [id number]
[2019-05-04 16:19] LABS: Potassium 4.2 mmol/L (3.5-5.1)
[2019-05-04] MEDS: metroNIDAZOLE 500 MG TAB PO SCH ×2 (16:20→20:28)
[2019-05-04] MEDS: Dexamethasone 4 mg/ml Vial SLOW IVP SCH (20:28)
[2019-05-04] MEDS: Ibuprofen 600 MG TAB PO PRN (20:42)
[2019-05-05 05:26] LABS: #Lymphocytes 0.7 thou/uL (1.20-3.40); #Monocytes 0.3 thou/uL (0.11-0.59); #Neutrophils 5.9 thou/uL (1.40-6.50); %Basophils 0.3 % (0.0-1.0); %Eosinophils 0.1 % (0.0-10.0); %Lymphocytes 9.4 % (21.0-51.0); %Monocytes 4.3 % (0.0-10.0); %Neutrophils 85.9 % (42.0-75.0); Hemoglobin 8.4 g/dL (14.0-18.0); Mean Corpuscular HGB CONC 34.2 g/dL (32.0-36.0); Mean Corpuscular Hemoglobin 31.5 pg (27.0-31.0); Mean Corpuscular Volume 92.1 fL (78.0-98.0); Mean Platelet Volume 7.5 fL (7.4-10.4); Platelet Count 384 thou/uL (130-400); RBC Distribution Width 15.9 % (11.5-14.5); Red Blood Cell (RBC) Count 2.68 mill/uL (4.70-6.10); White Blood Cell (WBC) Count 6.9 thou/uL (4.8-10.8)
[2019-05-05 05:47] LABS: ALT (SGPT) 11 U/L (8-55); AST (SGOT) 14 U/L (5-34); Albumin 3.7 g/dL (3.5-5.0); Alkaline Phosphatase 57 U/L (40-110); Anion Gap 13 mmol/L (10-20); BUN (Urea Nitrogen) 12 mg/dL (8.9-20.6); Bilirubin, Total 0.5 mg/dL (0.2-1.2); Calc. Creatinine Clearance 149 mL/min (70-130); Calcium 9.6 mg/dL (7.8-10.44); Carbon Dioxide 24 mmol/L (22-29); Chloride 101 mmol/L (98-107); Estimated GFR-MDRD Greater than 90; Globulin 3.8 g/dL (2.4-3.5); Glucose 137 mg/dL (70-105); Protein, Total 7.5 g/dL (6.0-8.3); Sodium 135 mmol/L (136-145)
--- NOTE | 2019-05-05 06:33 | PDOC.FM ---
- Subjective Subjective: NAEO. Patient is A&O x1. Awake, alert, asking for cigarette. Improved from yesterday. No pain, no concerns. - Objective MAR Reviewed: Yes Vital Signs & Weight: Vital Signs (12 hours) Temp Pulse Resp BP Pulse Ox 05/05/19 05:00 97.5 F L 71 18 147/71 H 97 05/05/19 00:00 97.5 F L 58 L 18 144/81 H 100 05/04/19 20:00 97 05/04/19 19:27 97.4 F L 72 20 154/82 H 97 Weight Admit Weight 68.492 kg Weight 68.583 kg Most Recent Monitor Data Heart Rate from ECG 65 NIBP 138/83 NIBP BP-Mean 101 Respiration from ECG 21 SpO2 99 I&O: 05/03/19 05/04/19 05/05/19 06:59 06:59 06:59 Intake Total 5518 2856 1242 Output Total 1925 2610 975 Balance 3593 246 267 Result Diagrams: 05/05/19 05:05 05/05/19 05:05 Phys Exam - Physical Examination Constitutional: NAD HEENT: moist MMs poor dental care Respiratory: no wheezing, clear to auscultation bilateral Cardiovascular: RRR, no significant murmur Gastrointestinal: soft, non-tender Musculoskeletal: no edema Deviation from normal: a&o x1 Dx/Plan (1) Diverticulitis Code(s): K57.92 - DVTRCLI OF INTEST, PART UNSP, W/O PERF OR ABSCESS W/O BLEED Status: Acute (2) Sepsis Code(s): A41.9 - SEPSIS, UNSPECIFIED ORGANISM Status: Acute (3) Stage 4 lung cancer Code(s): C34.90 - MALIGNANT NEOPLASM OF UNSP PART OF UNSP BRONCHUS OR LUNG Status: Chronic - Plan Plan: 39 yo M with [facility] central pontine myelinolysis, 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 #Encephalopathy- metabolic vs. infectious vs. malignancy - 2/2 infection vs. adrenal insuffciency vs. suspected mets - Will try for MRI brain this AM since patient less agitated - Supportive Care #Sepsis 2/2 to Diverticulitis- Improving - Fever 102.2 05/02, afebrile since then - WBC trending down 11 > 5 - On broad spectrum abx, Bcx/UCx NGTD - Eosinophilia-if persistent diarrhea, stool studies - Continue levaquin & flagyl for 7 day course in total #Suspected adrenal insufficiency -Fever, abd pain, h/o of electrolyte imbalances, neurosychiatric sxs-may be precipitated by infection, see above for plan -Low AM cortisol -On Decadron -Repeat cyntropin stimulation test today #Hypokalemia, hypomagnesemia -replaced K/Mg-restarted home meds for this #Acute hypoxic respiratory failure-resolved -Currently non-hypoxic on room air currently -Likely 2/2 malignancy but cannot exclude PNA -On abx to empirically cover PNA, heme on board for malignancy #Sinus tachycardia-resolved -Continue maintenance IV fluids since not eating #Stage 4 Sqamous Cell CA of lung - Continue current treatment plan - Pending brain MRI d/t concern for metastasis - Supportive Care as needed - Palliative care on board to help in disease prognosis Dvt ppx: Lovenox Resp support: Nasal cannula abx: Vanc, cefepime, flagyl diet: CLD Disposition: Guarded, will continue current plan of care. 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 Placement: SNF vs. Inpatient rehab, CM consulted Addendum - Attending - Attending Attestation Date/Time: 05/05/19 7007 I personally evaluated the patient and discussed the management with Dr. Ladd at 1041 I agree with the History, Examination, Assessment and Plan documented above with any addition or exceptions noted below. AMS- multifactoral- improved today. Hold on MRI as patient unable to be still at this time. Stage IV lung cancer- palliative care discussed. Diverticulitis- transitioned to oral antibiotics Possible adrenal insufficiency- repeat cosyntropin stim test tomorrow. CM consult for placement as unable to safely be discharged home with level or weakness/deconditioning.
[2019-05-05] MEDS: Dexamethasone 4 mg/ml Vial SLOW IVP SCH ×2 (08:37→19:54)
[2019-05-05] MEDS: Enoxaparin Sodium 40 MG/0.4 ML SYRINGE SC SCH (08:38)
[2019-05-05] MEDS: Famotidine/PF 20 mg/2ml Vial SLOW IVP SCH ×2 (08:38→19:54)
[2019-05-05] MEDS: Potassium Chloride 20 MEQ TAB PO SCH ×2 (08:39→19:54)
[2019-05-05] MEDS: Magnesium Oxide 400 MG TAB PO SCH ×2 (08:40→19:54)
[2019-05-05] MEDS: metroNIDAZOLE 500 MG TAB PO SCH ×4 (08:40→19:54)
[2019-05-05] MEDS ORDERED: Magnesium 2 GM/50 ML 1 GM in Premix Bag 1 BAG IVPB SCH (11:30)
[2019-05-05] MEDS ORDERED: Cosyntropin 250 MCG VIAL SLOW IVP SCH (16:30)
--- NOTE | 2019-05-05 19:07 | PRG ---
DATE OF SERVICE: 05/05/2019 SUBJECTIVE: Baljeet Mi remains hemodynamically stable. He is probably close to his baseline. He is asking for cigarettes today according to the resident's note. OBJECTIVE: VITAL SIGNS: His hemodynamics have been stable. He is 147/71 this morning. Heart rate in the 70s and respiratory rates in the teens. He is afebrile. LUNGS: Unchanged. HEART: Unchanged. ABDOMEN: Unchanged. Given the cortisol of 1 early in his admission, I suspect he has severe adrenal insufficiency and will need steroids for rest of his life. Unfortunately, his ACTH stimulation test was complicated by a dose of hydrocortisone prior to the test. We will do another ACTH stimulation test tomorrow, now that he has been on Decadron for 2 days. His initial level be low simply because of the Decadron and suppression, but the response will be the predictive element of the test. We will continue to follow. Job ID: [id number]
[2019-05-06 06:14] LABS: ALT (SGPT) 13 U/L (8-55); AST (SGOT) 17 U/L (5-34); Albumin 3.8 g/dL (3.5-5.0); Alkaline Phosphatase 54 U/L (40-110); Anion Gap 13 mmol/L (10-20); BUN (Urea Nitrogen) 16 mg/dL (8.9-20.6); Bilirubin, Total 0.5 mg/dL (0.2-1.2); Calc. Creatinine Clearance 154 mL/min (70-130); Calcium 9.5 mg/dL (7.8-10.44); Carbon Dioxide 22 mmol/L (22-29); Chloride 100 mmol/L (98-107); Estimated GFR-MDRD Greater than 90; Globulin 3.7 g/dL (2.4-3.5); Glucose 138 mg/dL (70-105); Potassium 3.4 mmol/L (3.5-5.1); Protein, Total 7.5 g/dL (6.0-8.3); Sodium 132 mmol/L (136-145)
--- NOTE | 2019-05-06 07:06 | PDOC.FM ---
- Subjective Subjective: Patient unable to sleep last night,butcannot tell my why. Awake, alert, but parts of conversation are tangential and he has word salad. Denies pain, issues or concerns otherwise. No change overnight per nursing - Objective MAR Reviewed: Yes Vital Signs & Weight: Vital Signs (12 hours) Temp Pulse Resp BP Pulse Ox 05/06/19 03:06 97.4 F L 76 18 149/91 H 100 05/05/19 23:18 98 F 76 16 137/79 100 05/05/19 19:34 97.8 F 104 H 18 141/85 H 97 Weight Admit Weight 68.583 kg Weight 68.583 kg Most Recent Monitor Data Heart Rate from ECG 65 NIBP 138/83 NIBP BP-Mean 101 Respiration from ECG 21 SpO2 99 I&O: 05/05/19 05/06/19 05/07/19 06:59 06:59 06:59 Intake Total 1242 690 Output Total 975 450 Balance 267 240 Result Diagrams: 05/05/19 05:05 05/06/19 05:33 Phys Exam - Physical Examination Constitutional: NAD HEENT: PERRLA, moist MMs, sclera anicteric poor dentition Neck: full ROM Respiratory: no wheezing, clear to auscultation bilateral Cardiovascular: RRR, no significant murmur Gastrointestinal: soft, non-tender Musculoskeletal: no edema Neurological: non-focal, moves all 4 limbs Deviation from normal: a&o x2 Dx/Plan (1) Diverticulitis Code(s): K57.92 - DVTRCLI OF INTEST, PART UNSP, W/O PERF OR ABSCESS W/O BLEED Status: Acute (2) Sepsis Code(s): A41.9 - SEPSIS, UNSPECIFIED ORGANISM Status: Acute (3) Stage 4 lung cancer Code(s): C34.90 - MALIGNANT NEOPLASM OF UNSP PART OF UNSP BRONCHUS OR LUNG Status: Chronic - Plan Plan: 39 yo M with 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 #Encephalopathy- metabolic vs. infectious vs. malignancy-stable - 2/2 infection vs. adrenal insuffciency vs. suspected mets - Will try for MRI brain once patient less agitated - Supportive Care #Sepsis 2/2 to Diverticulitis- Improving - Fever 102.2 05/02, afebrile since then - WBC trending down 11 > 5 - On broad spectrum abx, Bcx/UCx NGTD - Eosinophilia-if persistent diarrhea, stool studies - Continue levaquin & flagyl for 7 day course in total #Insomnia -start melatonin qhs #Suspected adrenal insufficiency -Fever, abd pain, h/o of electrolyte imbalances, neurosychiatric sxs-may be precipitated by infection, see above for plan -Low AM cortisol -On Decadron -Repeat cyntropin stimulation test today #Elevated BPs -take manual BPs, could be due to agitation - if remains elevated start on amlodipine #Hypokalemia, hypomagnesemia -replaced K/Mg-restarted home meds #Acute hypoxic respiratory failure-resolved -Currently non-hypoxic on room air currently -Likely 2/2 malignancy but cannot exclude PNA #Sinus tachycardia-resolved -Continue maintenance IV fluids since not eating #Stage 4 Sqamous Cell CA of lung - Continue current treatment plan - Pending brain MRI d/t concern for metastasis - Supportive Care as needed - Palliative care on board to help in disease prognosis Dvt ppx: ppx Lovenox abx: levaquin, flagyl diet: regular diet Disposition: Guarded, will continue current plan of care. 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 Will discuss with onc revisiting patient to discuss adjunct faculty for medical terminology prognosis Placement: Inpt rehab, CM on board Addendum - Attending - Attending Attestation Date/Time: 05/06/19 2226 I personally evaluated the patient and discussed the management with Dr. Ladd at 0903 I agree with the History, Examination, Assessment and Plan documented above with any addition or exceptions noted below. Metabolic encephalopathy from Adrenal insufficiency- will transition to oral steroids upon discharge Stage IV lung cancer Severe deconditioning- working on rehab placement. appreciate CM input.
[2019-05-06] MEDS: Enoxaparin Sodium 40 MG/0.4 ML SYRINGE SC SCH (10:01)
[2019-05-06] MEDS: Magnesium Oxide 400 MG TAB PO SCH ×2 (10:02→21:01)
[2019-05-06] MEDS: Famotidine/PF 20 mg/2ml Vial SLOW IVP SCH ×2 (10:02→21:01)
[2019-05-06] MEDS: metroNIDAZOLE 500 MG TAB PO SCH ×4 (10:02→21:01)
[2019-05-06] MEDS: Potassium Chloride 20 MEQ TAB PO SCH ×2 (10:02→21:01)
[2019-05-06] MEDS: Dexamethasone 4 mg/ml Vial SLOW IVP SCH (11:47)
--- NOTE | 2019-05-06 20:55 | PRG ---
DATE OF SERVICE: 05/06/2019 SUBJECTIVE: Baljeet Mi is stable. Mental status is stable. He reacts to questioning, but is extremely weak. OBJECTIVE: VITAL SIGNS: He is afebrile. Heart rate is 99, respiratory rate is 19, oximetry is 100%, blood pressure 132/72. LUNGS: Clear. HEART: Regular rhythm. ABDOMEN: Soft. LABORATORY DATA: Sodium 132, potassium 3.4, chloride 100, bicarb 22, BUN 16, creatinine 0.62. Albumin today was 3.0. ACTH stimulation test showed a baseline cortisol less than 1, which is probably suppressed because of the Decadron. At 30 minutes, his cortisol was 5.6; at 60 minutes, 7.7; at 90 minutes, 9.0. He obviously has some adrenal function, but does not have an appropriate response to ACTH, so he has relative adrenal insufficiency. I explained this to his mother. He will stay on intermediate dose prednisone. Right now, his Decadron has been discontinued. Take 10 mg prednisone in the morning, 5 mg in the evening. He will probably never get below that, but might be weanable to 5 mg in the morning, 5 mg in the evening. We will continue receive treatment for his malignancy. I have relayed the adrenal insufficiency issue to the Oncology group. We will sign off. Job ID: [id number]
[2019-05-06] MEDS ORDERED: predniSONE 20 MG TAB PO SCH (21:00)
[2019-05-06] MEDS: Melatonin 3 MG TAB PO SCH (21:01)
[2019-05-06] MEDS: predniSONE 5 MG TAB PO SCH (21:09)
[2019-05-07 06:21] LABS: ALT (SGPT) 24 U/L (8-55); AST (SGOT) 35 U/L (5-34); Albumin 3.8 g/dL (3.5-5.0); Alkaline Phosphatase 50 U/L (40-110); Anion Gap 14 mmol/L (10-20); BUN (Urea Nitrogen) 16 mg/dL (8.9-20.6); Bilirubin, Total 0.4 mg/dL (0.2-1.2); Calc. Creatinine Clearance 144 mL/min (70-130); Calcium 9.5 mg/dL (7.8-10.44); Carbon Dioxide 23 mmol/L (22-29); Chloride 100 mmol/L (98-107); Estimated GFR-MDRD Greater than 90; Globulin 3.6 g/dL (2.4-3.5); Glucose 111 mg/dL (70-105); Protein, Total 7.4 g/dL (6.0-8.3); Sodium 133 mmol/L (136-145)
[2019-05-07] MEDS: metroNIDAZOLE 500 MG TAB PO SCH ×4 (08:35→20:51)
[2019-05-07] MEDS: Magnesium Oxide 400 MG TAB PO SCH ×2 (08:36→20:51)
[2019-05-07] MEDS: Potassium Chloride 20 MEQ TAB PO SCH ×2 (08:36→20:51)
[2019-05-07] MEDS: Enoxaparin Sodium 40 MG/0.4 ML SYRINGE SC SCH (08:37)
[2019-05-07] MEDS: predniSONE 20 MG TAB PO SCH (08:37)
[2019-05-07] MEDS: Famotidine/PF 20 mg/2ml Vial SLOW IVP SCH ×2 (08:37→20:51)
--- NOTE | 2019-05-07 12:27 | PDOC.FM ---
- Subjective Subjective: Patient still confused but improved from yesterday No concerns or complaints Discussed plan with mom & patient's sister(over phone) - Objective MAR Reviewed: Yes Vital Signs & Weight: Vital Signs (12 hours) Temp Pulse Resp BP Pulse Ox 05/07/19 07:30 97.6 F 89 18 142/95 H 98 Weight Admit Weight 68.583 kg Weight 68.583 kg Most Recent Monitor Data Heart Rate from ECG 65 NIBP 138/83 NIBP BP-Mean 101 Respiration from ECG 21 SpO2 99 I&O: 05/06/19 05/07/19 05/08/19 06:59 06:59 06:59 Intake Total 690 330 Output Total 450 300 Balance 240 30 Result Diagrams: 05/05/19 05:05 05/07/19 05:29 Phys Exam - Physical Examination Constitutional: NAD HEENT: PERRLA, sclera anicteric poor dentition Respiratory: no wheezing, clear to auscultation bilateral Cardiovascular: RRR, no significant murmur Gastrointestinal: soft, non-tender Musculoskeletal: no edema Neurological: moves all 4 limbs Dx/Plan (1) Diverticulitis Code(s): K57.92 - DVTRCLI OF INTEST, PART UNSP, W/O PERF OR ABSCESS W/O BLEED Status: Acute (2) Sepsis Code(s): A41.9 - SEPSIS, UNSPECIFIED ORGANISM Status: Acute (3) Stage 4 lung cancer Code(s): C34.90 - MALIGNANT NEOPLASM OF UNSP PART OF UNSP BRONCHUS OR LUNG Status: Chronic - Plan Plan: 39 yo M with PMH central pontine myelinolysis, 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 #Encephalopathy- metabolic vs. infectious vs. malignancy-stable - 2/2 infection vs. adrenal insuffciency vs. suspected mets - Discussed with onc, no plans for MRI this hospitalization - Recommend further f/u outpt with heme/onc in regards to course care - Supportive Care #Sepsis 2/2 to Diverticulitis- Improving - Fever 102.2 05/02, afebrile since then - WBC trending down 11 > 5 - On broad spectrum abx, Bcx/UCx NGTD - Eosinophilia-if persistent diarrhea, stool studies - Continue levaquin & flagyl for 7 day course in total #Insomnia -start melatonin qhs #Suspected adrenal insufficiency -Fever, abd pain, h/o of electrolyte imbalances, neurosychiatric sxs-may be precipitated by infection, see above for plan -Low AM cortisol -On Decadron -Repeat cyntropin stimulation test today #Elevated BPs -take manual BPs, could be due to agitation - if remains elevated start on amlodipine #Hypokalemia, hypomagnesemia -replaced K/Mg-restarted home meds #Acute hypoxic respiratory failure-resolved -Currently non-hypoxic on room air currently -Likely 2/2 malignancy but cannot exclude PNA #Sinus tachycardia-resolved -Continue maintenance IV fluids since not eating #Stage 4 Squamous Cell CA of lung - Continue current treatment plan - Pending brain MRI d/t concern for metastasis - Supportive Care as needed - Palliative care on board to help in disease prognosis Dvt ppx: ppx Lovenox abx: levaquin, flagyl diet: regular diet Disposition: Guarded, will continue current plan of care. 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 Placement: Inpt rehab, CM on board. Medically cleared for discharge to inpatient rehab
[2019-05-07] MEDS: Ibuprofen 600 MG TAB PO PRN (17:18)
[2019-05-07] MEDS: predniSONE 5 MG TAB PO SCH (20:51)
[2019-05-07] MEDS: Melatonin 3 MG TAB PO SCH (20:51)
[2019-05-08 05:41] LABS: ALT (SGPT) 35 U/L (8-55); AST (SGOT) 39 U/L (5-34); Albumin 3.8 g/dL (3.5-5.0); Alkaline Phosphatase 50 U/L (40-110); Anion Gap 11 mmol/L (10-20); BUN (Urea Nitrogen) 16 mg/dL (8.9-20.6); Bilirubin, Total 0.5 mg/dL (0.2-1.2); Calc. Creatinine Clearance 151 mL/min (70-130); Calcium 9.3 mg/dL (7.8-10.44); Carbon Dioxide 24 mmol/L (22-29); Chloride 98 mmol/L (98-107); Estimated GFR-MDRD Greater than 90; Globulin 3.5 g/dL (2.4-3.5); Glucose 104 mg/dL (70-105); Potassium 4.1 mmol/L (3.5-5.1); Protein, Total 7.3 g/dL (6.0-8.3); Sodium 129 mmol/L (136-145)
--- NOTE | 2019-05-08 06:37 | PDOC.FM ---
- Subjective Subjective: Patient denies concerns. Improved today, a&O x3, conversive. Not totally sure why here though. No concerns per nursing, pending placement - Objective Vital Signs & Weight: Vital Signs (12 hours) Temp Pulse Resp BP Pulse Ox 05/07/19 19:42 98.1 F 113 H 20 120/89 99 Weight Admit Weight 68.583 kg Weight 68.583 kg Most Recent Monitor Data Heart Rate from ECG 65 NIBP 138/83 NIBP BP-Mean 101 Respiration from ECG 21 SpO2 99 I&O: 05/06/19 05/07/19 05/08/19 06:59 06:59 06:59 Intake Total 690 330 Output Total 450 300 Balance 240 30 Result Diagrams: 05/05/19 05:05 05/08/19 05:10 Phys Exam - Physical Examination Constitutional: NAD HEENT: PERRLA, moist MMs poor dentition Respiratory: no wheezing Cardiovascular: RRR, no significant murmur Gastrointestinal: soft, non-tender Neurological: non-focal, moves all 4 limbs Psychiatric: A&O x 3 Dx/Plan (1) Diverticulitis Code(s): K57.92 - DVTRCLI OF INTEST, PART UNSP, W/O PERF OR ABSCESS W/O BLEED Status: Acute (2) Sepsis Code(s): A41.9 - SEPSIS, UNSPECIFIED ORGANISM Status: Acute (3) Stage 4 lung cancer Code(s): C34.90 - MALIGNANT NEOPLASM OF UNSP PART OF UNSP BRONCHUS OR LUNG Status: Chronic - Plan Plan: 39 yo M with [facility] central pontine myelinolysis, 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 #Encephalopathy- metabolic vs. infectious vs. malignancy-stable - 2/2 infection vs. adrenal insuffciency vs. suspected mets - Discussed with onc, no plans for MRI this hospitalization - Recommend further f/u outpt with heme/onc in regards to course care - Supportive Care #Sepsis 2/2 to Diverticulitis- Improving - Fever 102.2 05/02, afebrile since then - WBC trending down 11 > 5 - On broad spectrum abx, Bcx/UCx NGTD - Eosinophilia-if persistent diarrhea, stool studies - Continue levaquin & flagyl for 7 day course in total #Adrenal insufficiency -likely 2/2 chemotherapy -Fever, abd pain, h/o of electrolyte imbalances, neurosychiatric sxs-may be precipitated by infection, see above for plan -Low AM cortisol -On daily PO steroids #Elevated AST -35->39, likley from etOH abuse -start multivitamin -trend -hep studies #Insomnia -start melatonin qhs #Elevated BPs -take manual BPs, could be due to agitation - if remains elevated start on amlodipine #Hypokalemia, hypomagnesemia -replaced K/Mg-restarted home meds #Acute hypoxic respiratory failure-resolved -Currently non-hypoxic on room air currently -Likely 2/2 malignancy but cannot exclude PNA #Chronic hyponatremia-stable #Sinus tachycardia-resolved -Continue maintenance IV fluids since not eating #Stage 4 Squamous Cell CA of lung - Continue current treatment plan - Pending brain MRI d/t concern for metastasis - Supportive Care as needed - Palliative care on board to help in disease prognosis Dvt ppx: ppx Lovenox abx: levaquin, flagyl diet: regular diet Disposition: Guarded, will continue current plan of care. [facility] prognosis guarded. Placement: Inpt rehab, CM on board. Medically cleared for discharge to inpatient rehab Addendum - Attending - Attending Attestation Date/Time: 05/08/19 1242 I personally evaluated the patient at 0715 am and discussed the management with Dr. Ladd. I agree with the History, Examination, Assessment and Plan documented above with any addition or exceptions noted below. Awaiting placement in inpatient rehab. Medically stable.
[2019-05-08] MEDS: metroNIDAZOLE 500 MG TAB PO SCH ×4 (08:25→20:51)
[2019-05-08] MEDS: Famotidine/PF 20 mg/2ml Vial SLOW IVP SCH ×2 (08:25→20:52)
[2019-05-08] MEDS: Potassium Chloride 20 MEQ TAB PO SCH ×2 (08:25→20:52)
[2019-05-08] MEDS: Magnesium Oxide 400 MG TAB PO SCH ×2 (08:25→20:51)
[2019-05-08] MEDS: predniSONE 20 MG TAB PO SCH (08:26)
[2019-05-08] MEDS: Enoxaparin Sodium 40 MG/0.4 ML SYRINGE SC SCH (08:27)
[2019-05-08 12:06] LABS: HBSAB Concentration 1.15 mIU/mL; Hep B Surf AB Non-Reactive (NonReactive); Hep B Surf Ag Non-Reactive S/CO (NonReactive); Hep C IgG Ab Non-Reactive (NonReactive); Hep C Index 0.18 S/CO (0-0.79)
[2019-05-08] MEDS: predniSONE 5 MG TAB PO SCH (20:51)
[2019-05-08] MEDS: Melatonin 3 MG TAB PO SCH (20:51)
--- NOTE | 2019-05-09 05:58 | PDOC.FM ---
- Subjective Subjective: NAEO. Nurse reports patient improving more conversational. Pt with no complaints No other concerns at this time Pending placement - Objective MAR Reviewed: Yes Vital Signs & Weight: Vital Signs (12 hours) Temp Pulse Resp BP Pulse Ox 05/08/19 21:04 97.8 F 108 H 16 122/90 96 Weight Admit Weight 68.583 kg Weight 68.583 kg Most Recent Monitor Data Heart Rate from ECG 65 NIBP 138/83 NIBP BP-Mean 101 Respiration from ECG 21 SpO2 99 I&O: 05/07/19 05/08/19 05/09/19 06:59 06:59 06:59 Intake Total 330 Output Total 300 Balance 30 Result Diagrams: 05/05/19 05:05 05/09/19 06:33 Phys Exam - Physical Examination Constitutional: NAD HEENT: PERRLA, moist MMs Respiratory: no wheezing, clear to auscultation bilateral Cardiovascular: RRR, no significant murmur Gastrointestinal: soft, non-tender Neurological: non-focal, moves all 4 limbs Deviation from normal: a&o x2 Dx/Plan (1) Diverticulitis Code(s): K57.92 - DVTRCLI OF INTEST, PART UNSP, W/O PERF OR ABSCESS W/O BLEED Status: Acute (2) Sepsis Code(s): A41.9 - SEPSIS, UNSPECIFIED ORGANISM Status: Acute (3) Stage 4 lung cancer Code(s): C34.90 - MALIGNANT NEOPLASM OF UNSP PART OF UNSP BRONCHUS OR LUNG Status: Chronic - Plan Plan: 39 yo M with [facility] central pontine myelinolysis, 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 #Encephalopathy- metabolic vs. infectious vs. malignancy-stable - 2/2 infection vs. adrenal insuffciency vs. suspected mets - Discussed with onc, no plans for MRI this hospitalization - Recommend further f/u outpt with heme/onc in regards to course care - Supportive Care #Sepsis 2/2 to Diverticulitis- Improving - Fever 102.2 05/02, afebrile since then - WBC trending down 11 > 5 - On broad spectrum abx, Bcx/UCx NGTD - Eosinophilia-if persistent diarrhea, stool studies - Continue levaquin & flagyl for 7 day course in total #Adrenal insufficiency -likely 2/2 chemotherapy -Fever, abd pain, h/o of electrolyte imbalances, neurosychiatric sxs-may be precipitated by infection, see above for plan -Low AM cortisol -On daily PO steroids #Elevated AST -35->39, likley from chronic etOH abuse -start multivitamin -trend -hep studies negative #Insomnia -start melatonin qhs #Elevated BPs -take manual BPs, could be due to agitation - if remains elevated start on amlodipine #Hypokalemia, hypomagnesemia -replaced K/Mg-restarted home meds #Acute hypoxic respiratory failure-resolved -Currently non-hypoxic on room air currently -Likely 2/2 malignancy but cannot exclude PNA #Chronic hyponatremia-stable #Sinus tachycardia-resolved -Continue maintenance IV fluids since not eating #Stage 4 Squamous Cell CA of lung - Continue current treatment plan - Pending brain MRI d/t concern for metastasis - Supportive Care as needed - Palliative care on board to help in disease prognosis Dvt ppx: ppx Lovenox abx: levaquin, flagyl will finish on 05/10 diet: regular diet Disposition: Guarded, will continue current plan of care. [facility] prognosis guarded. Placement: Inpt rehab, CM on board. Medically cleared for discharge to inpatient rehab Addendum - Attending - Attending Attestation Date/Time: 05/09/19 1411 I personally evaluated the patient at 1035 and discussed the management with Dr. Ladd. I agree with the History, Examination, Assessment and Plan documented above with any addition or exceptions noted below. Hyponatremia- worsened. Will add fludrocortisone and recheck this pm. Multifactoral causes. Tachycardia- deconditioned- probably intravascularly depleted- will give some NS. Diarrhea- 3 episodes over the past few days. Is on levaquin and flagyl of diverticulitis- no belly pain. Monitor Stage IV lung cancer- attempted another discussion about goals of treatment and mother wants curative treatment (Baljeet states he just wants to see his dog).
[2019-05-09 07:29] LABS: ALT (SGPT) 31 U/L (8-55); AST (SGOT) 26 U/L (5-34); Albumin 3.8 g/dL (3.5-5.0); Alkaline Phosphatase 49 U/L (40-110); Anion Gap 13 mmol/L (10-20); BUN (Urea Nitrogen) 14 mg/dL (8.9-20.6); Bilirubin, Total 0.5 mg/dL (0.2-1.2); Calc. Creatinine Clearance 149 mL/min (70-130); Calcium 9.2 mg/dL (7.8-10.44); Carbon Dioxide 21 mmol/L (22-29); Chloride 92 mmol/L (98-107); Estimated GFR-MDRD Greater than 90; Globulin 3.3 g/dL (2.4-3.5); Glucose 95 mg/dL (70-105); Potassium 4.2 mmol/L (3.5-5.1); Protein, Total 7.1 g/dL (6.0-8.3); Sodium 122 mmol/L (136-145)
[2019-05-09] MEDS: metroNIDAZOLE 500 MG TAB PO SCH ×4 (07:58→20:39)
[2019-05-09] MEDS: Potassium Chloride 20 MEQ TAB PO SCH ×2 (07:58→20:39)
[2019-05-09] MEDS: Multivit, Chewable SF 1 TAB PO SCH (07:58)
[2019-05-09] MEDS: Magnesium Oxide 400 MG TAB PO SCH ×2 (07:58→20:39)
[2019-05-09] MEDS: predniSONE 20 MG TAB PO SCH (07:59)
[2019-05-09] MEDS: Famotidine/PF 20 mg/2ml Vial SLOW IVP SCH ×2 (07:59→20:40)
[2019-05-09] MEDS: Enoxaparin Sodium 40 MG/0.4 ML SYRINGE SC SCH (08:00)
[2019-05-09] MEDS ORDERED: Fludrocortisone Acetate 0.1 MG TAB PO SCH (10:00)
[2019-05-09] MEDS ORDERED: Sodium Chloride 0.9% 1,000 ML IV SCH (14:15)
[2019-05-09 16:36] LABS: Anion Gap 13 mmol/L (10-20); BUN (Urea Nitrogen) 15 mg/dL (8.9-20.6); Calc. Creatinine Clearance 138 mL/min (70-130); Calcium 9.3 mg/dL (7.8-10.44); Carbon Dioxide 23 mmol/L (22-29); Chloride 91 mmol/L (98-107); Estimated GFR-MDRD Greater than 90; Glucose 105 mg/dL (70-105); Potassium 4.6 mmol/L (3.5-5.1); Sodium 122 mmol/L (136-145)
[2019-05-09] MEDS: predniSONE 5 MG TAB PO SCH (20:39)
[2019-05-09] MEDS: Melatonin 3 MG TAB PO SCH (20:40)
[2019-05-10 06:09] LABS: ALT (SGPT) 23 U/L (8-55); AST (SGOT) 19 U/L (5-34); Albumin 3.7 g/dL (3.5-5.0); Alkaline Phosphatase 49 U/L (40-110); Anion Gap 13 mmol/L (10-20); BUN (Urea Nitrogen) 12 mg/dL (8.9-20.6); Bilirubin, Total 0.5 mg/dL (0.2-1.2); Calc. Creatinine Clearance 140 mL/min (70-130); Carbon Dioxide 21 mmol/L (22-29); Chloride 92 mmol/L (98-107); Estimated GFR-MDRD Greater than 90; Globulin 3.3 g/dL (2.4-3.5); Glucose 94 mg/dL (70-105); Potassium 4.5 mmol/L (3.5-5.1); Sodium 121 mmol/L (136-145)
--- NOTE | 2019-05-10 06:13 | PDOC.FM ---
- Subjective Subjective: Reports feeling very tired this morning, did not sleep well. No overnight events. Denies pain and SOB. - Objective MAR Reviewed: Yes Vital Signs & Weight: Vital Signs (12 hours) Temp Pulse Resp BP Pulse Ox 05/09/19 20:00 99 05/09/19 19:56 97.7 F 88 18 139/89 99 Weight Admit Weight 68.583 kg Weight 68.583 kg Most Recent Monitor Data Heart Rate from ECG 65 NIBP 138/83 NIBP BP-Mean 101 Respiration from ECG 21 SpO2 99 Result Diagrams: 05/05/19 05:05 05/10/19 05:35 Phys Exam - Physical Examination Constitutional: NAD HEENT: moist MMs Neck: supple Respiratory: no wheezing, clear to auscultation bilateral Cardiovascular: RRR, no significant murmur Gastrointestinal: soft, non-tender Neurological: non-focal Psychiatric: normal affect Skin: normal turgor Dx/Plan - Plan Plan: 39yo male with pmh central pontine myelinolysis, 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 Encephalopathy, stable - 2/2 infection vs adrenal insuffciency vs suspected mets - Discussed with onc, no plans for MRI this hospitalization - Recommend further f/u outpt with heme/onc in regards to course care - Supportive Care Diverticulitis - Course of Abx finishes today - Bcx/UCx NGTD Chronic hyponatremia, acutely worse - Continue fludrocortisone for MCA activity, started yesterday Adrenal insufficiency - likely 2/2 chemotherapy - Fever, abd pain, h/o of electrolyte imbalances, neurosychiatric sxs-may be precipitated by infection, see above for plan - Low AM cortisol - On daily PO steroids, added Fludrocortisone yesterday Elevated AST - Likely from chronic etOH abuse - Continue multivitamin - Hep studies negative Sepsis 2/2 to Diverticulitis, resolved Insomnia - Continue melatonin qhs Hypokalemia, hypomagnesemia - replaced K/Mg-restarted home meds Acute hypoxic respiratory failure, resolved - SpO2 stable on RA Sinus tachycardia, resolved Stage 4 Squamous Cell CA of lung - Continue current treatment plan - Pending brain MRI d/t concern for metastasis - Supportive Care as needed - Palliative care on board DVT ppx: ppx Lovenox Code Status: abx: levaquin, flagyl will finish on 05/10 Addendum - Attending - Attending Attestation Date/Time: 05/10/19 6518 I personally evaluated the patient and discussed the management with Dr. Mishra. I agree with the History, Examination, Assessment and Plan documented above with any addition or exceptions noted below. Patient overall stable. Sodium level continues to decline, on Fludricortisone and will start some salt tabs as poor PO intake likely contributes to his symptoms. Otherwise, awaiting rehab placement.
[2019-05-10 07:39] VITALS: BP 131/90; TEMP 98.2
[2019-05-10] MEDS: Multivit, Chewable SF 1 TAB PO SCH (08:47)
[2019-05-10] MEDS: Magnesium Oxide 400 MG TAB PO SCH (08:47)
[2019-05-10] MEDS: metroNIDAZOLE 500 MG TAB PO SCH ×3 (08:47→17:36)
[2019-05-10] MEDS: Potassium Chloride 20 MEQ TAB PO SCH (08:47)
[2019-05-10] MEDS: predniSONE 20 MG TAB PO SCH (08:47)
[2019-05-10] MEDS: Enoxaparin Sodium 40 MG/0.4 ML SYRINGE SC SCH (08:48)
[2019-05-10] MEDS: Famotidine/PF 20 mg/2ml Vial SLOW IVP SCH (08:49)
[2019-05-10] MEDS ORDERED: Fludrocortisone Acetate 0.1 MG TAB PO SCH (09:00)
[2019-05-10] MEDS ORDERED: Sodium Chloride 1 GM TAB PO SCH ×2 (09:15→21:00)
--- NOTE | 2019-05-10 09:40 | PRG ---
TRANSITION OF CARE NOTE from 05/01-05/09/19 DATE OF SERVICE: 05/09/2019 Mr. 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 He came in on 2019 for increased weakness and altered mental status. The patient was found to be tachycardic with white count and fever. CT of the abdomen showed signs of acute diverticulitis. He was admitted for sepsis secondary to diverticulitis and AMS secondary to this. In addition, there was a large right upper lung cavitation that was thought to be hospital-acquired pneumonia, so he was also treated for presumed pneumonia. .Over the course of the next couple of days, the patient's mental status did not initially improve and due to increased requirement for oxygen, there was concern for impending respiratory failure so he was moved to the CCU. He did not require any intubation as initially expected, but was able to be weaned down to nasal cannula and eventually to room air and became stabilized from a respiratory point of view. ENCEPHALOPATHY:Return to the patient's baseline mentation has been the challenge of this admission. At baseline mother reports he is a&o x3, conversive and able to care for himself. Over the past few days patient has improved from a nonverbal state to now mostly being a&o 2-3 with some odd speech and some hallucinations. Labs showed adrenal insufficiency and he is being treated with steroids. With this and with treatment of diverticulitis his mentation has improved but not quite at baseline. There is concern for possible metastatsis to the brain; however MRI is unobtainable since patient couldn't remain still for imaging. 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 ADRENAL INSUFFICIENCY: Likely thought to be secondary to his chemotherapy, Keytruda. He is being treated with steroids which have improved his chronic electrolyte deficiences. ACUTE ON CHRONIC HYPONATREMIA: In addition, the patient has chronic hyponatremia likely from his chronic alcohol abuse. On 05/09, he did experience a low sodium of 122. He was started on fludrocortisone to give some mineralocorticoid activity. His hyponatremia is a probably result of his adrenal insufficiency. Should the patient clinically deteriorates, it would be reasonable to rehab the conversation how aggressively to be in treating the hyponatremia. PLACEMENT: Currently, due to severe physical deconditioning, the patient is pending placement at inpatient rehab. I highly think that this patient's prognosis is really poor and would really recommend discussing with the oncologist in order to better coordinate goals of care between the mother and the patient and the sister. If there are any further questions, do not hesitate to contact me. I am happy to answer questions in regard to his care that he received during this time here. Job ID: [id number] MTDD
--- NOTE | 2019-05-10 19:19 | DIS ---
DATE OF ADMISSION: 05/01/2019 DATE OF DISCHARGE: 05/10/2019 RESIDENT: Azucena Mishra, PGY-2. ADMITTING ATTENDING: Matheus Winkler MD. DISCHARGE ATTENDING: Matheus Winkler MD. CONSULT: Pulmonology. PROCEDURES: 1. Chest x-ray on 05/01/2019, large right upper lobe cavitary lesion, wall has become thinner since prior study. No other interval changes. Moderate-sized hiatal hernia. 2. Abdominal pelvis CT on 05/01/2019, evidence for mild sigmoid colonic diverticulitis. No other significant pathology identified. Mild enlargement of the right adrenal gland is unchanged. The previously demonstrated small focal hepatic lesions are not visualized on the current study. 3. Chest thorax CTA on 05/01/2019, no evidence of pulmonary thromboembolism. Very large right upper lobe cavitation and adjacent air cyst with chronic bronchiectasis and chronic consolidation. Moderate size hiatal hernia. 4. Brain CT on 05/01/2019, no acute intracranial findings. Atrophy of midbrain and jeronimo. 5. Chest x-ray on 05/02/2019, no significant interval change. PRIMARY DIAGNOSES: 1. Adrenal insufficiency. 2. Sepsis secondary to diverticulitis, resolved. 3. Acute hypoxic respiratory failure, resolved. 4. Diverticulitis. 5. Chronic hyponatremia, acutely worse. 6. Encephalopathy. SECONDARY DIAGNOSES: 1. Insomnia. 2. Hypokalemia. 3. Hypomagnesemia. 4. Sinus tachycardia. 5. Stage IV squamous cell carcinoma of the lung. DISCHARGE MEDICATIONS: 1. Magnesium oxide 400 mg b.i.d. 2. Melatonin 3 mg at bedtime. 3. Multivitamin one tablet daily. 4. Zofran 4 mg p.o. q.6 hours p.r.n. 5. Potassium chloride 40 mEq b.i.d. 6. Prednisone 5 mg at bedtime. 7. Prednisone 10 mg q.a.m. 8. Sodium chloride 1 g p.o. b.i.d. 9. Tylenol 650 mg q.4 hours p.r.n. 10. Fludrocortisone 0.1 mg daily. 11. Motrin 600 mg q.6 hours p.r.n. 12. Ibuprofen soft gel two capsules p.o. at bedtime. 13. Omeprazole 20 mg p.o. daily. 14. Phos-Nak 2 packets p.o. t.i.d. HISTORY OF PRESENT ILLNESS/HOSPITAL COURSE: Mr. Mi is a 39-year-old male with past medical history of GERD, hypokalemia, hypophosphatemia, and SCC of the lung , who was admitted for sepsis secondary to diverticulitis and acute respiratory failure. Please see Dr. Julia Ladd's transition of care note on 05/09/2019 , for details of most of his hospital stay. When I began taking care of this patient , his sodium had decreased from 122 to 121 despite fludrocortisone being added today prior; therefore, I added sodium chloride tablets with meals. The patient was accepted for inpatient rehab and discharged in stable condition. DISPOSITION: Stable. DISCHARGE INSTRUCTIONS: 1. Location: [facility]. 2. Activity: As tolerated with assistance and PT/OT following. 3. Diet: Regular plus Ensure Enlive p.r.n. 4. Follow up with Dr. Duran within 7 days. 5. Follow up with the patient's PCP after discharge from [facility]. Job ID: [id number] EDEN
== END 2019-05-10 17:40 | DRG 871 ==
LOC: ERS 16:29 → 2NO 21:38 → CCU 05-02 12:59 → T4-B 05-04 15:38
PROVIDERS: ADMIT Student in an Organized Health Care Education/Training Program; ATTEND Student in an Organized Health Care Education/Training Program
DX: A41.9 Sepsis, unspecified organism (principal); G93.41 Metabolic encephalopathy; J96.01 Acute respiratory failure with hypoxia; J18.9 Pneumonia, unspecified organism; G37.2 Central pontine myelinolysis; E87.1 Hypo-osmolality and hyponatremia; K57.32 Diverticulitis of large intestine without perforation or abscess without bleeding; C34.90 Malignant neoplasm of unspecified part of unspecified bronchus or lung; E27.3 Drug-induced adrenocortical insufficiency; C78.7 Secondary malignant neoplasm of liver and intrahepatic bile duct; Z51.5 Encounter for palliative care; K21.9 Gastro-esophageal reflux disease without esophagitis; F41.9 Anxiety disorder, unspecified; F32.9 Major depressive disorder, single episode, unspecified; F10.20 Alcohol dependence, uncomplicated; E87.6 Hypokalemia; E83.42 Hypomagnesemia; Y95 Nosocomial condition; G47.00 Insomnia, unspecified; T45.1X5A Adverse effect of antineoplastic and immunosuppressive drugs, initial encounter; Z85.828 Personal history of other malignant neoplasm of skin; Z79.899 Other long term (current) drug therapy; Z87.891 Personal history of nicotine dependence; Z88.0 Allergy status to penicillin
CPT/HCPCS: 36415; 36416; 70450; 71045; 71275; 74177; 80048; 80053; 80202; 80400; 81003; 81015; 82533; 82805; 83605; 83735; 84100; 84145; 84484; 85025; 85060; 86706; 86803; 86850; 86900; 86901; 87040; 87086; 87340; 87389; 87804; 93005; 94760; 96361; 96365; 96366; 96367; 96375; J0692; J0834; J1100; J1650; J1720; J2270; J2405; J2920; J3370; J3475; J3480; J3490; J7050; J7512; J7626; Q9967; S0028

== ENCOUNTER 2019-05-18 23:24 | Inpatient (IN) | payer OTHER ==
[2019-05-18] MEDS ORDERED: Succinylcholine Chloride 20 MG/ML 10 ml SYRINGE FS ONE (23:28)
[2019-05-18] MEDS ORDERED: Propofol 1,000 MG/100 ML VIAL IV ONE (23:48)
--- NOTE | 2019-05-18 23:49 | RAD ---
XR Chest 1 View Portable History: Dyspnea Comparison: Radiograph May 02, 2019 Findings: Patient is intubated with endotracheal tube tip at the level of the clavicles in good posit ion. Enteric tube tip is below diaphragm although out of field of view. Port catheter tip resides at the inferior SVC. Old right rib fractures. Scarring and bullous formation within the right upper lobe. Likely large hia emery hernia. Impression: Lines and tubes as above. No acute intrathoracic abnormality.
[2019-05-19 00:01] LABS: Hemoglobin 11.3 g/dL (14.0-18.0); Mean Corpuscular HGB CONC 32.5 g/dL (32.0-36.0); Mean Corpuscular Hemoglobin 30.2 pg (27.0-31.0); Mean Corpuscular Volume 92.9 fL (78.0-98.0); RBC Distribution Width 16.2 % (11.5-14.5); Red Blood Cell (RBC) Count 3.76 mill/uL (4.70-6.10)
[2019-05-19] MEDS ORDERED: Vecuronium 10 MG VIAL ONE (00:01)
[2019-05-19] MEDS ORDERED: Water For Inject, Bacteriostat 30 ML ONE (00:02)
[2019-05-19 00:03] LABS: Band 6 % (5-11); Eosinophils 2 % (0-10); Lymphocytes 12 % (21-51); MDiff Complete? YES; Mean Platelet Volume 7.9 fL (7.4-10.4); Monocytes 9 % (0-10); Neutrophil 71 % (42-75); Platelet Count 378 thou/uL (130-400); White Blood Cell (WBC) Count 37.5 thou/uL (4.8-10.8)
[2019-05-19] MEDS ORDERED: Acetaminophen 650 MG Suppository ONE (00:07)
[2019-05-19 00:08] LABS: ALT (SGPT) 12 U/L (8-55); AST (SGOT) 15 U/L (5-34); Albumin 3.8 g/dL (3.5-5.0); Alkaline Phosphatase 51 U/L (40-110); Anion Gap 14 mmol/L (10-20); BUN (Urea Nitrogen) 23 mg/dL (8.9-20.6); Bilirubin, Total 0.4 mg/dL (0.2-1.2); CK (CPK) 17 U/L (30-200); Calc. Creatinine Clearance 0 mL/min (70-130); Calcium 9.1 mg/dL (7.8-10.44); Carbon Dioxide 24 mmol/L (22-29); Chloride 93 mmol/L (98-107); Estimated GFR-MDRD 83; Globulin 3.4 g/dL (2.4-3.5); Glucose 172 mg/dL (70-105); Potassium 4.1 mmol/L (3.5-5.1); Protein, Total 7.2 g/dL (6.0-8.3); Sodium 127 mmol/L (136-145)
[2019-05-19 00:12] LABS: Analyzer IN Cardio ER; Base Excess (BEa) -1.6 mEq/L (-2.0 to +3.0); CO2 Tension 38.4 mmHg (35.0-45.0); Calcium, Ionized 1.12 mmol/L (1.12-1.30); Hemoglobin (Hb) 11.5 g/dL (14.0-18.0); O2 Tension (PaO2) 135.2 mmHg (80.0-100.0); Potassium - ABG Lab 4.04 mmol/L (3.70-5.30)
[2019-05-19 00:15] LABS: Puncture Site LRA
[2019-05-19 00:23] LABS: Bilirubin Negative (Negative); Blood, Urine Negative (Negative); Clarity Clear (Clear); Glucose, Urine (Dipstick) Normal (Negative); Leukocyte Negative Leu/uL (Negative); Nitrite Negative (Negative); Protein, Urine (Dipstick) 20 mg/dL (Neg-Trace); Urobilinogen Normal mg/dL (Less than 2)
[2019-05-19] MEDS ORDERED: Cefepime 2 GM VIAL ONE (00:24)
[2019-05-19] MEDS ORDERED: Hydrocortisone Sod Succ/PF 100 mg/2 ml Vial ONE (01:00)
--- NOTE | 2019-05-19 01:40 | PDOC.FPRHP ---
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 He was noted by his mother to have no changes, symptoms when she left him around 1900 ana received a phone call at 2300 her son was in respiratory distress, sat'ing 65% on RA. He was started on CPAP with O2 sats in low 90's but was altered on presentation to the ED. At this time he was intubated. Hx was provided by ED physician, mother. He was recently discharged with a diagnosis of diverticulitis, leukocytosis. According to his mother he felt well when he left but weak. He had no complaints to her earlier in the day. She did not brief episodes of altered mental status fluctuating over the last week. ED Course: In the ED pt was intubated. He was started on levaquin, vanc, cefepime. CTA revealed RUL partial collapse, bullous formation. Possible malignancy vs inflammatory vs infectious etiology in the lower lobes. He received fluids. Na 127. WBC 37.5. Blood gas after intubation had a ph 7.4, A-a gradient 529, [id number], CO2 38.4, bicarb 23. - Allergies/Adverse Reactions Allergies Allergy/AdvReac Type Severity Reaction Status Date / Time Penicillins Allergy Verified 04/05/19 21:51 - Home Medications Medication Instructions Recorded Confirmed Type Ibuprofen/Diphenhydramine HCl 2 capsule PO HS 12/31/18 05/19/19 History [Ibuprofen PM Softgel] Omeprazole 20 mg PO DAILY 12/31/18 05/19/19 History Magnesium Oxide 400 mg PO BID #30 tab 04/16/19 05/19/19 Rx Ondansetron [Zofran ODT] 4 mg PO Q6HR PRN 05/02/19 05/19/19 History Potassium Chloride [K-Dur] 40 meq PO BID 05/02/19 05/19/19 History Acetaminophen [Tylenol Elixir] 650 mg PO Q4H PRN udcup 05/08/19 05/19/19 Rx Melatonin 3 mg PO HS tab 05/08/19 05/19/19 Rx Ondansetron [Zofran ODT] 4 mg PO Q6H PRN tab 05/08/19 05/19/19 Rx predniSONE 5 mg PO QPM tab 05/08/19 05/19/19 Rx predniSONE 10 mg PO QAM-WM tab 05/08/19 05/19/19 Rx Fludrocortisone Acetate [Florinef] 0.1 mg PO DAILY #30 tab 05/10/19 05/19/19 Rx Multivit, Chewable SF 1 tab PO DAILY #30 tab 05/10/19 05/19/19 Rx [Multivitamin, Chewable] Sodium Chloride 1 gm PO BID #60 tab 05/10/19 05/19/19 Rx Benzocaine/Menthol [Cepacol Sore 1 each MM BID PRN 05/19/19 05/19/19 History Throat Lozenge] Bisacodyl [Dulcolax] 10 mg WA DAILY PRN 05/19/19 05/19/19 History Calcium Carbonate [Tums] 1,000 mg PO QID PRN 05/19/19 05/19/19 History Calcium Carbonate [Tums] 500 mg PO QID PRN 05/19/19 05/19/19 History Dextrose 5 % In Water [Glucose 50 ml IV ASDIR PRN 05/19/19 05/19/19 History 5%-Water 50 ml] Enoxaparin Sodium [Lovenox] 40 mg SC DAILY 05/19/19 05/19/19 History Glucagon 1 mg IM ONE PRN 05/19/19 05/19/19 History Ibuprofen 600 mg PO Q6HR PRN 05/19/19 05/19/19 History Ibuprofen [Motrin] 400 mg PO Q6H 05/19/19 05/19/19 History Lactulose 10 GM/15ML Oral Mallika 30 gm PO TID PRN 05/19/19 05/19/19 History [Lactulose] Loperamide HCl [Loperamide] 2 mg PO ASDIR PRN 05/19/19 05/19/19 History Magnesium Hydroxide [Milk of 2,400 mg PO DAILY PRN 05/19/19 05/19/19 History Magnesia] Megestrol Acetate [Megace] 400 mg PO DAILY 05/19/19 05/19/19 History Polyethylene Glycol 3350 [Miralax] 17 gm PO DAILY 05/19/19 05/19/19 History cloNIDine [Catapres] 0.1 mg PO Q6HR PRN 05/19/19 05/19/19 History diphenhydrAMINE [Benadryl] 25 mg PO Q6HR PRN 05/19/19 05/19/19 History guaiFENesin [Liquituss GG] 200 mg PO Q4HR PRN 05/19/19 05/19/19 History - History PMHx: Diverticulitis, hyponatremia, hypomagnesia, adrenal insufficiency, Insomnia, GERD, Stage IV Lung cancerw/ mets to Liver, central pontine myelinolysis, anxiety, depression PSHx: right arm, right foot FHx: father from [place], maternal grandmother DM Social: hx of tobacco abuse - 1.5 ppd smoker, hx of alcohol abuse - quit drinking in November, lives with mother - Review of Systems ROS unobtainable: due to mental status - Vital signs BP: [] HR: [] RR: [] Tmax: [] Pox: []% on [] Wt: [] - Physical Exam -Constitutional: intubated on exam HEENT: normocephalic and atraumatic, conjunctiva clear, no scleral icterus, MMM -HEENT: pupils equal and reactive to light but sluggish Neck: trachea midline, no JVD Heart: RRR, normal S1/S2 Lungs: CTAB, no respiratory distress -Lungs: Intubated Abdomen: soft, non-tender, bowel sounds present Skin: no rash/lesions Heme/Lymphatic: no purpura, no petechia FMR H&P: Results - Labs Result Diagrams: 05/19/19 03:09 05/19/19 03:09 Lab results: WBC 37.5 thou/uL (4.8-10.8) H 05/18/19 23:34 Hgb 11.3 g/dL (14.0-18.0) L 05/18/19 23:34 Hct 34.9 % (42.0-52.0) L 05/18/19 23:34 MCV 92.9 fL (78.0-98.0) 05/18/19 23:34 Plt Count 378 thou/uL (130-400) 05/18/19 23:34 Band Neuts % (Manual) 6 % (5-11) 05/18/19 23:34 ABG pH 7.40 (7.35-7.45) 05/19/19 00:08 ABG pCO2 38.4 mmHg (35.0-45.0) 05/19/19 00:08 ABG pO2 135.2 mmHg (80.0-100.0) H 05/19/19 00:08 Sodium 127 mmol/L (136-145) L 05/18/19 23:34 Potassium 4.1 mmol/L (3.5-5.1) 05/18/19 23:34 Chloride 93 mmol/L (98-107) L 05/18/19 23:34 Carbon Dioxide 24 mmol/L (22-29) 05/18/19 23:34 BUN 23 mg/dL (8.9-20.6) H 05/18/19 23:34 Creatinine 1.00 mg/dL (0.7-1.3) 05/18/19 23:34 Glucose 172 mg/dL (70-105) H 05/18/19 23:34 Lactic Acid 1.4 mmol/L (0.5-2.2) 05/18/19 23:35 Calcium 9.1 mg/dL (7.8-10.44) 05/18/19 23:34 Total Bilirubin 0.4 mg/dL (0.2-1.2) 05/18/19 23:34 AST 15 U/L (5-34) 05/18/19 23:34 ALT 12 U/L (8-55) 05/18/19 23:34 Alkaline Phosphatase 51 U/L (40-110) 05/18/19 23:34 Creatine Kinase 17 U/L (30-200) L 05/18/19 23:34 B-Natriuretic Peptide 22.1 pg/mL (0-100) 05/18/19 23:35 Serum Total Protein 7.2 g/dL (6.0-8.3) 05/18/19 23:34 Albumin 3.8 g/dL (3.5-5.0) 05/18/19 23:34 Urine Ketones Negative mg/dL (Negative) 05/19/19 00:00 Urine Blood Negative (Negative) 05/19/19 00:00 Urine Nitrite Negative (Negative) 05/19/19 00:00 Ur Leukocyte Esterase Negative Lori/uL (Negative) 05/19/19 00:00 - Radiology Interpretation CT scan - chest Status: image reviewed by me, report reviewed by me Additional comment: CTA revealed RUL partial collapse, bullous formation. Possible malignancy vs inflammatory vs infectious etiology in the lower lobes. FMR H&P: A/P - Problem List (1) Acute respiratory failure with hypoxia Current Visit: Yes Status: Acute Code(s): J96.01 - ACUTE RESPIRATORY FAILURE WITH HYPOXIA (2) SIRS (systemic inflammatory response syndrome) Current Visit: Yes Status: Acute Code(s): R65.10 - SIRS OF NON-INFECTIOUS ORIGIN W/O ACUTE ORGAN DYSFUNCTION (3) Diverticulitis Current Visit: No Status: Acute Code(s): K57.92 - DVTRCLI OF INTEST, PART UNSP, W/O PERF OR ABSCESS W/O BLEED (4) Hypomagnesemia Current Visit: No Status: Acute Code(s): E83.42 - HYPOMAGNESEMIA (5) Hyponatremia Current Visit: No Status: Acute Code(s): E87.1 - HYPO-OSMOLALITY AND HYPONATREMIA (6) GERD (gastroesophageal reflux disease) Current Visit: No Status: Chronic Code(s): K21.9 - GASTRO-ESOPHAGEAL REFLUX DISEASE WITHOUT ESOPHAGITIS (7) Stage 4 lung cancer Current Visit: No Status: Chronic Code(s): C34.90 - MALIGNANT NEOPLASM OF UNSP PART OF UNSP BRONCHUS OR LUNG (8) Alcohol abuse Current Visit: No Status: Resolved Code(s): F10.10 - ALCOHOL ABUSE, UNCOMPLICATED - Plan Mr Mi is a 39 yo male here for respiratory failure with hypoxia: # Respiratory Failure with Hypoxia # Stage IV Lung Cancer - intubated - start levaquin, vanc, cefepime - pt meets SIRS criteria although pulmonary do not appear to be reason. Negative PE, possible inflammatory in the bases. - A-a gradient 529, pH 7.4, PaO2 135, CO2 38.4, Bicarb 23 - Fluid resuscitation - Dr. Duran following for malignancy # SIRS w/o source - CT Abdomen pending w/ history of diverticulitis - levaquin, vanc, cefepime started # Hyponatremia - stress dose steroids for adrenal insufficiency although this is much improved from d/c Na of 127. # Adrenal Insuffiency - stress dose home meds # Hx of Diverticulitis - CT Abdomen pending # Hx of Electrolyte abnormalities - pending magnesium, phosphorous Diet: NPO Fluids: NS 150 mls/hr VTE: Lovenox Code: Full Dispo: > 48 hrs FMR H&P: Upper Level - Plan Date/Time: 05/19/19 0140 Luz Rowland DO, have evaluated this patient and agree with findings/plan as outlined by general intern resident. Pertinent changes/additions are listed here. Pt is a 39 yo M with PMH of stage 4 lung cancer and recent dx of adrenal insufficiency, currently being treated by Dr. 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 EMS reports originally mid 80's in o2 sat, switched him to CPAP and was in the mid 90's. He then had drop in level of conciousness. Initial O2 on arrival was 94% on CPAP, with a RR of 57. Mother reports some mild n/v 2-3 days ago and L leg pain, otherwise, reports he had no complaints. She does report fluctuant confusion and decrease in his ability to provide conversation over the last 1-2 wks. No diarrhea, abd pain, cough, SOB, dysuria per mother. In the ED he was intubated using vecuronium 10mg, succinylcholine 100mg, and etomidate 20mg, and sedated with propofol. He received solu-cortef 100mg, Tylenol 650mg WA, 2L NS, 2g Cefepime, 1g Vancomycin, 750mg Levaquin. VS: BP 159/109, P154, R16, T99.7, O2 100% on vent PE: Gen: pale, thin, intubated and sedated HEENT: Dry MM, no LAD, no JVD, PERRL Heart: tachycardic, no murmurs or extra sounds. Distal pulses 2+ Lungs: Breathing over the vent, some scattered rhonchi throughout, no wheezing. Abd: soft, nontender, BS+ Ext: no cyanosis or edema Skin: no rashes or wounds present Neuro: GCS- E(1) V(NT) M(1) Pertinent Labs/Imaging: Trop <0.010 UA normal BNP 22.1 AB.4/38.4/135.2/23 Na 127 WBC 37.5, H/H 11.3/34.9, Bands-6 LA 1.4 Phos CXR: RUL bullous area considered to be scarring per radiologist read, no acute changes CTA: no PE per Vrad report. EKG: Sinus tachycardia at rate of 176 A/P: Acute Hypoxic Respiratory Failure: -DDx includes infectious etiology, neoplasm, PE (ruled out with neg CTA). -continue current vent settings, rate 16, Tv 480, PEEP 8, FiO2 90% -repeat ABG with morning labs -consult Pulm SIRS without Source: -tachycardia, elevated WBC, and increased RR. -blood and urine cx pending -procal pending -Continue broad spectrum abx- Vanc, cefepime, and Levaquin -Ctabd/pelv with IV contrast to evaluate for source. Adrenal Insufficiency: -received stress dose 100mg solucortef in ED, will increase daily steroid dose by 3x and start hydrocorisone 120mg qAM and 60mg qPM Chronic Hyponatremia: -improved from discharge. -appears hypovolemic at this point, will bolus 1L LR Hyperphosphatemia: -hold replacement and recheck in AM Hypomagnesemia: -replace and recheck Stage IV Lung Cancer: -plan for heme/onc consult in AM DVT PPx: Lovenox GI PPx: Protonix Code Status: Discussed with mother- Full code Dispo: guarded, LOS>48h. Addendum - Attending - Attending Attestation Date/Time: 05/19/19 5561 I personally evaluated the patient and discussed the management with Dr. Angeles and César. I agree with the History, Examination, Assessment and Plan documented above with any addition or exceptions noted below.
[2019-05-19] MEDS ORDERED: Ventilator Sedation Protocol 1 EACH FS SCH (02:45)
[2019-05-19] MEDS ORDERED: Morphine 2 MG/ML SYRINGE SLOW IVP PRN (02:48)
[2019-05-19] MEDS ORDERED: Lorazepam 2 MG/ML VIAL SLOW IVP PRN (02:48)
[2019-05-19] MEDS ORDERED: DISCONTINUE PREVIOUS NARCOTIC PAIN MEDICATIONS AND BENZODIAZEPINES FS SCH (02:48)
[2019-05-19] MEDS ORDERED: Propofol BOLUS 1,000 MG/100 ML VIAL IV PRN (02:48)
[2019-05-19] MEDS ORDERED: Fentanyl BOLUS 250 ML IVPB PRN (02:48)
[2019-05-19] MEDS ORDERED: Lactated Ringer's 1,000 ML IV SCH ×2 (03:00→03:45)
[2019-05-19 03:03] LABS: Magnesium 1.5 mg/dL (1.6-2.6); Phosphorus 5.7 mg/dL (2.3-4.7)
--- NOTE | 2019-05-19 03:07 | PDOC.BPN ---
- Brief Progress Note Date/Time: 05/19/19 6972 I personally evaluated the patient and discussed the management with Dr. Angeles at time of admission. H&P pending. I agree with the History, Examination, Assessment and Plan as discussed. Acute respiratory failure, s/p intubation. ABG unremarkable except for significant A-a gradient. Etiology of VQ mismatch cold be tumor burden, vs infection. CTA neg for PE. His tachycardia could be from hypovolemia and sepsis. Culture spedning. Locality of infection remains unclear. Empiric antibx initiated. additional IV fluid ordered above maintenance.
[2019-05-19] MEDS: Dextrose 5 % And 0.9 % NaCl 1,000 ML IV SCH ×2 (03:39→10:33)
[2019-05-19] MEDS ORDERED: CCU Electrolyte Replacement 1 EACH FS SCH (04:00)
[2019-05-19] MEDS ORDERED: Potassium Chloride 20 MEQ TAB PO PRN (04:00)
[2019-05-19] MEDS ORDERED: CCU ELECTROLYTE REPLACEMENT PROTOCOL FS PRN (04:00)
[2019-05-19] MEDS ORDERED: Magnesium Oxide 400 MG TAB PO PRN ×2 (04:00)
[2019-05-19] MEDS ORDERED: Potassium Chloride 40 MEQ in Sodium Chloride 0.9% 250 ML 250 ML IVPB PRN (04:00)
[2019-05-19] MEDS ORDERED: Potassium Phosphate 9 MMOL in Sodium Chloride 0.9% 100 ML IVPB PRN (04:00)
[2019-05-19] MEDS ORDERED: Potassium Phosphate 15 MMOL in Sodium Chloride 0.9% 250 ML 250 ML IV PRN (04:00)
[2019-05-19] MEDS ORDERED: Potassium Phosphate 12 MMOL in Sodium Chloride 0.9% 250 ML 250 ML IV PRN (04:00)
[2019-05-19] MEDS ORDERED: Magnesium 2 GM/50 ML 2 GM in Premix Bag 1 BAG IVPB PRN (04:00)
[2019-05-19] MEDS ORDERED: PHOS-NAK 1 PKT PACK PO PRN ×2 (04:00)
[2019-05-19 04:03] LABS: Anion Gap 13 mmol/L (10-20); BUN (Urea Nitrogen) 21 mg/dL (8.9-20.6); Calc. Creatinine Clearance 113 mL/min (70-130); Calcium 9.2 mg/dL (7.8-10.44); Carbon Dioxide 21 mmol/L (22-29); Chloride 98 mmol/L (98-107); Estimated GFR-MDRD Greater than 90; Glucose 131 mg/dL (70-105); Potassium 3.6 mmol/L (3.5-5.1); Sodium 128 mmol/L (136-145)
[2019-05-19 04:31] LABS: Band 10 % (5-11); Hemoglobin 10.9 g/dL (14.0-18.0); Lymphocytes 4 % (21-51); MDiff Complete? YES; Mean Corpuscular HGB CONC 32.4 g/dL (32.0-36.0); Mean Corpuscular Hemoglobin 30.2 pg (27.0-31.0); Mean Corpuscular Volume 93.1 fL (78.0-98.0); Mean Platelet Volume 8.6 fL (7.4-10.4); Monocytes 4 % (0-10); Neutrophil 82 % (42-75); Platelet Count 280 thou/uL (130-400); RBC Distribution Width 16.2 % (11.5-14.5); White Blood Cell (WBC) Count 38.6 thou/uL (4.8-10.8)
[2019-05-19] MEDS: Propofol 1,000 MG/100 ML VIAL IV PRN ×2 (06:19→16:28)
[2019-05-19] MEDS ORDERED: Bacteriostatic Water 30 ML VIAL FS PRN (06:30)
[2019-05-19 06:51] LABS: Actual Bicarbonate (HCO3a) 23.4 mEq/L (22-28); Base Excess (BEa) -0.1 mEq/L (-2.0 to +3.0); Calcium, Ionized 1.21 mmol/L (1.12-1.30); Carboxyhemoglobin (COHb) 1.1 gm% (0.0-3.0); Hemoglobin (Hb) 10.8 g/dL (14.0-18.0); O2 Tension (PaO2) 84.9 mmHg (80.0-100.0); Potassium - ABG Lab 3.82 mmol/L (3.70-5.30); pH, Arterial 7.46 (7.35-7.45)
[2019-05-19 06:52] LABS: Puncture Site LRA
--- NOTE | 2019-05-19 07:23 | PDOC.FM ---
- Subjective Subjective: Pt intubated and sedated. Family is not at bedside. - Objective Vital Signs & Weight: Vital Signs (12 hours) Temp Pulse Resp BP Pulse Ox 05/19/19 06:31 140 H 106/74 05/19/19 06:00 25 H 05/19/19 04:00 99.0 F 34 H 05/19/19 02:41 100 05/19/19 02:00 38 H 05/19/19 01:50 98.6 F Weight Weight 60.9 kg Most Recent Monitor Data Heart Rate from ECG 142 NIBP 103/83 NIBP BP-Mean 89 Respiration from ECG 39 SpO2 100 I&O: 05/18/19 05/19/19 05/20/19 06:59 06:59 06:59 Intake Total 1000 Output Total 1500 Balance -500 Result Diagrams: 05/19/19 03:09 05/19/19 03:09 Phys Exam - Physical Examination Constitutional: NAD HEENT: moist MMs Neck: no JVD, supple Respiratory: no rales rhonchi bilaterally Cardiovascular: no significant murmur, no rub Gastrointestinal: soft, non-tender Musculoskeletal: no edema, pulses present sedated Skin: no rash, normal turgor Dx/Plan (1) Acute respiratory failure with hypoxia Code(s): J96.01 - ACUTE RESPIRATORY FAILURE WITH HYPOXIA Status: Acute (2) SIRS (systemic inflammatory response syndrome) Code(s): R65.10 - SIRS OF NON-INFECTIOUS ORIGIN W/O ACUTE ORGAN DYSFUNCTION Status: Acute (3) Hypomagnesemia Code(s): E83.42 - HYPOMAGNESEMIA Status: Acute (4) Hyponatremia Code(s): E87.1 - HYPO-OSMOLALITY AND HYPONATREMIA Status: Acute (5) Physical deconditioning Code(s): R53.81 - OTHER MALAISE Status: Acute (6) Anxiety Code(s): F41.9 - ANXIETY DISORDER, UNSPECIFIED Status: Chronic (7) Depression Code(s): F32.9 - MAJOR DEPRESSIVE DISORDER, SINGLE EPISODE, UNSPECIFIED Status : Chronic (8) GERD (gastroesophageal reflux disease) Code(s): K21.9 - GASTRO-ESOPHAGEAL REFLUX DISEASE WITHOUT ESOPHAGITIS Status: Chronic (9) Stage 4 lung cancer Code(s): C34.90 - MALIGNANT NEOPLASM OF UNSP PART OF UNSP BRONCHUS OR LUNG Status: Chronic - Plan Plan: Acute Hypoxic Respiratory Failure: A- suspect 2/2 Mass effect considering the pts hx of lung cancer and impressive A-a gradient on ABG. DDx includes infectious etiology, neoplasm, PE (ruled out with neg CTA). CTA: no PE per Vrad report, official read pending. CXR: RUL bullous area considered to be scarring per radiologist read, no acute changes P- continue empiric ABX- vanc, cefepime, levaquin -Vent mgmt per pulm and RT -Pulm consult, recs much appreciated SIRS without Source: A- on admission pt had tachycardia, elevated WBC, and increased RR. blood and urine cx pending. procal unimpressive 0.2. Considering the acuity of this pt will continue ABX for now P-Continue broad spectrum abx- Vanc, cefepime, and Levaquin -Ctabd/pelv with IV contrast to evaluate for source -f/u on chest CT official read -IVF Adrenal Insufficiency: A- received stress dose 100mg solucortef in ED. at home pt was on fludrocortisone 0.1/day, and prednisone 15mg/day. P- will give stress dosing until acute illness has resolved, then resume home regimen Chronic Hyponatremia: A- improved from discharge last time P- will monitor and restart home NaCl tab once tolerating PO -change IVF from LR to NS Anemia -chronic, likely 2/2 chemotherapy thrombocytopenia -chronic, likely 2/2 chemotherapy Hyperphosphatemia: -replace and recheck as needed Hypomagnesemia: -replace and recheck as needed Stage IV Lung Cancer: -heme/onc consult DVT PPx: Lovenox GI PPx: Protonix Code Status: Discussed with mother- Full code Dispo: guarded, LOS>48h. Addendum - Attending - Attending Attestation Date/Time: 05/19/19 1041 I personally evaluated the patient and discussed the management with Dr. Zee I agree with the History, Examination, Assessment and Plan documented above with any addition or exceptions noted below. Patient remains tachycardic this morning. Will bolus 1L NS and increase maintenance rate to 200 mL/hr. Remains intubated and sedated. Etiology of respiratory failure still not clear. Continue IV antibiotics. Pressors as needed. Patient is not currently thrombocytopenic. Continue therapeutic lovenox for anticoagulation. Will await further recommendations from specialists. Overall prognosis is guarded.
[2019-05-19] MEDS ORDERED: Sodium Chloride 0.9% 1,000 ML IV SCH ×4 (07:45→10:45)
--- NOTE | 2019-05-19 07:49 | CT ---
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 EMS reports pt was originally mid 80s but was switched to CPAP and was brought up to the mid 90s. EMS reports level of consciousness has dropped. EMS states pt has stage 4 lung cancer. EMS reports pt does not buitrago ve fever, has normal blood sugars, and is not verbal but communicates by nodding his head. Pt is tachycardic. TECHNIQUE: Axial CTA images of the chest with intravenous contrast. MIP reconstructed images were cre ated and reviewed. CONTRAST: With; ISOVUE 370,100mL COMPARISON: None provided. FINDINGS: PULMONARY ARTERIES There is no intraluminal filling defect suspicious for PE. AORTA No thoracic aortic aneurysm or dissection. LUNGS There is an endotracheal tube above the stacey. There is a large bullous change involving the right upper lobe. There is some interstitial change and bronchiectasis to the right upper lobe. There is some sublobar collapse of the medial right upper lobe. No discrete mass appreciated. There is moderate tubular nodular interstitial infiltrate within the lower lobes bilaterally could be infectious or inflammatory. Metastatic disease excluded. PLEURAL SPACES No pleural effusion. No pneumothorax. HEART AND MEDIASTINUM No cardiomegaly. No significant pericardial effusion. Large tidal hernia. The re is an enteric tube in the stomach. LYMPH NODES Mildly prominent subcarinal and pretracheal lymph nodes BONES No focal osseous abnormality or acute fracture. CHEST WALL AND UPPER ABDOMEN Images through the upper abdomen are unremarkable. The chest wall is unr emarkable. IMPRESSION: 1. No evidence of pulmonary embolus 2. There is some sublobar collapse of the medial right upper lobe. A discrete central mass not appr eciated. There is considerable bullous change to the right upper lobe. There is some mildly prominent subcarinal and pretracheal lymph nodes. 3. Reticulonodular interstitial infiltrate lower lobes bilaterally nonspecific. This could be infec tious or inflammatory. Metastatic disease not entirely excluded. ELECTRONICALLY SIGNED BY: Sparkle Mota D.O. May 19, 2019 12:57:24 AM SUPPLY CHAIN MANAGER FINAL REPORT CT PULMONARY ANGIOGRAM WITH IV CONTRAST AND 3-D POSTPROCESSING: I agree with report by Dr. Sparkle Mota of [facility]. Transcribed Date/Time: 05/19/2019 8:07 AM
[2019-05-19] MEDS: Pantoprazole 40 MG VIAL IVP SCH (08:56)
[2019-05-19] MEDS: Enoxaparin Sodium 40 MG/0.4 ML SYRINGE SC SCH (08:56)
[2019-05-19] MEDS ORDERED: methylPREDNISolone Sod Succ/PF 125 MG/2 ML VIAL IVP SCH (09:00)
[2019-05-19] MEDS ORDERED: FLU VACC QS2019-20(6MOS UP)/PF 60 MCG/0.5 ML SYRINGE IM ONE (09:00)
[2019-05-19] MEDS ORDERED: Hydrocortisone Sod Succ/PF 100 mg/2 ml Vial IVP SCH ×2 (09:00→21:00)
--- NOTE | 2019-05-19 10:07 | CON ---
DATE OF CONSULTATION: 05/19/2019 TIME SPENT: 45 minutes Critical Care time. REASON FOR CONSULTATION: Acute respiratory failure. HISTORY OF PRESENT ILLNESS: This is a 39-year-old with metastatic squamous cell carcinoma from the lung. He was brought over from rehab earlier today with increasing shortness of breath. His mother says he has not been doing well over there for the last couple of days and has not been eating. He was intubated in the emergency room for low O2 saturations. He is currently on mechanical ventilation. PAST MEDICAL HISTORY: 1. Metastatic lung cancer. 2. Adrenal insufficiency by previous ACTH stimulation test. 3. Hyponatremia. 4. Gastroesophageal reflux. 5. Central pontine myelinolysis. 6. Anxiety. 7. Depression. PAST SURGICAL HISTORY: Right arm and right foot surgery. FAMILY MEDICAL HISTORY: Remarkable for heart disease and diabetes mellitus. ALLERGIES: PENICILLINS. REVIEW OF SYSTEMS: Cannot be obtained as the patient is currently on mechanical ventilation. PHYSICAL EXAMINATION: VITAL SIGNS: Temperature 99.1, pulse 145, blood pressure 115/82, O2 saturation 100%. GENERAL: The patient is currently awake, agitated, appears to be in respiratory distress. HEENT: Remarkable for alopecia. Pupils are 4 mm and reactive. Sclerae are anicteric. Oropharynx is dry. NECK: No adenopathy or JVD. LUNGS: Clear bilaterally. CARDIOVASCULAR: S1 and S2. Tachycardic. ABDOMEN: Soft and nontender. EXTREMITIES: Severe muscle wasting. LABORATORY DATA: A pH 7.46, pCO2 of 34, pO2 of 84 on SIMV rate 16, tidal volume 430, PEEP 6, pressure support 10, FiO2 of 70%. White blood cell count 38.6, hematocrit 33.5, platelet count 280. Sodium 128, potassium 3.6, chloride 98, CO2 of 21, BUN 21, creatinine 0.7, glucose 131. ASSESSMENT: 1. Acute respiratory failure requiring mechanical ventilation. 2. Stage IV lung cancer. 3. Severe protein-calorie malnutrition. 4. Hyponatremia. 5. Right upper lobe bullous disease. 6. Adrenal insufficiency. 7. Presumed sepsis. PLAN: 1. Given his elevated white count and decline, it would have to be assumed that he may have a healthcare-acquired infection. In addition to the cefepime, Levaquin, and vancomycin that have already been started, I will add antifungal coverage and await results from cultures that have been obtained. He will be sedated and continued on mechanical ventilation. 2. He will be placed on IV hydrocortisone since he is adrenally insufficient. 3. IV fluid resuscitation. 4. GI prophylaxis with Protonix. 5. DVT prophylaxis with enoxaparin. 6. Prognosis is guarded. Job ID: [id number]
[2019-05-19] MEDS: Micafungin 100 MG in Sodium Chloride 0.9% 100 ML IVPB SCH (10:14)
[2019-05-19] MEDS ORDERED: Sodium Chloride 0.9% 500 ML IV SCH (10:30)
[2019-05-19] MEDS: Sodium Chloride 0.9% 1,000 ML IV SCH ×3 (10:39→22:42)
[2019-05-19] MEDS: Vancomycin HCl 1 GM in Premix Bag 1 BAG IVPB SCH (12:46)
[2019-05-19] MEDS: Cefepime 2 GM in Sodium Chloride 0.9% 100 ML IVPB SCH ×2 (12:46→23:19)
[2019-05-19] MEDS: Hydrocortisone Sod Succ/PF 100 mg/2 ml Vial IVP SCH ×2 (17:16→23:19)
[2019-05-19] MEDS: Albuterol Sulfate 2.5 mg/3 ml Neb NEB SCH (23:52)
[2019-05-20] MEDS: Vancomycin HCl 1 GM in Premix Bag 1 BAG IVPB SCH ×2 (00:12→15:50)
[2019-05-20] MEDS: Sodium Chloride 0.9% 1,000 ML IV SCH ×2 (04:00→10:16)
[2019-05-20] MEDS: Propofol 1,000 MG/100 ML VIAL IV PRN ×3 (04:00→21:54)
[2019-05-20 04:20] LABS: Band 3 % (5-11); Hemoglobin 8.4 g/dL (14.0-18.0); Lymphocytes 2 % (21-51); MDiff Complete? YES; Mean Corpuscular HGB CONC 33.2 g/dL (32.0-36.0); Mean Corpuscular Hemoglobin 31.3 pg (27.0-31.0); Mean Corpuscular Volume 94.4 fL (78.0-98.0); Mean Platelet Volume 8.8 fL (7.4-10.4); Neutrophil 95 % (42-75); Platelet Count 194 thou/uL (130-400); RBC Distribution Width 16.3 % (11.5-14.5); Red Blood Cell (RBC) Count 2.68 mill/uL (4.70-6.10); White Blood Cell (WBC) Count 31.1 thou/uL (4.8-10.8)
[2019-05-20 04:46] LABS: Anion Gap 12 mmol/L (10-20); BUN (Urea Nitrogen) 15 mg/dL (8.9-20.6); Calc. Creatinine Clearance 128 mL/min (70-130); Calcium 8.8 mg/dL (7.8-10.44); Carbon Dioxide 19 mmol/L (22-29); Chloride 105 mmol/L (98-107); Estimated GFR-MDRD Greater than 90; Glucose 139 mg/dL (70-105); Magnesium 1.5 mg/dL (1.6-2.6); Phosphorus 2.6 mg/dL (2.3-4.7); Potassium 2.6 mmol/L (3.5-5.1); Sodium 133 mmol/L (136-145)
[2019-05-20] MEDS: Albuterol Sulfate 2.5 mg/3 ml Neb NEB SCH ×4 (07:08→23:57)
[2019-05-20 07:19] LABS: Actual Bicarbonate (HCO3a) 20.2 mEq/L (22-28); Base Excess (BEa) -2.2 mEq/L (-2.0 to +3.0); CO2 Tension 26.1 mmHg (35.0-45.0); Calcium, Ionized 1.17 mmol/L (1.12-1.30); Carboxyhemoglobin (COHb) 1.4 gm% (0.0-3.0); Hemoglobin (Hb) 8.4 g/dL (14.0-18.0); Potassium - ABG Lab 3.11 mmol/L (3.70-5.30); pH, Arterial 7.51 (7.35-7.45)
[2019-05-20 07:20] LABS: ALV-art Gradient 123.575 (0-20); O2 Tension (PaO2) 57.7 mmHg (80.0-100.0); Puncture Site RRA
[2019-05-20] MEDS: Hydrocortisone Sod Succ/PF 100 mg/2 ml Vial IVP SCH ×4 (07:21→23:01)
--- NOTE | 2019-05-20 07:46 | RAD ---
XR Chest 1 View Portable HISTORY: Respiratory failure, pneumonia COMPARISON: 05/18/2019 FINDINGS: Line and tube placements are unchanged in position. The heart size normal. The lungs are ex panded with chronic changes. No lobar consolidation, pneumothoraces or pleural effusions are seen. Old right rib fractures again seen.
--- NOTE | 2019-05-20 08:27 | PRG ---
DATE OF SERVICE: 05/20/2019 TIME SPENT: 35 minutes of critical care time. SUBJECTIVE: The patient remains intubated on mechanical ventilation. He is extremely tachypneic, also tachycardic. I investigated his MAR from alf and it did not note that he was on any type of narcotic therapy. OBJECTIVE: VITAL SIGNS: Currently, temperature is 98.1, pulse 128, blood pressure 110/77, and O2 saturation 98%. Intake for 24 hours 2923, output 2170. HEENT: Unremarkable. NECK: No adenopathy or JVD. LUNGS: Clear, but distant breath sounds. CARDIAC: S1 and S2, tachycardic. ABDOMEN: Soft and nontender. EXTREMITIES: Severe muscle wasting. LABORATORY DATA: White blood cell count 31.1, platelet count 194, and hematocrit 25.3. PH of 7.51, pCO2 of 26, pO2 of 57 on SIMV rate 16, tidal volume 430, PEEP 6, pressure support 16, and FiO2 of 30%. Sodium 133, potassium 2.6, chloride 105, CO2 of 19, BUN 15, creatinine 0.6, glucose 139, and magnesium 1.5. IMAGING DATA: Chest x-ray is actually fairly clear. ASSESSMENT: 1. Acute respiratory failure, requiring mechanical ventilation. 2. Stage IV lung cancer. 3. Severe protein-calorie malnutrition. 4. Hyponatremia. 5. Hypokalemia. 6. Hypomagnesemia. 7. Right upper lobe bullous disease. 8. Renal insufficiency. 9. Presumed sepsis. 10. Question of critical illness myopathy. PLAN: 1. It is very odd that he continues to be so tachypneic and tachycardic. He is not on any type of narcotic therapy as an outpatient, so I do not think he is withdrawing from anything. He could be this way because of pain, so we will go ahead and add a low-dose fentanyl drip. 2. He does not appear to be in imminently weanable from mechanical ventilation. 3. Continue supplement electrolytes. 4. Start tube feeds. 5. Continue antibiotics and antifungals. Job ID: [id number]
[2019-05-20] MEDS ORDERED: Labetalol HCl 100 MG/20 ML VIAL ONE (08:28)
[2019-05-20] MEDS: Enoxaparin Sodium 40 MG/0.4 ML SYRINGE SC SCH (08:30)
[2019-05-20] MEDS: Pantoprazole 40 MG VIAL IVP SCH (08:30)
--- NOTE | 2019-05-20 08:32 | PDOC.FM ---
- Subjective Subjective: pt intubated and sedated. resting comfortably. Remained tachycardic overnight. no acute events. - Objective Vital Signs & Weight: Vital Signs (12 hours) Temp Pulse Resp Pulse Ox 05/20/19 07:09 127 H 05/20/19 06:00 35 H 05/20/19 04:00 98.1 F 38 H 05/20/19 02:00 27 H 05/20/19 00:00 98.5 F 26 H 05/19/19 23:52 122 H 34 H 95 05/19/19 22:00 36 H Weight Admit Weight 60.781 kg Weight 60.9 kg Most Recent Monitor Data Heart Rate from ECG 130 NIBP 127/81 NIBP BP-Mean 96 Respiration from ECG 31 SpO2 95 I&O: 05/19/19 05/20/19 05/21/19 06:59 06:59 06:59 Intake Total 1000 2923 Output Total 1500 2170 Balance -500 753 Result Diagrams: 05/20/19 03:19 05/20/19 09:12 Phys Exam - Physical Examination Constitutional: NAD HEENT: moist MMs, sclera anicteric Neck: no JVD, supple Respiratory: no wheezing, no rhonchi Cardiovascular: no significant murmur tachy Gastrointestinal: soft, no distention Musculoskeletal: pulses present sedated Deviation from normal: sedated Skin: no rash, normal turgor Dx/Plan (1) Acute respiratory failure with hypoxia Code(s): J96.01 - ACUTE RESPIRATORY FAILURE WITH HYPOXIA Status: Acute (2) SIRS (systemic inflammatory response syndrome) Code(s): R65.10 - SIRS OF NON-INFECTIOUS ORIGIN W/O ACUTE ORGAN DYSFUNCTION Status: Acute (3) Hypomagnesemia Code(s): E83.42 - HYPOMAGNESEMIA Status: Acute (4) Hyponatremia Code(s): E87.1 - HYPO-OSMOLALITY AND HYPONATREMIA Status: Acute (5) Physical deconditioning Code(s): R53.81 - OTHER MALAISE Status: Acute (6) Anxiety Code(s): F41.9 - ANXIETY DISORDER, UNSPECIFIED Status: Chronic (7) Depression Code(s): F32.9 - MAJOR DEPRESSIVE DISORDER, SINGLE EPISODE, UNSPECIFIED Status : Chronic (8) GERD (gastroesophageal reflux disease) Code(s): K21.9 - GASTRO-ESOPHAGEAL REFLUX DISEASE WITHOUT ESOPHAGITIS Status: Chronic (9) Stage 4 lung cancer Code(s): C34.90 - MALIGNANT NEOPLASM OF UNSP PART OF UNSP BRONCHUS OR LUNG Status: Chronic - Plan Plan: Acute Hypoxic Respiratory Failure: A- unclear etiology. DDx includes infectious etiology, neoplasm, PE (ruled out with neg CTA). CTA: no PE per Vrad report, official read pending. CXR: RUL bullous area considered to be scarring per radiologist read, no acute changes P- continue empiric ABX- vanc, cefepime, levaquin -Vent mgmt per pulm and RT -Pulm consult, recs much appreciated SIRS without Source: A- on admission pt had tachycardia, elevated WBC, and increased RR. blood and urine cx pending. procal unimpressive 0.2. Considering the acuity of this pt will continue ABX for now P-Continue broad spectrum abx- Vanc, cefepime, and Levaquin -f/u BCx -IVF Tachycardia A- unclear etiology, EKG from admission reviewed and confirm sinus tachycardia. Possible etiology is infectious vs. pt being in pain P- continue IVF -fentanyl drip started -continue to monitor Adrenal Insufficiency: A- received stress dose 100mg solucortef in ED. at home pt was on fludrocortisone 0.1/day, and prednisone 15mg/day. P- will give stress dosing until acute illness has resolved, then resume home regimen Chronic Hyponatremia: A- improved from discharge last time P- will monitor and restart home NaCl tab once tolerating PO -continue NS Anemia -chronic, likely 2/2 chemotherapy hypokalemia -replace and recheck as needed Hyperphosphatemia: -replace and recheck as needed Hypomagnesemia: -replace and recheck as needed Stage IV Lung Cancer: -heme/onc consult DVT PPx: Lovenox GI PPx: Protonix Code Status: Discussed with mother- Full code Dispo: guarded, LOS>48h. Addendum - Attending - Attending Attestation Date/Time: 05/20/19 1021 I personally evaluated the patient and discussed the management with Dr. Zee I agree with the History, Examination, Assessment and Plan documented above with any addition or exceptions noted below. Pulse has improved with fluids but remains tachycardic. per pulm, will not be weanable in the near future. I had a long discuss with the patient's mother regarding goals of care and will follow up with her tomorrow. Continue antimicrobial coverage. Prognosis remains guarded.
[2019-05-20] MEDS: fentaNYL Citrate/PF 2,000 MCG in Sodium Chloride 0.9% 60 ML IV SCH (08:53)
[2019-05-20 09:35] LABS: Potassium 3.1 mmol/L (3.5-5.1)
[2019-05-20] MEDS: Micafungin 100 MG in Sodium Chloride 0.9% 100 ML IVPB SCH (10:18)
[2019-05-20] MEDS: Vancomycin HCl 1.25 GM in Sodium Chloride 0.9% 250 ML 250 ML IVPB SCH (13:52)
[2019-05-20] MEDS: Lactated Ringer's 1,000 ML IV SCH ×3 (14:52→22:36)
[2019-05-20] MEDS: Cefepime 2 GM in Sodium Chloride 0.9% 100 ML IVPB SCH ×2 (14:57→23:01)
[2019-05-20 16:18] LABS: Magnesium 1.7 mg/dL (1.6-2.6); Potassium 3.3 mmol/L (3.5-5.1)
[2019-05-21] MEDS: Vancomycin HCl 1.25 GM in Sodium Chloride 0.9% 250 ML 250 ML IVPB SCH ×2 (02:20→16:47)
[2019-05-21 03:56] LABS: Band 8 % (5-11); Hemoglobin 7.1 g/dL (14.0-18.0); Lymphocytes 4 % (21-51); MDiff Complete? YES; Mean Corpuscular Hemoglobin 31.3 pg (27.0-31.0); Mean Corpuscular Volume 94.9 fL (78.0-98.0); Mean Platelet Volume 8.3 fL (7.4-10.4); Monocytes 5 % (0-10); Neutrophil 83 % (42-75); Platelet Count 162 thou/uL (130-400); Platelet Morphology Comment Appears Adequate; RBC Distribution Width 15.9 % (11.5-14.5); Red Blood Cell (RBC) Count 2.26 mill/uL (4.70-6.10); White Blood Cell (WBC) Count 18.5 thou/uL (4.8-10.8)
[2019-05-21 04:06] LABS: Anion Gap 10 mmol/L (10-20); BUN (Urea Nitrogen) 14 mg/dL (8.9-20.6); Calc. Creatinine Clearance 151 mL/min (70-130); Calcium 8.8 mg/dL (7.8-10.44); Carbon Dioxide 22 mmol/L (22-29); Chloride 106 mmol/L (98-107); Estimated GFR-MDRD Greater than 90; Glucose 132 mg/dL (70-105); Phosphorus 2.2 mg/dL (2.3-4.7); Sodium 135 mmol/L (136-145)
[2019-05-21 04:08] LABS: Potassium 2.7 mmol/L (3.5-5.1)
[2019-05-21] MEDS: Propofol 1,000 MG/100 ML VIAL IV PRN ×2 (05:56→16:53)
[2019-05-21] MEDS: Hydrocortisone Sod Succ/PF 100 mg/2 ml Vial IVP SCH ×2 (05:57→17:51)
[2019-05-21] MEDS: Lactated Ringer's 1,000 ML IV SCH ×3 (05:57→18:57)
[2019-05-21] MEDS: Albuterol Sulfate 2.5 mg/3 ml Neb NEB SCH ×3 (06:20→18:50)
[2019-05-21 06:53] LABS: Actual Bicarbonate (HCO3a) 23.7 mEq/L (22-28); CO2 Tension 34.2 mmHg (35.0-45.0); Calcium, Ionized 1.22 mmol/L (1.12-1.30); Hemoglobin (Hb) 7.6 g/dL (14.0-18.0); O2 Tension (PaO2) 68.9 mmHg (80.0-100.0); Potassium - ABG Lab 2.69 mmol/L (3.70-5.30); pH, Arterial 7.46 (7.35-7.45)
[2019-05-21 06:54] LABS: Puncture Site LRA
--- NOTE | 2019-05-21 07:20 | PDOC.FM ---
- Subjective Subjective: Pt remains intubated and sedated. No acute events overnight. - Objective Vital Signs & Weight: Vital Signs (12 hours) Temp Pulse Resp BP Pulse Ox 05/21/19 06:25 95 174/103 H 05/21/19 06:20 95 24 H 98 05/21/19 06:00 25 H 05/21/19 04:00 98.6 F 17 05/21/19 02:00 25 H 05/21/19 01:59 107 H 129/83 05/21/19 00:00 98.8 F 26 H 05/20/19 23:58 95 122/75 05/20/19 22:08 104 H 139/93 H 05/20/19 22:00 25 H 05/20/19 20:00 25 H 97 Weight Admit Weight 60.781 kg Weight 63.8 kg Most Recent Monitor Data Heart Rate from ECG 100 NIBP 174/103 NIBP BP-Mean 126 Respiration from ECG 18 SpO2 100 I&O: 05/20/19 05/21/19 05/22/19 06:59 06:59 06:59 Intake Total 2923 3979 Output Total 2170 3195 Balance 753 784 Result Diagrams: 05/21/19 03:12 05/21/19 03:12 Phys Exam - Physical Examination Constitutional: NAD HEENT: moist MMs, sclera anicteric Neck: no JVD, supple Respiratory: no wheezing, no rales Cardiovascular: RRR, no significant murmur Gastrointestinal: soft, no distention Musculoskeletal: no edema, pulses present sedated Deviation from normal: sedated Skin: normal turgor, cap refill <2 seconds Dx/Plan (1) Acute respiratory failure with hypoxia Code(s): J96.01 - ACUTE RESPIRATORY FAILURE WITH HYPOXIA Status: Acute (2) SIRS (systemic inflammatory response syndrome) Code(s): R65.10 - SIRS OF NON-INFECTIOUS ORIGIN W/O ACUTE ORGAN DYSFUNCTION Status: Acute (3) Hypomagnesemia Code(s): E83.42 - HYPOMAGNESEMIA Status: Acute (4) Hyponatremia Code(s): E87.1 - HYPO-OSMOLALITY AND HYPONATREMIA Status: Acute (5) Physical deconditioning Code(s): R53.81 - OTHER MALAISE Status: Acute (6) Anxiety Code(s): F41.9 - ANXIETY DISORDER, UNSPECIFIED Status: Chronic (7) Depression Code(s): F32.9 - MAJOR DEPRESSIVE DISORDER, SINGLE EPISODE, UNSPECIFIED Status : Chronic (8) GERD (gastroesophageal reflux disease) Code(s): K21.9 - GASTRO-ESOPHAGEAL REFLUX DISEASE WITHOUT ESOPHAGITIS Status: Chronic (9) Stage 4 lung cancer Code(s): C34.90 - MALIGNANT NEOPLASM OF UNSP PART OF UNSP BRONCHUS OR LUNG Status: Chronic - Plan Plan: May 21, 2019 A- Overall pt remains stable but unimproved. The etiology of his respiratory distress and dependency on the vent is unclear though likely related to his cancer. Cultures are negative which indicate he does not have infection but he is high risk and merrits continued empiric ABX. His tachycardia has resolved with the fentanyl drip. P-Continue Vent, wean as tolerated per pulm recs. Will continue ABX. Will replace his electrolytes as necessary. Will have family meeting today to discuss goals of care Acute Hypoxic Respiratory Failure: A- unclear etiology. DDx includes infectious etiology, neoplasm, PE (ruled out with neg CTA). CTA: no PE per Vrad report, official read pending. CXR: RUL bullous area considered to be scarring per radiologist read, no acute changes P- continue empiric ABX- vanc, cefepime, levaquin -Vent mgmt per pulm and RT -Pulm consult, recs much appreciated SIRS without Source: A- on admission pt had tachycardia, elevated WBC, and increased RR. blood and urine cx pending. procal unimpressive 0.2. Considering the acuity of this pt will continue ABX for now P-Continue broad spectrum abx- Vanc, cefepime, and Levaquin -f/u BCx -IVF Tachycardia A- resolved after adding fentanyl drip, it seems it may have been related to some pain vs. low fluid status P- continue IVF -fentanyl drip -continue to monitor Adrenal Insufficiency: A- received stress dose 100mg solucortef in ED. at home pt was on fludrocortisone 0.1/day, and prednisone 15mg/day. P- will give stress dosing until acute illness has resolved, then resume home regimen Chronic Hyponatremia: A- improved from discharge last time P- will monitor and restart home NaCl tab once tolerating PO -continue NS Anemia -chronic, likely 2/2 chemotherapy hypokalemia -replace and recheck as needed Hyperphosphatemia: -replace and recheck as needed Hypomagnesemia: -replace and recheck as needed Stage IV Lung Cancer: -heme/onc consult DVT PPx: Lovenox GI PPx: Protonix Code Status: Discussed with mother- Full code Dispo: poor, will have family meeting today to discuss goals of care Addendum - Attending - Attending Attestation Date/Time: 05/21/19 1010 I personally evaluated the patient and discussed the management with Dr. Zee I agree with the History, Examination, Assessment and Plan documented above with any addition or exceptions noted below. Patient failed vent weaning trial this morning but PO2 improved with current vent settings. CXR shows possible ELVIN infiltrate. Will continue antimicrobial coverage. Replace postassium and magnesium aggressively as the patient has a history of electrolyte derangements. His hemoglobin dropped to 7 overnight so he is to be typed, crossmatched, and transfused 1 U PRBCs since he has a history of profound anemia. he is making small improvements but is still critically ill. [facility]PC prognosis is still guarded. Family meeting today to discuss goals of care.
[2019-05-21] MEDS ORDERED: Potassium Chloride 40 MEQ in Premix Bag 1 BAG IVPB SCH (07:30)
--- NOTE | 2019-05-21 08:32 | CON ---
DATE OF CONSULTATION: REASON FOR CONSULTATION: Metastatic lung cancer. 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 The patient has multiple recent admissions for shortness of breath, fatigue, weakness, electrolyte abnormalities, and recently admitted to rehab last month. The patient's last chemotherapy was ~ 6 weeks ago. The patient arrived to the ER and was promptly intubated and started on Levaquin, vancomycin, and cefepime and a CT angio revealed a right upper lobe partial collapse, bullous formation, most likely pneumonia. Recent CT of the abdomen and pelvis showed that his liver metastases have improved with treatment. I spoke with the patient's mother at the bedside. REVIEW OF SYSTEMS: Unable to obtain as the patient is sedated and intubated. PAST MEDICAL HISTORY: Stage IV lung cancer, adrenal insufficiency, diverticulitis, anxiety and depression. PAST SURGERY HISTORY: mediport. FAMILY HISTORY: no cancer. SOCIAL HISTORY: A 1.5 pack per day smoking history. Former alcohol abuse. PHYSICAL EXAMINATION: VITAL SIGNS: Temperature 98.4, pulse 102, blood pressure 120/73, saturating well on MVI. GENERAL APPEARANCE: The patient is currently intubated. HEENT: NC/AT. LUNGS: Mechanical ventilation sounds, mostly clear to auscultation with some decreased breath sounds in the right anterior lung field. CARDIAC: S1 and S2. Regular rhythm and rate. ABDOMEN: Soft. NEUROLOGICAL: Unable to assess as the patient sedated. IMAGING STUDIES: CT angio 05/18/2019 shows no evidence of PE with sublobar collapse of the medial right upper lobe with a discrete central mass not appreciated and considerable bullous change in the right upper lobe. There is a mildly prominent subcarinal and pretracheal lymph nodes and reticular nodular, interstitial infiltrate in the lower lobes bilaterally which is nonspecific. LABORATORY DATA: White blood cells 31.1, hemoglobin 8.4, platelets 194. Sodium 133, potassium 2.6, BUN 15, creatinine 0.66, lactate 1.4. ASSESSMENT AND PLAN: A 39-year-old male with stage IV lung cancer with acute respiratory failure, currently intubated. The patient appears to have pneumonia and is currently covered with vancomycin, cefepime, Levaquin, and has also been started on micafungin to cover for potential fungal infection. He is also currently using stress dose steroids due to history of adrenal insufficiency. He also has aggressive electrolyte repletion measures in place. Regarding the patient's lung cancer, he has shown response to his chemotherapy, however, he has not received chemotherapy in 6 weeks due to repeat hospitalizations and poor performance status. At this time, I would not recommend hospice based on his cancer response to treatment, however, with that being said , his cancer still is not curable and if he does not recover from this acute illness and is unable to be extubated in a reasonable time, then terminal extubation may be something that I would recommend. We will follow along with you. Job ID: [id number] MTDD
--- NOTE | 2019-05-21 08:41 | PRG ---
DATE OF SERVICE: 05/21/2019 TIME SPENT: 35 minutes of critical care time. SUBJECTIVE: The patient is much more calm today. His tachypnea has resolved. OBJECTIVE: VITAL SIGNS: His temperature is 98.6, pulse 103, blood pressure 156/92. A 24-hour intake 3979, output 3195. HEENT: Unremarkable except for alopecia. NECK: No adenopathy or JVD. LUNGS: Clear anteriorly. CARDIOVASCULAR: S1 and S2, regular. ABDOMEN: Soft. EXTREMITIES: Muscle wasting present. IMAGING STUDIES: Chest x-ray shows no obvious mass, effusion, or infiltrate. LABORATORY DATA: ABG; pH 7.46, pCO2 of 34, pO2 of 68 on SIMV rate 12, tidal volume 400, PEEP 6, pressure support 10, FiO2 of 30%. White blood cell count 18.5, hematocrit 21.4, and platelet count 162. Sodium 135, potassium 2.7, chloride 106, CO2 of 22, BUN 14, creatinine 0.5, glucose 132, phosphorus 2.2, and magnesium 1.4. ASSESSMENT: 1. Acute respiratory failure, requiring mechanical ventilation. 2. Severe protein-calorie malnutrition. 3. Refeeding syndrome with decreased potassium, magnesium, and phosphate. 4. Stage IV lung cancer. 5. Adrenal insufficiency. 6. Presumed sepsis. 7. Question of critical illness myopathy. PLAN: 1. He actually looks much better today than what he looked before. He seems to be responding to the antibiotics, steroids, and I think the fentanyl drip has made a difference. Of note, I cannot find any record that he was on narcotics prior to admission, but I am wondering about the possibility of withdrawal. 2. Switch over to pressure support ventilation. 3. Wean steroid dose. 4. Decrease sedation and see if he would be a candidate for extubation. 5. Given his improvement, I would not withdraw care. Job ID: [id number]
[2019-05-21] MEDS ORDERED: Hydrocortisone Sod Succ/PF 100 mg/2 ml Vial IVP SCH (09:00)
[2019-05-21] MEDS: Pantoprazole 40 MG VIAL IVP SCH (09:30)
[2019-05-21] MEDS ORDERED: Magnesium 2 GM/50 ML 2 GM in Premix Bag 1 BAG IVPB SCH ×2 (09:45→15:00)
--- NOTE | 2019-05-21 10:09 | RAD ---
CHEST 1 VIEW: Date: 05/21/2019 HISTORY: Follow-up pneumonia. COMPARISON: 05/20/2019. FINDINGS: Patchy parenchymal changes in the left upper lobe. Evidence for a hiatal hernia. Life support tubes i n place and stable. Right upper lobe bulla. Minimal parenchymal changes in the left lower lobe, showi ng little change. IMPRESSION: Minimal patchy increased markings in the left suprahilar region possibly representing some pneumonia. Some of this may be accentuated because of rotation to the left. Moderate size hiatal hernia. Patchy increased markings in the bases, worse on the left side. POS: [facility]
[2019-05-21] MEDS: Micafungin 100 MG in Sodium Chloride 0.9% 100 ML IVPB SCH (11:25)
[2019-05-21] MEDS: Enoxaparin Sodium 40 MG/0.4 ML SYRINGE SC SCH (11:27)
[2019-05-21] MEDS: Cefepime 2 GM in Sodium Chloride 0.9% 100 ML IVPB SCH ×2 (11:29→23:16)
[2019-05-21] MEDS: Potassium Chloride 40 MEQ in Premix Bag 1 BAG IVPB SCH ×3 (11:29→20:09)
[2019-05-21 11:48] VITALS: BMI 18.1
[2019-05-21] MEDS ORDERED: Activase 2 MG VIAL CATH SCH ×2 (14:30→17:15)
--- NOTE | 2019-05-21 14:50 | PDOC.PALCO ---
Palliative Care Consult - Consult Details Requesting Physician: Dr De La Rosa Reason for Consult: goals of care, advance directives assistance, family support Family Members Present: Patient mother and girlfriend - Pertinent HPI Mr Mi is familiar to the Palliative Care Team. 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 He was discharged previous week to rehab to gain strength. He experienced shortness of breath and respiratory failure, transferred to emergency room. Initially place on CPAP but eventually required intubation to maintain airway. Admitted to CCU for higher level of care. Treated for suspected pneumonia. Currently unable to tolerate extubation and requiring sedation. - Social History Smoking Status: Former smoker Alcohol Use: occasional Drug Use History: marijuana, other Living Situation: with family/parents - Medications MAR Reviewed: Yes - Allergies Allergies/Adverse Reactions: Allergies Allergy/AdvReac Type Severity Reaction Status Date / Time Penicillins Allergy Verified 04/05/19 21:51 - Subjective Intubated, sedated - ROS Non Response: due to endotracheal tube, due to mental status - Objective Vital Signs: Vital Signs - Most Recent Temp Pulse Resp BP Pulse Ox 98.0 F 101 H 18 156/90 H 95 05/21/19 12:00 05/21/19 14:34 05/21/19 13:30 05/21/19 14:34 05/21/19 13:30 Palliative Performance Scale: 20 - Physical Exam Constitutional: emaciated, encephalitic, ill appearing HEENT: moist MMs, sclera anicteric Respiratory: unlabored breathing Deviation from normal: Mechanical ventilation, intermitt wheeze heard to right mid lobe Cardiovascular: RRR Gastrointestinal: non-tender, positive bowel sounds Genitourinary: vela catheter Musculoskeletal: no cyanosis, no clubbing, pulses present Skin: cap refill <2 seconds Deviation from normal: Pallor Deviation from normal: sedated - Problem List (1) Acute respiratory failure with hypoxia Code(s): J96.01 - ACUTE RESPIRATORY FAILURE WITH HYPOXIA Current Visit: Yes Status: Acute (2) Acute kidney injury Code(s): N17.9 - ACUTE KIDNEY FAILURE, UNSPECIFIED Current Visit: No Status : Acute (3) Palliative care encounter Code(s): Z51.5 - ENCOUNTER FOR PALLIATIVE CARE Current Visit: No Status: Acute (4) Physical deconditioning Code(s): R53.81 - OTHER MALAISE Current Visit: No Status: Acute (5) Symptomatic anemia Code(s): D64.9 - ANEMIA, UNSPECIFIED Current Visit: No Status: Acute (6) Metabolic encephalopathy Code(s): G93.41 - METABOLIC ENCEPHALOPATHY Current Visit: No Status: Chronic (7) Stage 4 lung cancer Code(s): C34.90 - MALIGNANT NEOPLASM OF UNSP PART OF UNSP BRONCHUS OR LUNG Current Visit: No Status: Chronic - Plan/Recommendations Plan: Met with patient mother and girlfriend. Asked for a teach back in relation to "how Baljeet is doing", neither able to answer other than, "we want him to get better". Education in relation to patient illness and chronic conditions, discussed revisiting goals of care and resuscitation status. Requested family meeting with siblings, physicians involved and Sophia. Communicated and will be 2/7 at noon. Emotional support and therapeutic listening. [50] minutes spent on this encounter with >50% of the time in counseling and coordination of care. Thank you for this very appropriate consult.
--- NOTE | 2019-05-21 15:10 | PDOC.PALPN ---
Palliative Progress Note - Subjective Sedated, mechanical ventilation. Family meeting - Objective Vital Signs: Vital Signs - Most Recent Temp Pulse Resp BP Pulse Ox 98.0 F 101 H 18 156/90 H 95 05/21/19 12:00 05/21/19 14:34 05/21/19 13:30 05/21/19 14:34 05/21/19 13:30 - Physical Exam Constitutional: encephalitic, ill appearing HEENT: moist MMs, sclera anicteric Deviation from normal: mechanical ventilation Cardiovascular: RRR Gastrointestinal: no distention, positive bowel sounds Genitourinary: vela catheter Musculoskeletal: no cyanosis, no clubbing, diffuse muscle atrophy Neurology: no focal deficits Skin: no lesions, no rash Deviation from normal: Pallor Deviation from normal: sedated - Assessment (1) Acute respiratory failure with hypoxia Code(s): J96.01 - ACUTE RESPIRATORY FAILURE WITH HYPOXIA Current Visit: Yes Status: Acute (2) Acute kidney injury Code(s): N17.9 - ACUTE KIDNEY FAILURE, UNSPECIFIED Current Visit: No Status : Acute (3) Palliative care encounter Code(s): Z51.5 - ENCOUNTER FOR PALLIATIVE CARE Current Visit: No Status: Acute (4) Physical deconditioning Code(s): R53.81 - OTHER MALAISE Current Visit: No Status: Acute (5) Symptomatic anemia Code(s): D64.9 - ANEMIA, UNSPECIFIED Current Visit: No Status: Acute (6) Metabolic encephalopathy Code(s): G93.41 - METABOLIC ENCEPHALOPATHY Current Visit: No Status: Chronic (7) Stage 4 lung cancer Code(s): C34.90 - MALIGNANT NEOPLASM OF UNSP PART OF UNSP BRONCHUS OR LUNG Current Visit: No Status: Chronic - Plan Plan: Family meeting with patient mother, 4 siblings (One present and three via phone) Dr Zee provided family with an overview of current health and chronic/terminal condition of patient. Discussed "hoping for the best/planning for the worst" and terminal nature of cancer with mets. Discussed quality of days verses quantity of days. *Continue aggressive care *Hope to extubate *Education in relation to Palliative Care with transition to hospice. Goal for Baljeet will become extubated, alert and able to revisit resuscitation status and goals of care Please also refer to Rosa Sims RNtransportation museum helper for further notes in note section [75] minutes spent on this encounter with >50% of the time in counseling and coordination of care. - ROS Non Response: due to endotracheal tube, due to mental status
[2019-05-21] MEDS: fentaNYL Citrate/PF 2,000 MCG in Sodium Chloride 0.9% 60 ML IV SCH (17:05)
[2019-05-21] MEDS ORDERED: Metoclopramide HCl 10 MG/2 ML VIAL IVP PRN (17:28)
[2019-05-21] MEDS ORDERED: Sterile Water 10 ML VIAL IVP SCH (17:30)
[2019-05-21 17:56] LABS: Potassium 2.3 mmol/L (3.5-5.1)
[2019-05-21 18:48] LABS: Hemoglobin 9.4 g/dL (14.0-18.0); Platelet Count 182 thou/uL (130-400)
[2019-05-21] MEDS: Metoclopramide HCl 10 MG/2 ML VIAL IVP PRN (20:20)
[2019-05-22] MEDS: Lactated Ringer's 1,000 ML IV SCH ×3 (01:06→20:21)
[2019-05-22] MEDS: Albuterol Sulfate 2.5 mg/3 ml Neb NEB SCH ×5 (01:08→23:27)
[2019-05-22] MEDS: Vancomycin HCl 1.25 GM in Sodium Chloride 0.9% 250 ML 250 ML IVPB SCH ×2 (03:02→15:51)
[2019-05-22 05:00] LABS: Band 6 % (5-11); Elliptocytes SLIGHT = 2-5 cells (100X) (0-1/hpf); Hemoglobin 9.3 g/dL (14.0-18.0); Lymphocytes 7 % (21-51); MDiff Complete? YES; Mean Corpuscular HGB CONC 33.8 g/dL (32.0-36.0); Mean Corpuscular Hemoglobin 30.9 pg (27.0-31.0); Mean Corpuscular Volume 91.5 fL (78.0-98.0); Mean Platelet Volume 8.3 fL (7.4-10.4); Monocytes 11 % (0-10); Neutrophil 76 % (42-75); Platelet Count 191 thou/uL (130-400); Platelet Morphology Comment Appears Adequate; RBC Distribution Width 17.4 % (11.5-14.5); Red Blood Cell (RBC) Count 3.01 mill/uL (4.70-6.10); White Blood Cell (WBC) Count 21.9 thou/uL (4.8-10.8)
[2019-05-22 05:23] LABS: Phosphorus 2.6 mg/dL (2.3-4.7)
[2019-05-22 05:25] LABS: Anion Gap 10 mmol/L (10-20); BUN (Urea Nitrogen) 9 mg/dL (8.9-20.6); Calc. Creatinine Clearance 166 mL/min (70-130); Calcium 8.7 mg/dL (7.8-10.44); Carbon Dioxide 29 mmol/L (22-29); Chloride 97 mmol/L (98-107); Estimated GFR-MDRD Greater than 90; Glucose 89 mg/dL (70-105); Magnesium 1.4 mg/dL (1.6-2.6); Sodium 134 mmol/L (136-145)
[2019-05-22] MEDS: Metoclopramide HCl 10 MG/2 ML VIAL IVP PRN (05:28)
[2019-05-22] MEDS: Hydrocortisone Sod Succ/PF 100 mg/2 ml Vial IVP SCH ×2 (05:29→18:07)
[2019-05-22 05:30] LABS: Potassium 2.4 mmol/L (3.5-5.1)
[2019-05-22] MEDS: Potassium Chloride 40 MEQ in Premix Bag 1 BAG IVPB PRN (05:35)
[2019-05-22] MEDS: Propofol 1,000 MG/100 ML VIAL IV PRN ×2 (05:45→22:48)
[2019-05-22] MEDS ORDERED: Potassium Chloride 40 MEQ in Premix Bag 1 BAG IVPB SCH (06:00)
--- NOTE | 2019-05-22 07:18 | PDOC.FM ---
- Subjective Subjective: pt intubated, family not present. No acute events overnight except electrolyte abnormalities. ros not obtainable - Objective Vital Signs & Weight: Vital Signs (12 hours) Temp Pulse Resp BP Pulse Ox 05/22/19 06:00 26 H 05/22/19 04:00 98.9 F 26 H 05/22/19 03:35 101 H 05/22/19 02:00 21 H 05/22/19 01:09 105 H 97 05/22/19 01:08 97 05/22/19 00:00 99.1 F 24 H 05/21/19 22:38 106 H 136/90 05/21/19 22:00 28 H 05/21/19 20:00 99.1 F 30 H 92 L Weight Admit Weight 60.781 kg Weight 60.9 kg Most Recent Monitor Data Heart Rate from ECG 104 NIBP 147/90 NIBP BP-Mean 109 Respiration from ECG 24 SpO2 95 I&O: 05/21/19 05/22/19 05/23/19 06:59 06:59 06:59 Intake Total 3979 8289.6 Output Total 3195 7550 Balance 784 739.6 Result Diagrams: 05/22/19 04:28 05/22/19 04:28 Phys Exam - Physical Examination Constitutional: NAD HEENT: moist MMs, sclera anicteric Neck: no JVD, supple Respiratory: no wheezing expiratory rhonchi bilat Cardiovascular: RRR, no significant murmur Gastrointestinal: soft, no distention Musculoskeletal: no edema, pulses present sedated Deviation from normal: sedated Skin: no rash, normal turgor Dx/Plan (1) Acute respiratory failure with hypoxia Code(s): J96.01 - ACUTE RESPIRATORY FAILURE WITH HYPOXIA Status: Acute (2) SIRS (systemic inflammatory response syndrome) Code(s): R65.10 - SIRS OF NON-INFECTIOUS ORIGIN W/O ACUTE ORGAN DYSFUNCTION Status: Acute (3) Hypomagnesemia Code(s): E83.42 - HYPOMAGNESEMIA Status: Acute (4) Hyponatremia Code(s): E87.1 - HYPO-OSMOLALITY AND HYPONATREMIA Status: Acute (5) Physical deconditioning Code(s): R53.81 - OTHER MALAISE Status: Acute (6) Anxiety Code(s): F41.9 - ANXIETY DISORDER, UNSPECIFIED Status: Chronic (7) Depression Code(s): F32.9 - MAJOR DEPRESSIVE DISORDER, SINGLE EPISODE, UNSPECIFIED Status : Chronic (8) GERD (gastroesophageal reflux disease) Code(s): K21.9 - GASTRO-ESOPHAGEAL REFLUX DISEASE WITHOUT ESOPHAGITIS Status: Chronic (9) Stage 4 lung cancer Code(s): C34.90 - MALIGNANT NEOPLASM OF UNSP PART OF UNSP BRONCHUS OR LUNG Status: Chronic - Plan Plan: May 22, 2019 A- Overall pt remains stable but unimproved. Although he initially showed some improvement yesterday he was unable to wean the vent. The etiology of his respiratory distress and dependency on the vent is unclear though likely related to his cancer. Cultures are negative which indicate he does not have infection but he is high risk and merits continued empiric ABX. P-Continue Vent, wean as tolerated per pulm recs. Will continue ABX. Will replace his electrolytes as necessary and his scheduled Mg and K will be increased.. Per family meeting we will try to wean the vent and plan for possible hospice consult in the future if family requests. They desire for him to go home. Acute Hypoxic Respiratory Failure: A- unclear etiology. DDx includes infectious etiology, neoplasm, PE (ruled out with neg CTA). CTA: no PE per Vrad report, official read pending. CXR: RUL bullous area considered to be scarring per radiologist read, no acute changes P- continue empiric ABX- vanc, cefepime, levaquin -Vent mgmt per pulm and RT -Pulm consult, recs much appreciated SIRS without Source: A- on admission pt had tachycardia, elevated WBC, and increased RR. blood and urine cx pending. procal unimpressive 0.2. Considering the acuity of this pt will continue ABX for now P-Continue broad spectrum abx- Vanc, cefepime, and Levaquin -f/u BCx -IVF Tachycardia A- resolved after adding fentanyl drip, it seems it may have been related to some pain vs. low fluid status P- continue IVF -fentanyl drip -continue to monitor Adrenal Insufficiency: A- received stress dose 100mg solucortef in ED. at home pt was on fludrocortisone 0.1/day, and prednisone 15mg/day. P- will give stress dosing until acute illness has resolved, then resume home regimen Chronic Hyponatremia: A- improved from discharge last time P- will monitor and restart home NaCl tab once tolerating PO -continue NS Anemia A- chronic, likely 2/2 chemotherapy. Pt status post 1u PRBC. P- continue to monitor hypokalemia -replace and recheck as needed Hyperphosphatemia: -replace and recheck as needed Hypomagnesemia: -replace and recheck as needed Stage IV Lung Cancer: -heme/onc consult DVT PPx: Lovenox GI PPx: Protonix Code Status: Discussed with mother- Full code Dispo: poor family meeting on 05/21: resulted in the families hopes for recovery of pts respiratory status and to re-address goals of care with him conscious. they plan for discussion of hospice so that he can go home and not back to rehab however they do not wish to terminally extubate or change code status at this time. Addendum - Attending - Attending Attestation Date/Time: 05/22/19 1257 I personally evaluated the patient and discussed the management with Dr. Zee. I agree with the History, Examination, Assessment and Plan documented above with any addition or exceptions noted below. I looked his record up on [facility] and only 1 rx in the last 6 months. Continue antibiotics, electrolyte repletion, weaning trials.
[2019-05-22 07:21] LABS: Actual Bicarbonate (HCO3a) 28.1 mEq/L (22-28); Base Excess (BEa) 5.2 mEq/L (-2.0 to +3.0); CO2 Tension 34.7 mmHg (35.0-45.0); Calcium, Ionized 1.13 mmol/L (1.12-1.30); Carboxyhemoglobin (COHb) 0.7 gm% (0.0-3.0); Hemoglobin (Hb) 10.4 g/dL (14.0-18.0); Potassium - ABG Lab 3.01 mmol/L (3.70-5.30); pH, Arterial 7.53 (7.35-7.45)
[2019-05-22 07:22] LABS: O2 Tension (PaO2) 59.7 mmHg (80.0-100.0); Puncture Site RRA
[2019-05-22 07:23] LABS: ALV-art Gradient 110.825 (0-20)
[2019-05-22] MEDS: Potassium Chloride 40 MEQ in Premix Bag 1 BAG IVPB SCH ×4 (09:58→20:22)
[2019-05-22] MEDS: Metoclopramide HCl 10 MG/2 ML VIAL IVP SCH ×3 (09:59→20:23)
[2019-05-22] MEDS: Micafungin 100 MG in Sodium Chloride 0.9% 100 ML IVPB SCH (09:59)
[2019-05-22] MEDS: Pantoprazole 40 MG VIAL IVP SCH (10:00)
[2019-05-22] MEDS: Enoxaparin Sodium 40 MG/0.4 ML SYRINGE SC SCH (10:00)
--- NOTE | 2019-05-22 10:52 | RAD ---
PORTABLE CHEST: HISTORY: Respiratory distress. COMPARISON: 05/21 and 05/20/2019 and 05/18/2019 exams. FINDINGS: Endotracheal and NG tubes and left-sided MediPort catheter are all in satisfactory position. Pronoun yaneli emphysematous lung change with large bullous changes in the right lung apex are seen. There is a small left apical pneumothorax. In retrospect, this has been present on the 2 most recent previous exams. It has not increased in size. Some atelectatic change in the retrocardiac region. IMPRESSION: Small left apical pneumothorax. This finding was telephoned to Dr. Sandoval. CODE CR POS: [facility]
[2019-05-22] MEDS: Cefepime 2 GM in Sodium Chloride 0.9% 100 ML IVPB SCH ×2 (11:45→23:00)
--- NOTE | 2019-05-22 12:32 | RAD ---
XR Chest 1 View Portable HISTORY: Follow-up of left-sided pneumothorax. COMPARISON: Exam done earlier today. FINDINGS: The left-sided pneumothorax remains stable. No other interval change noted. IMPRESSION: Stable exam. Left-sided pneumothorax is unchanged.
[2019-05-22 15:10] LABS: Potassium 3.5 mmol/L (3.5-5.1)
[2019-05-22] MEDS ORDERED: Acetaminophen 120 MG Suppository PR PRN ×2 (16:44→18:32)
--- NOTE | 2019-05-22 17:44 | RAD ---
PORTABLE CHEST: 05/22/19 HISTORY: Monitoring of pneumothorax. Heart size is within normal limits. Endotracheal and NG tubes remain in satisfactory position. Stabl e changes in the right lung apex are seen. A small left apical pneumothorax is stable. There are pare nchymal changes in the left base suggestive of atelectasis. IMPRESSION: Essentially stable exam. No significant change since the recent chest x-ray. POS: [facility]
[2019-05-22] MEDS ORDERED: Acetaminophen 650 MG Suppository PR PRN (21:09)
--- NOTE | 2019-05-23 00:44 | PDOC.BPN ---
- Brief Progress Note Paged to bedside for tachycardia and tachypnea blood cultures repeated today, febrile to 101.4 at 1600 05/22, recent neg CTA to r /o PE Breath sounds appreciated bilaterally, rales bilaterally Patient on VC, maintaining minute volume but rate in 40s Paged Dr[address] Sandoval, unavailable at this time Will check ABG and give 100mcg of fentanyl. will check doppler of lower extremities to r/o DVT patient with active cancer
[2019-05-23] MEDS ORDERED: Fentanyl 100 MCG/2 ML VIAL SLOW IVP SCH (00:45)
[2019-05-23 00:51] LABS: Actual Bicarbonate (HCO3a) 24.4 mEq/L (22-28); Base Excess (BEa) 2.4 mEq/L (-2.0 to +3.0); CO2 Tension 29.3 mmHg (35.0-45.0); Calcium, Ionized 1.11 mmol/L (1.12-1.30); Carboxyhemoglobin (COHb) 1.2 gm% (0.0-3.0); Hemoglobin (Hb) 11.5 g/dL (14.0-18.0); O2 Tension (PaO2) 64.7 mmHg (80.0-100.0); pH, Arterial 7.54 (7.35-7.45)
[2019-05-23 01:06] LABS: ALV-art Gradient 112.575 (0-20); Puncture Site L RADIAL
[2019-05-23 01:19] LABS: Bacteria/HPF None Seen HPF (None Seen); Bilirubin Negative (Negative); Blood, Urine Negative (Negative); Clarity Clear (Clear); Glucose, Urine (Dipstick) Normal (Negative); Leukocyte Negative Leu/uL (Negative); Nitrite Negative (Negative); Protein, Urine (Dipstick) 10 mg/dL (Neg-Trace); RBC/HPF 0-3 HPF (0-3); Squamous Epithelial None Seen HPF (0-3); Urobilinogen Normal mg/dL (Less than 2); WBC/HPF 0-3 HPF (0-3)
[2019-05-23] MEDS: Vancomycin HCl 1.25 GM in Sodium Chloride 0.9% 250 ML 250 ML IVPB SCH ×2 (02:59→14:50)
[2019-05-23] MEDS: Metoclopramide HCl 10 MG/2 ML VIAL IVP SCH ×4 (03:32→20:57)
[2019-05-23 04:07] LABS: Band 4 % (5-11); Hemoglobin 10.1 g/dL (14.0-18.0); Lymphocytes 14 % (21-51); MDiff Complete? YES; Mean Corpuscular HGB CONC 33.6 g/dL (32.0-36.0); Mean Corpuscular Hemoglobin 30.8 pg (27.0-31.0); Mean Corpuscular Volume 91.7 fL (78.0-98.0); Mean Platelet Volume 7.9 fL (7.4-10.4); Monocytes 3 % (0-10); Neutrophil 78 % (42-75); Platelet Count 205 thou/uL (130-400); Platelet Morphology Comment Appears Adequate; RBC Distribution Width 17.3 % (11.5-14.5); Red Blood Cell (RBC) Count 3.27 mill/uL (4.70-6.10); White Blood Cell (WBC) Count 30.1 thou/uL (4.8-10.8)
[2019-05-23 04:09] LABS: Anion Gap 13 mmol/L (10-20); BUN (Urea Nitrogen) 9 mg/dL (8.9-20.6); Calc. Creatinine Clearance 154 mL/min (70-130); Calcium 8.5 mg/dL (7.8-10.44); Carbon Dioxide 27 mmol/L (22-29); Chloride 92 mmol/L (98-107); Estimated GFR-MDRD Greater than 90; Glucose 95 mg/dL (70-105); Potassium 3.5 mmol/L (3.5-5.1); Sodium 128 mmol/L (136-145)
[2019-05-23 04:13] LABS: Phosphorus 3.3 mg/dL (2.3-4.7)
[2019-05-23 04:56] LABS: Magnesium 1.4 mg/dL (1.6-2.6)
[2019-05-23] MEDS: Hydrocortisone Sod Succ/PF 100 mg/2 ml Vial IVP SCH ×2 (05:13→18:18)
[2019-05-23] MEDS: Lactated Ringer's 1,000 ML IV SCH ×2 (07:31→18:18)
--- NOTE | 2019-05-23 07:48 | PDOC.FM ---
- Subjective Subjective: no acute events overnight, no fevers overnight ros unobtainable - Objective Vital Signs & Weight: Vital Signs (12 hours) Temp Pulse Resp BP 05/23/19 06:00 32 H 05/23/19 04:00 36 H 05/23/19 03:00 99.4 F 05/23/19 02:22 140 H 05/23/19 02:00 27 H 05/23/19 00:00 41 H 05/22/19 23:28 132 H 127/92 H 05/22/19 23:00 100.2 F H 05/22/19 22:00 32 H 05/22/19 20:00 31 H Weight Admit Weight 60.781 kg Weight 60.9 kg Most Recent Monitor Data Heart Rate from ECG 123 NIBP 127/83 NIBP BP-Mean 97 Respiration from ECG 35 SpO2 98 I&O: 05/22/19 05/23/19 05/24/19 06:59 06:59 06:59 Intake Total 8289.6 4061 Output Total 7550 4740 Balance 739.6 -679 Result Diagrams: 05/25/19 03:30 05/25/19 03:30 Phys Exam - Physical Examination Constitutional: NAD HEENT: moist MMs, sclera anicteric Neck: no JVD, supple Respiratory: no wheezing, clear to auscultation bilateral Cardiovascular: no significant murmur tachy Gastrointestinal: non-tender, positive bowel sounds Musculoskeletal: no edema, pulses present unrousable Skin: no rash Deviation from normal: spider angioma Dx/Plan (1) Acute respiratory failure with hypoxia Code(s): J96.01 - ACUTE RESPIRATORY FAILURE WITH HYPOXIA Status: Acute (2) SIRS (systemic inflammatory response syndrome) Code(s): R65.10 - SIRS OF NON-INFECTIOUS ORIGIN W/O ACUTE ORGAN DYSFUNCTION Status: Acute (3) Hypomagnesemia Code(s): E83.42 - HYPOMAGNESEMIA Status: Acute (4) Hyponatremia Code(s): E87.1 - HYPO-OSMOLALITY AND HYPONATREMIA Status: Acute (5) Physical deconditioning Code(s): R53.81 - OTHER MALAISE Status: Acute (6) Anxiety Code(s): F41.9 - ANXIETY DISORDER, UNSPECIFIED Status: Chronic (7) Depression Code(s): F32.9 - MAJOR DEPRESSIVE DISORDER, SINGLE EPISODE, UNSPECIFIED Status : Chronic (8) GERD (gastroesophageal reflux disease) Code(s): K21.9 - GASTRO-ESOPHAGEAL REFLUX DISEASE WITHOUT ESOPHAGITIS Status: Chronic (9) Stage 4 lung cancer Code(s): C34.90 - MALIGNANT NEOPLASM OF UNSP PART OF UNSP BRONCHUS OR LUNG Status: Chronic - Plan Plan: May 22, 2019 A- Overall pt remains stable but unimproved. He has been unable to wean the vent. Yesterday sedation was discontinued and pt had GCS 4/nt/6 although he was very difficult to rouse. Overnight pt tachycardia resumed and 100mcg fentanyl was given as one time dose. P-Continue Vent, wean as tolerated per pulm recs. Will continue ABX. Will replace his electrolytes as necessary. more conversation will be held with family about goals of care. Acute Hypoxic Respiratory Failure: A- unclear etiology. DDx includes infectious etiology, neoplasm, PE (ruled out with neg CTA). CTA: no PE per Vrad report, official read pending. CXR: RUL bullous area considered to be scarring per radiologist read, no acute changes P- continue empiric ABX- vanc, cefepime, levaquin -Vent mgmt per pulm and RT -Pulm consult, recs much appreciated SIRS without Source: A- on admission pt had tachycardia, elevated WBC, and increased RR. blood and urine cx pending. procal unimpressive 0.2. Considering the acuity of this pt will continue ABX for now. yesterday pt fevered to 101.4, BCx were redrawn P-Continue broad spectrum abx- Vanc, cefepime, and Levaquin -f/u BCx from yesterday -IVF Tachycardia A- intermittent. it initially resolved after adding fentanyl drip, it seems it may have been related to some pain vs. low fluid status. drip was weaned and tachycardia resumed P- continue mIVF -continue to monitor Adrenal Insufficiency: A- received stress dose 100mg solucortef in ED. at home pt was on fludrocortisone 0.1/day, and prednisone 15mg/day. P- continue solucortef 50mg BID Chronic Hyponatremia: A- worsened from yesterday, improved from last discharge. overall stable P- will monitor and restart home NaCl tab once tolerating PO -continue LR Anemia A- chronic, likely 2/2 chemotherapy. Pt status post 1u PRBC. P- continue to monitor hypokalemia -replace and recheck as needed Hyperphosphatemia: -replace and recheck as needed Hypomagnesemia: -replace and recheck as needed Stage IV Lung Cancer: -heme/onc consult DVT PPx: Lovenox GI PPx: Protonix Code Status: Discussed with mother- Full code Dispo: poor family meeting on 05/21: resulted in the families hopes for recovery of pts respiratory status and to re-address goals of care with him conscious. they plan for discussion of hospice so that he can go home and not back to rehab however they do not wish to terminally extubate or change code status at this time. Addendum - Attending - Attending Attestation Date/Time: 05/26/19 9836 I personally evaluated the patient and discussed the management with the team. I agree with the History, Examination, Assessment and Plan documented above with any addition or exceptions noted below.
[2019-05-23] MEDS: Albuterol Sulfate 2.5 mg/3 ml Neb NEB SCH ×3 (08:16→18:53)
--- NOTE | 2019-05-23 08:59 | ULT ---
BILATERAL LOWER EXTREMITY VENOUS DUPLEX EXAM: HISTORY: Immobility. Leg pain and swelling. TECHNIQUE: Real-time color Doppler evaluation of the right and left lower extremities was performed from the larisa in to the calf. This includes evaluation of the common femoral, superficial femoral, profunda femoral , saphenous, popliteal and posterior tibial veins. FINDINGS: This shows patent deep venous systems bilaterally. There is normal compressibility and augmentation. IMPRESSION: No evidence of deep venous thrombosis of either lower extremity. POS: [facility]
[2019-05-23] MEDS: Potassium Chloride 40 MEQ in Premix Bag 1 BAG IVPB SCH ×4 (09:30→20:57)
[2019-05-23] MEDS: Enoxaparin Sodium 40 MG/0.4 ML SYRINGE SC SCH (09:31)
[2019-05-23] MEDS: Pantoprazole 40 MG VIAL IVP SCH (09:31)
[2019-05-23] MEDS: Micafungin 100 MG in Sodium Chloride 0.9% 100 ML IVPB SCH (09:31)
--- NOTE | 2019-05-23 09:34 | RAD ---
PORTABLE CHEST: HISTORY: Pneumothorax. COMPARISON: Prior day's exam. FINDINGS: Bullous changes of the right upper lobe are again demonstrated. The apical pneumothorax on the left i s difficult to visualized on this exam, although I think there is still a small apical pneumothorax p resent. Left lower lobe parenchymal changes are stable. IMPRESSION: Improvement to the left apical pneumothorax. POS: [facility]
--- NOTE | 2019-05-23 11:03 | PRG ---
DATE OF SERVICE: 05/23/2019 ADDITIONAL ATTENDING: Today, Dr. Yahir Zaidi. RESIDENT: Siddhartha Zee MD I saw this patient for a total of 5 days. HISTORY OF PRESENT ILLNESS AND HOSPITAL COURSE: This is a 39-year-old male with history of stage IV lung cancer who presented to the hospital from inpatient rehab for hypoxic respiratory distress. The patient has been admitted frequently in the last few months for various reasons and was recently discharged after treatment for pneumonia and was in inpatient rehab rebuilding his strength. He had been stable for about a week and a half in inpatient rehab, however, acutely had respiratory distress. The patient was intubated in the ER and was also noted to have to be meeting SIRS criteria at that time, though a source was not apparent. Imaging studies showed chest x-rays that were repeated several times. All of them being relatively unremarkable or rather unchanged from his previous x-rays; although, he did have a bolus formation in his right upper lobe. This was also noted on CT scan and CTA, which showed no evidence of pulmonary embolism. The etiology of the patient's respiratory distress has remained unclear throughout his hospitalization. It is thought to be multifactorial by myself, possibly mass effect from tumors versus possible infectious etiology regarding this possibility. Blood cultures have been negative as was urine culture. The patient was started and remains on empiric therapy. The patient did have fever on 05/22/2019 and blood culture was redrawn. The patient was started on per rectum Tylenol and continued on his IV antibiotics. The patient was also started earlier in the course on antifungals for the possibility of fungemia. Of note, the patient also had sinus tachycardia throughout most of his hospital stay thus far. On admission, his heart rate was in the 140s and remained that way over one night. It was thought to be secondary to discomfort or pain versus hypovolemia, so the patient was volume resuscitated and also started on fentanyl drip for sedation. This eventually did resolve the tachycardia and IV fluids were dropped down to maintenance fluids. Eventually, sedation was attempted to be weaned and was weaned; however, his tachycardia did resume into the 120s. At this time, the patient also has history of adrenal insufficiency. He received a stress dose of Solu-Cortef in the emergency department and stress dosing was continued for 4 days in CCU. Currently, he is on 50 mg b.i.d. Otherwise hospital stay has been complicated by the malnutrition and electrolyte deficiencies that have been a more or less chronic issue for this patient during his more recent hospitalizations, namely hypokalemia, hypophosphatemia, and hypomagnesemia. These have been replaced in relatively large quantities each day except for the phosphate, which has been stable. Regarding the patient's stage IV lung cancer, Oncology has been consulted and has stated that the patient is no longer a candidate for chemotherapy. They recommend palliative measures at this time and states that chemotherapy would only be indicated if the patient shows a vast improvement. Overall at the time of this transition of care note, the patient's disposition is very poor. I do believe that further family meeting should be held to discuss more goals of care and possible hospice for this patient. Job ID: [id number]
[2019-05-23] MEDS: Cefepime 2 GM in Sodium Chloride 0.9% 100 ML IVPB SCH (12:07)
[2019-05-23 14:04] LABS: Vancomycin, Trough 11.3 ug/mL
[2019-05-23] MEDS: Vancomycin HCl 1 GM in Premix Bag 1 BAG IVPB SCH ×2 (14:49→23:16)
--- NOTE | 2019-05-23 20:44 | PDOC.BPN ---
- Brief Progress Note received page noting patient's family made decision to make patient DNAR Family has signed DNR paperwork
[2019-05-24] MEDS: Cefepime 2 GM in Sodium Chloride 0.9% 100 ML IVPB SCH ×2 (00:33→11:41)
[2019-05-24] MEDS: Albuterol Sulfate 2.5 mg/3 ml Neb NEB SCH ×4 (01:35→19:08)
[2019-05-24] MEDS: Metoclopramide HCl 10 MG/2 ML VIAL IVP SCH ×4 (04:03→21:14)
[2019-05-24 04:07] LABS: Anion Gap 11 mmol/L (10-20); BUN (Urea Nitrogen) 11 mg/dL (8.9-20.6); Calc. Creatinine Clearance 160 mL/min (70-130); Calcium 8.6 mg/dL (7.8-10.44); Carbon Dioxide 25 mmol/L (22-29); Chloride 94 mmol/L (98-107); Estimated GFR-MDRD Greater than 90; Glucose 132 mg/dL (70-105); Potassium 3.5 mmol/L (3.5-5.1); Sodium 126 mmol/L (136-145)
[2019-05-24 04:08] LABS: Band 1 % (5-11); Hemoglobin 9.6 g/dL (14.0-18.0); Hypochromia SLIGHT = 6-15 cells (100X) (0-5/hpf); Lymphocytes 5 % (21-51); MDiff Complete? YES; Mean Corpuscular HGB CONC 34.1 g/dL (32.0-36.0); Mean Corpuscular Hemoglobin 31.1 pg (27.0-31.0); Mean Corpuscular Volume 91.1 fL (78.0-98.0); Mean Platelet Volume 8.1 fL (7.4-10.4); Monocytes 1 % (0-10); Neutrophil 93 % (42-75); Platelet Count 200 thou/uL (130-400); Platelet Morphology Comment Appears Adequate; RBC Distribution Width 17.3 % (11.5-14.5); Red Blood Cell (RBC) Count 3.09 mill/uL (4.70-6.10); White Blood Cell (WBC) Count 26.3 thou/uL (4.8-10.8)
[2019-05-24 04:14] LABS: Magnesium 1.4 mg/dL (1.6-2.6); Phosphorus 2.6 mg/dL (2.3-4.7)
[2019-05-24] MEDS: Potassium Chloride 40 MEQ in Premix Bag 1 BAG IVPB PRN (04:49)
[2019-05-24] MEDS: Hydrocortisone Sod Succ/PF 100 mg/2 ml Vial IVP SCH ×2 (05:01→17:54)
--- NOTE | 2019-05-24 06:03 | PDOC.FM ---
- Subjective Subjective: Nursing reports pt is about the same overnight. She reports good urine output, no gag reflex, and decreased response to pain. - Objective MAR Reviewed: Yes Vital Signs & Weight: Vital Signs (12 hours) Temp Pulse Resp BP Pulse Ox 05/24/19 04:14 112 H 05/24/19 04:00 99.1 F 31 H 05/24/19 02:00 27 H 05/24/19 01:37 118 H 156/101 H 05/24/19 01:35 96 05/24/19 00:00 99.4 F 28 H 05/23/19 22:00 25 H 05/23/19 20:00 38 H 92 L 05/23/19 19:00 99.7 F H 05/23/19 18:54 124 H 90 L 05/23/19 18:53 90 L 05/23/19 18:00 30 H Weight Admit Weight 60.781 kg Weight 60.9 kg Most Recent Monitor Data Heart Rate from ECG 115 NIBP 153/97 NIBP BP-Mean 115 Respiration from ECG 30 SpO2 98 I&O: 05/22/19 05/23/19 05/24/19 06:59 06:59 06:59 Intake Total 8289.6 4061 4598 Output Total 7550 4740 3015 Balance 739.6 -679 1583 Result Diagrams: 05/24/19 03:11 05/24/19 03:11 Phys Exam - Physical Examination GCS E2 V1T M1 HEENT: PERRLA, moist MMs Neck: no JVD Coarse lung sounds, worse on the left Cardiovascular: no significant murmur Tachycardic Gastrointestinal: soft, no distention, positive bowel sounds Musculoskeletal: pulses present Trace edema in hands, obvious muscle wasting DTRs absent, gaze appears deviated Skin: cap refill <2 seconds Dx/Plan (1) Acute respiratory failure with hypoxia Code(s): J96.01 - ACUTE RESPIRATORY FAILURE WITH HYPOXIA Status: Acute (2) SIRS (systemic inflammatory response syndrome) Code(s): R65.10 - SIRS OF NON-INFECTIOUS ORIGIN W/O ACUTE ORGAN DYSFUNCTION Status: Acute (3) Hypokalemia Code(s): E87.6 - HYPOKALEMIA Status: Acute (4) Hypomagnesemia Code(s): E83.42 - HYPOMAGNESEMIA Status: Acute (5) Hyponatremia Code(s): E87.1 - HYPO-OSMOLALITY AND HYPONATREMIA Status: Acute (6) Physical deconditioning Code(s): R53.81 - OTHER MALAISE Status: Acute (7) Anxiety Code(s): F41.9 - ANXIETY DISORDER, UNSPECIFIED Status: Chronic (8) Depression Code(s): F32.9 - MAJOR DEPRESSIVE DISORDER, SINGLE EPISODE, UNSPECIFIED Status : Chronic (9) GERD (gastroesophageal reflux disease) Code(s): K21.9 - GASTRO-ESOPHAGEAL REFLUX DISEASE WITHOUT ESOPHAGITIS Status: Chronic (10) Stage 4 lung cancer Code(s): C34.90 - MALIGNANT NEOPLASM OF UNSP PART OF UNSP BRONCHUS OR LUNG Status: Chronic - Plan Plan: This is a 39 yo male with a pmh of Stage 4 lung cancer, Hx of central pontine myelinolysis, GERD, anxiety, depression Current Vent settings: SIMV 8 breaths/min, V400ml, Pressure support [id number], PEEP 5, Fio2 35 Drips: none Fluids: LR 90ml/hr Nutrition: Jevity 1.5 40ml/hr Plastic:ET/OG, vela, 20g right hand, 20g left AC, mediport left chest DVT prophylaxis: Lovenox 40mg daily GI prophylaxis: Protonix 40mg daily Code: DNAR Acute Hypoxic Respiratory Failure -Etiology continues to be unclear. PE ruled out -CXR shows RUL bullous area, possibly scaring from radiation, stable on serial exam -Continue respiratory support and attempt to wean from vent -Pulmonology consulted SIRS without source -Blood/urine cultures NGTD on second set drawn on 05/22 -Pt remains tachycardic with leukcytosis -Continue broad spectrum, empiric abx: Vanc, cefepime, Levaquin, micafungin -Procal (0.2) remains unsupportive for severe, systemic or pulmonic infection -IV fluids Tachycardia -Is improved from admission s/p fluid boluses and fentanyl drip -Continue monitoring Adrenal insufficiency -S/P stress dosing, currently receiving solucortef 50mgBID Chronic Hyponatremia -Continues to remain low, will restart NaCl tab when pt can tolerate PO Anemia -Stable, pat has received 1 uPRBCs on 05/21 hypokalemia -replace and recheck as needed -Changing LR to LR w/ K 20meq Hyperphosphatemia -replace and recheck as needed Hypomagnesemia: -replace and recheck as needed Stage IV Lung Cancer: -heme/onc consult, they believe that his cancer, though it had some response to chemo, will not be cured and palliative care is reasonable -may be contributing to #1 Severe protein/calorie malnutrition -Tube feeds Immobile -Regular turning, consider heel pads to prevent ulceration I was present for a family discussion led by Dr. De La Rosa. Based on the discussion, the direction appears to be that of terminal extubation when the pt' s family can be present. It was explained to them that his condition is worsening as is his neurological status. Addendum - Attending - Attending Attestation Date/Time: 05/24/19 1200 I personally evaluated the patient and discussed the management with Dr. Wilson I agree with the History, Examination, Assessment and Plan documented above with any addition or exceptions noted below. Patient off sedatives minimal responsiveness. No significant improvement despite aggressive and appropriate care. Dr De La Rosa has visited with the Family this AM and they are in agreement with terminal extubation. Palliative/hospice on board and family request time for sons to come from [place] and [facility] before extubation Patient is a DNR.
[2019-05-24 07:22] LABS: Base Excess (BEa) 1.4 mEq/L (-2.0 to +3.0); CO2 Tension 31.1 mmHg (35.0-45.0); Calcium, Ionized 1.13 mmol/L (1.12-1.30); Carboxyhemoglobin (COHb) 0.4 gm% (0.0-3.0); Hemoglobin (Hb) 10.5 g/dL (14.0-18.0); O2 Tension (PaO2) 63.1 mmHg (80.0-100.0); Potassium - ABG Lab 3.67 mmol/L (3.70-5.30); pH, Arterial 7.51 (7.35-7.45)
[2019-05-24 07:23] LABS: Puncture Site RRA
[2019-05-24 07:24] LABS: ALV-art Gradient 147.575 (0-20)
--- NOTE | 2019-05-24 07:47 | RAD ---
Exam: Chest one view HISTORY:Pneumonia. Follow-up exam. Pneumothorax. Comparison: 05/23/2019, 05/22/2019 FINDINGS: Cardiac silhouette: Normal Aorta: Unremarkable Pulmonary vessels: Normal Costophrenic angles: Clear Lines and tubes: Redemonstration of endotracheal tube, nasogastric tube and a left-sided Mediport cat heter. LUNGS: Left lower lobe consolidation, unchanged. Stable emphysematous changes in the right upper lobe . Pneumothorax: Left apical pneumothorax is redemonstrated, unchanged Osseous abnormalities: None IMPRESSION: 1. Stable left apical pneumothorax 2. Persistent opacification of the left lower lobe. Correlate for atelectasis, pneumonia or aspiratio n
--- NOTE | 2019-05-24 08:01 | PRG ---
DATE OF SERVICE: 05/24/2019 TIME SPENT: 30 minutes of critical care time. SUBJECTIVE: The patient remains intubated on mechanical ventilation. He has been off sedation for more than a day. He is neurologically unresponsive to commands or deep painful stimuli. However, he will gag when suctioned. OBJECTIVE: VITAL SINS: On exam, temperature 99.1, pulse 113, and blood pressure 146/92. A 24-hour intake 4598, output 3135. Appears to have been consistently producing adequate urine. HEENT: Remarkable for alopecia. Endotracheal tube in place. NECK: No JVD. LUNGS: Coarse rhonchi bilaterally. CARDIAC: S1 and S2. Slightly tachycardic. ABDOMEN: Soft and nontender. EXTREMITIES: Severe muscle wasting. LABORATORY DATA: Sodium 126, potassium 3.5, chloride 94, CO2 of 25, BUN 11, creatinine 0.5, glucose 132, and magnesium 1.4. PH of 7.51, pCO2 of 31, pO2 of 63 on SIMV rate 16, tidal volume 400, PEEP 5, pressure support 10, and FiO2 of 35%. White blood cell count 26.3, hematocrit 28.1, and platelet count 200. Cultures show no growth today. ASSESSMENT: 1. Acute respiratory failure, requiring mechanical ventilation. 2. Severe protein-calorie malnutrition. 3. Refeeding syndrome. 4. 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 5. Stage IV lung cancer. 6. Adrenal insufficiency. 7. Question of critical illness myopathy or critical illness polyneuropathy. PLAN: His ventilatory demands exceed what he could tolerate, extubated at this point. I do not think he is likely to survive and I would fully support palliative measures including extubation with comfort care. He is aggressively having his electrolytes replaced. Job ID: [id number]
[2019-05-24] MEDS: Potassium Chloride 20 MEQ in Lactated Ringer's 1,000 ML IV SCH ×2 (08:03→18:18)
[2019-05-24] MEDS: Vancomycin HCl 1 GM in Premix Bag 1 BAG IVPB SCH ×3 (08:03→21:15)
--- NOTE | 2019-05-24 08:24 | PRG ---
DATE OF SERVICE: 05/22/2019 SUBJECTIVE: Baljeet Mi is a 39-year-old gentleman with metastatic cancer of the lung, who is intubated on the vent. The sedation has been withheld since 7 a.m. in the morning. He is not responsive. He is not doing any kind of movements. OBJECTIVE: VITAL SIGNS: Upon arrival, his blood pressure is 147/90, pulse is 90, respirations are 20, saturations are 98%. He is afebrile. HEENT: Pupils equal, 3 mm. CHEST: No wheezing or crackles. CARDIAC: Normal S1 and S2. No gallop. ABDOMEN: Soft NEUROLOGICAL: Even on painful stimuli, he did not open his eyes, move any extremities. Alert and awake. LABORATORY DATA: His white count is 21,000, H and H are 9 and 27, platelet count is 191. His pO2 is 59, pCO2 is 34, pH 7.53, on a rate of 8. Potassium is 2.4, magnesium is 1.4. IMAGING STUDIES: X-ray shows questionable left apical pneumothorax. IMPRESSION: 1. Metabolic encephalopathy, rule out cerebrovascular accident versus metastasis to the brain. 2. Respiratory failure. 3. Electrolyte imbalance. 4. Relative adrenal insufficiency. 5. Mild cachexia. PLAN: CT of his head is being ordered, if he is not waking up in the next hour. Otherwise, hold sedation now for the time being until he is responsive. He is started regular scheduled doses since he is having bloody stools as well as large amount of gastric residual with bloody secretions. Family at the bedside. They understand prognosis is poor. One-half hour of critical time. Job ID: [id number]
[2019-05-24] MEDS: Lactated Ringer's 1,000 ML IV SCH (08:48)
[2019-05-24] MEDS: Enoxaparin Sodium 40 MG/0.4 ML SYRINGE SC SCH (09:52)
[2019-05-24] MEDS: Micafungin 100 MG in Sodium Chloride 0.9% 100 ML IVPB SCH (09:52)
[2019-05-24] MEDS: Pantoprazole 40 MG VIAL IVP SCH (09:53)
[2019-05-24] MEDS: Potassium Chloride 40 MEQ in Premix Bag 1 BAG IVPB SCH ×4 (09:53→20:28)
--- NOTE | 2019-05-24 10:20 | PDOC.PALPN ---
Palliative Progress Note - Subjective Mechanical ventilation, mother and sister Silvia at bedside. Encephalopathic. - Objective Vital Signs: Vital Signs - Most Recent Temp Pulse Resp BP Pulse Ox 100.4 F H 111 H 28 H 156/101 H 96 05/24/19 08:00 05/24/19 07:49 05/24/19 08:00 05/24/19 01:37 05/24/19 01:35 - Physical Exam Constitutional: encephalitic, ill appearing HEENT: moist MMs Deviation from normal: mechanical ventilation, adventicious lung sounds. Cardiovascular: RRR Gastrointestinal: non-tender, positive bowel sounds Genitourinary: vela catheter Musculoskeletal: muscle wasting Deviation from normal: Pallor Deviation from normal: non responsive. - Assessment (1) Acute respiratory failure with hypoxia Code(s): J96.01 - ACUTE RESPIRATORY FAILURE WITH HYPOXIA Current Visit: Yes Status: Acute (2) Acute kidney injury Code(s): N17.9 - ACUTE KIDNEY FAILURE, UNSPECIFIED Current Visit: No Status : Acute (3) Palliative care encounter Code(s): Z51.5 - ENCOUNTER FOR PALLIATIVE CARE Current Visit: No Status: Acute (4) Physical deconditioning Code(s): R53.81 - OTHER MALAISE Current Visit: No Status: Acute (5) Symptomatic anemia Code(s): D64.9 - ANEMIA, UNSPECIFIED Current Visit: No Status: Acute (6) Metabolic encephalopathy Code(s): G93.41 - METABOLIC ENCEPHALOPATHY Current Visit: No Status: Chronic (7) Stage 4 lung cancer Code(s): C34.90 - MALIGNANT NEOPLASM OF UNSP PART OF UNSP BRONCHUS OR LUNG Current Visit: No Status: Chronic - Plan Plan: Reviewed physician notes, communicated with Dr Wilson. Palliative Care will support family as they will transition to compassionate measures/ compassionate extubation most likely tomorrow after other family arrives. *Encouraged to say "hello to say goodby" and for family to gather around Baljeet today and tomorrow and tell stories and visit, encouraged therapeutic touch. *Will discuss with RN to have bed in a low position and that mother tried to "kiss :Liams fore head", will work with PC RN to help facilitate this. *Communicated with Father Adam Rosado as he has worked closely with the patient and family providing emotional and spiritual support. *Continue emotional support as needed, therapeutic listening. [40] minutes spent on this encounter with >50% of the time in counseling and coordination of care. - ROS Non Response: due to endotracheal tube, due to mental status
--- NOTE | 2019-05-24 11:15 | PRG ---
DATE OF SERVICE: 05/23/2019 SUBJECTIVE: Baljeet Mi is a 39-year-old gentleman, remains intubated on the vent OBJECTIVE: VITAL SIGNS: His heart rate is 131, sats 100%, respirations 30, and blood pressure 140/86. I's and O's are 4061 in and 4740 out. CHEST: Bilateral rhonchi and crackles. CARDIAC: Sinus tach. ABDOMEN: Soft. LABORATORY DATA: White count 30,000, platelet count is normal. PO2 is 64, pCO2 is 29, pH 7.54. Sodium 128. X-ray shows left lobe infiltrate. ASSESSMENT AND PLAN: Respiratory failure, pneumonia, cachexia, malnourishment, lung cancer. He is clearly not weanable at this stage. Continue supportive care, PT. Await input from family. Prognosis remains guarded. This is one-half hour of critical time. Job ID: [id number]
[2019-05-24 15:06] LABS: Vancomycin, Trough 16.8 ug/mL
[2019-05-24 22:15] VITALS: BP 169/109
[2019-05-25] MEDS: Albuterol Sulfate 2.5 mg/3 ml Neb NEB SCH ×3 (00:41→12:59)
[2019-05-25] MEDS: Metoclopramide HCl 10 MG/2 ML VIAL IVP SCH ×2 (03:20→09:39)
[2019-05-25] MEDS: Potassium Chloride 20 MEQ in Lactated Ringer's 1,000 ML IV SCH (05:50)
[2019-05-25] MEDS: Hydrocortisone Sod Succ/PF 100 mg/2 ml Vial IVP SCH (05:51)
--- NOTE | 2019-05-25 05:58 | PDOC.FM ---
- Subjective Subjective: Nursing states pt's status was unchanged overnight. They also confirm that the plan remains to terminally extubate this morning, per family. - Objective MAR Reviewed: Yes Vital Signs & Weight: Vital Signs (12 hours) Temp Pulse Resp BP Pulse Ox 05/25/19 00:00 99.0 F 30 H 05/24/19 22:14 100 169/109 H 05/24/19 22:00 34 H 05/24/19 20:00 99.5 F 34 H 100 05/24/19 19:09 104 H 94 L 05/24/19 19:08 94 L 05/24/19 18:00 37 H Weight Admit Weight 60.781 kg Weight 60.9 kg Most Recent Monitor Data Heart Rate from ECG 104 NIBP 163/104 NIBP BP-Mean 123 Respiration from ECG 32 SpO2 100 I&O: 05/23/19 05/24/19 05/25/19 06:59 06:59 06:59 Intake Total 4061 4598 3287 Output Total 4740 3135 2295 Balance -679 1463 992 Result Diagrams: 05/25/19 03:30 05/25/19 03:30 Phys Exam - Physical Examination GCS [id number] HEENT: PERRLA dry mm Neck: no JVD Coarse lungsounds diffusely Cardiovascular: no significant murmur sinus tach Gastrointestinal: soft, no distention, positive bowel sounds mild involuntary guarding, no change in vitals or position with palpation Musculoskeletal: pulses present, edema present (trace in hands) severe lower extremity muscle wasting Skin: cap refill <2 seconds Dx/Plan (1) Acute respiratory failure with hypoxia Code(s): J96.01 - ACUTE RESPIRATORY FAILURE WITH HYPOXIA Status: Acute (2) SIRS (systemic inflammatory response syndrome) Code(s): R65.10 - SIRS OF NON-INFECTIOUS ORIGIN W/O ACUTE ORGAN DYSFUNCTION Status: Acute (3) Hypokalemia Code(s): E87.6 - HYPOKALEMIA Status: Acute (4) Hypomagnesemia Code(s): E83.42 - HYPOMAGNESEMIA Status: Acute (5) Hyponatremia Code(s): E87.1 - HYPO-OSMOLALITY AND HYPONATREMIA Status: Acute (6) Physical deconditioning Code(s): R53.81 - OTHER MALAISE Status: Acute (7) Anxiety Code(s): F41.9 - ANXIETY DISORDER, UNSPECIFIED Status: Chronic (8) Depression Code(s): F32.9 - MAJOR DEPRESSIVE DISORDER, SINGLE EPISODE, UNSPECIFIED Status : Chronic (9) GERD (gastroesophageal reflux disease) Code(s): K21.9 - GASTRO-ESOPHAGEAL REFLUX DISEASE WITHOUT ESOPHAGITIS Status: Chronic (10) Stage 4 lung cancer Code(s): C34.90 - MALIGNANT NEOPLASM OF UNSP PART OF UNSP BRONCHUS OR LUNG Status: Chronic - Plan Plan: This is a 39 yo male with a pmh of Stage 4 lung cancer, Hx of central pontine myelinolysis, GERD, anxiety, depression Hospital day 6 Current Vent settings: SIMV 8 breaths/min, V400ml, Pressure support 26waQ5x, PEEP 5, Fio2 35 Drips: none Fluids: LR KCl 90ml/hr Nutrition: Jevity 1.5 40ml/hr Plastic:ET/OG, vela, 20g right hand, 20g left AC, mediport left chest DVT prophylaxis: Lovenox 40mg daily GI prophylaxis: Protonix 40mg daily Code: DNAR Plan today to terminally extubate this morning. PRN palliative medications have been ordered. Acute Hypoxic Respiratory Failure -Etiology continues to be unclear. PE ruled out -CXR shows RUL bullous area, possibly scaring from radiation, stable on serial exam -Pulmonology consulted SIRS without source -Blood/urine cultures NGTD on second set drawn on 05/22 -Pt remains tachycardic with leukcytosis -Continue broad spectrum, empiric abx: Vanc, cefepime, Levaquin, micafungin -Procal (0.2) remains unsupportive for severe, systemic or pulmonic infection -IV fluids Tachycardia -Is improved from admission s/p fluid boluses and fentanyl drip -Continue monitoring Adrenal insufficiency -S/P stress dosing, currently receiving solucortef 50mgBID Chronic Hyponatremia -Continues to remain low, will restart NaCl tab when pt can tolerate PO Anemia -Stable, pat has received 1 uPRBCs on 05/21 hypokalemia -replace and recheck as needed -Changing LR to LR w/ K 20meq Hyperphosphatemia -replace and recheck as needed Hypomagnesemia: -replace and recheck as needed Stage IV Lung Cancer: -heme/onc consult, they believe that his cancer, though it had some response to chemo, will not be cured and palliative care is reasonable -may be contributing to #1 Severe protein/calorie malnutrition -Tube feeds Immobile -Regular turning, consider heel pads to prevent ulceration Addendum - Attending - Attending Attestation Date/Time: 05/25/19 [id number] I personally evaluated the patient and discussed the management with Dr. Wilson I agree with the History, Examination, Assessment and Plan documented above with any addition or exceptions noted below. Patient off sedation several days and remains unresponsive Patient on mechanical ventilation breathing on his on with ventilatory support. group home prognosis is grave and family desires extubation and comfort care. Patient's Mother sister and eldest brother in room plan to meet with client customer manager go to [facility] and extubation noontime. Appreciate recommendations and care by Critical Care/ Pulmonology.
[2019-05-25 06:05] LABS: Anion Gap 12 mmol/L (10-20); BUN (Urea Nitrogen) 9 mg/dL (8.9-20.6); Calc. Creatinine Clearance 180 mL/min (70-130); Calcium 8.5 mg/dL (7.8-10.44); Carbon Dioxide 24 mmol/L (22-29); Chloride 92 mmol/L (98-107); Estimated GFR-MDRD Greater than 90; Glucose 103 mg/dL (70-105); Potassium 4.8 mmol/L (3.5-5.1); Sodium 123 mmol/L (136-145)
[2019-05-25 06:11] LABS: Magnesium 1.3 mg/dL (1.6-2.6); Phosphorus 3.2 mg/dL (2.3-4.7)
[2019-05-25 06:19] LABS: Band 2 % (5-11); Hemoglobin 9.7 g/dL (14.0-18.0); Lymphocytes 13 % (21-51); MDiff Complete? YES; Mean Corpuscular HGB CONC 32.7 g/dL (32.0-36.0); Mean Corpuscular Hemoglobin 30.4 pg (27.0-31.0); Mean Corpuscular Volume 92.8 fL (78.0-98.0); Mean Platelet Volume 8.4 fL (7.4-10.4); Monocytes 4 % (0-10); Myelocyte 1 % (0-0); Neutrophil 80 % (42-75); Platelet Count 216 thou/uL (130-400); Platelet Morphology Comment Appears Adequate; RBC Distribution Width 16.7 % (11.5-14.5); Red Blood Cell (RBC) Count 3.19 mill/uL (4.70-6.10); White Blood Cell (WBC) Count 18.4 thou/uL (4.8-10.8)
[2019-05-25] MEDS ORDERED: Scopolamine 1.5 mg/72 hour Patch TD SCH ×2 (06:30→13:00)
[2019-05-25] MEDS: Vancomycin HCl 1 GM in Premix Bag 1 BAG IVPB SCH (06:34)
--- NOTE | 2019-05-25 08:15 | PRG ---
DATE OF SERVICE: 05/25/2019 SUBJECTIVE: The patient remains intubated on mechanical ventilation. He has been on no sedation for several days. Does not follow commands. OBJECTIVE: VITAL SIGNS: On exam, temperature 99.5, pulse 108, blood pressure 164/116, and O2 saturation 98%. HEENT: Alopecia. NECK: No JVD. LUNGS: Coarse breath sounds. CARDIAC: S1 and S2. Regular. ABDOMEN: Soft. EXTREMITIES: Muscle wasting present. LABORATORY DATA: White blood cell count 18.4, hematocrit 29.6, and platelet count 216. Sodium 123, potassium 4.8, chloride 92, CO2 of 24, BUN 9, creatinine 0.5, and glucose 103. ASSESSMENT: 1. Stage IV lung cancer. 2. Respiratory failure, requiring mechanical ventilation. 3. Critical illness myopathy/polyneuropathy. PLAN: The family has made a decision to withdraw care today. Based on that, I will stop lab draws. I would also be supportive of stopping all nonessential medications. Job ID: [id number]
--- NOTE | 2019-05-25 08:32 | RAD ---
CHEST 1 VIEW: Date: 05/25/2019 HISTORY: Pneumonia. COMPARISON: 05/24/2019. FINDINGS/IMPRESSION: Large bullae in right upper chest. Persistent parenchymal opacity changes in the left lower lobe. Sta ble life support tubes. Increased markings in the right infrahilar region. Continue short-term follow -up. POS: [facility]
[2019-05-25] MEDS: Enoxaparin Sodium 40 MG/0.4 ML SYRINGE SC SCH (09:36)
[2019-05-25] MEDS: Pantoprazole 40 MG VIAL IVP SCH (09:37)
[2019-05-25] MEDS: Micafungin 100 MG in Sodium Chloride 0.9% 100 ML IVPB SCH (09:37)
[2019-05-25] MEDS: Potassium Chloride 40 MEQ in Premix Bag 1 BAG IVPB SCH ×2 (09:38→13:06)
[2019-05-25] MEDS: Morphine 2 MG/ML SYRINGE SLOW IVP SCH ×2 (12:03→12:09)
[2019-05-25] MEDS: Lorazepam 2 MG/ML VIAL SLOW IVP SCH ×7 (12:03→13:39)
[2019-05-25] MEDS ORDERED: Morphine 4 MG/ML VIAL ONE (12:16)
[2019-05-25] MEDS: Cefepime 2 GM in Sodium Chloride 0.9% 100 ML IVPB SCH ×2 (12:18)
[2019-05-25] MEDS ORDERED: Morphine 4 MG/ML VIAL SLOW IVP SCH (12:30)
[2019-05-25] MEDS ORDERED: Atropine Sulfate 1% Ophth Soln 5 ml Bottle PO PRN (12:36)
[2019-05-25] MEDS: Morphine 4 MG/ML VIAL SLOW IVP PRN ×5 (12:39→13:39)
--- NOTE | 2019-05-25 12:46 | PDOC.PALPN ---
Palliative Progress Note - Subjective Encephalopathic, non responsive. Family at bedside. - Objective Vital Signs: Vital Signs - Most Recent Temp Pulse Resp BP Pulse Ox 98.3 F 111 H 30 H 169/109 H 98 05/25/19 08:00 05/25/19 10:58 05/25/19 10:00 05/24/19 22:14 05/25/19 07:37 - Physical Exam Constitutional: encephalitic, moderate distress HEENT: moist MMs Respiratory: accessory muscle use, diminished lung sound, labored respirations Gastrointestinal: incontinent Genitourinary: vela catheter Musculoskeletal: no clubbing, diffuse muscle atrophy, muscle wasting Deviation from normal: focal deficits Skin: no lesions, no rash Deviation from normal: pallor - Assessment (1) Acute respiratory failure with hypoxia Code(s): J96.01 - ACUTE RESPIRATORY FAILURE WITH HYPOXIA Current Visit: Yes Status: Acute (2) Acute kidney injury Code(s): N17.9 - ACUTE KIDNEY FAILURE, UNSPECIFIED Current Visit: No Status : Acute (3) Palliative care encounter Code(s): Z51.5 - ENCOUNTER FOR PALLIATIVE CARE Current Visit: No Status: Acute (4) Physical deconditioning Code(s): R53.81 - OTHER MALAISE Current Visit: No Status: Acute (5) Symptomatic anemia Code(s): D64.9 - ANEMIA, UNSPECIFIED Current Visit: No Status: Acute (6) Metabolic encephalopathy Code(s): G93.41 - METABOLIC ENCEPHALOPATHY Current Visit: No Status: Chronic (7) Stage 4 lung cancer Code(s): C34.90 - MALIGNANT NEOPLASM OF UNSP PART OF UNSP BRONCHUS OR LUNG Current Visit: No Status: Chronic - Plan Plan: Met with patient mother, sister Janene and brother Chucky this morning. Decision to compassionately extubate this afternoon. Emotional support offered and education in relation to process with compassionate extubation. *Father Brain present offering spiritual and emotional support. *Increased Scopolamine patch and added Atropine gtts to mitigate oral secretions. *Family at bedside, Palliative Care remains available for continued support for family and symptom management/comfort measures. [40] minutes spent on this encounter with >50% of the time in counseling and coordination of care. - ROS Non Response: due to mental status
[2019-05-25 12:51] VITALS: TEMP 98.7
--- NOTE | 2019-05-25 14:41 | PDOC.BPN ---
- Brief Progress Note PE: HEENT: Pupils fixed and dilated Card: No pulse, no auscultated heart sounds Resp: No spontaneous respirations Neuro: No withdraw to painful stimuli TOD: 1347 Plan to DC all lines and vela, release to injection molding supervisor
--- NOTE | 2019-05-26 23:27 | PQF ---
SAP Temperature Regulator Pyrometer Crystal Reports Winform Viewer JONIGOVIND FLORES JAIRO CARRANZA * r [id number] CLINICAL DOCUMENTATION CLARIFICATION FORM: POST DISCHARGE Addendum to original discharge summary date: ____ Late entry note date: __ DATE: 05/26/19 ATTN: Jairo Carranza Please exercise your independent, professional judgment in responding to the clarification form. Clinical indicators are provided on the bottom of this form for your review Can you please further clarify the diagnosis of the patient based on the clinical indicators below? Please check appropriate box(es): [ ] Sepsis due to: (Pna, UTI, gangrenous gall bladder, etc.) [ x] SIRS due to non-infectious process (please specify etiology) __metastatic lung cancer no infectious source identified [ ] with organ dysfunction [ ] without organ dysfunction [ x] Severe sepsis with acute organ dysfunction of: ____respiratory failure____ (Examples: respiratory failure, encephalopathy, acute kidney failure, other) [ ] Localized infection without sepsis [ ] Other diagnosis please specify [ ] Unable to determine In addition, please specify: Present on Admission (POA): [ x] Yes [ ] No [ ] Unable to determine For continuity of documentation, please document condition throughout progress notes and discharge summary. Thank You. CLINICAL INDICATORS - SIGNS / SYMPTOMS / LABS ED Provider pg.4- Severe Sepsis H and P pg.4- "Laboratory WBC 37.4H" H and P pg.5- "SIRS" Consult pg.2 Dr. De La Rosa - "Presumed Sepsis" Family Med PN pg.4- Etiology of Respiratory failure still not clear Family PN pg.3- Acute hypoxic respiratory failure: Ddx includes infectious etiology, neoplasm Family PN 2/5 pg.3- Acute hypoxic respiratory failure- etiology continue to be unclear RISK FACTORS Acute Respiratory failure- H and P pg.1 Stage IV lung cancer- Consult Sr. De La Rosa pg.2 Severe protein calorie malnutrition- Consult Dr. De La Rosa pg.2 Pneumonia- Consult pg.2 Dr. Christian SIRS without source- Family PN pg.4 TREATMENTS: Pulmonary Consult Dr. De La Rosa Intubation with mechanical ventilation- ED Provider Chest X ray / Chest/thorax CTA 05/18 IV Fluids- MAR IV Antibiotics- MAR (This form is maintained as a part of the permanent medical record) 2014 [employer] All Rights Reserved [email or web address]
--- NOTE | 2019-05-26 23:31 | PQF ---
SAP Kalsominer Crystal Reports Winform Viewer GOVIND EVANS JAIRO CARRANZA * r [id number] CLINICAL DOCUMENTATION CLARIFICATION FORM: POST DISCHARGE Addendum to original discharge summary date: ____ Late entry note date: __ DATE: 05/26/19 ATTN:Jairo Carranza Please exercise your independent, professional judgment in responding to the clarification form. Clinical indicators are provided on the bottom of this form for your review Can you please further clarify the etiology of Acute hypoxic respiratory failure ? Please check appropriate box(s): [ x ] Acute hypoxic respiratory failure due to Severe Sepsis [ x ] Acute hypoxic respiratory failure due to lung cancer [ ] Acute hypoxic respiratory failure of unknown etiology [ ] Other diagnosis [ ] Unable to determine In addition, please specify: Present on Admission (POA): [ x ] Yes [ ] No [ ] Unable to determine For continuity of documentation, please document condition throughout progress notes and discharge summary. Thank You. CLINICAL INDICATORS - SIGNS / SYMPTOMS / LABS Family Med PN pg.4- Etiology of Respiratory failure still not clear Family PN pg.3- Acute hypoxic respiratory failure: Ddx includes infectious etiology, neoplasm Family PN 2/5 pg.3- Acute hypoxic respiratory failure- etiology continue to be unclear ED Provider pg.4- Severe Sepsis RISK FACTORS Stage IV lung cancer- Consult Sr. De La Rosa pg.2 Severe protein calorie malnutrition- Consult Dr. De La Rosa pg.2 Presumed Sepsis- Consult pg.2 Pneumonia- Consult pg.2 Dr. Christian SIRS without source- Family PN pg.4 TREATMENTS: Pulmonary Consult Dr. De La Rosa Intubation with mechanical ventilation- ED Provider Chest X ray / Chest/thorax CTA 05/18 IV Fluids- MAR IV Antibiotics- MAR (This form is maintained as a part of the permanent medical record) 2014 [employer]. All Rights Reserved Amarjit EDEN
--- NOTE | 2019-05-27 04:17 | DIS ---
DATE OF ADMISSION: 05/19/2019 DATE OF DISCHARGE: 05/25/2019 SUMMARY RESIDENT: Melchormj WilsonDO TIME OF : 05/25/2019, at 1347 hours. CAUSE OF : 1. Stage IV lung cancer, respiratory failure. 2. Systemic inflammatory response syndrome. 3. Hyponatremia. SECONDARY DIAGNOSES: Adrenal insufficiency, anemia, hypokalemia, hypophosphatemia, hypomagnesemia, severe protein caloric malnutrition, deconditioning. HOSPITAL COURSE: Please see Dr. Siddhartha Zee's transition of care note on 05/23/2019 for the details. In short, the patient was admitted on the 19 of May for respiratory failure, at which time, he was desatting to the 60s. The patient was intubated and started on broad-spectrum antibiotics in an attempts to treat an unknown source of infection. The patient continued to have respiratory support with ventilator as well as antibiotics, fluids, and tube feeding. When I took over the care of the patient, he had minimal reflexes. GCS was 3. On admission, the patient had some improvement while intubated during his hospital course. However, when I took over, the patient had decreasing GCS to the point of minimal interaction with this by noxious stimuli. The patient was off sedation for greater than 48 hours prior to terminal extubation. The patient was extubated around noon on the , proceeded to have respiratory distress, followed by failure, followed by agonal breathing, at which point the patient had PEA and . Family and father brought at bedside at time of . Job ID: [id number]
--- NOTE | 2019-05-29 12:02 | EKG ---
Test Reason : Blood Pressure : / mmHG Vent. Rate : 176 BPM Atrial Rate : 176 BPM P-R Int : 124 ms QRS Dur : 078 ms QT Int : 232 ms P-R-T Axes : 071 051 073 degrees QTc Int : 397 ms Sinus tachycardia Otherwise normal ECG Confirmed by MULU COMER ([id number]), editor producer CARLOS RIBEIRO ([id number]) on 05/29/2019 12:01:55 PM Referred By: Confirmed By:MULU COMER
== END 2019-05-25 13:47 | disposition expired | DRG 870 ==
LOC: ERS 23:24 → CCU 05-19 00:44
PROVIDERS: ADMIT Family Medicine; ATTEND Family Medicine
PROC: 5A1955Z Respiratory Ventilation, Greater than 96 Consecutive Hours (ICD-10-PCS; principal; 2019-05-19)
PROC: 0BH17EZ Insertion of Endotracheal Airway into Trachea, Via Natural or Artificial Opening (ICD-10-PCS; 2019-05-19)
DX: A41.9 Sepsis, unspecified organism (principal); J96.01 Acute respiratory failure with hypoxia; E43 Unspecified severe protein-calorie malnutrition; G93.41 Metabolic encephalopathy; R40.2314 Coma scale, best motor response, none, 24 hours or more after hospital admission; R40.2114 Coma scale, eyes open, never, 24 hours or more after hospital admission; C34.11 Malignant neoplasm of upper lobe, right bronchus or lung; C78.7 Secondary malignant neoplasm of liver and intrahepatic bile duct; E27.40 Unspecified adrenocortical insufficiency; G37.2 Central pontine myelinolysis; K57.92 Diverticulitis of intestine, part unspecified, without perforation or abscess without bleeding; R64 Cachexia; E22.2 Syndrome of inappropriate secretion of antidiuretic hormone; Z68.1 Body mass index [BMI] 19.9 or less, adult; N17.9 Acute kidney failure, unspecified; C79.70 Secondary malignant neoplasm of unspecified adrenal gland; Z66 Do not resuscitate; Z51.5 Encounter for palliative care; R65.20 Severe sepsis without septic shock; K21.9 Gastro-esophageal reflux disease without esophagitis; F32.9 Major depressive disorder, single episode, unspecified; G47.00 Insomnia, unspecified; F41.9 Anxiety disorder, unspecified; E83.42 Hypomagnesemia; F10.10 Alcohol abuse, uncomplicated; R53.81 Other malaise; D69.59 Other secondary thrombocytopenia; T45.1X5A Adverse effect of antineoplastic and immunosuppressive drugs, initial encounter; G62.9 Polyneuropathy, unspecified; E83.39 Other disorders of phosphorus metabolism; E87.6 Hypokalemia; E87.8 Other disorders of electrolyte and fluid balance, not elsewhere classified; Z87.891 Personal history of nicotine dependence; Z88.0 Allergy status to penicillin; Z79.899 Other long term (current) drug therapy; Z79.51 Long term (current) use of inhaled steroids
CPT/HCPCS: 31500; 36415; 36430; 51702; 71045; 71275; 80048; 80053; 80202; 81001; 81003; 82550; 82805; 83605; 83735; 83880; 84100; 84145; 84484; 85007; 85025; 85027; 86850; 86900; 86901; 87040; 87086; 93005; 93010; 93970; 94003; 94640; 96365; 96366; 96368; 96375; C9113; J0692; J1650; J1720; J1956; J2060; J2248; J2270; J2704; J2765; J2997; J3010; J3370; J3475; J3480; J3490; J7050; J7120; J7611; P9016; Q9967